=== PATIENT | male | born 1960 | race Caucasian/White ===

== ENCOUNTER 2017-02-20 18:29 | Inpatient (IN) | payer MEDICARE, OTHER ==
[~2017-02-20] VITALS: Ht 177.8 cm; Wt 151.3 kg
[2017-02-20 18:58] LABS: AADO2 Arterial 556.6 mmHg (7.0-24.0); Allen Test ACCEPTAB; Arterial Base Excess 8.6 mmol/L (-3.0-3); Arterial COHb 0.9 % (0.0-3.0); Arterial Fraction of Oxyhgb 96.7 % (93.0-99.0); Arterial HCO3 34.1 mmol/L (22.0-26.0); Arterial MetHb 0.2 % (0.0-1.5); Arterial Total Hemglobin 9.2 g/dl (12.0-18.0); MODE MASK - NRB
[2017-02-20 19:22] LABS: ABNORMAL IP MESSAGE 1; BASOPHILS % 0.4 % (0.0-2.0); EOSINOPHILS # 0.2 10^3/ul (0.0-0.5); EOSINOPHILS % 4.8 % (0.0-7.0); HEMOGLOBIN 7.8 g/dl (14.0-18.0); LYMPHOCYTES # 0.3 10^3/ul (0.8-2.9); LYMPHOCYTES % 7.1 % (15.0-51.0); MEAN CORPUSCULAR HEMOGLOBIN 29.2 pg (29.0-33.0); MEAN CORPUSCULAR VOLUME 97.4 fl (82.0-101.0); MEAN PLATELET VOLUME 10.2 fl (7.4-10.4); MONOCYTE # 0.4 10^3/ul (0.3-0.9); MONOCYTES % 9.2 % (0.0-11.0); NEUTROPHIL # 3.7 10^3/ul (1.6-7.5); NEUTROPHILS % 78.1 % (39.0-77.0); PLATELET COUNT 91 10^3/UL (140-415); POSITIVE DIFF @See below; RED BLOOD COUNT 2.67 10^6/ul (4.70-6.10); RED CELL DISTRIBUTION WIDTH 15.6 % (11.5-14.5); WHITE BLOOD COUNT 4.8 10^3/ul (4.8-10.8)
[2017-02-20 19:37] LABS: ADD UMIC YES; UR ASCORBIC ACID NEGATIVE (NEGATIVE); UR BACTERIA FEW /HPF (NONE SEEN); UR BILIRUBIN (Dip) NEGATIVE (NEGATIVE); UR BLOOD (Dip) 3+ mg/dL (NEGATIVE); UR CLARITY SLIGHTLY CLOUDY (CLEAR); UR COLOR AMBER (YELLOW); UR GLUCOSE (Dip) NEGATIVE (NEGATIVE); UR KETONES (Dip) NEGATIVE (NEGATIVE); UR LEUKOCYTE ESTERASE (Dip) TRACE Leu/ul (NEGATIVE); UR NITRITE (Dip) NEGATIVE (NEGATIVE); UR RBC > 182 /HPF (0-5); UR SPECIFIC GRAVITY (Dip) 1.014 (1.003-1.030); UR TOTAL PROTEIN (Dip) 2+ mg/dl (NEGATIVE); UR UROBILINOGEN (Dip) 1+ mg/dL (NEGATIVE)
[2017-02-20 19:39] LABS: INR 1.61; PROTIME 19.3 Sec (12.2-14.2); PT RATIO 1.5
[2017-02-20 19:40] LABS: PARTIAL THROMBOPLASTIN TIME 41.8 Sec (25.0-35.0)
[2017-02-20 19:46] LABS: ALBUMIN 3.4 g/dl (3.3-4.9); ALBUMIN/GLOBULIN RATIO 0.89; BILIRUBIN,INDIRECT 1.9 mg/dl (0-1.1); BILIRUBIN,TOTAL 1.9 mg/dl (0.2-1.3); CALCIUM 9.1 mg/dl (8.4-10.2); CREATININE 1.49 mg/dl (0.61-1.24); POTASSIUM 4.1 mmol/L (3.5-5.1); TOTAL PROTEIN 7.2 g/dl (6.1-8.1)
--- NOTE | 2017-02-20 19:47 | RADRPT ---
PROCEDURE: XR Chest. CLINICAL INDICATION: Possible sepsis. TECHNIQUE: Single frontal view of the chest COMPARISON: None. FINDINGS: Cardiomegaly with atherosclerotic calcifications in the thoracic aorta. Bilateral patchy air space d isease, greater at lung bases, greatest at the right lung base with a small right pleural effusion. Findings suggest bilateral patchy pneumonias. No evident pneumothorax. The osseous structures and so ft tissues are unremarkable. IMPRESSION: Bilateral patchy pneumonias with small right pleural effusion. RPTAT: UU Physician Dolly Date Time Electronically viewed and signed by Physician Dolly on 02/20/2017 19:47 RS/
[2017-02-20 19:58] LABS: TROPONIN-I 0.039 ng/ml (0.00-0.12)
[2017-02-20] MEDS ORDERED: IPRATROPIUM (NEB) 0.5 MG/2.5 ML AMP NEB STA (20:25)
[2017-02-20] MEDS ORDERED: PIPER-TAZO 3.375 GM IV (PMX) 50 ML IVPB STA (20:25)
[2017-02-20] MEDS ORDERED: VANCOMYCIN 1 GM (PMX) 250 ML IVPB STA (20:25)
[2017-02-20] MEDS ORDERED: ALBUTEROL 0.5% (NEB) 2.5 MG/0.5 ML AMP NEB STA (20:25)
[2017-02-20] MEDS ORDERED: IPRATROPIUM (NEB) 0.5 MG/2.5 ML AMP ONE (20:29)
[2017-02-20] MEDS ORDERED: ALBUTEROL 0.5% (NEB) 2.5 MG/0.5 ML AMP ONE (20:29)
[2017-02-20] MEDS ORDERED: LEVOFLOXACIN 750MG/D5W (PMX) 150 ML IVPB STA (20:43)
[2017-02-20] MEDS ORDERED: HYDROCODONE/APAP (10/325) TAB PO ONE (21:00)
[2017-02-20] MEDS ORDERED: ONDANSETRON 4 MG INJ IV PRN ×2 (21:00→23:30)
[2017-02-20] MEDS ORDERED: ACETAMINOPHEN 325 MG TAB PO PRN ×2 (21:00→23:30)
--- NOTE | 2017-02-20 21:35 | ERD ---
ER Documentation Chief Complaint Chief Complaint shortness of breath- mild distress HPI This is a 56-year-old male presented to the emergency department from [facility] with difficulty in breathing. The patient was recently discharged from [facility] after he been in the emergency department for roughly 1 month and treated for pneumonia. The patient is taking levofloxacin 500 mg once daily to treat the pneumonia. Indicates he has a history of ulcers that have been chronic for several years on his bilateral lower extremities at this time denies any leg pain or swelling. The patient has a history of morbid obesity as well as sleep apnea and complains that he feels his dyspnea has significantly worsened over the past several hours. EMS indicated that the patient was satting at 97% on room air and in route started to have some worsening of his dyspnea. They placed him on low-flow supplemental oxygen as he did have an episode of hypoxia at roughly 90%. The patient denies any fever shaking or chills. He denies a headache. He has no chest pain or pressure that radiates to the neck arm back or jaw he is an insulin-dependent diabetic. ROS All systems reviewed and are negative except as per history of present illness. Allergies Allergies: Coded Allergies: lactulose (Unverified Allergy, Severe, WEAKNESS, PT TURN PALE SOB, ) Penicillins (Unverified Allergy, Mild, RASH/HIVES, ITCHINESS, 02/20/17) PMhx/Soc History of Surgery: Yes (BILAT LEGS,CATARACT, AND TONSILLECTOMY) Anesthesia Reaction: No Hx Neurological Disorder: No Hx Respiratory Disorders: Yes Hx Cardiac Disorders: No Hx Psychiatric Problems: No Hx Miscellaneous Medical Probl: No Hx Alcohol Use: No Hx Tobacco Use: No Smoking Status: Never smoker Physical Exam Vitals Vital Signs Date Time Temp Pulse Resp B/P Pulse Ox O2 Delivery O2 Flow Rate FiO2 02/20/17 20:30 89 22 98 Aerosol 8.0 Aerosol Mask 02/20/17 19:50 100 15.0 02/20/17 19:25 100 15.0 02/20/17 19:05 98 97 100 02/20/17 18:51 Non Rebreather 15 02/20/17 18:51 Non Rebreather 15.0 02/20/17 18:50 100 15.0 02/20/17 18:32 98.4 94 22 162/86 64 Physical Exam Constitutional:Well-developed. Well-nourished. In severe respiratory distress HEENT:Normocephalic. Atraumatic.Pupils were equal round reactive to light. Moist mucous membranes.No tonsillar exudates. Neck: No nuchal rigidity. No lymphadenopathy. No posterior cervical spine tenderness or step-offs. Respiratory: Not using accessory muscles of respiration. Speaking in full complete sentences. Wheezing heard on end auscultation bilaterally. Cardiovascular: Regular rate regular rhythm.No murmurs. No rubs were appreciated.S1, S2 normal. Distal pulses not palpable due to morbid obesity however Doppler pulses heard and present bilaterally. GI: Abdomen was obese so exam is limited due to body habitus. Nontender. Non Distended. No pulsatile abdominal masses or bruits. No rebound. No guarding. Bowel sounds were present and normal. Muscle skeletal: Full range of motion of both the upper extremities bilaterally. Patient has muscular strength 1 out of 5 in the bilateral lower extremities due to lymphedema and chronic ulcers with decreased mobility. Skin: No petechia, no purpura. No lesions on the palms or the soles of the feet. No maculopapular rash. Diffuse erythremia with multiple stage I ulcers on the lateral aspects of the bilateral lower extremities with no subcutaneous emphysema no pain out of proportion to physical exam and no fluctuance or induration. 1+ pitting edema of the bilateral lower extremities NEURO: Patient was alert, awake, orientated x3.No facial droop. Gait not observed as patient is unable to ambulate Result Diagram: 02/20/17184902/20/171849 Results 24 hrs Laboratory Tests Test 02/20/17 18:48 02/20/17 18:50 Blood Gas Specimen Source Blood arterial Arterial Blood Date Drawn 02/20/2017 6:53:54 PM Arterial Blood pH (Temp corrected) 7.428 Arterial Blood pCO2 (Temp correct) 52.8mmhg Arterial Blood pO2 (Temp corrected) 103.6mmHG Arterial Blood HCO3 34.1mmol/L Arterial Blood Base Excess 8.6mmol/L Arterial Blood Oxygen Saturation 97.8mmHG Marco Test ACCEPTAB Arterial Blood Gas Puncture Site Right Radial Arterial Blood Carboxyhemoglobin 0.9% Arterial Blood Methemoglobin 0.2% Blood Gas A-a O2 Differential 556.6mmHg Oxyhemoglobin Percent 96.7% Total Hemoglobin 9.2g/dl Blood Gas Temperature 37.0C Blood Gas Modality MASK - NRB FiO2 100.0% Blood Gas Notified Whom BR Blood Gas Notified Time 02/20/2017 6:58:21 PM White Blood Count 4.810^3/ul Red Blood Count 2.6710^6/ul Hemoglobin 7.8g/dl Hematocrit 26.0% Mean Corpuscular Volume 97.4fl Mean Corpuscular Hemoglobin 29.2pg Mean Corpuscular Hemoglobin Concent 30.0g/dl Red Cell Distribution Width 15.6% Platelet Count 9110^3/UL Mean Platelet Volume 10.2fl Neutrophils % 78.1% Lymphocytes % 7.1% Monocytes % 9.2% Eosinophils % 4.8% Basophils % 0.4% Nucleated Red Blood Cells % 0.0/100WBC Neutrophils # 3.710^3/ul Lymphocytes # 0.310^3/ul Monocytes # 0.410^3/ul Eosinophils # 0.210^3/ul Basophils # 0.010^3/ul Nucleated Red Blood Cells # 0.010^3/ul Prothrombin Time 19.3Sec Prothrombin Time Ratio 1.5 INR International Normalized Ratio 1.61 Activated Partial Thromboplast Time 41.8Sec Urine Color JESSICA Urine Clarity SLIGHTLY CLOUDY Urine pH 5.0 Urine Specific [place] 1.014 Urine Ketones NEGATIVEmg/dL Urine Nitrite NEGATIVEmg/dL Urine Bilirubin NEGATIVEmg/dL Urine Urobilinogen 1+mg/dL Urine Leukocyte Esterase TRACELeu/ul Urine Microscopic RBC > 182/HPF Urine Microscopic WBC 88/HPF Urine Bacteria FEW/HPF Urine Hemoglobin 3+mg/dL Urine Glucose NEGATIVEmg/dL Urine Total Protein 2+mg/dl Sodium Level 141mmol/L Potassium Level 4.1mmol/L Chloride Level 98mmol/L Carbon Dioxide Level 34mmol/L Anion Gap 13 Blood Urea Nitrogen 40mg/dl Creatinine 1.49mg/dl Glucose Level 119mg/dl Lactic Acid Level 1.1mmol/L Calcium Level 9.1mg/dl Total Bilirubin 1.9mg/dl Direct Bilirubin 0.00mg/dl Indirect Bilirubin 1.9mg/dl Aspartate Amino Transf (AST/SGOT) 42IU/L Alanine Aminotransferase (ALT/SGPT) 35IU/L Alkaline Phosphatase 108IU/L Troponin I 0.039ng/ml B-Type Natriuretic Peptide 2960PG/ML Total Protein 7.2g/dl Albumin 3.4g/dl Globulin 3.80g/dl Albumin/Globulin Ratio 0.89 Amylase Level 67U/L Lipase 246U/L Current Medications Medications (Trade) Dose Ordered Sig/Marina Route PRN Reason Start Time Stop Time Status Last Admin Dose Admin Vancomycin HCl 250 ml @ 125 mls/hr ONCE STAT IVPB 02/20/17 20:25 02/20/17 22:24 02/20/17 20:58 Piperacillin Sod/ Tazobactam Sod (Zosyn 3.375gm/ 50 ml (Pmx)) 50 ml @ 100 mls/hr ONCE STAT IVPB 02/20/17 20:25 02/20/17 20:54 UNV Albuterol (Proventil 0.5% (Neb)) 10 mg ONCE STAT NEB 02/20/17 20:25 02/20/17 20:37 DC 02/20/17 20:41 Ipratropium [place] (Atrovent 0.02% (Neb)) 0.5 mg ONCE STAT NEB 02/20/17 20:25 02/20/17 20:37 DC 02/20/17 20:39 Albuterol (Proventil 0.5% (Neb)) 2.5 mg STK-MED ONCE .ROUTE 02/20/17 20:29 02/20/17 20:30 DC Ipratropium [place] (Atrovent 0.02% (Neb)) 0.5 mg STK-MED ONCE .ROUTE 02/20/17 20:29 02/20/17 20:30 DC Ondansetron HCl (Zofran Inj) 4 mg ER BRIDGE PRN IV NAUSEA AND/OR VOMITING 02/20/17 21:00 02/21/17 20:59 Acetaminophen 650 mg 650 mg ER BRIDGE PRN PO MILD PAIN/FEVER 02/20/17 21:00 02/21/17 20:59 Levofloxacin/ Dextrose (Levaquin 750 Mg/ D5W 150 ml (Pmx)) 150 ml @ 100 mls/hr ONCE STAT IVPB 02/20/17 20:43 02/20/17 22:12 Acetaminophen/ Hydrocodone Bitart (Model (10/325)) 1 tab ONCE ONCE PO 02/20/17 21:00 02/20/17 21:01 DC 02/20/17 21:03 Procedures/MDM The patient presented to the emergency department with dyspnea. My differential diagnosis included but was not limited to upper airway obstruction, CHF, pulmonary embolism, cardiac ischemia, pneumonia, pneumothorax, anemia, drug overdose, pulmonary edema, COPD or asthma. Due to the patient's severe respiratory distress and concern for sleep apnea and due to narcosis I placed the patient on the BiPAP and obtained a blood gas that showed mild PCO2 of 52 and a pH of 7.4. The patient had significant improvement on the BiPAP. Chest radiograph ordered reviewed by myself as well as the radiologist did confirm pneumonia. The patient was treated for possible sepsis however his lactic acid was normal at this time and given that the patient has an allergy to penicillin was given levofloxacin and vancomyosin. Please note that a fluid bolus was not given to the patient due to the concern for fluid overload as the patient's BNP was elevated and he could have an underlying congestive heart failure. One view chest radiograph indicated the following: Bilateral patchy pneumonias with small right pleural effusion. 12 Lead EKG tracing ordered and reviewed by myself showed: Normal sinus rhythm of 91 bpm and no arrhythmia. WI interval normal. QRS duration normal. No ST segment elevation No ST segment depression. No changes consistent with acute ischemia. The patient was anemic with a hemoglobin of 7.8. Patient did not have any signs of an active upper or lower gastrointestinal bleed at this time. He was typed and screened however I did not administer a blood transfusion as I did not feel this was required at this time. The patient's hemoglobin will be followed closely upon admission. The patient also had a urinary tract infection. The patient also appeared to have prerenal azotemia and was given a liter bolus of normal saline but again was watched closely to prevent fluid overload The patient will go to the telemetry service in serious condition with an anticipated stay of greater than 2 midnights to the hospitalist Dr. Bermudez. Critical Care: Time: 50 minutes Treatments/Evaluations: Close monitoring and treatment of unstable vital signs, cardiorespiratory, and neurologic status, while maintaining tight balance of fluid, respiratory, and cardiac interventions. Time does not include performing any of the above billable procedures. Departure Diagnosis: Primary Impression: Pneumonia Pneumonia type: due to unspecified organism Laterality: bilateral Lung location: unspecified part of lung Qualified Code: J18.9 - Pneumonia of both lungs due to infectious organism, unspecified part of lung Additional Impressions: UTI (urinary tract infection) Urinary tract infection type: acute cystitis Hematuria presence: with hematuria Qualified Code: N30.01 - Acute cystitis with hematuria Respiratory distress Anemia Anemia type: iron deficiency Iron deficiency anemia type: unspecified iron deficiency Qualified Code: D50.9 - Iron deficiency anemia, unspecified iron deficiency anemia type Condition: Serious ANNE TRAN Feb 20, 2017 21:31
[2017-02-20 21:41] VITALS: TEMP 98.7
[2017-02-20 23:20] VITALS: BP 123/60; RESP 18
[2017-02-20] MEDS ORDERED: SOD CHLORIDE 0.9% 1,000 ML IV SCH (23:30)
[2017-02-20] MEDS ORDERED: LEVOFLOXACIN 500MG/D5W (PMX) 100 ML IVPB SCH (23:30)
[2017-02-20] MEDS ORDERED: morphine 2 MG INJ IV PRN (23:30)
[2017-02-20] MEDS ORDERED: NACL 0.9% 3 ML SYG IV SCH (23:30)
[2017-02-20] MEDS ORDERED: VANCOMYCIN IV PER PHARMACY XX SCH (23:30)
[2017-02-21] VITALS (13 sets, daily range): BP systolic 114–137; BP diastolic 59–94; PULSE 91–100; RESP 17–22; Ht 177.8 cm; Wt 151.3 kg
[2017-02-21] MEDS ORDERED: VANCOMYCIN 1 GM in NS 250 ML IVPB SCH ×2 (00:30→13:00)
[2017-02-21] MEDS: ALBUTEROL/IPRATROPIUM (NEB) 3 ML AMP HHN PRN ×2 (00:38→05:47)
[2017-02-21 02:22] LABS: AADO2 Arterial 422.4 mmHg (7.0-24.0); Allen Test ACCEPTAB; Arterial Base Excess 9.4 mmol/L (-3.0-3); Arterial COHb 0.9 % (0.0-3.0); Arterial Fraction of Oxyhgb 98.4 % (93.0-99.0); Arterial HCO3 35.3 mmol/L (22.0-26.0); Arterial MetHb 0.3 % (0.0-1.5); Arterial Total Hemglobin 8.2 g/dl (12.0-18.0); Blood Gas IEPAP 15/5; MODE MASK - BIPAP
--- NOTE | 2017-02-21 05:38 | HP ---
Date/Time of Note Date/Time of Note DATE: 02/21/17 TIME: 05:27 Assessment/Plan VTE Prophylaxis VTE Prophylaxis Intervention: heparin Lines/Catheters IV Catheter Type (from Nrsg): Peripheral IV Urinary Cath still in place: Yes Reason Cath still needed: terminal illness/intractable pain Assessment/Plan Assessment/Plan 1. Hypoxic and hypercapnic respiratory failure, secondary to bilateral pneumonia and KAYLEE - IV antibiotics. Patient is allergic to penicillin -Follow-up culture results -Positive pressure ventilation as needed -ABG in a.m. -Pulmonary consult 2. KAYLEE, secondary to obesity -Supplemental oxygen -PPV as needed 3. Normocytic anemia, evaluate for GI bleed and iron deficiency -Check iron profile, ferritin and FOBT -Check a.m. lab and transfuse if no change or worsening H&H 4. Morbid obesity with a BMI of 48 -Weight reduction is advised 5. Presumed CKD -Gentle hydration -Urine electrolytes, renal ultrasound and nephrology consult -If this turned out to be KOREY, this could be prerenal from possible GI bleed 6. Elevated BNP -2D echo -Not diuresis for now given elevated creatinine 7. Insulin-dependent diabetes -Check A1c -Insulin HPI/ROS Admit Date/Time Admit Date/Time Feb 20, 2017 at 20:38 Hx of Present Illness This is a 56-year-old morbidly obese male with a BMI of 48, with a history of KAYLEE, insulin-dependent diabetes and a bilateral lower extremity ulcers who was sent from [facility] for shortness of breath and hypoxia. He was recently admitted to [facility] with a diagnosis of pneumonia. When he presented to the ER, he was hypoxic with oxygen saturation of 64%. ABG shows a pH of 7.4, PCO2 53, PO2 104 and a bicarb 34 on 100% FiO2. Chest x-ray showed bilateral patchy pneumonias with small right pleural effusion. Lab shows a BNP of 3000, hemoglobin of 7.8, BUN 40 and a creatinine of almost 1.5 otherwise CBC and CMP are within acceptable range. . PMH/Family/Social Social History Smoking Status: Never smoker Exam/Review of Systems Vital Signs Vitals Vital Signs Date Time Temp Pulse Resp B/P Pulse Ox O2 Delivery O2 Flow Rate FiO2 02/21/17 04:13 99 02/21/17 04:00 97 Non Rebreather 15.0 02/21/17 03:33 98.2 20 136/72 02/21/17 02:49 100 Intake and Output 02/20/17 02/20/17 02/21/17 15:00 23:00 07:00 Intake Total 1000 ml Output Total 1550 ml Balance -550 ml Exam Constitutional: other (Morbidly obese male lying in bed. Currently on BiPAP) Head: normocephalic Respiratory: diminished breath sounds Cardiovascular: other (Tachycardic with regular rhythm) Gastrointestinal: other (Morbidly obese), soft Extremities: normal pulses Labs Result Diagram: 02/20/17184902/20/171849 Medications Medications Current Medications Ondansetron HCl (Zofran Inj) 4 mg Q6H PRN IV NAUSEA AND/OR VOMITING; Start 03/27 at 23:30 Acetaminophen (Tylenol Tab) 650 mg Q6H PRN PO PAIN LEVEL 1-3 OR FEVER; Start 02/20/17 at 23:30 Morphine Sulfate 2 mg 2 mg Q4H PRN IV PAIN LEVEL 7-10; Start 02/20/17 at 23:30 Levofloxacin/ Dextrose 100 ml @ 100 mls/hr Q24H IVPB ; Start 02/21/17 at 22:00 Vancomycin HCl (Vancocin) 250 ml @ 125 mls/hr Q12H IVPB ; Start 02/21/17 at 13 :00 IMANI HALL MD Feb 21, 2017 05:37
[2017-02-21] MEDS ORDERED: GLUCAGON 1 MG INJ IM PRN (06:00)
[2017-02-21] MEDS ORDERED: GLUCOSE GEL 15 GRAM TUBE BUCCAL PRN (06:00)
[2017-02-21] MEDS ORDERED: GLUCOSE GEL 15 GRAM TUBE PO PRN ×2 (06:00)
[2017-02-21] MEDS ORDERED: DEXTROSE 50% 50 ML SYRINGE IV PRN ×2 (06:00)
[2017-02-21 07:03] LABS: ABNORMAL IP MESSAGE 1; BASOPHILS % 0.4 % (0.0-2.0); EOSINOPHILS # 0.2 10^3/ul (0.0-0.5); EOSINOPHILS % 4.7 % (0.0-7.0); HEMATOCRIT 24.9 % (42.0-52.0); HEMOGLOBIN 7.1 g/dl (14.0-18.0); LYMPHOCYTES # 0.5 10^3/ul (0.8-2.9); LYMPHOCYTES % 9.6 % (15.0-51.0); MEAN CORPUSCULAR HEMOGLOBIN 27.8 pg (29.0-33.0); MEAN CORPUSCULAR HGB CONC 28.5 g/dl (32.0-37.0); MEAN CORPUSCULAR VOLUME 97.6 fl (82.0-101.0); MEAN PLATELET VOLUME 10.4 fl (7.4-10.4); MONOCYTE # 0.5 10^3/ul (0.3-0.9); MONOCYTES % 11.1 % (0.0-11.0); NEUTROPHIL # 3.4 10^3/ul (1.6-7.5); NEUTROPHILS % 73.6 % (39.0-77.0); PLATELET COUNT 82 10^3/UL (140-415); POSITIVE DIFF @See below; RED BLOOD COUNT 2.55 10^6/ul (4.70-6.10); RED CELL DISTRIBUTION WIDTH 15.8 % (11.5-14.5); WHITE BLOOD COUNT 4.7 10^3/ul (4.8-10.8)
[2017-02-21 07:22] LABS: IRON 38 ug/dl (35-150)
[2017-02-21 07:25] LABS: ALBUMIN 3.1 g/dl (3.3-4.9); ALBUMIN/GLOBULIN RATIO 0.79; BILIRUBIN,INDIRECT 1.5 mg/dl (0-1.1); BILIRUBIN,TOTAL 1.5 mg/dl (0.2-1.3); CALCIUM 9.1 mg/dl (8.4-10.2); CREATININE 1.43 mg/dl (0.61-1.24); POTASSIUM 4.1 mmol/L (3.5-5.1)
[2017-02-21 07:31] LABS: TOTAL IRON BINDING CAPACITY 356 ug/dl (241-421)
[2017-02-21 07:58] LABS: FERRITIN 86.9 ng/ml (11.1-264.0)
[2017-02-21 08:08] LABS: AADO2 Arterial 510.6 mmHg (7.0-24.0); Allen Test ACCEPTAB; Arterial Base Excess 8.5 mmol/L (-3.0-3); Arterial COHb 0.8 % (0.0-3.0); Arterial Fraction of Oxyhgb 97.8 % (93.0-99.0); Arterial HCO3 34.6 mmol/L (22.0-26.0); Arterial MetHb 0.2 % (0.0-1.5); Arterial Total Hemglobin 8.3 g/dl (12.0-18.0); MODE MASK - NRB
[2017-02-21] MEDS: INSULIN ASPART [NOVOLOG] 3 ML PEN SC SCH ×4 (08:56→21:00)
--- NOTE | 2017-02-21 09:21 | RADRPT ---
PROCEDURE: Retroperitoneal US. CLINICAL INDICATION: Renal insufficiency TECHNIQUE: Multiple sonographic images of the kidneys and retroperitoneum were obtained. The imag es were reviewed on a PACS workstation. COMPARISON: No prior studies are available for comparison. FINDINGS: The kidneys are normal in size, contour, cortical thickness and cortical echogenicity. The right kidney measures 12.3 cm. The left kidney measures 10.6 cm. There is a 1.4 cm simple cyst in the left kidney. There is a possible 6 mm stone in the right kidney. There is no evidence for hydronephrosis. The urinary bladder is decompressed by a Perla catheter. There is a small amount of ascites. RPTAT: AA IMPRESSION: Questionable 6 mm stone in the right kidney. Small simple cyst in the left kidney. No evidence of hydronephrosis. Small amount of ascites. .Atif Montejo MD, Date Time Electronically viewed and signed by .Atif Montejo MD, on 02/21/2017 09:21 .S/
[2017-02-21] MEDS: HYDROCODONE/APAP (5/325) TAB PO PRN ×3 (09:26→19:04)
[2017-02-21 09:38] LABS: POTASSIUM,URINE RANDOM 26.6 mmol/L (25-125)
[2017-02-21] MEDS: VANCOMYCIN 1.25 GM in SOD CHLORIDE 0.9% 250 ML IVPB SCH (13:25)
--- NOTE | 2017-02-21 15:52 | RADRPT ---
Echocardiogram Report Patient Name: ARNOLDO RIVERO Gender: Male Date: 1960 Study Date: 21-Feb-2017 Traffic Investigator: Marii Francisco [facility] Physician: IMANI HALL Quality: Adequate Procedures: Transthoracic echocardiogram with complete 2D, M-Mode, and doppler examination. Indications: Congestive Heart Failure, bnp. 2D/M Mode Doppler Measurement Value Normal Ranges Measurement Value Normal Ranges LVIDd 2D 5.3 3.5 - 5.6 cm DEWEY Vmax 2.0 cm2 LVIDs 2D 3.3 2.1 - 4.1 cm DEWEY VTI 2.0 cm2 LVPWd 2D 1.2 0.6 - 1.1 cm AV Mean Wilber 1.7 m/sec IVSd 2D 1.2 0.6 - 1.1 cm AV Mean PG 12.5 mmHg AoR Diam 2D 3.2 2.0 - 3.7 cm AV Peak Wilber 2.3 m/sec EDV 2D 134.4 cm3 AV Peak PG 21.8 mmHg ESV 2D 36.8 cm3 AV VTI 48.9 cm LA Dimen 2D 4.1 2.3 - 4.0 cm LVOT Mean Wilber 0.9 m/sec LVOT Diam 2.1 cm LVOT Mean PG 3.5 mmHg LVOT Peak Wilber 1.3 m/sec LVOT Peak PG 7.0 mmHg LVOT VTI 27.9 cm TR Peak Wilber 2.9 m/sec TR Peak PG 32.5 mmHg RVSP 48.0 mmHg Findings Left Ventricle: Normal left ventricular systolic function. Normal left ventricular cavity size. Mild concentric left ventricular hypertrophy. Ejection fraction is visually estimated at 55 %. Tissue Doppler/Mitral Doppler indices are consistent with impaired relaxation (Stage I diastolic dysfunction). Right Ventricle: Normal right ventricular size. Normal right ventricular systolic function. Pacemaker right heart. Left Atrium: There is mild enlargement of left atrium. Right Atrium: The right atrium is normal in size. Mitral Valve: Mitral valve leaflets appear mildly thickened. Mild mitral annular calcification. Mild mitral valve regurgitation. Aortic Valve: Aortic valve Max velocity 2.33 m/sec. Max PG 21.80 mmHg. Mean PG 12.50 mmHg. Aortic valve area 2.10 cm2. Aortic sclerosis without stenosis. Trace aortic valve regurgitation. Tricuspid Valve: Normal appearance of the tricuspid valve. Estimated peak PA systolic pressure 48 mmHg. There is mild to moderate tricuspid regurgitation. Pulmonic Valve: Normal pulmonic valve appearance. Pericardium: Normal pericardium with no significant pericardial effusion. Aorta: Normal aortic root. IVC: Dilated IVC without respiratory collapse consistent with elevated right atrial pressure. Conclusions 1.Normal left ventricular systolic function. Normal left ventricular cavity size. Mild concentric left ventricular hypertrophy. Ejection fraction is visually estimated at 55 %. Tissue Doppler/Mitral Doppler indices are consistent with impaired relaxation (Stage I diastolic dysfunction). 2.There is mild enlargement of left atrium. 3.Mitral valve leaflets appear mildly thickened. Mild mitral annular calcification. Mild mitral valve regurgitation. 4.Aortic valve Max velocity 2.33 m/sec. Max PG 21.80 mmHg. Mean PG 12.50 mmHg. Aortic valve area 2.10 cm2. Aortic sclerosis without stenosis. Trace aortic valve regurgitation. 5.Normal appearance of the tricuspid valve. Estimated peak PA systolic pressure 48 mmHg. There is mild to moderate tricuspid regurgitation. 6.Dilated IVC without respiratory collapse consistent with elevated right atrial pressure. Electronically Signed By: Taras Olivarez 21-Feb-2017 15:52:12 -0800 Patient Name: ARNOLDO RIVERO Study Date: 21-Feb-2017 [id number]
--- NOTE | 2017-02-21 19:57 | CONS ---
DATE OF ADMISSION: 02/20/2017 DATE OF CONSULTATION: TYPE OF CONSULTATION: Pulmonary. REASON FOR CONSULTATION: Shortness of breath. Thank you, Dr. Bermudez, for this consultation. HISTORY OF PRESENT ILLNESS: This is a 56-year-old gentleman with obstructive sleep apnea, morbid ob esity, type 2 diabetes, admitted with increasing shortness of breath, orthopnea, PND, found on admis magdalena to have mild hypoxemia requiring supplemental O2, bilateral patchy infiltrates and a small left pleural effusion. In addition, he had low hemoglobin and BNP elevated at 3000. PAST MEDICAL HISTORY: As above. MEDICATIONS: Per chart. ALLERGIES: NONE. SOCIAL HISTORY: He is a nonsmoker. No alcohol. No history of drug use. FAMILY HISTORY: Noncontributory. REVIEW OF SYSTEMS: A 12-point review of systems negative other than that mentioned above. PHYSICAL EXAMINATION: GENERAL: Morbidly obese gentleman with a BMI of 48, awake, alert, oriented, talking in full and com plete sentences. VITAL SIGNS: Currently afebrile. Pulse is 100, blood pressure 114/60, O2 sat 96% on 6 liters. NECK: Supple. No JVD or lymphadenopathy. CARDIAC: S1, S2, no added sounds or murmurs. CHEST: Diminished air entry bilaterally. ABDOMEN: Soft, nontender. No guarding or rebound. EXTREMITIES: No cyanosis, clubbing or edema. NEUROLOGIC: Generalized weakness. LABORATORIES: White count 4.7, hemoglobin 7.1, platelets of 82. BUN 40, creatinine 1.43. Arterial blood gas: PH 7.39, pCO2 of 58, pO2 of 144. showed patchy infiltrates, small left effusion. Renal ultrasound: No hydronephrosis. IMPRESSION AND PLAN: 1. Acute on chronic hypoxemic respiratory failure, likely a combination of healthcare-associated pn eumonia and congestive heart failure. 2. Anemia of unclear etiology, concerning for gastrointestinal bleed. MCV is on the normal side. B12 and folate should be checked. 3. Morbid obesity with underlying obstructive sleep apnea. 4. Diabetes mellitus. The patient will require: 1. Noninvasive positive pressure ventilation. 2. Workup for anemia. 3. Supplemental O2. 4. Bronchodilators. 5. Antibiotics. 6. Outpatient sleep study. 7. Deep venous thrombosis and gastrointestinal prophylaxis. Dictated By: AZRA CASSIDY/AMY Conf#: [id number] [facility]#: [id number] CC: IMANI BERMUDEZ MD;*[facility]*
[2017-02-21] MEDS ORDERED: HYDROCORTISONE 2.5% 20 GM CR TOP ONE (20:00)
[2017-02-21] MEDS ORDERED: LEVOFLOXACIN 500MG/D5W (PMX) 100 ML IVPB SCH (22:00)
[2017-02-21] MEDS ORDERED: CLOTRIMAZOLE 1% 30 GM CR TOP ONE (22:00)
[2017-02-21] MEDS: FLUCONAZOLE 100 MG TAB PO SCH (22:29)
[2017-02-21] MEDS: INSULIN GLARGINE [LANtus] 3 ML PEN SC SCH (22:31)
[2017-02-22] VITALS (10 sets, daily range): BP systolic 23–131; BP diastolic 55–67; PULSE 88–96; RESP 17–19
--- NOTE | 2017-02-22 00:52 | CONS ---
DATE OF ADMISSION: 02/20/2017 DATE OF CONSULTATION: 02/21/2017 REFERRING PHYSICIAN: Dr. Imani Bermudez REASON FOR CONSULTATION: Bilateral lower extremity cellulitis with epidermolysis of the skin. HISTORY OF PRESENT ILLNESS: This is a 56-year-old male in telemetry admitted for hypoxic and hyperc apnic respiratory failure secondary to bilateral pneumonia. The patient with bilateral lower extrem ity cellulitis with diabetic skin ulcer to the left lower leg. The patient is currently on Levaquin and vancomycin. Denies any fever, nausea, vomiting. PAST MEDICAL HISTORY: Diabetes, obesity, sleep apnea. ALLERGIES. LACTULOSE, PENICILLIN. PAST SURGICAL HISTORY: Bilateral lower legs, cataract surgery, tonsillectomy. SOCIAL HISTORY: Denies any tobacco use. PHYSICAL EXAMINATION: VITAL SIGNS: Temperature 98, pulse is 93, respiratory rate 17, blood pressure 125/66, pulse ox is 9 8%. GENERAL: Patient lying supine, morbidly obese, currently on BiPAP. HEENT: Head is normocephalic. Trachea midline. EXTREMITIES: Patient with bilateral lower extremity lymphedema. There is epidermolysis of the skin on the left anterior lower leg. There is eschars with the presence of serous drainage, localized e rythema. The patient with a 2+ popliteal, DP pulses bilaterally. The patient with 2+ pitting edema . SKIN: Has lipodermatosclerosis. The patient with severe mycotic nails. No signs of heel pressure sores. LABORATORY DATA: Blood cultures no growth. Urine cultures no growth. Renal ultrasound: Questiona ble 6 mm stone in the right kidney, small simple cyst of the left kidney. No hydronephrosis. Chest x-ray with bilateral patchy pneumonias with small right pleural effusion. ASSESSMENT: 1. Lymphedema with left lower extremity ulcerations. 2. Cellulitis. 3. Onychomycosis. 4. Hypoxic and hypercapnic respiratory failure because of morbid obesity. PLAN: The patient seen and evaluated, reviewed labs. Obtained cultures from draining sores on the left lower extremity and cover for gram-negative rods. Recommend daily cleansing and chlorhexidine, and apply Silvadene to the wounds, hydrocortisone to the periphery of the wounds in the bilateral l ower extremities and recommended oral and topical antifungal. The patient at high risk for decubitu s. Recommend close monitoring. The patient has a pending 2D echo. Dictated By: ROSE MARY ESTEVEZ DPM RB/NTS Conf#: [id number] [facility]#: [id number] CC: IMANI BERMUDEZ MD;*End*
--- NOTE | 2017-02-22 01:30 | CONS ---
DATE OF ADMISSION: 02/20/2017 DATE OF CONSULTATION: NEPHROLOGY CONSULTATION REASON FOR CONSULTATION: Acute kidney injury. REQUESTING PHYSICIAN: Dr. Bermudez HISTORY OF PRESENT ILLNESS: This is a 56-year-old morbidly obese man with a past medical history of obstructive sleep apnea, history of diabetes, history of cirrhosis per patient, history of lower ex tremity ulcers, who presents to [facility] from a longterm facility due to shortness of breath. The patient was recently admitted to [facility] with diagnosis of pneumo brian. He was subsequently treated and discharged to a longterm facility. The patient now pre sents with hypoxemia, worsening shortness of breath. Upon admission to emergency room, the patient was saturating 64%, he had an ABG which showed a pH of 7.4, pCO2 of 52, pO2 of 104. In the emergenc y room, the patient had a chest x-ray which showed patchy infiltrates consistent with pneumonia, lik ally small pleural effusion. In the emergency room, laboratory data shows a BUN of 50, creatinine 1. 5. He was treated with IV antibiotics in the emergency room, nebulizers and admitted to telemetry for further evaluation. In terms of the patient's renal history, the patient states he has had previous history of CKD, whic h he attributes to underlying cirrhosis. The patient states that his cirrhosis decompensation inclu ding ascites in the past. He denied any hemoptysis, hematemesis, hematochezia. PAST MEDICAL HISTORY: As stated above, history of diabetes, morbid obesity, sleep apnea, lower extr emity wounds, questionable history of cirrhosis. PAST SURGICAL HISTORY: Status post lower extremity surgery, cataracts, tonsillectomy. FAMILY HISTORY: Noncontributory. SOCIAL HISTORY: Does not actively drink, smoke or do drugs. MEDICATIONS: Have been reviewed. ALLERGIES: PLEASE SEE LIST. REVIEW OF SYSTEMS: A 14-point review of systems was conducted. Pertinent positives stated in HPI, otherwise negative. PHYSICAL EXAMINATION: VITAL SIGNS: Blood pressure is 125/66, respiration is 17, pulse 93, temperature 98.0. HEENT: Head is normocephalic. NECK: Supple. HEART: Regular rate. LUNGS: Show diminished breath sounds at the base. ABDOMEN: Soft, nontender to palpation. No rebound or guarding. EXTREMITIES: Negative for clubbing, cyanosis. Positive edema. Positive lower extremity wounds. DERMATOLOGIC: No rashes. MUSCULOSKELETAL: No joint effusions. NEUROLOGIC: No focal deficits. LABORATORY DATA: Shows a white count of 4.7, hemoglobin 7.1, platelet count is 82. Sodium 142, pot assium of 4.1, chloride 100, bicarbonate 36, BUN 20, creatinine 1.43. Total bilirubin 1.5. ASSESSMENT AND PLAN: This is a 56-year-old male who presents with: 1. Nonoliguric acute kidney injury on top of chronic kidney disease with unknown baseline creatinin e. Etiology of acute kidney injury is likely secondary to hemodynamics. Other possibilities includ e an interstitial and/or acute tubular injury. Patient's urinalysis shows pyuria, hematuria and pro teinuria which can be consistent with an interglomerular process. Plan at this point would be to co ntinue treatment plan, supportive care, renally dose all meds, continue antibiotic therapies, treat underlying pneumonia. The patient is currently on IV fluids. Would monitor closely for another 24 hours. The patient's 2D echo showed dilated IVC consistent with increased intervascular volume. Wo uld consider discontinuing IV fluids in the next 24 hours and possibly starting diuretic therapy. 2. Volume overload. The patient has noted lower extremity edema. The underlying etiology may be s econdary to congestive heart failure, questionable cirrhosis. The patient is currently on IV hydrat ion. Would monitor closely. Would consider discontinuing IV fluids in the next 24 hours if there i s no significant change in renal function. 3. Anemia. Monitor hemoglobin and hematocrit levels. 4. Mineral bone disorder. Monitor calcium and phosphorus levels. 5. Respiratory acidosis with appropriate compensation. We will continue to monitor. 6. Hypoxemic respiratory failure secondary to pneumonia and sleep apnea. Continue antibiotic thera py, nebulizers. 7. Obstructive sleep apnea. Continue CPAP. 8. Morbid obesity. Continue dietary modification. 9. Diabetes. Continue Accu-Cheks, insulin sliding scale. 10. Diastolic dysfunction. The patient had a 2D echo which showed ejection fraction 55% with impai red relaxation consistent with diastolic dysfunction. We will continue to monitor. Continue medica l management. Thank you, Dr. Bermudez, for this interesting consult. It will be a pleasure to follow patient with you throughout the hospital course. Dictated By: ADAN CORTÉS/AMY Conf#: [id number] DID#: [id number] CC: IMANI BERMUDEZ MD;*[facility]*
[2017-02-22] MEDS: VANCOMYCIN 1.25 GM in SOD CHLORIDE 0.9% 250 ML IVPB SCH (02:00)
[2017-02-22] MEDS: ACCU-CHEK XX SCH ×2 (02:00)
--- NOTE | 2017-02-22 07:08 | CONS ---
Date/Time of Note Date/Time of Note DATE: 02/22/17 TIME: 07:08 Assessment/Plan Assessment/Plan Chief Complaint/Hosp Course Patient with bilateral lower extremity lymphedema. There is epidermolysis of the skin on the left anterior lower leg. There is eschars with the presence of serous drainage, localized erythema. Has lipodermatosclerosis. Recommend daily cleansing and chlorhexidine, and apply Silvadene to the wounds, hydrocortisone to the periphery of the wounds in the bilateral lower extremities , and recommended oral and topical antifungal. The patient at high risk for decubitus. Recommend continued off-loading and close monitoring. Problems: Consultation Date/Type/Reason Admit Date/Time Feb 20, 2017 at 20:38 Initial Consult Date Type of Consultation: Podiatry: Dr.Belczyk castano Reason for Consultation B/Lymphedema with left lower extremity ulcerations. Exam/Review of Systems Vital Signs Vitals Vital Signs Date Time Temp Pulse Resp B/P Pulse Ox O2 Delivery O2 Flow Rate FiO2 02/22/17 06:29 4.0 02/22/17 04:28 97.9 58 18 23/55 99 02/21/17 20:00 Nasal Cannula 02/21/17 05:58 100 Intake and Output 02/21/17 02/21/17 02/22/17 15:00 23:00 07:00 Intake Total 820 ml Output Total 800 ml Balance 20 ml Exam EXTREMITIES: Patient with bilateral lower extremity lymphedema. There is epidermolysis of the skin on the left anterior lower leg. There is eschars with the presence of serous drainage, localized erythema. Has lipodermatosclerosis. The patient with severe mycotic nails. 2+ Popliteal and DP pulses bilaterally. 2+ pitting edema. No signs of heel pressure sores. Results Result Diagram: 02/21/17 0618 02/21/17 0618 Results 24 hrs Laboratory Tests Test 02/21/17 07:48 02/21/17 11:55 02/21/17 17:22 02/21/17 22:17 Bedside Glucose 119 148 147 154 Medications Medications Current Medications Ondansetron HCl (Zofran Inj) 4 mg Q6H PRN IV NAUSEA AND/OR VOMITING; Start 03/27 at 23:30 Acetaminophen (Tylenol Tab) 650 mg Q6H PRN PO PAIN LEVEL 1-3 OR FEVER; Start 02/20/17 at 23:30 Morphine Sulfate 2 mg 2 mg Q4H PRN IV PAIN LEVEL 7-10; Start 02/20/17 at 23:30 Levofloxacin/ Dextrose (Levaquin 500mg/ D5W 100 ml (Pmx)) 100 ml @ 100 mls/hr Q24H IVPB Last administered on 02/21/17 22:27; Admin Dose 100 MLS/HR; Start 02/21/17 at 22:00 Influenza Virus Vaccine (Fluzone) 0.5 ml ONCE ONCE IM* ; Start 02/22/17 at 09: 00; Stop 02/22/17 at 09:01 Diagnostic Test (Pha) (Accu-Chek) 1 ea 02 XX ; Start 02/22/17 at 02:00 Insulin Glargine (Lantus) 10 unit DAILY@20 SC Last administered on 02/21/17 22:31; Admin Dose 10 UNIT; Start 02/21/17 at 20:00 Diagnostic Test (Pha) (Accu-Chek) 1 ea 02 XX ; Start 02/22/17 at 02:00 Miscellaneous Information 1 ea NOTE XX ; Start 02/21/17 at 06:00 Glucose (Glutose) 15 gm Q15M PRN PO DECREASED GLUCOSE; Start 02/21/17 at 06:00 Glucose (Glutose) 22.5 gm Q15M PRN PO DECREASED GLUCOSE; Start 02/21/17 at 06: 00 Dextrose (D50w Syringe) 25 ml Q15M PRN IV DECREASED GLUCOSE; Start 02/21/17 at 06:00 Dextrose (D50w Syringe) 50 ml Q15M PRN IV DECREASED GLUCOSE; Start 02/21/17 at 06:00 Glucagon (Glucagen) 1 mg Q15M PRN IM DECREASED GLUCOSE; Start 02/21/17 at 06: 00 Glucose (Glutose) 15 gm Q15M PRN BUCCAL DECREASED GLUCOSE; Start 02/21/17 at 06:00 Acetaminophen/ Hydrocodone Bitart 1 tab 1 tab Q4H PRN PO PAIN LEVEL 4-6 Last administered on 02/21/17 19:04; Admin Dose 1 TAB; Start 02/21/17 at 09:30 Vancomycin HCl/ Sodium Chloride (Vancocin/NS) 250 ml @ 83.333 mls/ hr Q12H IVPB Last administered on 02/22/17 02:00; Admin Dose 83.333 MLS/HR; Start at 13:00 Miscellaneous Information (*Rx Drug Level Order Reminder*) VANCO TR LEVEL PRIOR... ONCE ONCE XX ; Start 02/22/17 at 12:00; Stop 02/22/17 at 12:01 Fluconazole (Diflucan) 100 mg DAILY PO Last administered on 02/21/17 22:29; Admin Dose 100 MG; Start 02/21/17 at 21:00 Silver Sulfadiazine (Thermazene 1% 25 Gm) 1 applic DAILY TOP ; Start 02/22/17 at 09:00 SHANIQUA BEDOYA DPM Feb 22, 2017 07:08
[2017-02-22] MEDS: INSULIN ASPART [NOVOLOG] 3 ML PEN SC SCH ×4 (07:55→20:15)
[2017-02-22 08:15] LABS: ABNORMAL IP MESSAGE 1; BASOPHILS % 0.2 % (0.0-2.0); EOSINOPHILS # 0.3 10^3/ul (0.0-0.5); EOSINOPHILS % 6.9 % (0.0-7.0); HEMOGLOBIN 7.5 g/dl (14.0-18.0); LYMPHOCYTES # 0.4 10^3/ul (0.8-2.9); LYMPHOCYTES % 9.7 % (15.0-51.0); MEAN CORPUSCULAR HEMOGLOBIN 28.2 pg (29.0-33.0); MEAN CORPUSCULAR HGB CONC 28.8 g/dl (32.0-37.0); MEAN CORPUSCULAR VOLUME 97.7 fl (82.0-101.0); MEAN PLATELET VOLUME 9.5 fl (7.4-10.4); MONOCYTE # 0.4 10^3/ul (0.3-0.9); NEUTROPHIL # 3.1 10^3/ul (1.6-7.5); PLATELET COUNT 83 10^3/UL (140-415); POSITIVE DIFF @See below; RED BLOOD COUNT 2.66 10^6/ul (4.70-6.10); RED CELL DISTRIBUTION WIDTH 15.8 % (11.5-14.5); WHITE BLOOD COUNT 4.2 10^3/ul (4.8-10.8)
[2017-02-22 08:33] LABS: HDL CHOLESTEROL 18 mg/dl (28-71); MAGNESIUM 1.9 mg/dl (1.7-2.5); PHOSPHORUS 3.9 mg/dl (2.5-4.9); TRIGLYCERIDES 43 mg/dl (0-149)
[2017-02-22 08:37] LABS: ALBUMIN 3.2 g/dl (3.3-4.9); ALBUMIN/GLOBULIN RATIO 0.84; BILIRUBIN,INDIRECT 1.5 mg/dl (0-1.1); BILIRUBIN,TOTAL 1.5 mg/dl (0.2-1.3); CALCIUM 8.9 mg/dl (8.4-10.2); CREATININE 1.38 mg/dl (0.61-1.24); POTASSIUM 4.1 mmol/L (3.5-5.1)
[2017-02-22 08:43] LABS: B-TYPE NATRIURETIC PEPTIDE 2390 PG/ML (0-125)
[2017-02-22] MEDS: CLOTRIMAZOLE 1% 30 GM CR TOP SCH (08:52)
[2017-02-22] MEDS: SILVER SULFADIAZINE 1% 25 GM CR TOP SCH (08:53)
[2017-02-22] MEDS: FLUCONAZOLE 100 MG TAB PO SCH (08:53)
[2017-02-22] MEDS: HYDROCORTISONE 2.5% 20 GM CR TOP SCH (08:53)
[2017-02-22 08:54] LABS: CHOLESTEROL < 50 mg/dl (100-200)
[2017-02-22] MEDS ORDERED: INFLUENZA VIRUS VACCINE 0.5 ML (DISPENSING) IM* ONE (09:00)
--- NOTE | 2017-02-22 09:27 | PN ---
DATE: 02/22/2017 SUBJECTIVE: The patient is stable. No events overnight. No fevers, chills, nausea, vomiting. OBJECTIVE: VITAL SIGNS: Blood pressure is 131/66, temperature 98.2, pulse 96, respirations 17. HEENT: Head is normocephalic. NECK: Supple. HEART: Regular rate. LUNGS: Show diminished breath sounds at base. ABDOMEN: Soft, nontender to palpation. No rebound or guarding. EXTREMITIES: Negative for clubbing, cyanosis. Positive edema. DERMATOLOGIC: No rashes. MUSCULOSKELETAL: No joint effusions. NEUROLOGIC: No change in exam. MEDICATIONS: The patient's medications have been reviewed. LABORATORY DATA: Currently pending. Repeat urinalysis is pending. ASSESSMENT AND PLAN: 1. Nonoliguric acute kidney injury on top of chronic kidney disease with unknown baseline creatinin e. Etiology of acute kidney injury is secondary to hemodynamics. Other possibilities such as inter stitial process and or acute tubular injury or consideration given the patient's initial urinalysis. Possible hepatorenal syndrome is also a consideration as the patient states he has underlying cirr hosis and patient's urinalysis shows a phenol less than 1% consistent with a decreased effective art erial volume state, consistent in cirrhotic patients. Plan at this point is to repeat urinalysis. We will check urine electrolytes. Would otherwise continue current treatment plan, supportive care, renally dose all meds. Will follow up renal panel. 2. Volume overload. Etiology may be multifactorial secondary to possible cirrhosis, congestive hea rt failure, lymphedema. The patient's 2D echo was reviewed. It showed dilated inferior vena cava c onsistent with volume overloaded state. At this point, would recommend to discontinue IV fluids and may consider a course of diuretic therapy if renal function remains stable. 3. Anemia. Monitor hemoglobin and hematocrit levels. 4. Mineral bone disorder. Monitor calcium and phosphorus levels. 5. Respiratory acidosis with appropriate compensation. 6. Acute hypoxemic respiratory failure secondary to pneumonia, sleep apnea. Continue current antib iotic regimen. 7. Obstructive sleep apnea. Continue CPAP. 8. Morbid obesity. Continue dietary modification. 9. Diabetes. Continue Accu-Cheks, insulin sliding scale. 10. Diastolic heart dysfunction. Continue medical management. Dictated By: ADAN CORTÉS/AMY Conf#: [id number] [facility]#: [id number]
--- NOTE | 2017-02-22 10:52 | PN ---
Date/Time of Note Date/Time of Note DATE: 02/22/17 TIME: 10:50 Assessment/Plan VTE Prophylaxis VTE Prophylaxis Intervention: contraindicated Lines/Catheters [facility] Peripheral IV Urinary Cath still in place: Yes Reason Cath still needed: other (indicate) Assessment/Plan Chief Complaint/Hosp Course 1. Acute on chronic respiratory failure. Hypoxic and hypercapnic. Continue inhaled bronchodilators. Continue supplemental oxygen. Continue non-invasive positive pressure ventilation as needed. The patient being followed by pulmonology. 2. Bilateral infiltrates on chest x-ray. Fluid versus pneumonia. Continue empiric antibiotics. Diuresis as per nephrology. 3. Diabetes mellitus. Continue sliding scale insulin along with basal insulin. Hemoglobin A1c within normal limits. Blood sugars well controlled. 4. Acute on chronic kidney disease. The patient being followed by nephrology. Use nephrotoxic drugs with caution. 5. Diastolic heart failure. Continue diuresis as the renal function allows. 6. Pulmonary hypertension. PA systolic pressure 48 mmHg. Continue supplemental oxygen. 7. Liver cirrhosis. Will resume the patient's Rifaximin. 8. Pancytopenia. Most probably secondary to underlying liver cirrhosis. Continue to monitor. 9. Dyslipidemia. Low HDL with unmeasured LDL. 10. Morbid obesity. 11. Bilateral lower extremity lymphedema with chronic bilateral lower extremity ulcerations. The patient being followed by podiatry. Local wound care as per podiatry. 12. MRSA colonization of the nares. Will start the patient on Bactroban. 13. Fluids, electrolytes, and nutrition. Carbohydrate controlled diet. 14. DVT prophylaxis. Contraindicated. 15. Plan. Continue antimicrobials. Diuresis as per nephrology. Physical therapy. Case discussed with Dr. Rice. Problems: Subjective 24 Hr Interval Summary Free Text/Dictation Complains of dyspnea. Exam/Review of Systems Vital Signs Vitals Vital Signs Date Time Temp Pulse Resp B/P Pulse Ox O2 Delivery O2 Flow Rate FiO2 02/22/17 08:07 96 02/22/17 07:24 98.2 17 131/66 97 02/22/17 06:29 4.0 02/21/17 20:00 Nasal Cannula 02/21/17 05:58 100 Intake and Output 02/21/17 02/21/17 02/22/17 15:00 23:00 07:00 Intake Total 820 ml 750 ml Output Total 800 ml 900 ml Balance 20 ml -150 ml Exam General: Morbidly obese 56 year-old male lying in bed in mild respiratory distress. HEENT: Normocephalic, atraumatic. Eyes: Anicteric sclerae, conjunctivae clear. ENT: Nasal septum midline, oral mucosa moist. Neck supple, no JVD noticed. Respiratory: Bilaterally diminished breath sounds. Use of accessory muscles of respiration. Coarse breath sounds. Cardiovascular: S1, S2 heard. Regular rate and rhythm. Abdomen: Nontender and distended. Bowel sounds positive in all 4 quadrants. Genitourinary: Deferred. Extremities: Bilateral lower extremity 2-3+ pitting edema. Neurologic: Cranial nerves II through XII grossly intact. The patient is awake, alert, and oriented. Skin: Chronic ulcers of bilateral lower extremities. Results Result Diagram: 02/22/17 0733 02/22/17 0733 Results 24 hrs Laboratory Tests Test 02/21/17 11:55 02/21/17 17:22 02/21/17 22:17 02/22/17 07:33 Bedside Glucose 148 147 154 White Blood Count 4.2 L Red Blood Count 2.66 L Hemoglobin 7.5 L Hematocrit 26.0 L Mean Corpuscular Volume 97.7 Mean Corpuscular Hemoglobin 28.2 L Mean Corpuscular Hemoglobin Concent 28.8 L Red Cell Distribution Width 15.8 H Platelet Count 83 L Mean Platelet Volume 9.5 Neutrophils % 73.0 Lymphocytes % 9.7 L Monocytes % 10.0 Eosinophils % 6.9 Basophils % 0.2 Nucleated Red Blood Cells % 0.0 Neutrophils # 3.1 Lymphocytes # 0.4 L Monocytes # 0.4 Eosinophils # 0.3 Basophils # 0.0 Nucleated Red Blood Cells # 0.0 Sodium Level 142 Potassium Level 4.1 Chloride Level 99 Carbon Dioxide Level 35 H Anion Gap 12 Blood Urea Nitrogen 36 H Creatinine 1.38 H Glucose Level 107 Hemoglobin A1c 5.6 Calcium Level 8.9 Phosphorus Level 3.9 Magnesium Level 1.9 Total Bilirubin 1.5 H Direct Bilirubin 0.00 Indirect Bilirubin 1.5 H Aspartate Amino Transf (AST/SGOT) 36 Alanine Aminotransferase (ALT/SGPT) 31 Alkaline Phosphatase 95 B-Type Natriuretic Peptide 2390 H Total Protein 7.0 Albumin 3.2 L Globulin 3.80 H Albumin/Globulin Ratio 0.84 Triglycerides Level 43 Cholesterol Level < 50 L LDL Cholesterol, Calculated HDL Cholesterol 18 L Cholesterol/HDL Ratio Thyroid Stimulating Hormone (TSH) 5.810 H Free Thyroxine 1.35 Test 02/22/17 07:59 Bedside Glucose 116 Medications Medications Current Medications Ondansetron HCl (Zofran Inj) 4 mg Q6H PRN IV NAUSEA AND/OR VOMITING; Start 03/27 at 23:30 Acetaminophen (Tylenol Tab) 650 mg Q6H PRN PO PAIN LEVEL 1-3 OR FEVER; Start 02/20/17 at 23:30 Morphine Sulfate 2 mg 2 mg Q4H PRN IV PAIN LEVEL 7-10; Start 02/20/17 at 23:30 Levofloxacin/ Dextrose (Levaquin 500mg/ D5W 100 ml (Pmx)) 100 ml @ 100 mls/hr Q24H IVPB Last administered on 02/21/17 22:27; Admin Dose 100 MLS/HR; Start 02/21/17 at 22:00 Diagnostic Test (Pha) (Accu-Chek) 1 ea 02 XX ; Start 02/22/17 at 02:00 Insulin Glargine (Lantus) 10 unit DAILY@20 SC Last administered on 02/21/17 22:31; Admin Dose 10 UNIT; Start 02/21/17 at 20:00 Diagnostic Test (Pha) (Accu-Chek) 1 ea 02 XX ; Start 02/22/17 at 02:00 Miscellaneous Information 1 ea NOTE XX ; Start 02/21/17 at 06:00 Glucose (Glutose) 15 gm Q15M PRN PO DECREASED GLUCOSE; Start 02/21/17 at 06:00 Glucose (Glutose) 22.5 gm Q15M PRN PO DECREASED GLUCOSE; Start 02/21/17 at 06: 00 Dextrose (D50w Syringe) 25 ml Q15M PRN IV DECREASED GLUCOSE; Start 02/21/17 at 06:00 Dextrose (D50w Syringe) 50 ml Q15M PRN IV DECREASED GLUCOSE; Start 02/21/17 at 06:00 Glucagon (Glucagen) 1 mg Q15M PRN IM DECREASED GLUCOSE; Start 02/21/17 at 06: 00 Glucose (Glutose) 15 gm Q15M PRN BUCCAL DECREASED GLUCOSE; Start 02/21/17 at 06:00 Acetaminophen/ Hydrocodone Bitart 1 tab 1 tab Q4H PRN PO PAIN LEVEL 4-6 Last administered on 02/21/17 19:04; Admin Dose 1 TAB; Start 02/21/17 at 09:30 Vancomycin HCl/ Sodium Chloride (Vancocin/NS) 250 ml @ 83.333 mls/ hr Q12H IVPB Last administered on 02/22/17 02:00; Admin Dose 83.333 MLS/HR; Start at 13:00 Miscellaneous Information (*Rx Drug Level Order Reminder*) VANCO TR LEVEL PRIOR... ONCE ONCE XX ; Start 02/22/17 at 12:00; Stop 02/22/17 at 12:01 Fluconazole (Diflucan) 100 mg DAILY PO Last administered on 02/22/17 08:53; Admin Dose 100 MG; Start 02/21/17 at 21:00 Silver Sulfadiazine (Thermazene 1% 25 Gm) 1 applic DAILY TOP Last administered on 02/22/17 08:53; Admin Dose 1 APPLIC; Start 02/22/17 at 09:00 Hydrocortisone (Hydrocortisone 2.5% Cr) 1 applic DAILY TOP Last administered on 02/22/17 08:53; Admin Dose 1 APPLIC; Start 02/22/17 at 09:00 Clotrimazole (Lotrimin Cr) 1 applic DAILY TOP Last administered on 02/22/17 08:52; Admin Dose 1 APPLIC; Start 02/22/17 at 09:00 IVNO ESPAÑA NP Feb 22, 2017 10:52
--- NOTE | 2017-02-22 10:57 | CONS ---
Date/Time of Note Date/Time of Note DATE: 02/22/17 TIME: 10:55 Assessment/Plan Assessment/Plan Additional Assessment/Plan Assessment and recommendations; 1. Patient admitted with combination of bilateral bronchial pneumonia with CHF with interval improvement. 2. Hypercapnia due to underlying sleep apnea, patient on intermittent BiPAP. 3. Likely underlying obesity/hypoventilation syndrome. 4. Chronic renal insufficiency. 5. Anemia. Continue current treatment. Obtain follow-up chest x-ray in 24 hours. Consultation Date/Type/Reason Admit Date/Time Feb 20, 2017 at 20:38 Initial Consult Date Type of Consultation: Pulmonary 24 HR Interval Summary Free Text/Dictation Patient's condition is stable. Remains awake and alert. According to him shortness of breath is improving. Patient requiring intermittent BiPAP. General exam; middle-aged male, morbidly obese, awake and alert. Currently in no distress. Exam/Review of Systems Vital Signs Vitals Vital Signs Date Time Temp Pulse Resp B/P Pulse Ox O2 Delivery O2 Flow Rate FiO2 02/22/17 08:07 96 02/22/17 07:24 98.2 17 131/66 97 02/22/17 06:29 4.0 02/21/17 20:00 Nasal Cannula 02/21/17 05:58 100 Intake and Output 02/21/17 02/21/17 02/22/17 15:00 23:00 07:00 Intake Total 820 ml 750 ml Output Total 800 ml 900 ml Balance 20 ml -150 ml Exam HEENT exam; supple neck, no JVD. No lymphadenopathy. Midline trachea. No thyromegaly. No neck masses. Chest exam; diminished but clear breath sounds. S1-S2 audible, no murmurs. Regular rhythm. Abdomen exam; soft, protuberant. Nontender. Bowel sounds audible. Extremity exam; no peripheral edema. CORPORATE PILOT exam; no focal motor deficit. Results Result Diagram: 02/22/17 0733 02/22/17 0733 Results 24 hrs Laboratory Tests Test 02/21/17 11:55 02/21/17 17:22 02/21/17 22:17 02/22/17 07:33 Bedside Glucose 148 147 154 White Blood Count 4.2 L Red Blood Count 2.66 L Hemoglobin 7.5 L Hematocrit 26.0 L Mean Corpuscular Volume 97.7 Mean Corpuscular Hemoglobin 28.2 L Mean Corpuscular Hemoglobin Concent 28.8 L Red Cell Distribution Width 15.8 H Platelet Count 83 L Mean Platelet Volume 9.5 Neutrophils % 73.0 Lymphocytes % 9.7 L Monocytes % 10.0 Eosinophils % 6.9 Basophils % 0.2 Nucleated Red Blood Cells % 0.0 Neutrophils # 3.1 Lymphocytes # 0.4 L Monocytes # 0.4 Eosinophils # 0.3 Basophils # 0.0 Nucleated Red Blood Cells # 0.0 Sodium Level 142 Potassium Level 4.1 Chloride Level 99 Carbon Dioxide Level 35 H Anion Gap 12 Blood Urea Nitrogen 36 H Creatinine 1.38 H Glucose Level 107 Hemoglobin A1c 5.6 Calcium Level 8.9 Phosphorus Level 3.9 Magnesium Level 1.9 Total Bilirubin 1.5 H Direct Bilirubin 0.00 Indirect Bilirubin 1.5 H Aspartate Amino Transf (AST/SGOT) 36 Alanine Aminotransferase (ALT/SGPT) 31 Alkaline Phosphatase 95 B-Type Natriuretic Peptide 2390 H Total Protein 7.0 Albumin 3.2 L Globulin 3.80 H Albumin/Globulin Ratio 0.84 Triglycerides Level 43 Cholesterol Level < 50 L LDL Cholesterol, Calculated HDL Cholesterol 18 L Cholesterol/HDL Ratio Thyroid Stimulating Hormone (TSH) 5.810 H Free Thyroxine 1.35 Test 02/22/17 07:59 Bedside Glucose 116 Medications Medications Current Medications Ondansetron HCl (Zofran Inj) 4 mg Q6H PRN IV NAUSEA AND/OR VOMITING; Start 03/27 at 23:30 Acetaminophen (Tylenol Tab) 650 mg Q6H PRN PO PAIN LEVEL 1-3 OR FEVER; Start 02/20/17 at 23:30 Morphine Sulfate (morphine) 2 mg Q4H PRN IV PAIN LEVEL 7-10; Start 02/20/17 at 23:30 Diagnostic Test (Pha) (Accu-Chek) 1 ea 02 XX ; Start 02/22/17 at 02:00 Insulin Glargine (Lantus) 10 unit DAILY@20 SC Last administered on 02/21/17t 22:31; Admin Dose 10 UNIT; Start 02/21/17 at 20:00 Diagnostic Test (Pha) (Accu-Chek) 1 ea 02 XX ; Start 02/22/17 at 02:00 Miscellaneous Information 1 ea NOTE XX ; Start 02/21/17 at 06:00 Glucose (Glutose) 15 gm Q15M PRN PO DECREASED GLUCOSE; Start 02/21/17 at 06:00 Glucose (Glutose) 22.5 gm Q15M PRN PO DECREASED GLUCOSE; Start 02/21/17 at 06: 00 Dextrose (D50w Syringe) 25 ml Q15M PRN IV DECREASED GLUCOSE; Start 02/21/17 at 06:00 Dextrose (D50w Syringe) 50 ml Q15M PRN IV DECREASED GLUCOSE; Start 02/21/17 at 06:00 Glucagon (Glucagen) 1 mg Q15M PRN IM DECREASED GLUCOSE; Start 02/21/17 at 06: 00 Glucose (Glutose) 15 gm Q15M PRN BUCCAL DECREASED GLUCOSE; Start 02/21/17 at 06:00 Acetaminophen/ Hydrocodone Bitart 1 tab 1 tab Q4H PRN PO PAIN LEVEL 4-6 Last administered on 02/21/17 19:04; Admin Dose 1 TAB; Start 02/21/17 at 09:30 Vancomycin HCl/ Sodium Chloride (Vancocin/NS) 250 ml @ 83.333 mls/ hr Q12H IVPB Last administered on 02/22/17 02:00; Admin Dose 83.333 MLS/HR; Start at 13:00 Miscellaneous Information (*Rx Drug Level Order Reminder*) VANCO TR LEVEL PRIOR... ONCE ONCE XX ; Start 02/22/17 at 12:00; Stop 02/22/17 at 12:01 Fluconazole (Diflucan) 100 mg DAILY PO Last administered on 02/22/17 08:53; Admin Dose 100 MG; Start 02/21/17 at 21:00 Silver Sulfadiazine (Thermazene 1% 25 Gm) 1 applic DAILY TOP Last administered on 02/22/17 08:53; Admin Dose 1 APPLIC; Start 02/22/17 at 09:00 Hydrocortisone (Hydrocortisone 2.5% Cr) 1 applic DAILY TOP Last administered on 02/22/17 08:53; Admin Dose 1 APPLIC; Start 02/22/17 at 09:00 Clotrimazole 1 applic 1 applic DAILY TOP Last administered on 02/22/17 08:52 ; Admin Dose 1 APPLIC; Start 02/22/17 at 09:00 Levofloxacin/ Dextrose (Levaquin 500mg/ D5W 100 ml (Pmx)) 100 ml @ 100 mls/hr Q48H IVPB ; Start 02/23/17 at 22:00; Status UNV Mupirocin (Bactroban) 1 applic BID TOP ; Start 02/22/17 at 11:00; Status MITESH VITAL Feb 22, 2017 10:57
[2017-02-22] MEDS: MUPIROCIN 2% 22 GM OINT TOP SCH ×2 (12:54→20:19)
[2017-02-22 15:19] LABS: ADD UMIC YES; UR ASCORBIC ACID NEGATIVE (NEGATIVE); UR BACTERIA FEW /HPF (NONE SEEN); UR BILIRUBIN (Dip) NEGATIVE (NEGATIVE); UR BLOOD (Dip) 3+ mg/dL (NEGATIVE); UR CLARITY SLIGHTLY CLOUDY (CLEAR); UR COLOR YELLOW (YELLOW); UR GLUCOSE (Dip) NEGATIVE (NEGATIVE); UR KETONES (Dip) NEGATIVE (NEGATIVE); UR LEUKOCYTE ESTERASE (Dip) TRACE Leu/ul (NEGATIVE); UR NITRITE (Dip) NEGATIVE (NEGATIVE); UR RBC 58 /HPF (0-5); UR SPECIFIC GRAVITY (Dip) 1.015 (1.003-1.030); UR TOTAL PROTEIN (Dip) NEGATIVE (NEGATIVE); UR UROBILINOGEN (Dip) 1+ mg/dL (NEGATIVE)
--- NOTE | 2017-02-22 17:40 | RADRPT ---
PROCEDURE: US Abdomen (right upper quadrant). CLINICAL INDICATION: Elevated liver function tests. TECHNIQUE: Multiple real-time longitudinal and transverse images of the right upper quadrant of th e abdomen were acquired utilizing a curved array transducer. Images were reviewed on a high-resoluti on PACS workstation. COMPARISON: None FINDINGS: The liver is normal in size and normal in echogenicity. The liver has a nodular surface consistent w ith cirrhosis. There is no focal hepatic lesion. Color Doppler and pulsed Doppler sonography demonstrate normal a ntegrade flow in the portal vein. The gallbladder is not visualized indicating it may be surgically absent. The bile ducts are normal with the common bile duct measuring 4.8 mm in diameter. The pancreas is not visualized due to patient body habitus and overlying bowel gas. There is a small amount of ascites. The right kidney measures 13.7 cm. There is normal echogenicity of the right kidney. There is no perinephric fluid collection. No hydronephrosis, mass, or calculus is seen. IMPRESSION: 1. Nodular liver which may indicate cirrhosis. 2. Gallbladder not visualized indicating it may be surgically absent. Clinical correlation is advis ed. 3. Pancreas not visualized. 4. Small amount of ascites. 5. Otherwise unremarkable study. RPTAT: QQ .Low Altamirano MD, MD Date Time Electronically viewed and signed by .Low Altamirano MD, on 02/22/2017 17:40 .R/
[2017-02-22] MEDS: HYDROCODONE/APAP (5/325) TAB PO PRN (20:14)
[2017-02-22] MEDS: INSULIN GLARGINE [LANtus] 3 ML PEN SC SCH (20:17)
[2017-02-23] VITALS (10 sets, daily range): BP systolic 119–126; BP diastolic 58–78; PULSE 80–83; RESP 18–20
[2017-02-23] MEDS: ACCU-CHEK XX SCH ×2 (02:00)
[2017-02-23] MEDS: VANCOMYCIN 1.75 GM in NS 500 ML IVPB SCH (05:04)
[2017-02-23 07:05] LABS: ABNORMAL IP MESSAGE 1; BASOPHILS % 0.4 % (0.0-2.0); EOSINOPHILS # 0.3 10^3/ul (0.0-0.5); EOSINOPHILS % 5.5 % (0.0-7.0); HEMATOCRIT 25.2 % (42.0-52.0); HEMOGLOBIN 7.5 g/dl (14.0-18.0); LYMPHOCYTES # 0.4 10^3/ul (0.8-2.9); LYMPHOCYTES % 8.7 % (15.0-51.0); MEAN CORPUSCULAR HEMOGLOBIN 29.1 pg (29.0-33.0); MEAN CORPUSCULAR HGB CONC 29.8 g/dl (32.0-37.0); MEAN CORPUSCULAR VOLUME 97.7 fl (82.0-101.0); MEAN PLATELET VOLUME 10.4 fl (7.4-10.4); MONOCYTE # 0.4 10^3/ul (0.3-0.9); MONOCYTES % 9.2 % (0.0-11.0); NEUTROPHIL # 3.5 10^3/ul (1.6-7.5); NEUTROPHILS % 75.8 % (39.0-77.0); PLATELET COUNT 84 10^3/UL (140-415); POSITIVE DIFF @See below; RED BLOOD COUNT 2.58 10^6/ul (4.70-6.10); WHITE BLOOD COUNT 4.6 10^3/ul (4.8-10.8)
[2017-02-23 07:13] LABS: INR 1.53; PROTIME 18.5 Sec (12.2-14.2); PT RATIO 1.4
[2017-02-23 07:14] LABS: PARTIAL THROMBOPLASTIN TIME 41.6 Sec (25.0-35.0)
[2017-02-23 07:18] LABS: CALCIUM 9.3 mg/dl (8.4-10.2); CREATININE 1.33 mg/dl (0.61-1.24); MAGNESIUM 1.9 mg/dl (1.7-2.5); PHOSPHORUS 3.6 mg/dl (2.5-4.9); POTASSIUM 4.3 mmol/L (3.5-5.1)
[2017-02-23] MEDS: INSULIN ASPART [NOVOLOG] 3 ML PEN SC SCH ×4 (07:55→21:00)
[2017-02-23] MEDS: FLUCONAZOLE 100 MG TAB PO SCH (08:23)
[2017-02-23] MEDS: HYDROCORTISONE 2.5% 20 GM CR TOP SCH (08:24)
[2017-02-23] MEDS: SILVER SULFADIAZINE 1% 25 GM CR TOP SCH (08:24)
[2017-02-23] MEDS: MUPIROCIN 2% 22 GM OINT TOP SCH ×2 (08:24→20:05)
[2017-02-23] MEDS: CLOTRIMAZOLE 1% 30 GM CR TOP SCH (08:25)
--- NOTE | 2017-02-23 09:19 | RADRPT ---
PROCEDURE: Chest x-ray CLINICAL INDICATION: Shortness of breath TECHNIQUE: Chest single view COMPARISON: 02/20/2017 FINDINGS: There is stable moderate cardiomegaly. There is ongoing moderate to severe CHF with slight interval increase of bilateral pleural effusions right greater than left. IMPRESSION: 1. Cardiomegaly with ongoing moderate to severe CHF and interval increase of bilateral pleural effu sions right greater than left RPTAT: HH .Demond Clifton MD, Date Time Electronically viewed and signed by .Demond Clifton MD, MD on 02/23/2017 09:18 .W/
--- NOTE | 2017-02-23 10:11 | PN ---
DATE: 02/23/2017 SUBJECTIVE: The patient is stable, no events overnight. OBJECTIVE: VITAL SIGNS: Blood pressure 120/58, temperature 97.8, pulse 81, respirations 18. HEENT: Head is normocephalic. NECK: Supple. HEART: Regular rate. LUNGS: Show diminished breath sounds at the base. ABDOMEN: Soft, nontender to palpation without rebound or guarding. EXTREMITIES: Negative for clubbing, cyanosis. Positive erythema, positive edema. DERMATOLOGIC: No rashes. MUSCULOSKELETAL: No joint effusions. NEUROLOGIC: No change in exam. MEDICATIONS: The patient's medications have been reviewed. LABORATORY DATA: Shows white count 4.6, hemoglobin 7.5, hematocrit 25.2, platelet count is 84. The patient's liver ultrasound shows nodularity consistent with cirrhosis. ASSESSMENT AND PLAN: 1. Nonoliguric acute kidney injury on top of chronic kidney disease with unknown baseline creatinin e. Etiology of acute kidney injury is secondary to hemodynamics. The patient has a FENa of less th an 1% consistent with decreased effective arterial volume state, which can be seen in cirrhosis. Th e patient's urinalysis continues to show underlying pyuria, hematuria, although improving. At this point, would continue current treatment plan, supportive care, renally dose all medications, monitor closely. 2. Volume overload. Etiology is likely secondary to cirrhosis, congestive heart failure. Will sta rt the patient on gentle diuretic therapy of Lasix 20 mg and will monitor renal function and electro lytes closely. 3. Anemia. Monitor hemoglobin and hematocrit levels. 4. Mineral bone disorder. Monitor calcium and phosphorus levels. 5. Respiratory acidosis with appropriate compensation. 6. Acute hypoxemic respiratory failure secondary to pneumonia, sleep apnea. Continue to monitor. 7. Obstructive sleep apnea. Continue CPAP. 8. Morbid obesity. Continue dietary modification. 9. Lower extremity wounds. Continue current wound care. Continue medical management. 10. Diabetes. Continue current insulin regimen. Dictated By: ADAN CORTÉS/AMY Conf#: [id number] DID#: [id number]
[2017-02-23] MEDS: SOD FERRIC GLUC COMPLX 125 MG in SOD CHLORIDE 0.9% 100 ML IVPB SCH (10:29)
[2017-02-23] MEDS: FUROSEMIDE 20 MG INJ IV SCH (10:29)
--- NOTE | 2017-02-23 11:28 | CONS ---
Date/Time of Note Date/Time of Note DATE: 02/23/17 TIME: 11:26 Assessment/Plan Assessment/Plan Additional Assessment/Plan Chest x-ray was reviewed from today which is again showing severe pulmonary edema. Assessment and recommendations; 1. Patient admitted with hypoxemia due to CHF. Chest x-ray findings are showing continued pulmonary edema. Patient however clinically has improved. 2. Mild anemia and thrombocytopenia. 3. Chronic renal insufficiency. 4. Diabetes. 5. Likely underlying sleep apnea with mild hypercapnia on admission with interval improvement as well. Consider increasing Lasix to 40 mg every 12 hours. Consultation Date/Type/Reason Admit Date/Time Feb 20, 2017 at 20:38 Type of Consultation: Pulmonary 24 HR Interval Summary Free Text/Dictation Patient's condition is stable. Denies any significant shortness of breath. Denies any chest pain, wheezing. General exam; elderly male, morbidly obese, awake and alert. Currently in no distress. Exam/Review of Systems Vital Signs Vitals Vital Signs Date Time Temp Pulse Resp B/P Pulse Ox O2 Delivery O2 Flow Rate FiO2 02/23/17 08:10 81 02/23/17 07:54 97.8 18 120/58 95 02/22/17 20:35 6.0 02/22/17 20:00 Nasal Cannula 02/21/17 05:58 100 Intake and Output 02/22/17 02/22/17 02/23/17 15:00 23:00 07:00 Intake Total 1000 ml 120 ml Output Total 650 ml 800 ml Balance 350 ml -680 ml Exam HEENT exam; supple neck, positive JVD. No lymphadenopathy. Midline trachea. No thyromegaly. Patient has a multiple carious teeth. Chest exam; diminished breath sounds throughout. S1-S2 audible, no murmurs. Regular rhythm. Abdomen exam; protuberant. Nontender. Bowel sounds audible. Extremity exam; 2+ pitting edema lower extremities with chronic appearing skin changes in lower extremities. 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 Results Result Diagram: 02/23/17 0627 02/23/17 0627 Results 24 hrs Laboratory Tests Test 02/22/17 12:25 02/22/17 12:47 02/22/17 13:20 02/22/17 17:22 Vancomycin Level Trough 24.8 *H Bedside Glucose 125 133 Urine Color YELLOW Urine Clarity SLIGHTLY CLOUDY A Urine pH 5.0 Urine Specific [place] 1.015 Urine Ketones NEGATIVE Urine Nitrite NEGATIVE Urine Bilirubin NEGATIVE Urine Urobilinogen 1+ H Urine Leukocyte Esterase TRACE A Urine Microscopic RBC 58 H Urine Microscopic WBC 8 H Urine Bacteria FEW A Urine Hemoglobin 3+ H Urine Random Creatinine 99.63 Urine Random Sodium < 13 L Urine Glucose NEGATIVE Urine Total Protein 25.0 H Test 02/22/17 20:15 02/23/17 06:27 02/23/17 08:22 Bedside Glucose 118 103 White Blood Count 4.6 L Red Blood Count 2.58 L Hemoglobin 7.5 L Hematocrit 25.2 L Mean Corpuscular Volume 97.7 Mean Corpuscular Hemoglobin 29.1 Mean Corpuscular Hemoglobin Concent 29.8 L Red Cell Distribution Width 16.0 H Platelet Count 84 L Mean Platelet Volume 10.4 Neutrophils % 75.8 Lymphocytes % 8.7 L Monocytes % 9.2 Eosinophils % 5.5 Basophils % 0.4 Nucleated Red Blood Cells % 0.0 Neutrophils # 3.5 Lymphocytes # 0.4 L Monocytes # 0.4 Eosinophils # 0.3 Basophils # 0.0 Nucleated Red Blood Cells # 0.0 Prothrombin Time 18.5 H Prothrombin Time Ratio 1.4 INR International Normalized Ratio 1.53 Activated Partial Thromboplast Time 41.6 H Sodium Level 140 Potassium Level 4.3 Chloride Level 101 Carbon Dioxide Level 35 H Anion Gap 8 Blood Urea Nitrogen 36 H Creatinine 1.33 H Glucose Level 101 Calcium Level 9.3 Phosphorus Level 3.6 Magnesium Level 1.9 Ammonia 33 H Medications Medications Current Medications Ondansetron HCl (Zofran Inj) 4 mg Q6H PRN IV NAUSEA AND/OR VOMITING; Start 03/27 at 23:30 Acetaminophen (Tylenol Tab) 650 mg Q6H PRN PO PAIN LEVEL 1-3 OR FEVER; Start 02/20/17 at 23:30 Morphine Sulfate (morphine) 2 mg Q4H PRN IV PAIN LEVEL 7-10; Start 02/20/17 at 23:30 Diagnostic Test (Pha) (Accu-Chek) 1 XX ; Start 02/22/17 at 02:00 Insulin Glargine (Lantus) 10 unit DAILY@20 SC Last administered on 02/22/17t 20:17; Admin Dose 10 UNIT; Start 02/21/17 at 20:00 Diagnostic Test (Pha) (Accu-Chek) 1 ea 02 XX ; Start 02/22/17 at 02:00 Miscellaneous Information 1 ea NOTE XX ; Start 02/21/17 at 06:00 Glucose (Glutose) 15 gm Q15M PRN PO DECREASED GLUCOSE; Start 02/21/17 at 06:00 Glucose (Glutose) 22.5 gm Q15M PRN PO DECREASED GLUCOSE; Start 02/21/17 at 06: 00 Dextrose (D50w Syringe) 25 ml Q15M PRN IV DECREASED GLUCOSE; Start 02/21/17 at 06:00 Dextrose (D50w Syringe) 50 ml Q15M PRN IV DECREASED GLUCOSE; Start 02/21/17 at 06:00 Glucagon (Glucagen) 1 mg Q15M PRN IM DECREASED GLUCOSE; Start 02/21/17 at 06: 00 Glucose (Glutose) 15 gm Q15M PRN BUCCAL DECREASED GLUCOSE; Start 02/21/17 at 06:00 Acetaminophen/ Hydrocodone Bitart ([place] (5/325)) 1 tab Q4H PRN PO PAIN LEVEL 4 -6 Last administered on 02/22/17 20:14; Admin Dose 1 TAB; Start 02/21/17 at 09:30 Fluconazole (Diflucan) 100 mg DAILY PO Last administered on 02/23/17 08:23; Admin Dose 100 MG; Start 02/21/17 at 21:00 Silver Sulfadiazine (Thermazene 1% 25 Gm) 1 applic DAILY TOP Last administered on 02/23/17 08:24; Admin Dose 1 APPLIC; Start 02/22/17 at 09:00 Hydrocortisone (Hydrocortisone 2.5% Cr) 1 applic DAILY TOP Last administered on 02/23/17 08:24; Admin Dose 1 APPLIC; Start 02/22/17 at 09:00 Clotrimazole 1 applic 1 applic DAILY TOP Last administered on 02/23/17 08:25 ; Admin Dose 1 APPLIC; Start 02/22/17 at 09:00 Levofloxacin/ Dextrose (Levaquin 500mg/ D5W 100 ml (Pmx)) 100 ml @ 100 mls/hr Q48H IVPB ; Start 02/23/17 at 22:00 Mupirocin 1 applic 1 applic BID TOP Last administered on 02/23/17 08:24; Admin Dose 1 APPLIC; Start 02/22/17 at 12:00 Vancomycin HCl/ Sodium Chloride (Vancocin/NS) 500 ml @ 125 mls/hr Q24H IVPB Last administered on 02/23/17 05:04; Admin Dose 125 MLS/HR; Start 02/23/17 at 05:00 Furosemide 20 mg 20 mg DAILY IV Last administered on 02/23/17 10:29; Admin Dose 20 MG; Start 02/23/17 at 09:30 Ferric Sodium Gluconate Complex/ Sodium Chloride (Ferrlecit/NS) 110 ml @ 110 mls/hr Q24H IVPB Last administered on 02/23/17 10:29; Admin Dose 110 MLS/HR; Start 02/23/17 at 09:30; Stop 02/27/17 at 10:29 MITESH RUSH Feb 23, 2017 11:28
--- NOTE | 2017-02-23 11:57 | PN ---
Date/Time of Note Date/Time of Note DATE: 02/23/17 TIME: 11:55 Assessment/Plan VTE Prophylaxis VTE Prophylaxis Intervention: contraindicated Lines/Catheters IV Catheter Type (from [facility]): [facility] Urinary Cath still in place: Yes Reason Cath still needed: other (indicate) Assessment/Plan Chief Complaint/Hosp Course 1. Acute on chronic respiratory failure. Hypoxic and hypercapnic. Continue inhaled bronchodilators. Continue supplemental oxygen. Continue non-invasive positive pressure ventilation as needed. The patient being followed by pulmonology. 2. Bilateral infiltrates on chest x-ray. Fluid versus pneumonia. Continue empiric antibiotics. Diuresis as per nephrology. 3. Diabetes mellitus. Continue sliding scale insulin along with basal insulin. Hemoglobin A1c within normal limits. Blood sugars well controlled. 4. Acute on chronic kidney disease. The patient being followed by nephrology. Use nephrotoxic drugs with caution. 5. Diastolic heart failure. Continue diuresis as the renal function allows. 6. Pulmonary hypertension. PA systolic pressure 48 mmHg. Continue supplemental oxygen. 7. Liver cirrhosis. Continue Rifaximin. 8. Pancytopenia. Most probably secondary to underlying liver cirrhosis. Continue to monitor. 9. Dyslipidemia. Low HDL with unmeasured LDL. 10. Morbid obesity. 11. Bilateral lower extremity lymphedema with chronic bilateral lower extremity ulcerations. The patient being followed by podiatry. Local wound care as per podiatry. 12. MRSA colonization of the nares. Continue Bactroban. 13. Fluids, electrolytes, and nutrition. Carbohydrate controlled diet. 14. DVT prophylaxis. Contraindicated. 15. Plan. Continue antimicrobials. Diuresis as per nephrology. Physical therapy. Case discussed with Dr. Rice. Problems: Subjective 24 Hr Interval Summary Free Text/Dictation Dyspnea better. Wants to get up and walk. Exam/Review of Systems Vital Signs Vitals Vital Signs Date Time Temp Pulse Resp B/P Pulse Ox O2 Delivery O2 Flow Rate FiO2 02/23/17 11:49 98.3 83 18 121/64 95 02/22/17 20:35 6.0 02/22/17 20:00 Nasal Cannula 02/21/17 05:58 100 Intake and Output 02/22/17 02/22/17 02/23/17 15:00 23:00 07:00 Intake Total 1000 ml 120 ml Output Total 650 ml 800 ml Balance 350 ml -680 ml Exam General: Morbidly obese 56 year-old male lying in bed in mild respiratory distress. HEENT: Normocephalic, atraumatic. Eyes: Anicteric sclerae, conjunctivae clear. ENT: Nasal septum midline, oral mucosa moist. Neck supple, no JVD noticed. Respiratory: Bilaterally diminished breath sounds. Use of accessory muscles of respiration. Coarse breath sounds. Cardiovascular: S1, S2 heard. Regular rate and rhythm. Abdomen: Nontender and distended. Bowel sounds positive in all 4 quadrants. Genitourinary: Deferred. Extremities: Bilateral lower extremity 2-3+ pitting edema. Neurologic: Cranial nerves II through XII grossly intact. The patient is awake, alert, and oriented. Skin: Chronic ulcers of bilateral lower extremities. Results Result Diagram: 02/23/17 0627 02/23/17 0627 Results 24 hrs Laboratory Tests Test 02/22/17 12:25 02/22/17 12:47 02/22/17 13:20 02/22/17 17:22 Vancomycin Level Trough 24.8 *H Bedside Glucose 125 133 Urine Color YELLOW Urine Clarity SLIGHTLY CLOUDY A Urine pH 5.0 Urine Specific [place] 1.015 Urine Ketones NEGATIVE Urine Nitrite NEGATIVE Urine Bilirubin NEGATIVE Urine Urobilinogen 1+ H Urine Leukocyte Esterase TRACE A Urine Microscopic RBC 58 H Urine Microscopic WBC 8 H Urine Bacteria FEW A Urine Hemoglobin 3+ H Urine Random Creatinine 99.63 Urine Random Sodium < 13 L Urine Glucose NEGATIVE Urine Total Protein 25.0 H Test 02/22/17 20:15 02/23/17 06:27 02/23/17 08:22 Bedside Glucose 118 103 White Blood Count 4.6 L Red Blood Count 2.58 L Hemoglobin 7.5 L Hematocrit 25.2 L Mean Corpuscular Volume 97.7 Mean Corpuscular Hemoglobin 29.1 Mean Corpuscular Hemoglobin Concent 29.8 L Red Cell Distribution Width 16.0 H Platelet Count 84 L Mean Platelet Volume 10.4 Neutrophils % 75.8 Lymphocytes % 8.7 L Monocytes % 9.2 Eosinophils % 5.5 Basophils % 0.4 Nucleated Red Blood Cells % 0.0 Neutrophils # 3.5 Lymphocytes # 0.4 L Monocytes # 0.4 Eosinophils # 0.3 Basophils # 0.0 Nucleated Red Blood Cells # 0.0 Prothrombin Time 18.5 H Prothrombin Time Ratio 1.4 INR International Normalized Ratio 1.53 Activated Partial Thromboplast Time 41.6 H Sodium Level 140 Potassium Level 4.3 Chloride Level 101 Carbon Dioxide Level 35 H Anion Gap 8 Blood Urea Nitrogen 36 H Creatinine 1.33 H Glucose Level 101 Calcium Level 9.3 Phosphorus Level 3.6 Magnesium Level 1.9 Ammonia 33 H Medications Medications Current Medications Ondansetron HCl (Zofran Inj) 4 mg Q6H PRN IV NAUSEA AND/OR VOMITING; Start 03/27 at 23:30 Acetaminophen (Tylenol Tab) 650 mg Q6H PRN PO PAIN LEVEL 1-3 OR FEVER; Start 02/20/17 at 23:30 Morphine Sulfate (morphine) 2 mg Q4H PRN IV PAIN LEVEL 7-10; Start 02/20/17 at 23:30 Diagnostic Test (Pha) (Accu-Chek) 1 ea 02 XX ; Start 02/22/17 at 02:00 Insulin Glargine (Lantus) 10 unit DAILY@20 SC Last administered on 02/22/17 20:17; Admin Dose 10 UNIT; Start 02/21/17 at 20:00 Diagnostic Test (Pha) (Accu-Chek) 1 ea 02 XX ; Start 02/22/17 at 02:00 Miscellaneous Information 1 ea NOTE XX ; Start 02/21/17 at 06:00 Glucose (Glutose) 15 gm Q15M PRN PO DECREASED GLUCOSE; Start 02/21/17 at 06:00 Glucose (Glutose) 22.5 gm Q15M PRN PO DECREASED GLUCOSE; Start 02/21/17 at 06: 00 Dextrose (D50w Syringe) 25 ml Q15M PRN IV DECREASED GLUCOSE; Start 02/21/17 at 06:00 Dextrose (D50w Syringe) 50 ml Q15M PRN IV DECREASED GLUCOSE; Start 02/21/17 at 06:00 Glucagon (Glucagen) 1 mg Q15M PRN IM DECREASED GLUCOSE; Start 02/21/17 at 06: 00 Glucose (Glutose) 15 gm Q15M PRN BUCCAL DECREASED GLUCOSE; Start 02/21/17 at 06:00 Acetaminophen/ Hydrocodone Bitart ([place] (5/325)) 1 tab Q4H PRN PO PAIN LEVEL 4 -6 Last administered on 02/22/17 20:14; Admin Dose 1 TAB; Start 02/21/17 at 09:30 Fluconazole (Diflucan) 100 mg DAILY PO Last administered on 02/23/17 08:23; Admin Dose 100 MG; Start 02/21/17 at 21:00 Silver Sulfadiazine (Thermazene 1% 25 Gm) 1 applic DAILY TOP Last administered on 02/23/17 08:24; Admin Dose 1 APPLIC; Start 02/22/17 at 09:00 Hydrocortisone (Hydrocortisone 2.5% Cr) 1 applic DAILY TOP Last administered on 02/23/17 08:24; Admin Dose 1 APPLIC; Start 02/22/17 at 09:00 Clotrimazole 1 applic 1 applic DAILY TOP Last administered on 02/23/17 08:25 ; Admin Dose 1 APPLIC; Start 02/22/17 at 09:00 Levofloxacin/ Dextrose (Levaquin 500mg/ D5W 100 ml (Pmx)) 100 ml @ 100 mls/hr Q48H IVPB ; Start 02/23/17 at 22:00 Mupirocin 1 applic 1 applic BID TOP Last administered on 02/23/17 08:24; Admin Dose 1 APPLIC; Start 02/22/17 at 12:00 Vancomycin HCl/ Sodium Chloride (Vancocin/NS) 500 ml @ 125 mls/hr Q24H IVPB Last administered on 02/23/17 05:04; Admin Dose 125 MLS/HR; Start 02/23/17 at 05:00 Furosemide 20 mg 20 mg DAILY IV Last administered on 02/23/17 10:29; Admin Dose 20 MG; Start 02/23/17 at 09:30 Ferric Sodium Gluconate Complex/ Sodium Chloride (Ferrlecit/NS) 110 ml @ 110 mls/hr Q24H IVPB Last administered on 02/23/17 10:29; Admin Dose 110 MLS/HR; Start 02/23/17 at 09:30; Stop 02/27/17 at 10:29 IVON ESPAÑA NP Feb 23, 2017 11:57
[2017-02-23] MEDS: HYDROCODONE/APAP (5/325) TAB PO PRN ×2 (12:57→20:00)
[2017-02-23 14:02] LABS: MICROALBUMIN 7.3 mg/dL
[2017-02-23] MEDS: LEVOFLOXACIN 500MG/D5W (PMX) 100 ML IVPB SCH (14:21)
[2017-02-23] MEDS: INSULIN GLARGINE [LANtus] 3 ML PEN SC SCH (20:10)
[2017-02-23] MEDS ORDERED: LEVOFLOXACIN 500MG/D5W (PMX) 100 ML IVPB SCH (22:00)
[2017-02-24] MEDS: ACCU-CHEK XX SCH ×2 (01:46)
[2017-02-24 02:43] VITALS: BP 122/64; RESP 20
[2017-02-24 05:34] LABS: ABNORMAL IP MESSAGE 1; BASOPHILS % 0.7 % (0.0-2.0); EOSINOPHILS # 0.3 10^3/ul (0.0-0.5); HEMATOCRIT 25.6 % (42.0-52.0); HEMOGLOBIN 7.6 g/dl (14.0-18.0); LYMPHOCYTES # 0.4 10^3/ul (0.8-2.9); LYMPHOCYTES % 9.6 % (15.0-51.0); MEAN CORPUSCULAR HEMOGLOBIN 29.1 pg (29.0-33.0); MEAN CORPUSCULAR HGB CONC 29.7 g/dl (32.0-37.0); MEAN CORPUSCULAR VOLUME 98.1 fl (82.0-101.0); MEAN PLATELET VOLUME 10.1 fl (7.4-10.4); MONOCYTE # 0.5 10^3/ul (0.3-0.9); NEUTROPHIL # 3.3 10^3/ul (1.6-7.5); NEUTROPHILS % 72.3 % (39.0-77.0); PLATELET COUNT 82 10^3/UL (140-415); POSITIVE DIFF @See below; RED BLOOD COUNT 2.61 10^6/ul (4.70-6.10); RED CELL DISTRIBUTION WIDTH 16.1 % (11.5-14.5); WHITE BLOOD COUNT 4.6 10^3/ul (4.8-10.8)
[2017-02-24] MEDS: VANCOMYCIN 1.75 GM in NS 500 ML IVPB SCH (06:00)
[2017-02-24 06:05] LABS: CALCIUM 9.3 mg/dl (8.4-10.2); CREATININE 1.44 mg/dl (0.61-1.24); PHOSPHORUS 3.8 mg/dl (2.5-4.9); POTASSIUM 4.2 mmol/L (3.5-5.1)
[2017-02-24 07:13] VITALS: BP 121/68; RESP 20
[2017-02-24] MEDS: INSULIN ASPART [NOVOLOG] 3 ML PEN SC SCH ×4 (08:15→21:00)
--- NOTE | 2017-02-24 09:16 | PN ---
DATE: 02/24/2017 SUBJECTIVE: The patient is stable. No events overnight. No fevers, chills, nausea, vomiting. OBJECTIVE: VITAL SIGNS: Blood pressure is 121/68, pulse 88, respirations 20. HEENT: Head is normocephalic. NECK: Supple. HEART: Regular rate. LUNGS: Show diminished breath sounds at the base. ABDOMEN: Soft, nontender to palpation. No rebound or guarding. EXTREMITIES: Negative for clubbing, cyanosis. Positive edema. DERMATOLOGIC: No rashes. MUSCULOSKELETAL: No joint effusions. NEUROLOGIC: No change in exam. MEDICATIONS: The patient's medications have been reviewed. LABORATORY DATA: Shows a white count 4.6, hemoglobin 10.6, platelet count is 82. Sodium 141, potas sium 4.2, bicarbonate 35. BUN 38, creatinine 1.44. ASSESSMENT AND PLAN: 1. Nonoliguric acute kidney injury on top of chronic kidney disease with unknown baseline creatinin e. Etiology is secondary to hemodynamics. The patient's renal function has been fluctuating but ov erall stable. At this point, continue current treatment plan, supportive care, renally dose all med ications. Monitor renal functions closely on diuretic therapy. 2. Volume overload secondary to cirrhosis, congestive heart failure. Continue current diuretic reg imen, will adjust as needed. 3. Anemia. Etiology is a mixed picture with a component of iron deficiency. We will place the pat ient on IV Ferrlecit and monitor hemoglobin and hematocrit levels. 4. Mineral bone disorder, monitor calcium and phosphorus levels. 5. Acute hypoxemic respiratory failure secondary to pneumonia and sleep apnea. Continue medical ma nagement. 6. Obstructive sleep apnea. Continue CPAP. 7. Morbid obesity. Continue dietary modification. 8. Lower extremity wounds. Continue current medical management. Continue wound care. 9. Diabetes. Continue current insulin regimen. Dictated By: ADAN CORTÉS/AMY Conf#: [id number] DID#: [id number]
[2017-02-24] MEDS: FLUCONAZOLE 100 MG TAB PO SCH (09:47)
[2017-02-24] MEDS: HYDROCODONE/APAP (5/325) TAB PO PRN ×2 (09:47→21:13)
[2017-02-24] MEDS: FUROSEMIDE 20 MG INJ IV SCH (09:47)
[2017-02-24] MEDS: CLOTRIMAZOLE 1% 30 GM CR TOP SCH (09:48)
[2017-02-24] MEDS: HYDROCORTISONE 2.5% 20 GM CR TOP SCH (09:48)
[2017-02-24] MEDS: MUPIROCIN 2% 22 GM OINT TOP SCH ×2 (09:48→21:12)
[2017-02-24] MEDS: SILVER SULFADIAZINE 1% 25 GM CR TOP SCH (09:49)
[2017-02-24] MEDS: SOD FERRIC GLUC COMPLX 125 MG in SOD CHLORIDE 0.9% 100 ML IVPB SCH (09:49)
--- NOTE | 2017-02-24 09:59 | PN ---
Date/Time of Note Date/Time of Note DATE: 02/24/17 TIME: 09:55 Assessment/Plan VTE Prophylaxis VTE Prophylaxis Intervention: contraindicated Lines/Catheters IV C[facility]ter Type (from [facility]): Saline Lock Urinary Cath still in place: Yes Reason Cath still needed: other (indicate) Assessment/Plan Chief Complaint/Hosp Course 1. Acute on chronic respiratory failure. Hypoxic and hypercapnic. Continue inhaled bronchodilators. Continue supplemental oxygen. Continue non-invasive positive pressure ventilation as needed. The patient being followed by pulmonology. 2. Bilateral infiltrates on chest x-ray. Fluid versus pneumonia. Continue empiric antibiotics. Diuresis as per nephrology. 3. Diabetes mellitus. Continue sliding scale insulin along with basal insulin. Hemoglobin A1c within normal limits. Blood sugars well controlled. 4. Acute on chronic kidney disease. The patient being followed by nephrology. Use nephrotoxic drugs with caution. 5. Diastolic heart failure. Continue diuresis as the renal function allows. 6. Pulmonary hypertension. PA systolic pressure 48 mmHg. Continue supplemental oxygen. 7. Liver cirrhosis. Continue Rifaximin. 8. Pancytopenia. Most probably secondary to underlying liver cirrhosis. Continue to monitor. 9. Dyslipidemia. Low HDL with unmeasured LDL. 10. Morbid obesity. 11. Bilateral lower extremity lymphedema with chronic bilateral lower extremity ulcerations (infected). The patient being followed by podiatry. Local wound care as per podiatry. 12. MRSA colonization of the nares. Continue Bactroban. 13. Fluids, electrolytes, and nutrition. Carbohydrate controlled diet. 14. DVT prophylaxis. Contraindicated. 15. Plan. Continue antimicrobials. Diuresis as per nephrology. Physical therapy. Will involve ID for antibiotic management. Case discussed with Dr. Rice. Problems: Subjective 24 Hr Interval Summary Free Text/Dictation The patient remains afebrile. Exam/Review of Systems Vital Signs Vitals Vital Signs Date Time Temp Pulse Resp B/P Pulse Ox O2 Delivery O2 Flow Rate FiO2 02/24/17 07:13 97.7 88 20 121/68 92 02/24/17 01:34 4.0 02/23/17 22:57 Nasal Cannula 02/21/17 05:58 100 Intake and Output 02/23/17 02/23/17 02/24/17 15:00 23:00 07:00 Intake Total 910 ml 720 ml 710 ml Output Total 400 ml 100 ml 500 ml Balance 510 ml 620 ml 210 ml Exam General: Morbidly obese 56 year-old male lying in bed in mild respiratory distress. HEENT: Normocephalic, atraumatic. Eyes: Anicteric sclerae, conjunctivae clear. ENT: Nasal septum midline, oral mucosa moist. Neck supple, no JVD noticed. Respiratory: Bilaterally diminished breath sounds. Use of accessory muscles of respiration. Coarse breath sounds. Cardiovascular: S1, S2 heard. Regular rate and rhythm. Abdomen: Nontender and distended. Bowel sounds positive in all 4 quadrants. Genitourinary: Deferred. Extremities: Bilateral lower extremity 2-3+ pitting edema. Neurologic: Cranial nerves II through XII grossly intact. The patient is awake, alert, and oriented. Skin: Chronic ulcers of bilateral lower extremities. Results Result Diagram: 02/24/17 0506 02/24/17 0506 Results 24 hrs Laboratory Tests Test 02/23/17 12:13 02/23/17 18:04 02/23/17 20:03 02/24/17 05:06 Bedside Glucose 116 144 141 White Blood Count 4.6 L Red Blood Count 2.61 L Hemoglobin 7.6 L Hematocrit 25.6 L Mean Corpuscular Volume 98.1 Mean Corpuscular Hemoglobin 29.1 Mean Corpuscular Hemoglobin Concent 29.7 L Red Cell Distribution Width 16.1 H Platelet Count 82 L Mean Platelet Volume 10.1 Neutrophils % 72.3 Lymphocytes % 9.6 L Monocytes % 10.0 Eosinophils % 7.0 Basophils % 0.7 Nucleated Red Blood Cells % 0.0 Neutrophils # 3.3 Lymphocytes # 0.4 L Monocytes # 0.5 Eosinophils # 0.3 Basophils # 0.0 Nucleated Red Blood Cells # 0.0 Sodium Level 141 Potassium Level 4.2 Chloride Level 100 Carbon Dioxide Level 35 H Anion Gap 10 Blood Urea Nitrogen 38 H Creatinine 1.44 H Glucose Level 97 Calcium Level 9.3 Phosphorus Level 3.8 Magnesium Level 2.0 Test 02/24/17 08:07 Bedside Glucose 96 Medications Medications Current Medications Ondansetron HCl (Zofran Inj) 4 mg Q6H PRN IV NAUSEA AND/OR VOMITING; Start 03/27 at 23:30 Acetaminophen (Tylenol Tab) 650 mg Q6H PRN PO PAIN LEVEL 1-3 OR FEVER; Start 02/20/17 at 23:30 Morphine Sulfate (morphine) 2 mg Q4H PRN IV PAIN LEVEL 7-10; Start 02/20/17 at 23:30 Diagnostic Test (Pha) (Accu-Chek) 1 ea 02 XX ; Start 02/22/17 at 02:00 Insulin Glargine (Lantus) 10 unit DAILY@20 SC Last administered on 02/23/17 20:10; Admin Dose 10 UNIT; Start 02/21/17 at 20:00 Diagnostic Test (Pha) (Accu-Chek) 1 ea 02 XX ; Start 02/22/17 at 02:00 Miscellaneous Information 1 ea NOTE XX ; Start 02/21/17 at 06:00 Glucose (Glutose) 15 gm Q15M PRN PO DECREASED GLUCOSE; Start 02/21/17 at 06:00 Glucose (Glutose) 22.5 gm Q15M PRN PO DECREASED GLUCOSE; Start 02/21/17 at 06: 00 Dextrose (D50w Syringe) 25 ml Q15M PRN IV DECREASED GLUCOSE; Start 02/21/17 at 06:00 Dextrose (D50w Syringe) 50 ml Q15M PRN IV DECREASED GLUCOSE; Start 02/21/17 at 06:00 Glucagon (Glucagen) 1 mg Q15M PRN IM DECREASED GLUCOSE; Start 02/21/17 at 06: 00 Glucose (Glutose) 15 gm Q15M PRN BUCCAL DECREASED GLUCOSE; Start 02/21/17 at 06:00 Acetaminophen/ Hydrocodone Bitart ([place] (5/325)) 1 tab Q4H PRN PO PAIN LEVEL 4 -6 Last administered on 02/24/17 09:47; Admin Dose 1 TAB; Start 02/21/17 at 09:30 Fluconazole (Diflucan) 100 mg DAILY PO Last administered on 02/24/17 09:47; Admin Dose 100 MG; Start 02/21/17 at 21:00 Silver Sulfadiazine (Thermazene 1% 25 Gm) 1 applic DAILY TOP Last administered on 02/24/17 09:49; Admin Dose 1 APPLIC; Start 02/22/17 at 09:00 Hydrocortisone (Hydrocortisone 2.5% Cr) 1 applic DAILY TOP Last administered on 02/24/17 09:48; Admin Dose 1 APPLIC; Start 02/22/17 at 09:00 Clotrimazole (Lotrimin Cr) 1 applic DAILY TOP Last administered on 02/24/17 09:48; Admin Dose 1 APPLIC; Start 02/22/17 at 09:00 Mupirocin 1 applic 1 applic BID TOP Last administered on 02/24/17 09:48; Admin Dose 1 APPLIC; Start 02/22/17 at 12:00 Vancomycin HCl/ Sodium Chloride (Vancocin/NS) 500 ml @ 125 mls/hr Q24H IVPB Last administered on 02/24/17 06:00; Admin Dose 125 MLS/HR; Start 02/23/17 at 05:00 Furosemide 20 mg 20 mg DAILY IV Last administered on 02/24/17 09:47; Admin Dose 20 MG; Start 02/23/17 at 09:30 Ferric Sodium Gluconate Complex 125 mg/Sodium Chloride 110 ml @ 110 mls/hr Q24H IVPB Last administered on 02/24/17 09:49; Admin Dose 110 MLS/HR; Start 02/23/17 at 09:30; Stop 02/27/17 at 10:29 Levofloxacin/ Dextrose (Levaquin 500mg/ D5W 100 ml (Pmx)) 100 ml @ 100 mls/hr Q24H IVPB Last administered on 02/23/17 14:21; Admin Dose 100 MLS/HR; Start 02/23/17 at 14:00 IVON ESPAÑA NP Feb 24, 2017 09:59
--- NOTE | 2017-02-24 11:48 | CONS ---
DATE OF ADMISSION: 02/20/2017 DATE OF CONSULTATION: 02/24/2017 TYPE OF CONSULTATION: Infectious Disease. REASON FOR CONSULTATION: Antibiotic management. HISTORY OF PRESENT ILLNESS: Kartik Mortensen is a 56-year-old male who was admitted on 02/20/2017 with respiratory failure, bilateral pneumonia and is being seen for antibiotic management. His past pro blems include: 1. Morbid obesity with BMI of 48. 2. Insulin-dependent diabetes mellitus. 3. Bilateral lower extremity ulcers. 4. Obstructive sleep apnea. The patient was sent from [facility] for shortness of breath and hypoxemia. He was recently admitted at [facility] with a diagnosis of pneumonia. In the emergency room, he was hypoxic with an oxygen saturation of 64%. FIO2 is 100%, pO2 of 104. Chest x-ray showed bilateral patchy pneumonia with small right pleural effusions. Lab shows a BNP o f 3000. On admission, his white count was 4.8, hemoglobin and hematocrit 7.8 and 26, platelet coun t 91,000. The patient is significantly anemic. BUN and creatinine 40/1.49, indicative of some sujata l insufficiency and possibly dehydration. Random glucose of 119. MICROBIOLOGY: Left leg wound showed coagulase negative staph, blood cultures and urine cultures hav e been negative. White count today is 4.6. Urine is slightly cloudy with trace leukocyte esterase. On admission, he had also trace leukocyte esterase with 88 WBCs per high powered field and greater than 182 RBCs. Urine culture, however, was negative. A chest x-ray on admission showed bilateral patchy pneumonia with small right pleural effusions. Re nal ultrasound, question of possible 6 mm stone in the right kidney, small simple cyst in the left k idney noted, hydronephrosis, small amount of ascites. Liver ultrasound showed nodular liver which m ay indicate cirrhosis, gallbladder not visualized, pancreas not visualized, small amount of ascites, otherwise unremarkable study. Chest x-ray showed cardiomegaly with ongoing moderate to severe congestive heart failure. Interval increase of bilateral pleural effusions, right greater than left. The patient was seen by numerous physicians including , pulmonary and Dr. Quiroga. The patient has nonoliguric acute kidney injury on top of chronic renal disease. He has obstructive sleep apnea and is on CPAP. PAST MEDICAL HISTORY: Operations as outlined. FAMILY HISTORY: Noncontributory. SOCIAL HISTORY: He never smoked. He does not drink or abuse drugs. ALLERGIES: NONE TO PENICILLIN, SULFA OR FOODS. MEDICATIONS: Per chart. REVIEW OF SYSTEMS: As per HPI. PHYSICAL EXAMINATION: GENERAL: The patient is a morbidly obese male who is lying in bed in no acute distress. He is on b ronchodilators and positive pressure ventilation. SKIN: Without generalized rash. HEENT: Within normal limits. NECK: Supple. LYMPH NODES: None palpable. CHEST: Decreased breath sounds at the bases with coarse breath sounds. HEART: Without murmur or gallop. ABDOMEN: Soft, nontender, without organosplenomegaly or masses. EXTREMITIES: Without cyanosis, clubbing, or edema. RECTAL AND GENITAL: Exam is deferred. NEUROLOGIC: No focal neurological abnormalities. IMPRESSION AND PLAN: The patient currently comes in with numerous problems including methicillin-re sistant Staphylococcus aureus colonization of the nares, for which he is on Bactroban, has bilatera l infiltrates which now appear to be more consistent with congestive heart failure. He also has cir rhosis of liver. He is on Rifaximin. He had a urinary tract infection. We are going to continue h im on vancomycin and Levaquin. He is also on fluconazole. I will dictate my findings to the hospit alist. Dictated By: MARCK LONDONO MD, JD/AMY Conf#: [id number] DID#: [id number] CC: IMANI HALL MD;*EndCC*
[2017-02-24 12:51] VITALS: BP 118/59; RESP 20
[2017-02-24] MEDS: LEVOFLOXACIN 500MG/D5W (PMX) 100 ML IVPB SCH (13:57)
[2017-02-24 19:29] VITALS: BP 115/57; RESP 22
[2017-02-24] MEDS: POLYETHYLENE GLYCOL 17 GM PACKET PO SCH (21:12)
[2017-02-24] MEDS: INSULIN GLARGINE [LANtus] 3 ML PEN SC SCH (21:27)
[2017-02-24] MEDS: ALBUTEROL/IPRATROPIUM (NEB) 3 ML AMP HHN PRN (21:34)
[2017-02-25] MEDS: ALBUTEROL/IPRATROPIUM (NEB) 3 ML AMP HHN SCH ×6 (00:38→20:48)
[2017-02-25 01:21] LABS: HEMATOCRIT 25.7 % (42.0-52.0); HEMOGLOBIN 7.6 g/dl (14.0-18.0)
[2017-02-25] MEDS: ACCU-CHEK XX SCH ×2 (01:27→01:28)
[2017-02-25 02:21] VITALS: BP 122/60; RESP 20
[2017-02-25] MEDS: HYDROCODONE/APAP (5/325) TAB PO PRN ×2 (02:37→16:52)
[2017-02-25] MEDS: VANCOMYCIN 1.75 GM in NS 500 ML IVPB SCH (04:58)
[2017-02-25 06:11] LABS: ABNORMAL IP MESSAGE 1; BASOPHILS % 0.5 % (0.0-2.0); EOSINOPHILS # 0.2 10^3/ul (0.0-0.5); EOSINOPHILS % 5.3 % (0.0-7.0); HEMATOCRIT 25.7 % (42.0-52.0); HEMOGLOBIN 7.5 g/dl (14.0-18.0); LYMPHOCYTES # 0.5 10^3/ul (0.8-2.9); LYMPHOCYTES % 11.1 % (15.0-51.0); MEAN CORPUSCULAR HEMOGLOBIN 28.6 pg (29.0-33.0); MEAN CORPUSCULAR HGB CONC 29.2 g/dl (32.0-37.0); MEAN CORPUSCULAR VOLUME 98.1 fl (82.0-101.0); MEAN PLATELET VOLUME 9.7 fl (7.4-10.4); MONOCYTE # 0.4 10^3/ul (0.3-0.9); MONOCYTES % 9.7 % (0.0-11.0); NEUTROPHIL # 3.2 10^3/ul (1.6-7.5); NEUTROPHILS % 72.9 % (39.0-77.0); PLATELET COUNT 84 10^3/UL (140-415); POSITIVE DIFF @See below; RED BLOOD COUNT 2.62 10^6/ul (4.70-6.10); RED CELL DISTRIBUTION WIDTH 16.1 % (11.5-14.5); WHITE BLOOD COUNT 4.3 10^3/ul (4.8-10.8)
[2017-02-25 06:43] LABS: ALBUMIN 3.1 g/dl (3.3-4.9); ALBUMIN/GLOBULIN RATIO 0.88; BILIRUBIN,INDIRECT 1.2 mg/dl (0-1.1); BILIRUBIN,TOTAL 1.2 mg/dl (0.2-1.3); CREATININE 1.45 mg/dl (0.61-1.24); POTASSIUM 3.8 mmol/L (3.5-5.1); TOTAL PROTEIN 6.6 g/dl (6.1-8.1)
[2017-02-25 07:11] LABS: MAGNESIUM 1.9 mg/dl (1.7-2.5)
[2017-02-25 07:53] VITALS: BP 110/57; RESP 22
[2017-02-25] MEDS: INSULIN ASPART [NOVOLOG] 3 ML PEN SC SCH ×4 (08:11→20:52)
--- NOTE | 2017-02-25 09:46 | PN ---
DATE: 02/25/2017 SUBJECTIVE: The patient is stable. No events overnight. No fevers, chills, nausea, vomiting, no s hortness of breath. OBJECTIVE: VITAL SIGNS: Blood pressure 110/57, respirations 22, pulse 84, temperature 98.6. HEENT: Head is normocephalic. NECK: Supple. HEART: Regular rate. LUNGS: Show diminished breath sounds at the base. ABDOMEN: Soft, nontender to palpation, no rebound or guarding. EXTREMITIES: Negative for clubbing, cyanosis. Positive edema. DERMATOLOGIC: No rashes. MUSCULOSKELETAL: No joint effusions. NEUROLOGIC: No change in exam. MEDICATIONS: The patient's medications have been reviewed. LABORATORY DATA: Shows sodium 140, potassium , chloride 99, BUN 35, creatinine 1.45. White co unt 4.3, hemoglobin 7.5, hematocrit 25.7, platelet count 84. ASSESSMENT AND PLAN: 1. Nonoliguric acute kidney injury on top of chronic kidney disease with unknown baseline creatinin e. Etiology is secondary to hemodynamics. Renal function is stable. At this point, [facility], supportive care, renally dose all meds, monitor closely on diuretic therapy. 2. Acute congestive heart failure exacerbation, volume overload. The patient's chest x-ray shows w orsening pulmonary congestion. At this point, will escalate diuretic therapy. We will continue Las ix. We will increase Lasix to 40 mg IV b.i.d. Monitor intake and outputs closely. We will conside r giving a course of metolazone if diuresis not appropriately adequate. 3. Anemia with a component of iron deficiency. Continue IV Ferrlecit. 4. Mineral bone disorder. Monitor calcium and phosphorus levels. 5. Acute hypoxic respiratory failure secondary to pneumonia, sleep apnea. Continue current medical management. 6. Obstructive sleep apnea. Continue CPAP. 7. Morbid obesity. Continue dietary modification. 8. Lower extremity wounds. Continue local wound care. 9. Diabetes. Continue current insulin regimen. Dictated By: ADAN CORTÉS/AMY Conf#: [id number] DID#: [id number] CC: IMANI HALL MD;*EndCC*
[2017-02-25] MEDS: FLUCONAZOLE 100 MG TAB PO SCH (10:23)
[2017-02-25] MEDS: FUROSEMIDE 20 MG INJ IV SCH ×2 (10:24→20:54)
[2017-02-25] MEDS: HYDROCORTISONE 2.5% 20 GM CR TOP SCH (10:24)
[2017-02-25] MEDS: MUPIROCIN 2% 22 GM OINT TOP SCH ×2 (10:24→20:57)
[2017-02-25] MEDS: CLOTRIMAZOLE 1% 30 GM CR TOP SCH (10:25)
[2017-02-25] MEDS: SILVER SULFADIAZINE 1% 25 GM CR TOP SCH (10:25)
[2017-02-25] MEDS: SOD FERRIC GLUC COMPLX 125 MG in SOD CHLORIDE 0.9% 100 ML IVPB SCH (10:44)
[2017-02-25] MEDS: LEVOFLOXACIN 500 MG TAB PO SCH ×2 (11:00→14:05)
[2017-02-25 13:48] VITALS: BP 108/53; RESP 22
--- NOTE | 2017-02-25 14:24 | PN ---
DATE: 02/25/2017 SUBJECTIVE: No events overnight. The patient is awake, looks comfortable, no fevers. LABORATORIES: WBC 4.3, no shift, no bands. BUN 35, creatinine 1.45. MICROBIOLOGY: Blood culture and urine culture negative. Nares swab came back positive for MRSA. DIAGNOSTICS: Chest x-ray on admission revealed moderate to severe with bilateral pleural effusions, right greater than left. Ultrasound of the liver showed cirrhosis, a small amount of ascites. ALLERGIES: PENICILLIN. ANTIMICROBIALS: The patient is on: 1. Levofloxacin 2. Vancomycin. PHYSICAL EXAMINATION: GENERAL: This is a morbidly obese, well-developed, middle-aged white man who is awake, in no distre ss. HEENT: Head atraumatic, normocephalic. Sclerae anicteric. Buccal mucosa dry. NECK: Supple. CHEST: Rise symmetrical. Breath sounds diminished to bases. HEART: S1, S2. ABDOMEN: Soft. Bowel tones present. EXTREMITIES: Bilateral lower extremities erythema and chronic wounds. Right upper extremity also e rythematous. The patient of note is scratching it with his nails. ASSESSMENT: 1. Bilateral lower extremities, acute on chronic cellulitis with chronic wounds. 2. Right upper extremity cellulitis. 3. Pancytopenia likely secondary to liver cirrhosis. 4. Morbid obesity. 5. Acute possibly on chronic kidney disease. 6. Congestive heart failure exacerbation with pulmonary edema. 7. Diabetes. PLAN: The patient remains stable. Continue present care, antibiotics. Add Bactroban to nares. Fo megw recommendations of consultants. Dictated By: LARS GARCIA [employer] SUPERVISOR for MARCK COLEY/AMY Conf#: [id number] DID#: [id number]
[2017-02-25] MEDS ORDERED: FUROSEMIDE 40 MG INJ IV ONE (14:30)
[2017-02-25] MEDS ORDERED: CHLOROTHIAZIDE 500 MG INJ IV ONE (14:30)
--- NOTE | 2017-02-25 14:46 | PN ---
Date/Time of Note Date/Time of Note DATE: 02/25/17 TIME: 14:41 Assessment/Plan VTE Prophylaxis VTE Prophylaxis Intervention: heparin Lines/Catheters [facility] Saline Lock Urinary Cath still in place: Yes Reason Cath still needed: urinary retention Assessment/Plan Chief Complaint/Hosp Course 56 yo male with acute decompensated CHF, cirrhosis, panctyopenia, cellutiis Acute decompensated CHF: - Increase diuresis, very overloaded, will give a dose of thiazide now Pneumonia: - Levaquin Diabetes mellitus. Continue sliding scale insulin along with basal insulin. Hemoglobin A1c within normal limits. Blood sugars well controlled. 4. Acute on chronic kidney disease. The patient being followed by nephrology. Use nephrotoxic drugs with caution. 5. Diastolic heart failure. Continue diuresis as the renal function allows. 6. Pulmonary hypertension. PA systolic pressure 48 mmHg. Continue supplemental oxygen. 7. Liver cirrhosis. Continue Rifaximin. 8. Pancytopenia. Most probably secondary to underlying liver cirrhosis. Continue to monitor. 9. Dyslipidemia. Low HDL with unmeasured LDL. 10. Morbid obesity. 11. Bilateral lower extremity lymphedema with chronic bilateral lower extremity ulcerations (infected). The patient being followed by podiatry. Local wound care as per podiatry. 12. MRSA colonization of the nares. Continue Bactroban. 13. Fluids, electrolytes, and nutrition. Carbohydrate controlled diet. 14. DVT prophylaxis. Contraindicated. 15. Plan. Continue antimicrobials. Diuresis as per nephrology. Physical therapy. Will involve ID for antibiotic management. Problems: Subjective 24 Hr Interval Summary Free Text/Dictation Still very overloaded, hypoxic Diuretics incerased to 40 BID, received 40 IV this AM with minimal UOP to this Exam/Review of Systems Vital Signs Vitals Vital Signs Date Time Temp Pulse Resp B/P Pulse Ox O2 Delivery O2 Flow Rate FiO2 02/25/17 13:48 98.3 90 22 108/53 93 02/25/17 12:10 Nasal Cannula 4.0 Intake and Output 02/24/17 02/24/17 02/25/17 15:00 23:00 07:00 Intake Total 710 ml 800 ml 300 ml Output Total 550 ml 600 ml Balance 710 ml 250 ml -300 ml Exam Somewhat somnulent but asrouable conversant Hypoxic +++ JVD Lungs w mild wheeze, cracklse Obese belly Edema and venous stasis dermatitis to legs b/l Results Result Diagram: 02/25/17 0545 02/25/17 0545 Results 24 hrs Laboratory Tests Test 02/24/17 17:46 02/24/17 21:10 02/25/17 00:37 02/25/17 05:45 Bedside Glucose 128 135 Hemoglobin 7.6 L 7.5 L Hematocrit 25.7 L 25.7 L White Blood Count 4.3 L Red Blood Count 2.62 L Mean Corpuscular Volume 98.1 Mean Corpuscular Hemoglobin 28.6 L Mean Corpuscular Hemoglobin Concent 29.2 L Red Cell Distribution Width 16.1 H Platelet Count 84 L Mean Platelet Volume 9.7 Neutrophils % 72.9 Lymphocytes % 11.1 L Monocytes % 9.7 Eosinophils % 5.3 Basophils % 0.5 Nucleated Red Blood Cells % 0.0 Neutrophils # 3.2 Lymphocytes # 0.5 L Monocytes # 0.4 Eosinophils # 0.2 Basophils # 0.0 Nucleated Red Blood Cells # 0.0 Sodium Level 140 Potassium Level 3.8 Chloride Level 99 Carbon Dioxide Level 33 H Anion Gap 12 Blood Urea Nitrogen 35 H Creatinine 1.45 H Glucose Level 105 Calcium Level 9.0 Phosphorus Level 4.0 Magnesium Level 1.9 Total Bilirubin 1.2 Direct Bilirubin 0.00 Indirect Bilirubin 1.2 H Aspartate Amino Transf (AST/SGOT) 31 Alanine Aminotransferase (ALT/SGPT) 29 Alkaline Phosphatase 88 Total Protein 6.6 Albumin 3.1 L Globulin 3.50 H Albumin/Globulin Ratio 0.88 Test 02/25/17 08:03 02/25/17 12:05 Bedside Glucose 100 176 Medications Medications Current Medications Ondansetron HCl (Zofran Inj) 4 mg Q6H PRN IV NAUSEA AND/OR VOMITING; Start 03/27 at 23:30 Acetaminophen (Tylenol Tab) 650 mg Q6H PRN PO PAIN LEVEL 1-3 OR FEVER; Start 02/20/17 at 23:30 Morphine Sulfate (morphine) 2 mg Q4H PRN IV PAIN LEVEL 7-10; Start 02/20/17 at 23:30 Insulin Glargine (Lantus) 10 unit DAILY@20 SC Last administered on 02/24/17t 21:27; Admin Dose 10 UNIT; Start 02/21/17 at 20:00 Diagnostic Test (Pha) (Accu-Chek) 1 ea 02 XX ; Start 02/22/17 at 02:00 Miscellaneous Information 1 ea NOTE XX ; Start 02/21/17 at 06:00 Glucose (Glutose) 15 gm Q15M PRN PO DECREASED GLUCOSE; Start 02/21/17 at 06:00 Glucose (Glutose) 22.5 gm Q15M PRN PO DECREASED GLUCOSE; Start 02/21/17 at 06: 00 Dextrose (D50w Syringe) 25 ml Q15M PRN IV DECREASED GLUCOSE; Start 02/21/17 at 06:00 Dextrose (D50w Syringe) 50 ml Q15M PRN IV DECREASED GLUCOSE; Start 02/21/17 at 06:00 Glucagon (Glucagen) 1 mg Q15M PRN IM DECREASED GLUCOSE; Start 02/21/17 at 06: 00 Glucose (Glutose) 15 gm Q15M PRN BUCCAL DECREASED GLUCOSE; Start 02/21/17 at 06:00 Acetaminophen/ Hydrocodone Bitart ([place] (5/325)) 1 tab Q4H PRN PO PAIN LEVEL 4 -6 Last administered on 02/25/17 02:37; Admin Dose 1 TAB; Start 02/21/17 at 09:30 Fluconazole (Diflucan) 100 mg DAILY PO Last administered on 02/25/17 10:23; Admin Dose 100 MG; Start 02/21/17 at 21:00 Silver Sulfadiazine (Thermazene 1% 25 Gm) 1 applic DAILY TOP Last administered on 02/25/17 10:25; Admin Dose 1 APPLIC; Start 02/22/17 at 09:00 Hydrocortisone (Hydrocortisone 2.5% Cr) 1 applic DAILY TOP Last administered on 02/25/17 10:24; Admin Dose 1 APPLIC; Start 02/22/17 at 09:00 Clotrimazole (Lotrimin Cr) 1 applic DAILY TOP Last administered on 02/25/17 10:25; Admin Dose 1 APPLIC; Start 02/22/17 at 09:00 Mupirocin 1 applic 1 applic BID TOP Last administered on 02/25/17 10:24; Admin Dose 1 APPLIC; Start 02/22/17 at 12:00 Ferric Sodium Gluconate Complex/ Sodium Chloride (Ferrlecit/NS) 110 ml @ 110 mls/hr Q24H IVPB Last administered on 02/25/17 10:44; Admin Dose 110 MLS/HR; Start 02/23/17 at 09:30; Stop 02/27/17 at 10:29 Polyethylene Glycol (Miralax) 17 gm DAILY PO Last administered on 02/24/17 21 :12; Admin Dose 17 GM; Start 02/24/17 at 21:00 Furosemide (Lasix) 40 mg BID IV Last administered on 02/25/17 10:24; Admin Dose 40 MG; Start 02/25/17 at 09:00 Levofloxacin 500 mg 500 mg DAILY@06 PO Last administered on 02/25/17 14:05; Admin Dose 500 MG; Start 02/25/17 at 11:00 Chlorothiazide/ Sodium Chloride (Diuril/NS) 50 ml @ 100 mls/hr ONCE IVPB ; Start 02/25/17 at 15:30; Stop 02/25/17 at 20:00 ERIK RODRIGUEZ MD Feb 25, 2017 14:46
[2017-02-25] MEDS ORDERED: CHLOROTHIAZIDE 500 MG in SOD CHLORIDE 0.9% 50 ML IVPB SCH (15:30)
--- NOTE | 2017-02-25 15:56 | CONS ---
Date/Time of Note Date/Time of Note DATE: 02/25/17 TIME: 15:55 Consult Date/Type/Reason Admit Date/Time Feb 20, 2017 at 20:38 Initial Consult Date Type of Consultation: Pulmonary Subjective Patient remains stable. No new events. Objective Vital Signs Date Time Temp Pulse Resp B/P Pulse Ox O2 Delivery O2 Flow Rate FiO2 02/25/17 13:48 98.3 90 22 108/53 93 02/25/17 12:10 Nasal Cannula 4.0 Intake and Output 02/24/17 02/24/17 02/25/17 14:59 22:59 06:59 Intake Total 610 ml 900 ml 300 ml Output Total 550 ml 600 ml Balance 610 ml 350 ml -300 ml Exam GENERAL: Chronically ill-appearing gentleman comfortable at rest no acute distress VITAL SIGNS: per chart NECK: Supple. No JVD or lymphadenopathy. CARDIAC EXAM: S1, S2. No added sounds or murmurs. CHEST: Diminished air entry both bases. ABDOMEN: Soft, nontender. No guarding or rebound. EXTREMITIES: No cyanosis, clubbing or edema. NEUROLOGIC: Generalized weakness. No focal deficits. Results/Medications Result Diagram: 02/25/17 0545 02/25/17 0545 Results 24 hrs Laboratory Tests Test 02/24/17 17:46 02/24/17 21:10 02/25/17 00:37 02/25/17 05:45 Bedside Glucose 128 135 Hemoglobin 7.6 L 7.5 L Hematocrit 25.7 L 25.7 L White Blood Count 4.3 L Red Blood Count 2.62 L Mean Corpuscular Volume 98.1 Mean Corpuscular Hemoglobin 28.6 L Mean Corpuscular Hemoglobin Concent 29.2 L Red Cell Distribution Width 16.1 H Platelet Count 84 L Mean Platelet Volume 9.7 Neutrophils % 72.9 Lymphocytes % 11.1 L Monocytes % 9.7 Eosinophils % 5.3 Basophils % 0.5 Nucleated Red Blood Cells % 0.0 Neutrophils # 3.2 Lymphocytes # 0.5 L Monocytes # 0.4 Eosinophils # 0.2 Basophils # 0.0 Nucleated Red Blood Cells # 0.0 Sodium Level 140 Potassium Level 3.8 Chloride Level 99 Carbon Dioxide Level 33 H Anion Gap 12 Blood Urea Nitrogen 35 H Creatinine 1.45 H Glucose Level 105 Calcium Level 9.0 Phosphorus Level 4.0 Magnesium Level 1.9 Total Bilirubin 1.2 Direct Bilirubin 0.00 Indirect Bilirubin 1.2 H Aspartate Amino Transf (AST/SGOT) 31 Alanine Aminotransferase (ALT/SGPT) 29 Alkaline Phosphatase 88 Total Protein 6.6 Albumin 3.1 L Globulin 3.50 H Albumin/Globulin Ratio 0.88 Test 02/25/17 08:03 02/25/17 12:05 Bedside Glucose 100 176 Medications Current Medications Ondansetron HCl (Zofran Inj) 4 mg Q6H PRN IV NAUSEA AND/OR VOMITING; Start 03/27 at 23:30 Acetaminophen (Tylenol Tab) 650 mg Q6H PRN PO PAIN LEVEL 1-3 OR FEVER; Start 02/20/17 at 23:30 Morphine Sulfate (morphine) 2 mg Q4H PRN IV PAIN LEVEL 7-10; Start 02/20/17 at 23:30 Insulin Glargine (Lantus) 10 unit DAILY@20 SC Last administered on 02/24/17 21:27; Admin Dose 10 UNIT; Start 02/21/17 at 20:00 Diagnostic Test (Pha) (Accu-Chek) 1 ea 02 XX ; Start 02/22/17 at 02:00 Miscellaneous Information 1 ea NOTE XX ; Start 02/21/17 at 06:00 Glucose (Glutose) 15 gm Q15M PRN PO DECREASED GLUCOSE; Start 02/21/17 at 06:00 Glucose (Glutose) 22.5 gm Q15M PRN PO DECREASED GLUCOSE; Start 02/21/17 at 06: 00 Dextrose (D50w Syringe) 25 ml Q15M PRN IV DECREASED GLUCOSE; Start 02/21/17 at 06:00 Dextrose (D50w Syringe) 50 ml Q15M PRN IV DECREASED GLUCOSE; Start 02/21/17 at 06:00 Glucagon (Glucagen) 1 mg Q15M PRN IM DECREASED GLUCOSE; Start 02/21/17 at 06: 00 Glucose (Glutose) 15 gm Q15M PRN BUCCAL DECREASED GLUCOSE; Start 02/21/17 at 06:00 Acetaminophen/ Hydrocodone Bitart ([place] (5/325)) 1 tab Q4H PRN PO PAIN LEVEL 4 -6 Last administered on 02/25/17 02:37; Admin Dose 1 TAB; Start 02/21/17 at 09:30 Fluconazole (Diflucan) 100 mg DAILY PO Last administered on 02/25/17 10:23; Admin Dose 100 MG; Start 02/21/17 at 21:00 Silver Sulfadiazine (Thermazene 1% 25 Gm) 1 applic DAILY TOP Last administered on 02/25/17 10:25; Admin Dose 1 APPLIC; Start 02/22/17 at 09:00 Hydrocortisone (Hydrocortisone 2.5% Cr) 1 applic DAILY TOP Last administered on 02/25/17 10:24; Admin Dose 1 APPLIC; Start 02/22/17 at 09:00 Clotrimazole (Lotrimin Cr) 1 applic DAILY TOP Last administered on 02/25/17 10:25; Admin Dose 1 APPLIC; Start 02/22/17 at 09:00 Mupirocin 1 applic 1 applic BID TOP Last administered on 02/25/17 10:24; Admin Dose 1 APPLIC; Start 02/22/17 at 12:00 Ferric Sodium Gluconate Complex/ Sodium Chloride (Ferrlecit/NS) 110 ml @ 110 mls/hr Q24H IVPB Last administered on 02/25/17 10:44; Admin Dose 110 MLS/HR; Start 02/23/17 at 09:30; Stop 02/27/17 at 10:29 Polyethylene Glycol (Miralax) 17 gm DAILY PO Last administered on 02/24/17 21 :12; Admin Dose 17 GM; Start 02/24/17 at 21:00 Furosemide (Lasix) 40 mg BID IV Last administered on 02/25/17 10:24; Admin Dose 40 MG; Start 02/25/17 at 09:00 Levofloxacin 500 mg 500 mg DAILY@06 PO Last administered on 02/25/17 14:05; Admin Dose 500 MG; Start 02/25/17 at 11:00 Chlorothiazide/ Sodium Chloride (Diuril/NS) 50 ml @ 100 mls/hr ONCE IVPB ; Start 02/25/17 at 15:30; Stop 02/25/17 at 20:00 Assessment/Plan Chief Complaint/Hosp Course Assessment, plan 1. Patient admitted with hypoxemia due to CHF. Chest x-ray findings are showing continued pulmonary edema. Patient however clinically has improved. 2. Mild anemia and thrombocytopenia. 3. Chronic renal insufficiency. 4. Diabetes. 5. Likely underlying sleep apnea with mild hypercapnia on admission with interval improvement as well. Problems: AZRA CASTILLO MD, [facility] Feb 25, 2017 15:56
[2017-02-25] MEDS ORDERED: METOLAZONE 5 MG TAB PO ONE (16:30)
[2017-02-25 20:41] VITALS: BP 111/51; RESP 22
[2017-02-25] MEDS ORDERED: MUPIROCIN 2% 22 GM OINT TOP SCH (21:00)
[2017-02-25] MEDS: INSULIN GLARGINE [LANtus] 3 ML PEN SC SCH (21:06)
[2017-02-26] MEDS: ALBUTEROL/IPRATROPIUM (NEB) 3 ML AMP HHN SCH ×6 (01:39→20:06)
[2017-02-26] MEDS: ACCU-CHEK XX SCH (02:00)
[2017-02-26 02:49] VITALS: BP 121/58; RESP 20
[2017-02-26] MEDS: LEVOFLOXACIN 500 MG TAB PO SCH (06:10)
[2017-02-26 07:40] VITALS: BP 113/55; RESP 20
[2017-02-26] MEDS: INSULIN ASPART [NOVOLOG] 3 ML PEN SC SCH ×4 (08:10→20:31)
[2017-02-26] MEDS: POLYETHYLENE GLYCOL 17 GM PACKET PO SCH (08:46)
[2017-02-26] MEDS: FLUCONAZOLE 100 MG TAB PO SCH (08:46)
[2017-02-26] MEDS: FUROSEMIDE 20 MG INJ IV SCH ×2 (08:47→20:35)
[2017-02-26] MEDS: MUPIROCIN 2% 22 GM OINT TOP SCH ×2 (08:47→20:49)
[2017-02-26] MEDS: HYDROCORTISONE 2.5% 20 GM CR TOP SCH (08:47)
[2017-02-26] MEDS: CLOTRIMAZOLE 1% 30 GM CR TOP SCH (08:48)
[2017-02-26] MEDS: SILVER SULFADIAZINE 1% 25 GM CR TOP SCH (08:49)
--- NOTE | 2017-02-26 09:19 | PN ---
Date/Time of Note Date/Time of Note DATE: 02/26/17 TIME: 09:18 Assessment/Plan VTE Prophylaxis VTE Prophylaxis Intervention: other Lines/Catheters [facility]from [facility] Saline Lock Urinary Cath still in place: Yes Reason Cath still needed: urinary retention Assessment/Plan Chief Complaint/Hosp Course renal follow up SUBJECTIVE: The patient is stable. No events overnight. No fevers, chills, nausea, vomiting, no shortness of breath. d/w Dr Quiroga stable renal function OBJECTIVE: HEENT: Head is normocephalic. NECK: Supple. HEART: Regular rate. LUNGS: Show diminished breath sounds at the base. ABDOMEN: Soft, nontender to palpation, no rebound or guarding. EXTREMITIES: Negative for clubbing, cyanosis. Positive edema. DERMATOLOGIC: No rashes. MUSCULOSKELETAL: No joint effusions. NEUROLOGIC: No change in exam. MEDICATIONS: The patient's medications have been reviewed. ASSESSMENT AND PLAN: 1. Nonoliguric acute kidney injury on top of chronic kidney disease with unknown baseline creatinine. Etiology is secondary to hemodynamics. Renal function is stable. At this point, continue current treatment plan, supportive care, renally dose all meds, monitor closely on diuretic therapy. 2. Acute congestive heart failure exacerbation, volume overload. responded well to diuresis. Monitor intake and outputs closely. 3. Anemia with a component of iron deficiency. Continue IV Ferrlecit. 4. Mineral bone disorder. Monitor calcium and phosphorus levels. 5. Acute hypoxic respiratory failure secondary to pneumonia, sleep apnea. Continue current medical management. 6. Obstructive sleep apnea. Continue CPAP. 7. Morbid obesity. Continue dietary modification. 8. Lower extremity wounds. Continue local wound care. 9. Diabetes. Continue current insulin regimen. Problems: Exam/Review of Systems Vital Signs Vitals Vital Signs Date Time Temp Pulse Resp B/P Pulse Ox O2 Delivery O2 Flow Rate FiO2 02/26/17 08:07 4.0 02/26/17 08:07 Nasal Cannula 02/26/17 07:40 98.5 87 20 113/55 95 Intake and Output 02/25/17 02/25/17 02/26/17 14:59 22:59 06:59 Intake Total 610 ml 1400 ml 240 ml Output Total 700 ml 1300 ml Balance 610 ml 700 ml -1060 ml Results Result Diagram: 02/25/17 0545 02/25/17 0545 Results 24 hrs Laboratory Tests Test 02/25/17 12:05 02/25/17 16:30 02/25/17 16:55 02/25/17 20:50 Bedside Glucose 176 137 131 Stool Occult Blood NEGATIVE Test 02/26/17 08:07 Bedside Glucose 107 Medications Medications Current Medications Ondansetron HCl (Zofran Inj) 4 mg Q6H PRN IV NAUSEA AND/OR VOMITING; Start 03/27 at 23:30 Acetaminophen (Tylenol Tab) 650 mg Q6H PRN PO PAIN LEVEL 1-3 OR FEVER; Start 02/20/17 at 23:30 Morphine Sulfate (morphine) 2 mg Q4H PRN IV PAIN LEVEL 7-10; Start 02/20/17 at 23:30 Insulin Glargine (Lantus) 10 unit DAILY@20 SC Last administered on 02/25/17 21:06; Admin Dose 10 UNIT; Start 02/21/17 at 20:00 Diagnostic Test (Pha) (Accu-Chek) 1 ea 02 XX ; Start 02/22/17 at 02:00 Miscellaneous Information 1 ea NOTE XX ; Start 02/21/17 at 06:00 Glucose (Glutose) 15 gm Q15M PRN PO DECREASED GLUCOSE; Start 02/21/17 at 06:00 Glucose (Glutose) 22.5 gm Q15M PRN PO DECREASED GLUCOSE; Start 02/21/17 at 06: 00 Dextrose (D50w Syringe) 25 ml Q15M PRN IV DECREASED GLUCOSE; Start 02/21/17 at 06:00 Dextrose (D50w Syringe) 50 ml Q15M PRN IV DECREASED GLUCOSE; Start 02/21/17 at 06:00 Glucagon (Glucagen) 1 mg Q15M PRN IM DECREASED GLUCOSE; Start 02/21/17 at 06: 00 Glucose (Glutose) 15 gm Q15M PRN BUCCAL DECREASED GLUCOSE; Start 02/21/17 at 06:00 Acetaminophen/ Hydrocodone Bitart ([place] (5/325)) 1 tab Q4H PRN PO PAIN LEVEL 4 -6 Last administered on 02/25/17 16:52; Admin Dose 1 TAB; Start 02/21/17 at 09:30 Fluconazole (Diflucan) 100 mg DAILY PO Last administered on 02/26/17 08:46; Admin Dose 100 MG; Start 02/21/17 at 21:00 Silver Sulfadiazine (Thermazene 1% 25 Gm) 1 applic DAILY TOP Last administered on 02/26/17 08:49; Admin Dose 1 APPLIC; Start 02/22/17 at 09:00 Hydrocortisone (Hydrocortisone 2.5% Cr) 1 applic DAILY TOP Last administered on 02/26/17 08:47; Admin Dose 1 APPLIC; Start 02/22/17 at 09:00 Clotrimazole (Lotrimin Cr) 1 applic DAILY TOP Last administered on 02/26/17 08:48; Admin Dose 1 APPLIC; Start 02/22/17 at 09:00 Mupirocin 1 applic 1 applic BID TOP Last administered on 02/26/17 08:47; Admin Dose 1 APPLIC; Start 02/22/17 at 12:00 Ferric Sodium Gluconate Complex/ Sodium Chloride (Ferrlecit/NS) 110 ml @ 110 mls/hr Q24H IVPB Last administered on 02/25/17 10:44; Admin Dose 110 MLS/HR; Start 02/23/17 at 09:30; Stop 02/27/17 at 10:29 Polyethylene Glycol (Miralax) 17 gm DAILY PO Last administered on 02/26/17 08 :46; Admin Dose 17 GM; Start 02/24/17 at 21:00 Furosemide (Lasix) 40 mg BID IV Last administered on 02/26/17 08:47; Admin Dose 40 MG; Start 02/25/17 at 09:00 Levofloxacin (Levaquin) 500 mg DAILY@06 PO Last administered on 02/26/17 06: 10; Admin Dose 500 MG; Start 02/25/17 at 11:00 LARRY CHANEL DO Feb 26, 2017 09:19
[2017-02-26] MEDS: SOD FERRIC GLUC COMPLX 125 MG in SOD CHLORIDE 0.9% 100 ML IVPB SCH (10:02)
--- NOTE | 2017-02-26 10:14 | CONS ---
Date/Time of Note Date/Time of Note DATE: 02/26/17 TIME: 10:12 Assessment/Plan Assessment/Plan Additional Assessment/Plan Assessment and recommendations; 1. Patient admitted with CHF exacerbation with interval improvement. 2. Underlying morbid obesity, likely underlying sleep apnea as well. 3. Mild hypercapnia, patient appears clinically stable though. 4. Mild anemia and thrombocytopenia. 5. Mild chronic renal insufficiency. 6. History of diabetes. Continue current treatment. Obtain follow-up chest x-ray. Consultation Date/Type/Reason Admit Date/Time Feb 20, 2017 at 20:38 Type of Consultation: Pulmonary 24 HR Interval Summary Free Text/Dictation Patient's condition is stable. Remains awake and alert. Has remained hemodynamically stable. General exam; middle-aged male, morbidly obese, currently in no distress. Exam/Review of Systems Vital Signs Vitals Vital Signs Date Time Temp Pulse Resp B/P Pulse Ox O2 Delivery O2 Flow Rate FiO2 02/26/17 09:00 Nasal Cannula 4.0 02/26/17 07:40 98.5 87 20 113/55 95 Intake and Output 02/25/17 02/25/17 02/26/17 14:59 22:59 06:59 Intake Total 610 ml 1400 ml 240 ml Output Total 700 ml 1300 ml Balance 610 ml 700 ml -1060 ml Exam HEENT exam; supple neck, JVD difficult to see because of short neck. No neck masses. No thyromegaly. Has fair dentition. Chest exam; diminished breath sounds bilaterally. S1-S2 audible, no murmurs. Regular rhythm. Abdomen exam; protuberant. Nontender. Bowel sounds audible. Extremity exam; trace edema. UI DESIGNER exam; no focal deficit. Results Result Diagram: 02/25/17 0545 02/25/17 0545 Results 24 hrs Laboratory Tests Test 02/25/17 12:05 02/25/17 16:30 02/25/17 16:55 02/25/17 20:50 Bedside Glucose 176 137 131 Stool Occult Blood NEGATIVE Test 02/26/17 08:07 Bedside Glucose 107 Medications Medications Current Medications Ondansetron HCl (Zofran Inj) 4 mg Q6H PRN IV NAUSEA AND/OR VOMITING; Start 03/27 at 23:30 Acetaminophen (Tylenol Tab) 650 mg Q6H PRN PO PAIN LEVEL 1-3 OR FEVER; Start 02/20/17 at 23:30 Morphine Sulfate (morphine) 2 mg Q4H PRN IV PAIN LEVEL 7-10; Start 02/20/17 at 23:30 Insulin Glargine (Lantus) 10 unit DAILY@20 SC Last administered on 02/25/17 21:06; Admin Dose 10 UNIT; Start 02/21/17 at 20:00 Diagnostic Test (Pha) (Accu-Chek) 1 ea 02 XX ; Start 02/22/17 at 02:00 Miscellaneous Information 1 ea NOTE XX ; Start 02/21/17 at 06:00 Glucose (Glutose) 15 gm Q15M PRN PO DECREASED GLUCOSE; Start 02/21/17 at 06:00 Glucose (Glutose) 22.5 gm Q15M PRN PO DECREASED GLUCOSE; Start 02/21/17 at 06: 00 Dextrose (D50w Syringe) 25 ml Q15M PRN IV DECREASED GLUCOSE; Start 02/21/17 at 06:00 Dextrose (D50w Syringe) 50 ml Q15M PRN IV DECREASED GLUCOSE; Start 02/21/17 at 06:00 Glucagon (Glucagen) 1 mg Q15M PRN IM DECREASED GLUCOSE; Start 02/21/17 at 06: 00 Glucose (Glutose) 15 gm Q15M PRN BUCCAL DECREASED GLUCOSE; Start 02/21/17 at 06:00 Acetaminophen/ Hydrocodone Bitart ([place] (5/325)) 1 tab Q4H PRN PO PAIN LEVEL 4 -6 Last administered on 02/25/17 16:52; Admin Dose 1 TAB; Start 02/21/17 at 09:30 Fluconazole (Diflucan) 100 mg DAILY PO Last administered on 02/26/17 08:46; Admin Dose 100 MG; Start 02/21/17 at 21:00 Silver Sulfadiazine (Thermazene 1% 25 Gm) 1 applic DAILY TOP Last administered on 02/26/17 08:49; Admin Dose 1 APPLIC; Start 02/22/17 at 09:00 Hydrocortisone (Hydrocortisone 2.5% Cr) 1 applic DAILY TOP Last administered on 02/26/17 08:47; Admin Dose 1 APPLIC; Start 02/22/17 at 09:00 Clotrimazole (Lotrimin Cr) 1 applic DAILY TOP Last administered on 02/26/17 08:48; Admin Dose 1 APPLIC; Start 02/22/17 at 09:00 Mupirocin 1 applic 1 applic BID TOP Last administered on 02/26/17 08:47; Admin Dose 1 APPLIC; Start 02/22/17 at 12:00 Ferric Sodium Gluconate Complex/ Sodium Chloride (Ferrlecit/NS) 110 ml @ 110 mls/hr Q24H IVPB Last administered on 02/26/17 10:02; Admin Dose 110 MLS/HR; Start 02/23/17 at 09:30; Stop 02/27/17 at 10:29 Polyethylene Glycol (Miralax) 17 gm DAILY PO Last administered on 02/26/17 08 :46; Admin Dose 17 GM; Start 02/24/17 at 21:00 Furosemide (Lasix) 40 mg BID IV Last administered on 02/26/17 08:47; Admin Dose 40 MG; Start 02/25/17 at 09:00 Levofloxacin (Levaquin) 500 mg DAILY@06 PO Last administered on 02/26/17 06: 10; Admin Dose 500 MG; Start 02/25/17 at 11:00 MITESH RUSH Feb 26, 2017 10:14
[2017-02-26] MEDS: HYDROCODONE/APAP (5/325) TAB PO PRN (14:17)
--- NOTE | 2017-02-26 14:17 | PN ---
Date/Time of Note Date/Time of Note DATE: 02/26/17 TIME: 14:15 Assessment/Plan VTE Prophylaxis VTE Prophylaxis Intervention: contraindicated Lines/Catheters [facility]from [facility] Saline Lock Urinary Cath still in place: Yes Reason Cath still needed: other (indicate) Assessment/Plan Chief Complaint/Hosp Course 1. Acute on chronic respiratory failure. Hypoxic and hypercapnic. Continue inhaled bronchodilators. Continue supplemental oxygen. Continue non-invasive positive pressure ventilation as needed. The patient being followed by pulmonology. 2. Bilateral infiltrates on chest x-ray. Fluid versus pneumonia. Continue empiric antibiotics. Diuresis as per nephrology. 3. Diabetes mellitus. Continue sliding scale insulin along with basal insulin. Hemoglobin A1c within normal limits. Blood sugars well controlled. 4. Acute on chronic kidney disease. The patient being followed by nephrology. Use nephrotoxic drugs with caution. 5. Diastolic heart failure. Continue diuresis as the renal function allows. 6. Pulmonary hypertension. PA systolic pressure 48 mmHg. Continue supplemental oxygen. 7. Liver cirrhosis. Continue Rifaximin. 8. Pancytopenia. Most probably secondary to underlying liver cirrhosis. Continue to monitor. 9. Dyslipidemia. Low HDL with unmeasured LDL. 10. Morbid obesity. 11. Bilateral lower extremity lymphedema with chronic bilateral lower extremity ulcerations (infected). The patient being followed by podiatry. Local wound care as per podiatry. 12. MRSA colonization of the nares. Continue Bactroban. 13. Fluids, electrolytes, and nutrition. Carbohydrate controlled diet. 14. DVT prophylaxis. Contraindicated. 15. Plan. Continue antimicrobials as per ID. Diuresis as per nephrology. Physical therapy. Await clearance from consultants before discharge to a SNF. Case discussed with Dr. Ramírez. Problems: Subjective 24 Hr Interval Summary Free Text/Dictation Dyspnea improved. Exam/Review of Systems Vital Signs Vitals Vital Signs Date Time Temp Pulse Resp B/P Pulse Ox O2 Delivery O2 Flow Rate FiO2 02/26/17 13:46 92 4.0 02/26/17 13:46 86 20 Nasal Cannula 02/26/17 07:40 98.5 113/55 Intake and Output 02/25/17 02/25/17 02/26/17 15:00 23:00 07:00 Intake Total 610 ml 1400 ml 240 ml Output Total 700 ml 1300 ml Balance 610 ml 700 ml -1060 ml Exam General: Morbidly obese 56 year-old male lying in bed in mild respiratory distress. HEENT: Normocephalic, atraumatic. Eyes: Anicteric sclerae, conjunctivae clear. ENT: Nasal septum midline, oral mucosa moist. Neck: Obese. Respiratory: Bilaterally diminished breath sounds. Use of accessory muscles of respiration. Coarse breath sounds. Cardiovascular: S1, S2 heard. Regular rate and rhythm. Abdomen: Nontender and distended. Bowel sounds positive in all 4 quadrants. Genitourinary: Deferred. Extremities: Bilateral lower extremity 2-3+ pitting edema. Neurologic: Cranial nerves II through XII grossly intact. The patient is awake, alert, and oriented. Skin: Chronic ulcers of bilateral lower extremities. Results Result Diagram: 02/25/17 0545 02/25/17 0545 Results 24 hrs Laboratory Tests Test 02/25/17 16:30 02/25/17 16:55 02/25/17 20:50 02/26/17 08:07 Stool Occult Blood NEGATIVE Bedside Glucose 137 131 107 Test 02/26/17 12:07 Bedside Glucose 130 Medications Medications Current Medications Ondansetron HCl (Zofran Inj) 4 mg Q6H PRN IV NAUSEA AND/OR VOMITING; Start 03/27 at 23:30 Acetaminophen (Tylenol Tab) 650 mg Q6H PRN PO PAIN LEVEL 1-3 OR FEVER; Start 02/20/17 at 23:30 Morphine Sulfate (morphine) 2 mg Q4H PRN IV PAIN LEVEL 7-10; Start 02/20/17 at 23:30 Insulin Glargine (Lantus) 10 unit DAILY@20 SC Last administered on 02/25/17t 21:06; Admin Dose 10 UNIT; Start 02/21/17 at 20:00 Diagnostic Test (Pha) (Accu-Chek) 1 ea 02 XX ; Start 02/22/17 at 02:00 Miscellaneous Information 1 ea NOTE XX ; Start 02/21/17 at 06:00 Glucose (Glutose) 15 gm Q15M PRN PO DECREASED GLUCOSE; Start 02/21/17 at 06:00 Glucose (Glutose) 22.5 gm Q15M PRN PO DECREASED GLUCOSE; Start 02/21/17 at 06: 00 Dextrose (D50w Syringe) 25 ml Q15M PRN IV DECREASED GLUCOSE; Start 02/21/17 at 06:00 Dextrose (D50w Syringe) 50 ml Q15M PRN IV DECREASED GLUCOSE; Start 02/21/17 at 06:00 Glucagon (Glucagen) 1 mg Q15M PRN IM DECREASED GLUCOSE; Start 02/21/17 at 06: 00 Glucose (Glutose) 15 gm Q15M PRN BUCCAL DECREASED GLUCOSE; Start 02/21/17 at 06:00 Acetaminophen/ Hydrocodone Bitart ([place] (5/325)) 1 tab Q4H PRN PO PAIN LEVEL 4 -6 Last administered on 02/25/17 16:52; Admin Dose 1 TAB; Start 02/21/17 at 09:30 Fluconazole (Diflucan) 100 mg DAILY PO Last administered on 02/26/17 08:46; Admin Dose 100 MG; Start 02/21/17 at 21:00 Silver Sulfadiazine (Thermazene 1% 25 Gm) 1 applic DAILY TOP Last administered on 02/26/17 08:49; Admin Dose 1 APPLIC; Start 02/22/17 at 09:00 Hydrocortisone (Hydrocortisone 2.5% Cr) 1 applic DAILY TOP Last administered on 02/26/17 08:47; Admin Dose 1 APPLIC; Start 02/22/17 at 09:00 Clotrimazole (Lotrimin Cr) 1 applic DAILY TOP Last administered on 02/26/17 08:48; Admin Dose 1 APPLIC; Start 02/22/17 at 09:00 Mupirocin 1 applic 1 applic BID TOP Last administered on 02/26/17 08:47; Admin Dose 1 APPLIC; Start 02/22/17 at 12:00 Ferric Sodium Gluconate Complex/ Sodium Chloride (Ferrlecit/NS) 110 ml @ 110 mls/hr Q24H IVPB Last administered on 02/26/17 10:02; Admin Dose 110 MLS/HR; Start 02/23/17 at 09:30; Stop 02/27/17 at 10:29 Polyethylene Glycol (Miralax) 17 gm DAILY PO Last administered on 02/26/17 08 :46; Admin Dose 17 GM; Start 02/24/17 at 21:00 Furosemide (Lasix) 40 mg BID IV Last administered on 02/26/17 08:47; Admin Dose 40 MG; Start 02/25/17 at 09:00 Levofloxacin (Levaquin) 500 mg DAILY@06 PO Last administered on 02/26/17t 06: 10; Admin Dose 500 MG; Start 02/25/17 at 11:00 IVON ESPAÑA NP Feb 26, 2017 14:17
[2017-02-26 14:26] VITALS: BP 106/52; RESP 18
--- NOTE | 2017-02-26 15:13 | CONS ---
Date/Time of Note Date/Time of Note DATE: 02/26/17 TIME: 15:12 Assessment/Plan Assessment/Plan Chief Complaint/Hosp Course ID PROGRESS NOTE CURRENT ABX: DAY # =>Vanco IV + Levaquin 24H INTERVAL SUMMARY * Resting comfortably , afebrile, VSS, NAD, no new c/o, no new issues * CHART REVIEWED: See vitals, labs as per below. * MICROBIOLOGY: Blood culture and urine culture negative. Nares swab came back positive for MRSA. * Wound Cx WOUND CULTURE Final Organism 1 COAGULASE NEGATIVE STAPH QUANTITY SCANT GROWTH * DIAGNOSTICS: Chest x-ray on admission revealed moderate to severe with bilateral pleural effusions, right greater than left. Ultrasound of the liver showed cirrhosis, a small amount of ascites. PHYSICAL EXAMINATION: GENERAL: VSS, afebrile, NAD HEENT: Unremarkable NECK: Supple, trach midline CHEST: Equal chest rise bilaterally, without dyspnea on observation HEART: RRR ABDOMEN: Soft, NT, ND EXT: Warm, Bilateral lower extremities erythema and chronic wounds. Right upper extremity also erythematous. SKIN: No rash, no diaphoresis ID ASSESSMENT: 56 yo obese M admit [facility]: 1. Bilateral lower extremities, acute on chronic cellulitis with chronic wounds. 2. Right upper extremity cellulitis. WOUND CULTURE Final Organism 1 COAGULASE NEGATIVE STAPH QUANTITY SCANT GROWTH 3. Pancytopenia likely secondary to liver cirrhosis. 4. Morbid obesity. 5. Acute possibly on chronic kidney disease. 6. Congestive heart failure exacerbation with pulmonary edema. 7. Diabetes. (+)MRSA-> Bactroban onboard ABX ALLERGIES: None to ABX INVASIVES: PIV CURRENT ABX: =>Vanco IV + Levaquin ID RECOMMENDATIONS/PLAN: 1. Continue current ABX over the weekend 2. ID team consultants will continue to follow . Problems: Consultation Date/Type/Reason Admit Date/Time Feb 20, 2017 at 20:38 Initial Consult Date Exam/Review of Systems Vital Signs Vitals Vital Signs Date Time Temp Pulse Resp B/P Pulse Ox O2 Delivery O2 Flow Rate FiO2 02/26/17 14:26 98.6 86 18 106/52 94 02/26/17 13:46 4.0 02/26/17 13:46 Nasal Cannula Intake and Output 02/25/17 02/25/17 02/26/17 15:00 23:00 07:00 Intake Total 610 ml 1400 ml 240 ml Output Total 700 ml 1300 ml Balance 610 ml 700 ml -1060 ml Results Result Diagram: 02/25/17 0545 02/25/17 0545 Results 24 hrs Laboratory Tests Test 02/25/17 16:30 02/25/17 16:55 02/25/17 20:50 02/26/17 08:07 Stool Occult Blood NEGATIVE Bedside Glucose 137 131 107 Test 02/26/17 12:07 Bedside Glucose 130 Medications Medications Current Medications Ondansetron HCl (Zofran Inj) 4 mg Q6H PRN IV NAUSEA AND/OR VOMITING; Start 03/27 at 23:30 Acetaminophen (Tylenol Tab) 650 mg Q6H PRN PO PAIN LEVEL 1-3 OR FEVER; Start 02/20/17 at 23:30 Morphine Sulfate (morphine) 2 mg Q4H PRN IV PAIN LEVEL 7-10; Start 02/20/17 at 23:30 Insulin Glargine (Lantus) 10 unit DAILY@20 SC Last administered on 02/25/17 21:06; Admin Dose 10 UNIT; Start 02/21/17 at 20:00 Diagnostic Test (Pha) (Accu-Chek) 1 ea 02 XX ; Start 02/22/17 at 02:00 Miscellaneous Information 1 ea NOTE XX ; Start 02/21/17 at 06:00 Glucose (Glutose) 15 gm Q15M PRN PO DECREASED GLUCOSE; Start 02/21/17 at 06:00 Glucose (Glutose) 22.5 gm Q15M PRN PO DECREASED GLUCOSE; Start 02/21/17 at 06: 00 Dextrose (D50w Syringe) 25 ml Q15M PRN IV DECREASED GLUCOSE; Start 02/21/17 at 06:00 Dextrose (D50w Syringe) 50 ml Q15M PRN IV DECREASED GLUCOSE; Start 02/21/17 at 06:00 Glucagon (Glucagen) 1 mg Q15M PRN IM DECREASED GLUCOSE; Start 02/21/17 at 06: 00 Glucose (Glutose) 15 gm Q15M PRN BUCCAL DECREASED GLUCOSE; Start 02/21/17 at 06:00 Acetaminophen/ Hydrocodone Bitart ([place] (5/325)) 1 tab Q4H PRN PO PAIN LEVEL 4 -6 Last administered on 02/26/17 14:17; Admin Dose 1 TAB; Start 02/21/17 at 09:30 Fluconazole (Diflucan) 100 mg DAILY PO Last administered on 02/26/17 08:46; Admin Dose 100 MG; Start 02/21/17 at 21:00 Silver Sulfadiazine (Thermazene 1% 25 Gm) 1 applic DAILY TOP Last administered on 02/26/17 08:49; Admin Dose 1 APPLIC; Start 02/22/17 at 09:00 Hydrocortisone (Hydrocortisone 2.5% Cr) 1 applic DAILY TOP Last administered on 02/26/17 08:47; Admin Dose 1 APPLIC; Start 02/22/17 at 09:00 Clotrimazole (Lotrimin Cr) 1 applic DAILY TOP Last administered on 02/26/17 08:48; Admin Dose 1 APPLIC; Start 02/22/17 at 09:00 Mupirocin 1 applic 1 applic BID TOP Last administered on 02/26/17 08:47; Admin Dose 1 APPLIC; Start 02/22/17 at 12:00 Ferric Sodium Gluconate Complex/ Sodium Chloride (Ferrlecit/NS) 110 ml @ 110 mls/hr Q24H IVPB Last administered on 02/26/17 10:02; Admin Dose 110 MLS/HR; Start 02/23/17 at 09:30; Stop 02/27/17 at 10:29 Polyethylene Glycol (Miralax) 17 gm DAILY PO Last administered on 02/26/17 08 :46; Admin Dose 17 GM; Start 02/24/17 at 21:00 Furosemide (Lasix) 40 mg BID IV Last administered on 02/26/17 08:47; Admin Dose 40 MG; Start 02/25/17 at 09:00 Levofloxacin (Levaquin) 500 mg DAILY@06 PO Last administered on 02/26/17 06: 10; Admin Dose 500 MG; Start 02/25/17 at 11:00 ROSA MARIA ALMARAZ NP Feb 26, 2017 15:13
[2017-02-26 20:00] VITALS: BP 115/56; RESP 20
[2017-02-26] MEDS: INSULIN GLARGINE [LANtus] 3 ML PEN SC SCH (20:46)
[2017-02-27] MEDS: ACCU-CHEK XX SCH (00:08)
[2017-02-27] MEDS: ALBUTEROL/IPRATROPIUM (NEB) 3 ML AMP HHN SCH ×6 (00:41→19:56)
[2017-02-27 02:42] VITALS: BP 106/56; RESP 20
[2017-02-27] MEDS: LEVOFLOXACIN 500 MG TAB PO SCH (05:28)
[2017-02-27 06:14] LABS: ABNORMAL IP MESSAGE 1; BASOPHILS % 0.2 % (0.0-2.0); EOSINOPHILS # 0.2 10^3/ul (0.0-0.5); EOSINOPHILS % 4.5 % (0.0-7.0); HEMATOCRIT 24.8 % (42.0-52.0); HEMOGLOBIN 7.5 g/dl (14.0-18.0); LYMPHOCYTES # 0.4 10^3/ul (0.8-2.9); LYMPHOCYTES % 8.8 % (15.0-51.0); MEAN CORPUSCULAR HEMOGLOBIN 29.3 pg (29.0-33.0); MEAN CORPUSCULAR HGB CONC 30.2 g/dl (32.0-37.0); MEAN CORPUSCULAR VOLUME 96.9 fl (82.0-101.0); MONOCYTE # 0.4 10^3/ul (0.3-0.9); MONOCYTES % 8.4 % (0.0-11.0); NEUTROPHIL # 3.3 10^3/ul (1.6-7.5); NEUTROPHILS % 77.9 % (39.0-77.0); PLATELET COUNT 77 10^3/UL (140-415); POSITIVE DIFF @See below; RED BLOOD COUNT 2.56 10^6/ul (4.70-6.10); RED CELL DISTRIBUTION WIDTH 16.9 % (11.5-14.5); WHITE BLOOD COUNT 4.2 10^3/ul (4.8-10.8)
[2017-02-27 06:32] LABS: MAGNESIUM 1.7 mg/dl (1.7-2.5); PHOSPHORUS 4.4 mg/dl (2.5-4.9)
[2017-02-27 06:34] LABS: CALCIUM 9.3 mg/dl (8.4-10.2); CREATININE 1.63 mg/dl (0.61-1.24); POTASSIUM 3.6 mmol/L (3.5-5.1)
[2017-02-27] MEDS: INSULIN ASPART [NOVOLOG] 3 ML PEN SC SCH ×4 (08:15→21:00)
[2017-02-27 08:17] VITALS: BP 110/56; RESP 23
--- NOTE | 2017-02-27 08:41 | RADRPT ---
PROCEDURE: XR Chest. CLINICAL INDICATION: Shortness of breath TECHNIQUE: Single portable view of the chest was obtained COMPARISON: DR CAPPS 02/23/2017 FINDINGS: The trachea is midline. The cardiac silhouette and pulmonary vascularity are prominent. There are di ffuse bilateral infiltrates. Right-sided consolidation and right-sided pleural effusion is noted. IMPRESSION: 1. Cardiomegaly and pulmonary vascular congestion with diffuse bilateral infiltrates and right-sided consolidation with right-sided pleural effusion. THERE IS WORSENING RIGHT-SIDED EFFUSION AND CONSOL IDATION SINCE PRIOR EXAM. Cannot exclude pneumonia in the appropriate level setting. RPTAT: EE Physician Daniel Date Time Electronically viewed and signed by Physician Daniel on 02/27/2017 08:41 JL/
[2017-02-27] MEDS: FLUCONAZOLE 100 MG TAB PO SCH (08:51)
[2017-02-27] MEDS: FUROSEMIDE 20 MG INJ IV SCH ×2 (08:55→21:04)
[2017-02-27] MEDS: POLYETHYLENE GLYCOL 17 GM PACKET PO SCH (08:55)
[2017-02-27] MEDS: MUPIROCIN 2% 22 GM OINT TOP SCH ×2 (08:59→21:06)
--- NOTE | 2017-02-27 09:00 | PN ---
Date/Time of Note Date/Time of Note DATE: 02/27/17 TIME: 08:59 Assessment/Plan VTE Prophylaxis VTE Prophylaxis Intervention: other Lines/Catheters IV [facility] Urinary Cath still in place: Yes Reason Cath still needed: urinary retention Assessment/Plan Chief Complaint/Hosp Course renal follow up SUBJECTIVE: The patient is stable. No events overnight. No fevers, chills, nausea, vomiting, no shortness of breath. d/w Dr Quiroga stable renal function OBJECTIVE: HEENT: Head is normocephalic. NECK: Supple. HEART: Regular rate. LUNGS: Show diminished breath sounds at the base. ABDOMEN: Soft, nontender to palpation, no rebound or guarding. EXTREMITIES: Negative for clubbing, cyanosis. Positive edema. DERMATOLOGIC: No rashes. MUSCULOSKELETAL: No joint effusions. NEUROLOGIC: No change in exam. MEDICATIONS: The patient's medications have been reviewed. ASSESSMENT AND PLAN: 1. Nonoliguric acute kidney injury on top of chronic kidney disease with unknown baseline creatinine. Etiology is secondary to hemodynamics. Renal function is stable. At this point, continue current treatment plan, supportive care, renally dose all meds, monitor closely on diuretic therapy. 2. Acute congestive heart failure exacerbation, volume overload. responded well to diuresis. Monitor intake and outputs closely. 3. Anemia with a component of iron deficiency. Continue IV Ferrlecit. will give epogen in am in hgb still low 4. Mineral bone disorder. Monitor calcium and phosphorus levels. 5. Acute hypoxic respiratory failure secondary to pneumonia, sleep apnea. Continue current medical management. 6. Obstructive sleep apnea. Continue CPAP. 7. Morbid obesity. Continue dietary modification. 8. Lower extremity wounds. Continue local wound care. 9. Diabetes. Continue current insulin regimen. Problems: Exam/Review of Systems Vital Signs Vitals Vital Signs Date Time Temp Pulse Resp B/P Pulse Ox O2 Delivery O2 Flow Rate FiO2 02/27/17 08:17 97.2 85 23 110/56 95 02/27/17 04:01 Nasal Cannula 4.0 Intake and Output 02/26/17 02/26/17 02/27/17 15:00 23:00 07:00 Intake Total 110 ml 1040 ml 840 ml Output Total 1100 ml 1400 ml Balance 110 ml -60 ml -560 ml Results Result Diagram: 02/27/17 0500 02/27/17 0500 Results 24 hrs Laboratory Tests Test 02/26/17 12:07 02/26/17 17:23 02/26/17 20:30 02/27/17 05:00 Bedside Glucose 130 124 138 White Blood Count 4.2 L Red Blood Count 2.56 L Hemoglobin 7.5 L Hematocrit 24.8 L Mean Corpuscular Volume 96.9 Mean Corpuscular Hemoglobin 29.3 Mean Corpuscular Hemoglobin Concent 30.2 L Red Cell Distribution Width 16.9 H Platelet Count 77 L Mean Platelet Volume 10.0 Neutrophils % 77.9 H Lymphocytes % 8.8 L Monocytes % 8.4 Eosinophils % 4.5 Basophils % 0.2 Nucleated Red Blood Cells % 0.0 Neutrophils # 3.3 Lymphocytes # 0.4 L Monocytes # 0.4 Eosinophils # 0.2 Basophils # 0.0 Nucleated Red Blood Cells # 0.0 Sodium Level 140 Potassium Level 3.6 Chloride Level 98 Carbon Dioxide Level 36 H Anion Gap 10 Blood Urea Nitrogen 38 H Creatinine 1.63 H Glucose Level 126 Calcium Level 9.3 Phosphorus Level 4.4 Magnesium Level 1.7 Test 02/27/17 08:08 Bedside Glucose 125 Medications Medications Current Medications Ondansetron HCl (Zofran Inj) 4 mg Q6H PRN IV NAUSEA AND/OR VOMITING; Start 03/27 at 23:30 Acetaminophen (Tylenol Tab) 650 mg Q6H PRN PO PAIN LEVEL 1-3 OR FEVER; Start 02/20/17 at 23:30 Morphine Sulfate (morphine) 2 mg Q4H PRN IV PAIN LEVEL 7-10; Start 02/20/17 at 23:30 Insulin Glargine (Lantus) 10 unit DAILY@20 SC Last administered on 02/26/17t 20:46; Admin Dose 10 UNIT; Start 02/21/17 at 20:00 Diagnostic Test (Pha) (Accu-Chek) 1 ea 02 XX ; Start 02/22/17 at 02:00 Miscellaneous Information 1 ea NOTE XX ; Start 02/21/17 at 06:00 Glucose (Glutose) 15 gm Q15M PRN PO DECREASED GLUCOSE; Start 02/21/17 at 06:00 Glucose (Glutose) 22.5 gm Q15M PRN PO DECREASED GLUCOSE; Start 02/21/17 at 06: 00 Dextrose (D50w Syringe) 25 ml Q15M PRN IV DECREASED GLUCOSE; Start 02/21/17 at 06:00 Dextrose (D50w Syringe) 50 ml Q15M PRN IV DECREASED GLUCOSE; Start 02/21/17 at 06:00 Glucagon (Glucagen) 1 mg Q15M PRN IM DECREASED GLUCOSE; Start 02/21/17 at 06: 00 Glucose (Glutose) 15 gm Q15M PRN BUCCAL DECREASED GLUCOSE; Start 02/21/17 at 06:00 Acetaminophen/ Hydrocodone Bitart ([place] (5/325)) 1 tab Q4H PRN PO PAIN LEVEL 4 -6 Last administered on 02/26/17 14:17; Admin Dose 1 TAB; Start 02/21/17 at 09:30 Fluconazole (Diflucan) 100 mg DAILY PO Last administered on 02/26/17 08:46; Admin Dose 100 MG; Start 02/21/17 at 21:00 Silver Sulfadiazine (Thermazene 1% 25 Gm) 1 applic DAILY TOP Last administered on 02/26/17 08:49; Admin Dose 1 APPLIC; Start 02/22/17 at 09:00 Hydrocortisone (Hydrocortisone 2.5% Cr) 1 applic DAILY TOP Last administered on 02/26/17 08:47; Admin Dose 1 APPLIC; Start 02/22/17 at 09:00 Clotrimazole (Lotrimin Cr) 1 applic DAILY TOP Last administered on 02/26/17 08:48; Admin Dose 1 APPLIC; Start 02/22/17 at 09:00 Mupirocin 1 applic 1 applic BID TOP Last administered on 02/26/17 20:49; Admin Dose 1 APPLIC; Start 02/22/17 at 12:00 Ferric Sodium Gluconate Complex/ Sodium Chloride (Ferrlecit/NS) 110 ml @ 110 mls/hr Q24H IVPB Last administered on 02/26/17 10:02; Admin Dose 110 MLS/HR; Start 02/23/17 at 09:30; Stop 02/27/17 at 10:29 Polyethylene Glycol (Miralax) 17 gm DAILY PO Last administered on 02/26/17 08 :46; Admin Dose 17 GM; Start 02/24/17 at 21:00 Furosemide (Lasix) 40 mg BID IV Last administered on 02/26/17 20:35; Admin Dose 40 MG; Start 02/25/17 at 09:00 Levofloxacin (Levaquin) 500 mg DAILY@06 PO Last administered on 02/27/17t 05: 28; Admin Dose 500 MG; Start 02/25/17 at 11:00 LARRY CHANEL DO Feb 27, 2017 09:00
[2017-02-27] MEDS: HYDROCORTISONE 2.5% 20 GM CR TOP SCH (09:01)
[2017-02-27] MEDS: CLOTRIMAZOLE 1% 30 GM CR TOP SCH (09:03)
[2017-02-27] MEDS: SILVER SULFADIAZINE 1% 25 GM CR TOP SCH (09:04)
[2017-02-27] MEDS: SOD FERRIC GLUC COMPLX 125 MG in SOD CHLORIDE 0.9% 100 ML IVPB SCH (09:39)
--- NOTE | 2017-02-27 10:22 | CONS ---
Date/Time of Note Date/Time of Note DATE: 02/27/17 TIME: : Assessment/Plan Assessment/Plan Additional Assessment/Plan Chest x-ray was reviewed from today which is showing significant infiltrative changes in the right lower lobe. Mild pulmonary vascular congestion also is present. Assessment and recommendations; 1. Patient admitted with what appears to be pneumonia involving the right lung. 2. Chronic renal insufficiency. 3. Anemia and thrombocytopenia. 4. Morbid obesity with likely underlying sleep apnea. 5. Echocardiogram not indicative of underlying cardiomyopathy. Continue current supportive care. Add Azactam 1 g IV every 12 hours. Continue oral Levaquin. Obtain follow-up chest x-ray in 48-72 hours. Consultation Date/Type/Reason Admit Date/Time Feb 20, 2017 at 20:38 Type of Consultation: Pulmonary 24 HR Interval Summary Free Text/Dictation Patient's condition is stable. Still requiring supplemental oxygen for O2 saturation maintenance. Patient does complain of dyspnea on minimal exertion. But denies any chest pain, wheezing. General exam; middle-aged male, morbidly obese, awake and alert. Currently in no distress. Exam/Review of Systems Vital Signs Vitals Vital Signs Date Time Temp Pulse Resp B/P Pulse Ox O2 Delivery O2 Flow Rate FiO2 02/27/17 09:45 88 22 92 Nasal Cannula 4.0 02/27/17 08:17 97.2 110/56 Intake and Output 02/26/17 02/26/17 02/27/17 15:00 23:00 07:00 Intake Total 110 ml 1040 ml 840 ml Output Total 1100 ml 1400 ml Balance 110 ml -60 ml -560 ml Exam HEENT exam; supple neck, JVD difficult to see because of short neck. No neck masses. No thyromegaly. Patient has fair dentition. Pupils are small bilaterally. Neck Chest exam; diminished breath sounds bilaterally. S1-S2 audible, no murmurs. Regular rhythm. Abdomen exam; soft, benign, no organomegaly. Nontender. Bowel sounds audible. Extremity exam; chronic appearing lower extremity skin changes with 1+ edema. [employer] exam; no focal deficit. Results Result Diagram: 02/27/17 0500 02/27/17 0500 Results 24 hrs Laboratory Tests Test 02/26/17 12:07 02/26/17 17:23 02/26/17 20:30 02/27/17 05:00 Bedside Glucose 130 124 138 White Blood Count 4.2 L Red Blood Count 2.56 L Hemoglobin 7.5 L Hematocrit 24.8 L Mean Corpuscular Volume 96.9 Mean Corpuscular Hemoglobin 29.3 Mean Corpuscular Hemoglobin Concent 30.2 L Red Cell Distribution Width 16.9 H Platelet Count 77 L Mean Platelet Volume 10.0 Neutrophils % 77.9 H Lymphocytes % 8.8 L Monocytes % 8.4 Eosinophils % 4.5 Basophils % 0.2 Nucleated Red Blood Cells % 0.0 Neutrophils # 3.3 Lymphocytes # 0.4 L Monocytes # 0.4 Eosinophils # 0.2 Basophils # 0.0 Nucleated Red Blood Cells # 0.0 Sodium Level 140 Potassium Level 3.6 Chloride Level 98 Carbon Dioxide Level 36 H Anion Gap 10 Blood Urea Nitrogen 38 H Creatinine 1.63 H Glucose Level 126 Calcium Level 9.3 Phosphorus Level 4.4 Magnesium Level 1.7 Test 02/27/17 08:08 Bedside Glucose 125 Medications Medications Current Medications Ondansetron HCl (Zofran Inj) 4 mg Q6H PRN IV NAUSEA AND/OR VOMITING; Start 03/27 at 23:30 Acetaminophen (Tylenol Tab) 650 mg Q6H PRN PO PAIN LEVEL 1-3 OR FEVER; Start 02/20/17 at 23:30 Morphine Sulfate (morphine) 2 mg Q4H PRN IV PAIN LEVEL 7-10; Start 02/20/17 at 23:30 Insulin Glargine (Lantus) 10 unit DAILY@20 SC Last administered on 02/26/17t 20:46; Admin Dose 10 UNIT; Start 02/21/17 at 20:00 Diagnostic Test (Pha) (Accu-Chek) 1 ea 02 XX ; Start 02/22/17 at 02:00 Miscellaneous Information 1 ea NOTE XX ; Start 02/21/17 at 06:00 Glucose (Glutose) 15 gm Q15M PRN PO DECREASED GLUCOSE; Start 02/21/17 at 06:00 Glucose (Glutose) 22.5 gm Q15M PRN PO DECREASED GLUCOSE; Start 02/21/17 at 06: 00 Dextrose (D50w Syringe) 25 ml Q15M PRN IV DECREASED GLUCOSE; Start 02/21/17 at 06:00 Dextrose (D50w Syringe) 50 ml Q15M PRN IV DECREASED GLUCOSE; Start 02/21/17 at 06:00 Glucagon (Glucagen) 1 mg Q15M PRN IM DECREASED GLUCOSE; Start 02/21/17 at 06: 00 Glucose (Glutose) 15 gm Q15M PRN BUCCAL DECREASED GLUCOSE; Start 02/21/17 at 06:00 Acetaminophen/ Hydrocodone Bitart ([place] (5/325)) 1 tab Q4H PRN PO PAIN LEVEL 4 -6 Last administered on 02/26/17 14:17; Admin Dose 1 TAB; Start 02/21/17 at 09:30 Fluconazole (Diflucan) 100 mg DAILY PO Last administered on 02/27/17 08:51; Admin Dose 100 MG; Start 02/21/17 at 21:00 Silver Sulfadiazine (Thermazene 1% 25 Gm) 1 applic DAILY TOP Last administered on 02/27/17 09:04; Admin Dose 1 APPLIC; Start 02/22/17 at 09:00 Hydrocortisone (Hydrocortisone 2.5% Cr) 1 applic DAILY TOP Last administered on 02/27/17 09:01; Admin Dose 1 APPLIC; Start 02/22/17 at 09:00 Clotrimazole (Lotrimin Cr) 1 applic DAILY TOP Last administered on 02/27/17 09:03; Admin Dose 1 APPLIC; Start 02/22/17 at 09:00 Mupirocin 1 applic 1 applic BID TOP Last administered on 02/27/17 08:59; Admin Dose 1 APPLIC; Start 02/22/17 at 12:00 Ferric Sodium Gluconate Complex/ Sodium Chloride (Ferrlecit/NS) 110 ml @ 110 mls/hr Q24H IVPB Last administered on 02/27/17 09:39; Admin Dose 110 MLS/HR; Start 02/23/17 at 09:30; Stop 02/27/17 at 10:29 Polyethylene Glycol (Miralax) 17 gm DAILY PO Last administered on 02/27/17 08 :55; Admin Dose 17 GM; Start 02/24/17 at 21:00 Furosemide (Lasix) 40 mg BID IV Last administered on 02/27/17 08:55; Admin Dose 40 MG; Start 02/25/17 at 09:00 Levofloxacin (Levaquin) 500 mg DAILY@06 PO Last administered on 02/27/17 05: 28; Admin Dose 500 MG; Start 02/25/17 at 11:00 QARNI,MITESH Feb 27, 2017 10:22
--- NOTE | 2017-02-27 10:57 | CONS ---
DATE OF ADMISSION: 02/20/2017 DATE OF CONSULTATION: 02/27/2017 SUBJECTIVE FINDINGS: The patient is being followed for bilateral lower extremity cellulitis, lymphe sully with ulcerations. The patient is currently being followed for anemia and congestive heart fail ure with exacerbation. The patient is currently on inhaled bronchodilators. OBJECTIVE FINDINGS: VITAL SIGNS: Temperature 97.2, pulse 85, respiratory rate 23, blood pressure 110/56, pulse oximetry is 95%. GENERAL: The patient is lying supine, morbidly obese, currently on bronchodilators. HEENT: Normocephalic. EXTREMITIES: The patient has bilateral lower extremity lymphedema, with improved skin appearance si mne admission. There is continued epidermal lysis with multiple eschars. No active drainage. Ther e is 2+ pitting edema. Chronic lipodermatic sclerotic changes, chronic mycotic nails. Wound cultur es: Coagulase negative staph. LABORATORIES: WBC 4.2, hemoglobin 7.5, hematocrit 24.8, platelets 77. ASSESSMENT: 1. Lymphedema with bilateral lower extremity ulcerations: Improved. 2. Cellulitis: Improved. 2. Onychomycosis. 3. Acute respiratory failure. 4. Morbid obesity. 5. Cirrhosis. PLAN: Patient seen and evaluated and in improved condition. Continue current therapy using Silvade ne. No plans for debridement. Monitor for any acute decubitus changes. The patient is at elevated risk due to being bed bound. Dictated By: ROSE MARY ESTEVEZ DPM RB/AMY Conf#: [id number] DID#: [id number] CC: IMANI HALL MD;*End*
[2017-02-27] MEDS: HYDROCODONE/APAP (5/325) TAB PO PRN ×2 (11:34→16:43)
[2017-02-27] MEDS: AZTREONAM 1 GM/NS (PMX) 50 ML IVPB SCH ×2 (12:18→21:04)
--- NOTE | 2017-02-27 12:59 | PN ---
Date/Time of Note Date/Time of Note DATE: 02/27/17 TIME: 12:57 Assessment/Plan VTE Prophylaxis VTE Prophylaxis Intervention: contraindicated Lines/Catheters [facility] Urinary Cath still in place: Yes Reason Cath still needed: other (indicate) Assessment/Plan Chief Complaint/Hosp Course 1. Acute on chronic respiratory failure. Hypoxic and hypercapnic. Continue inhaled bronchodilators. Continue supplemental oxygen. Continue non-invasive positive pressure ventilation as needed. The patient being followed by pulmonology. 2. Bilateral infiltrates on chest x-ray. Fluid versus pneumonia. Continue empiric antibiotics. Diuresis as per nephrology. 3. Diabetes mellitus. Continue sliding scale insulin along with basal insulin. Hemoglobin A1c within normal limits. Blood sugars well controlled. 4. Acute on chronic kidney disease. The patient being followed by nephrology. Use nephrotoxic drugs with caution. 5. Diastolic heart failure. Continue diuresis as the renal function allows. 6. Pulmonary hypertension. PA systolic pressure 48 mmHg. Continue supplemental oxygen. 7. Liver cirrhosis. Continue Rifaximin. 8. Pancytopenia. Most probably secondary to underlying liver cirrhosis. Continue to monitor. 9. Dyslipidemia. Low HDL with unmeasured LDL. 10. Morbid obesity. 11. Bilateral lower extremity lymphedema with chronic bilateral lower extremity ulcerations (infected). The patient being followed by podiatry. Local wound care as per podiatry. 12. MRSA colonization of the nares. Continue Bactroban. 13. Fluids, electrolytes, and nutrition. Carbohydrate controlled diet. 14. DVT prophylaxis. Contraindicated. 15. Plan. Continue antimicrobials as per ID. Diuresis as per nephrology. Continue physical therapy. Case discussed with Dr. Ramírez. Problems: Subjective 24 Hr Interval Summary Free Text/Dictation The patient verbalized more dyspnea today. Exam/Review of Systems Vital Signs Vitals Vital Signs Date Time Temp Pulse Resp B/P Pulse Ox O2 Delivery O2 Flow Rate FiO2 02/27/17 09:45 88 22 92 Nasal Cannula 4.0 02/27/17 08:17 97.2 110/56 Intake and Output 02/26/17 02/26/17 02/27/17 15:00 23:00 07:00 Intake Total 110 ml 1040 ml 840 ml Output Total 1100 ml 1400 ml Balance 110 ml -60 ml -560 ml Exam General: Morbidly obese 56 year-old male lying in bed in mild respiratory distress. HEENT: Normocephalic, atraumatic. Eyes: Anicteric sclerae, conjunctivae clear. ENT: Nasal septum midline, oral mucosa moist. Neck: Obese. Respiratory: Bilaterally diminished breath sounds. Use of accessory muscles of respiration. Coarse breath sounds. Cardiovascular: S1, S2 heard. Regular rate and rhythm. Abdomen: Nontender and distended. Bowel sounds positive in all 4 quadrants. Genitourinary: Deferred. Extremities: Bilateral lower extremity 2-3+ pitting edema. Neurologic: Cranial nerves II through XII grossly intact. The patient is awake, alert, and oriented. Skin: Chronic ulcers of bilateral lower extremities. Results Result Diagram: 02/27/17 0500 02/27/17 0500 Results 24 hrs Laboratory Tests Test 02/26/17 17:23 02/26/17 20:30 02/27/17 05:00 02/27/17 08:08 Bedside Glucose 124 138 125 White Blood Count 4.2 L Red Blood Count 2.56 L Hemoglobin 7.5 L Hematocrit 24.8 L Mean Corpuscular Volume 96.9 Mean Corpuscular Hemoglobin 29.3 Mean Corpuscular Hemoglobin Concent 30.2 L Red Cell Distribution Width 16.9 H Platelet Count 77 L Mean Platelet Volume 10.0 Neutrophils % 77.9 H Lymphocytes % 8.8 L Monocytes % 8.4 Eosinophils % 4.5 Basophils % 0.2 Nucleated Red Blood Cells % 0.0 Neutrophils # 3.3 Lymphocytes # 0.4 L Monocytes # 0.4 Eosinophils # 0.2 Basophils # 0.0 Nucleated Red Blood Cells # 0.0 Sodium Level 140 Potassium Level 3.6 Chloride Level 98 Carbon Dioxide Level 36 H Anion Gap 10 Blood Urea Nitrogen 38 H Creatinine 1.63 H Glucose Level 126 Calcium Level 9.3 Phosphorus Level 4.4 Magnesium Level 1.7 Test 02/27/17 12:10 Bedside Glucose 162 Medications Medications Current Medications Ondansetron HCl (Zofran Inj) 4 mg Q6H PRN IV NAUSEA AND/OR VOMITING; Start 03/27 at 23:30 Acetaminophen (Tylenol Tab) 650 mg Q6H PRN PO PAIN LEVEL 1-3 OR FEVER; Start 02/20/17 at 23:30 Morphine Sulfate (morphine) 2 mg Q4H PRN IV PAIN LEVEL 7-10; Start 02/20/17 at 23:30 Insulin Glargine (Lantus) 10 unit DAILY@20 SC Last administered on 02/26/17 20:46; Admin Dose 10 UNIT; Start 02/21/17 at 20:00 Diagnostic Test (Pha) (Accu-Chek) 1 ea 02 XX ; Start 02/22/17 at 02:00 Miscellaneous Information 1 ea NOTE XX ; Start 02/21/17 at 06:00 Glucose (Glutose) 15 gm Q15M PRN PO DECREASED GLUCOSE; Start 02/21/17 at 06:00 Glucose (Glutose) 22.5 gm Q15M PRN PO DECREASED GLUCOSE; Start 02/21/17 at 06: 00 Dextrose (D50w Syringe) 25 ml Q15M PRN IV DECREASED GLUCOSE; Start 02/21/17 at 06:00 Dextrose (D50w Syringe) 50 ml Q15M PRN IV DECREASED GLUCOSE; Start 02/21/17 at 06:00 Glucagon (Glucagen) 1 mg Q15M PRN IM DECREASED GLUCOSE; Start 02/21/17 at 06: 00 Glucose (Glutose) 15 gm Q15M PRN BUCCAL DECREASED GLUCOSE; Start 02/21/17 at 06:00 Acetaminophen/ Hydrocodone Bitart ([place] (5/325)) 1 tab Q4H PRN PO PAIN LEVEL 4 -6 Last administered on 02/27/17 11:34; Admin Dose 1 TAB; Start 02/21/17 at 09:30 Fluconazole (Diflucan) 100 mg DAILY PO Last administered on 02/27/17 08:51; Admin Dose 100 MG; Start 02/21/17 at 21:00 Silver Sulfadiazine (Thermazene 1% 25 Gm) 1 applic DAILY TOP Last administered on 02/27/17 09:04; Admin Dose 1 APPLIC; Start 02/22/17 at 09:00 Hydrocortisone (Hydrocortisone 2.5% Cr) 1 applic DAILY TOP Last administered on 02/27/17 09:01; Admin Dose 1 APPLIC; Start 02/22/17 at 09:00 Clotrimazole (Lotrimin Cr) 1 applic DAILY TOP Last administered on 02/27/17 09:03; Admin Dose 1 APPLIC; Start 02/22/17 at 09:00 Mupirocin (Bactroban) 1 applic BID TOP Last administered on 02/27/17 08:59; Admin Dose 1 APPLIC; Start 02/22/17 at 12:00 Polyethylene Glycol (Miralax) 17 gm DAILY PO Last administered on 02/27/17 08 :55; Admin Dose 17 GM; Start 02/24/17 at 21:00 Furosemide (Lasix) 40 mg BID IV Last administered on 02/27/17 08:55; Admin Dose 40 MG; Start 02/25/17 at 09:00 Levofloxacin 500 mg 500 mg DAILY@06 PO Last administered on 02/27/17 05:28; Admin Dose 500 MG; Start 02/25/17 at 11:00 Aztreonam (Azactam 1gm/NS (Pmx)) 50 ml @ 100 mls/hr Q12 IVPB Last administered on 02/27/17 12:18; Admin Dose 100 MLS/HR; Start 02/27/17 at 10: 30 IVON ESPAÑA NP Feb 27, 2017 12:59
[2017-02-27 14:18] VITALS: BP 116/59; PULSE 90; RESP 20
--- NOTE | 2017-02-27 17:51 | CONS ---
Date/Time of Note Date/Time of Note DATE: 02/27/17 TIME: 17:44 Assessment/Plan Assessment/Plan Chief Complaint/Hosp Course Assessment/Plan Chief Complaint/Hosp Course ID PROGRESS NOTE CURRENT ABX: DAY # =>Vanco IV + Levaquin 24H INTERVAL SUMMARY * Resting comfortably. Afebrile. No Acute distress. * MICROBIOLOGY: Blood culture and urine culture negative. Nares swab came back positive for MRSA. * Wound Cx WOUND CULTURE Final Organism 1 COAGULASE NEGATIVE STAPH QUANTITY SCANT GROWTH * DIAGNOSTICS: Chest x-ray on admission revealed moderate to severe with bilateral pleural effusions, right greater than left. Ultrasound of the liver showed cirrhosis, a small amount of ascites. PHYSICAL EXAMINATION: GENERAL: VSS, afebrile, NAD HEENT: Unremarkable NECK: Supple, trach midline CHEST: Equal chest rise bilaterally, without dyspnea on observation HEART: RRR ABDOMEN: Soft, NT, ND EXT: Warm, Bilateral lower extremities erythema and chronic wounds. Right upper extremity also erythematous. Bilateral Lower Extremities +2 Edema noted. SKIN: No rash, no diaphoresis ID ASSESSMENT: 56 yo obese M admit [facility]: 1. Bilateral lower extremities, acute on chronic cellulitis with chronic wounds. 2. Right upper extremity cellulitis. WOUND CULTURE Final Organism 1 COAGULASE NEGATIVE STAPH QUANTITY SCANT GROWTH 3. Pancytopenia likely secondary to liver cirrhosis. 4. Morbid obesity. 5. Acute possibly on chronic kidney disease. 6. Congestive heart failure exacerbation with pulmonary edema. 7. Diabetes. 8. Bilateral Lower Extremities Edema. (+)MRSA-> Bactroban onboard ABX ALLERGIES: None to ABX INVASIVES: PIV CURRENT ABX: =>Vanco IV + Levaquin ID RECOMMENDATIONS/PLAN: 1. Continue current Antibiotics. GI prophylaxis. DVT prophylaxis. Monitor Labs. 2. ID team consultants will continue to follow. Problems: Consultation Date/Type/Reason Admit Date/Time Feb 20, 2017 at 20:38 Initial Consult Date Type of Consultation: id Exam/Review of Systems Vital Signs Vitals Vital Signs Date Time Temp Pulse Resp B/P Pulse Ox O2 Delivery O2 Flow Rate FiO2 02/27/17 14:18 98.0 90 20 116/59 94 Nasal Cannula 4.0 Intake and Output 02/26/17 02/26/17 02/27/17 15:00 23:00 07:00 Intake Total 110 ml 1040 ml 840 ml Output Total 1100 ml 1400 ml Balance 110 ml -60 ml -560 ml Results Result Diagram: 02/27/17 0500 02/27/17 0500 Results 24 hrs Laboratory Tests Test 02/26/17 20:30 02/27/17 05:00 02/27/17 08:08 02/27/17 12:10 Bedside Glucose 138 125 162 White Blood Count 4.2 L Red Blood Count 2.56 L Hemoglobin 7.5 L Hematocrit 24.8 L Mean Corpuscular Volume 96.9 Mean Corpuscular Hemoglobin 29.3 Mean Corpuscular Hemoglobin Concent 30.2 L Red Cell Distribution Width 16.9 H Platelet Count 77 L Mean Platelet Volume 10.0 Neutrophils % 77.9 H Lymphocytes % 8.8 L Monocytes % 8.4 Eosinophils % 4.5 Basophils % 0.2 Nucleated Red Blood Cells % 0.0 Neutrophils # 3.3 Lymphocytes # 0.4 L Monocytes # 0.4 Eosinophils # 0.2 Basophils # 0.0 Nucleated Red Blood Cells # 0.0 Sodium Level 140 Potassium Level 3.6 Chloride Level 98 Carbon Dioxide Level 36 H Anion Gap 10 Blood Urea Nitrogen 38 H Creatinine 1.63 H Glucose Level 126 Calcium Level 9.3 Phosphorus Level 4.4 Magnesium Level 1.7 Test 02/27/17 17:17 Bedside Glucose 119 Medications Medications Current Medications Ondansetron HCl (Zofran Inj) 4 mg Q6H PRN IV NAUSEA AND/OR VOMITING; Start 03/27 at 23:30 Acetaminophen (Tylenol Tab) 650 mg Q6H PRN PO PAIN LEVEL 1-3 OR FEVER; Start 02/20/17 at 23:30 Morphine Sulfate (morphine) 2 mg Q4H PRN IV PAIN LEVEL 7-10; Start 02/20/17 at 23:30 Insulin Glargine (Lantus) 10 unit DAILY@20 SC Last administered on 02/26/17t 20:46; Admin Dose 10 UNIT; Start 02/21/17 at 20:00 Diagnostic Test (Pha) (Accu-Chek) 1 ea 02 XX ; Start 02/22/17 at 02:00 Miscellaneous Information 1 ea NOTE XX ; Start 02/21/17 at 06:00 Glucose (Glutose) 15 gm Q15M PRN PO DECREASED GLUCOSE; Start 02/21/17 at 06:00 Glucose (Glutose) 22.5 gm Q15M PRN PO DECREASED GLUCOSE; Start 02/21/17 at 06: 00 Dextrose (D50w Syringe) 25 ml Q15M PRN IV DECREASED GLUCOSE; Start 02/21/17 at 06:00 Dextrose (D50w Syringe) 50 ml Q15M PRN IV DECREASED GLUCOSE; Start 02/21/17 at 06:00 Glucagon (Glucagen) 1 mg Q15M PRN IM DECREASED GLUCOSE; Start 02/21/17 at 06: 00 Glucose (Glutose) 15 gm Q15M PRN BUCCAL DECREASED GLUCOSE; Start 02/21/17 at 06:00 Acetaminophen/ Hydrocodone Bitart ([place] (5/325)) 1 tab Q4H PRN PO PAIN LEVEL 4 -6 Last administered on 02/27/17 16:43; Admin Dose 1 TAB; Start 02/21/17 at 09:30 Fluconazole (Diflucan) 100 mg DAILY PO Last administered on 02/27/17 08:51; Admin Dose 100 MG; Start 02/21/17 at 21:00 Silver Sulfadiazine (Thermazene 1% 25 Gm) 1 applic DAILY TOP Last administered on 02/27/17 09:04; Admin Dose 1 APPLIC; Start 02/22/17 at 09:00 Hydrocortisone (Hydrocortisone 2.5% Cr) 1 applic DAILY TOP Last administered on 02/27/17 09:01; Admin Dose 1 APPLIC; Start 02/22/17 at 09:00 Clotrimazole (Lotrimin Cr) 1 applic DAILY TOP Last administered on 02/27/17 09:03; Admin Dose 1 APPLIC; Start 02/22/17 at 09:00 Mupirocin (Bactroban) 1 applic BID TOP Last administered on 02/27/17 08:59; Admin Dose 1 APPLIC; Start 02/22/17 at 12:00 Polyethylene Glycol (Miralax) 17 gm DAILY PO Last administered on 02/27/17 08 :55; Admin Dose 17 GM; Start 02/24/17 at 21:00 Furosemide (Lasix) 40 mg BID IV Last administered on 02/27/17 08:55; Admin Dose 40 MG; Start 02/25/17 at 09:00 Levofloxacin 500 mg 500 mg DAILY@06 PO Last administered on 02/27/17 05:28; Admin Dose 500 MG; Start 02/25/17 at 11:00 Aztreonam (Azactam 1gm/NS (Pmx)) 50 ml @ 100 mls/hr Q12 IVPB Last administered on 02/27/17t 12:18; Admin Dose 100 MLS/HR; Start 02/27/17 at 10: 30 ROSE MARY TURPIN NP Feb 27, 2017 17:51
[2017-02-27 20:38] VITALS: BP 107/55; RESP 20
[2017-02-27] MEDS: INSULIN GLARGINE [LANtus] 3 ML PEN SC SCH (21:19)
[2017-02-28] MEDS: ALBUTEROL/IPRATROPIUM (NEB) 3 ML AMP HHN SCH ×6 (00:49→20:47)
[2017-02-28 01:49] VITALS: BP 117/62; RESP 20
[2017-02-28] MEDS: ACCU-CHEK XX SCH (02:00)
[2017-02-28] MEDS: LEVOFLOXACIN 500 MG TAB PO SCH (06:12)
[2017-02-28] MEDS: HYDROCODONE/APAP (5/325) TAB PO PRN ×3 (06:13→18:56)
[2017-02-28 06:16] LABS: ABNORMAL IP MESSAGE 1; BASOPHILS % 0.3 % (0.0-2.0); EOSINOPHILS # 0.2 10^3/ul (0.0-0.5); EOSINOPHILS % 5.9 % (0.0-7.0); HEMATOCRIT 25.1 % (42.0-52.0); HEMOGLOBIN 7.6 g/dl (14.0-18.0); LYMPHOCYTES # 0.4 10^3/ul (0.8-2.9); MEAN CORPUSCULAR HEMOGLOBIN 29.3 pg (29.0-33.0); MEAN CORPUSCULAR HGB CONC 30.3 g/dl (32.0-37.0); MEAN CORPUSCULAR VOLUME 96.9 fl (82.0-101.0); MEAN PLATELET VOLUME 9.7 fl (7.4-10.4); MONOCYTE # 0.4 10^3/ul (0.3-0.9); MONOCYTES % 9.2 % (0.0-11.0); NEUTROPHIL # 2.9 10^3/ul (1.6-7.5); NEUTROPHILS % 74.3 % (39.0-77.0); PLATELET COUNT 71 10^3/UL (140-415); POSITIVE DIFF @See below; RED BLOOD COUNT 2.59 10^6/ul (4.70-6.10); RED CELL DISTRIBUTION WIDTH 17.5 % (11.5-14.5); WHITE BLOOD COUNT 3.9 10^3/ul (4.8-10.8)
[2017-02-28 07:05] LABS: CALCIUM 9.3 mg/dl (8.4-10.2); CREATININE 1.68 mg/dl (0.61-1.24); POTASSIUM 3.6 mmol/L (3.5-5.1)
[2017-02-28 07:06] LABS: MAGNESIUM 1.6 mg/dl (1.7-2.5); PHOSPHORUS 4.2 mg/dl (2.5-4.9)
[2017-02-28 07:51] VITALS: BP 97/54; RESP 20
[2017-02-28] MEDS: INSULIN ASPART [NOVOLOG] 3 ML PEN SC SCH ×4 (08:15→20:56)
[2017-02-28] MEDS: FLUCONAZOLE 100 MG TAB PO SCH (08:50)
[2017-02-28] MEDS: POLYETHYLENE GLYCOL 17 GM PACKET PO SCH (08:50)
[2017-02-28] MEDS: CLOTRIMAZOLE 1% 30 GM CR TOP SCH (08:51)
[2017-02-28] MEDS: SILVER SULFADIAZINE 1% 25 GM CR TOP SCH (08:51)
[2017-02-28] MEDS: MUPIROCIN 2% 22 GM OINT TOP SCH ×3 (08:51→20:44)
[2017-02-28] MEDS: HYDROCORTISONE 2.5% 20 GM CR TOP SCH (08:51)
[2017-02-28] MEDS: FUROSEMIDE 20 MG INJ IV SCH ×2 (09:04→20:43)
[2017-02-28] MEDS: AZTREONAM 1 GM/NS (PMX) 50 ML IVPB SCH ×2 (09:18→20:37)
[2017-02-28] MEDS ORDERED: MAGNESIUM SULFATE 2 GM/50 ML 50 ML IVPB ONE (10:00)
[2017-02-28] MEDS ORDERED: EPOETIN ALFA (NESRD) 3,000 UNITS/ML VIAL SC SCH (10:00)
[2017-02-28] MEDS ORDERED: METOLAZONE 2.5 MG TAB PO SCH (10:00)
--- NOTE | 2017-02-28 10:04 | PN ---
DATE: 02/28/2017 SUBJECTIVE: The patient is stable. No events overnight. OBJECTIVE: VITAL SIGNS: Blood pressure is 96/54, respirations 20, pulse 97, temperature 98.6. INTAKE AND OUTPUT: The patient had 690 in, 1500 out. HEENT: Head is normocephalic. NECK: Supple. HEART: Regular rate. LUNGS: Show diminished breath sounds at the base. ABDOMEN: Soft, nontender to palpation. No rebound or guarding. EXTREMITIES: Negative for clubbing, cyanosis. Positive edema. DERMATOLOGIC: No rashes. MUSCULOSKELETAL: No joint effusions. NEUROLOGIC: No change in exam. MEDICATIONS: The patient's medications have been reviewed. LABORATORY DATA: Shows a white count of 3.9, hemoglobin 10.6, platelet count is 71. Sodium 140, po tassium 3.6, BUN 38, creatinine 1.68, magnesium 1.6. ASSESSMENT AND PLAN: 1. Nonoliguric acute kidney injury on top of chronic kidney disease with unknown baseline creatinin e. Etiology is secondary to hemodynamics. Renal function has been overall stable. Continue curren t treatment plan, supportive care, renally dose all medicines. 2. Acute congestive heart failure exacerbation. The patient remains volume overloaded. Continue c urrent diuretic regimen. Continue Lasix. We will give intermittent metolazone as needed. 3. Anemia. The patient is status post IV Ferrlecit. We will give Epogen. 4. Mineral bone disorder. Monitor calcium and phosphorus levels. 5. Acute hypoxic respiratory failure secondary to pneumonia, sleep apnea, congestive heart failure. Continue current medical management. Continue IV antibiotics. 6. Obstructive sleep apnea. Continue CPAP. 7. Morbid obesity. Continue dietary modification. 8. Lower extremity wounds. Continue local wound care. 9. Diabetes. Continue current insulin regimen. 10. Hypomagnesemia. Replete with magnesium sulfate. Dictated By: ADAN SWEENEY DO NR/NTS Conf#: [id number] DID#: [id number] CC: IMANI HALL MD;*EndCC*
--- NOTE | 2017-02-28 12:27 | CONS ---
Date/Time of Note Date/Time of Note DATE: 02/28/17 TIME: 12:26 Consult Date/Type/Reason Admit Date/Time Feb 20, 2017 at 20:38 Type of Consultation: Pulmonary Subjective Still with shortness of breath and generalized discomfort. Objective Vital Signs Date Time Temp Pulse Resp B/P Pulse Ox O2 Delivery O2 Flow Rate FiO2 02/28/17 09:29 90 20 97 Nasal Cannula 4.0 02/28/17 07:51 98.6 97/54 Intake and Output 02/27/17 02/27/17 02/28/17 15:00 23:00 07:00 Intake Total 160 ml 530 ml Output Total 1500 ml Balance 160 ml -970 ml Exam GENERAL: Morbidly obese gentleman on nasal cannula O2 VITAL SIGNS: per chart NECK: Supple. No JVD or lymphadenopathy. CARDIAC EXAM: S1, S2. No added sounds or murmurs. CHEST: Diminished air entry both lung bases ABDOMEN: Soft, nontender. No guarding or rebound. Obese EXTREMITIES: No cyanosis, clubbing or edema. NEUROLOGIC: Generalized weakness. Results/Medications Result Diagram: 02/28/17 0547 02/28/17 0547 Results 24 hrs Laboratory Tests Test 02/27/17 17:17 02/27/17 21:11 02/28/17 05:47 02/28/17 08:07 Bedside Glucose 119 138 115 White Blood Count 3.9 L Red Blood Count 2.59 L Hemoglobin 7.6 L Hematocrit 25.1 L Mean Corpuscular Volume 96.9 Mean Corpuscular Hemoglobin 29.3 Mean Corpuscular Hemoglobin Concent 30.3 L Red Cell Distribution Width 17.5 H Platelet Count 71 L Mean Platelet Volume 9.7 Neutrophils % 74.3 Lymphocytes % 10.0 L Monocytes % 9.2 Eosinophils % 5.9 Basophils % 0.3 Nucleated Red Blood Cells % 0.0 Neutrophils # 2.9 Lymphocytes # 0.4 L Monocytes # 0.4 Eosinophils # 0.2 Basophils # 0.0 Nucleated Red Blood Cells # 0.0 Sodium Level 140 Potassium Level 3.6 Chloride Level 96 L Carbon Dioxide Level 37 H Anion Gap 11 Blood Urea Nitrogen 38 H Creatinine 1.68 H Glucose Level 109 Calcium Level 9.3 Phosphorus Level 4.2 Magnesium Level 1.6 L Test 02/28/17 12:16 Bedside Glucose 135 Medications Current Medications Ondansetron HCl (Zofran Inj) 4 mg Q6H PRN IV NAUSEA AND/OR VOMITING; Start 03/27 at 23:30 Acetaminophen (Tylenol Tab) 650 mg Q6H PRN PO PAIN LEVEL 1-3 OR FEVER; Start 02/20/17 at 23:30 Morphine Sulfate (morphine) 2 mg Q4H PRN IV PAIN LEVEL 7-10; Start 02/20/17 at 23:30 Insulin Glargine (Lantus) 10 unit DAILY@20 SC Last administered on 02/27/17 21:19; Admin Dose 10 UNIT; Start 02/21/17 at 20:00 Diagnostic Test (Pha) (Accu-Chek) 1 ea 02 XX ; Start 02/22/17 at 02:00 Miscellaneous Information 1 ea NOTE XX ; Start 02/21/17 at 06:00 Glucose (Glutose) 15 gm Q15M PRN PO DECREASED GLUCOSE; Start 02/21/17 at 06:00 Glucose (Glutose) 22.5 gm Q15M PRN PO DECREASED GLUCOSE; Start 02/21/17 at 06: 00 Dextrose (D50w Syringe) 25 ml Q15M PRN IV DECREASED GLUCOSE; Start 02/21/17 at 06:00 Dextrose (D50w Syringe) 50 ml Q15M PRN IV DECREASED GLUCOSE; Start 02/21/17 at 06:00 Glucagon (Glucagen) 1 mg Q15M PRN IM DECREASED GLUCOSE; Start 02/21/17 at 06: 00 Glucose (Glutose) 15 gm Q15M PRN BUCCAL DECREASED GLUCOSE; Start 02/21/17 at 06:00 Acetaminophen/ Hydrocodone Bitart ([place] (5/325)) 1 tab Q4H PRN PO PAIN LEVEL 4 -6 Last administered on 02/28/17 06:13; Admin Dose 1 TAB; Start 02/21/17 at 09:30 Fluconazole (Diflucan) 100 mg DAILY PO Last administered on 02/28/17 08:50; Admin Dose 100 MG; Start 02/21/17 at 21:00 Silver Sulfadiazine (Thermazene 1% 25 Gm) 1 applic DAILY TOP Last administered on 02/28/17 08:51; Admin Dose 1 APPLIC; Start 02/22/17 at 09:00 Hydrocortisone (Hydrocortisone 2.5% Cr) 1 applic DAILY TOP Last administered on 02/28/17 08:51; Admin Dose 1 APPLIC; Start 02/22/17 at 09:00 Clotrimazole (Lotrimin Cr) 1 applic DAILY TOP Last administered on 02/28/17 08:51; Admin Dose 1 APPLIC; Start 02/22/17 at 09:00 Mupirocin (Bactroban) 1 applic BID TOP Last administered on 02/28/17 08:51; Admin Dose 1 APPLIC; Start 02/22/17 at 12:00 Polyethylene Glycol (Miralax) 17 gm DAILY PO Last administered on 02/28/17 08 :50; Admin Dose 17 GM; Start 02/24/17 at 21:00 Furosemide (Lasix) 40 mg BID IV Last administered on 02/28/17 09:04; Admin Dose 40 MG; Start 02/25/17 at 09:00 Levofloxacin 500 mg 500 mg DAILY@06 PO Last administered on 02/28/17 06:12; Admin Dose 500 MG; Start 02/25/17 at 11:00 Aztreonam (Azactam 1gm/NS (Pmx)) 50 ml @ 100 mls/hr Q12 IVPB Last administered on 02/28/17 09:18; Admin Dose 100 MLS/HR; Start 02/27/17 at 10: 30 Epoetin [place] (Epogen ([place])) 6,000 units ONCE SC Last administered on 10:36; Admin Dose 6,000 UNITS; Start 02/28/17 at 10:00; Stop 02/28/17 at 23:00 Metolazone (Zaroxolyn) 2.5 mg ONCE PO Last administered on 02/28/17 10:37; Admin Dose 2.5 MG; Start 02/28/17 at 10:00; Stop 02/28/17 at 23:00 Assessment/Plan Chief Complaint/Hosp Course Assessment, plan 1. Pleural effusion and pneumonia worsening right lung. CT chest ordered may require thoracentesis and/or chest tube. 2. Mild anemia and thrombocytopenia. 3. Chronic renal insufficiency. 4. Diabetes. 5. Likely underlying sleep apnea with mild hypercapnia on admission with interval improvement as well. Problems: AZRA CASTILLO MD, [facility] Feb 28, 2017 12:27
--- NOTE | 2017-02-28 13:37 | RADRPT ---
PROCEDURE: CT Chest without contrast. CLINICAL INDICATION: Shortness of breath. History of pleural effusion and pneumonia. TECHNIQUE: Helical axial sections were obtained through the chest without intravenous contrast enh ancement. Coronal and sagittal reformatted images were obtained from the axial source images. Total exam DLP is 637.11 mGy-cm. CTDIvol is 16.70 mGy. One or more of the following dose reduction genevieve hniques were used: Automated exposure control, adjustment of the mA and/or kV according to patient s ize, use of iterative reconstruction technique. DICOM images are available. COMPARISON: Chest x-ray dated 02/27/2017. FINDINGS: There is a large right pleural effusion and associated atelectasis throughout most of the right lung with some sparing of the right upper lobe. There is a small left pleural effusion and mild left bas ilar atelectasis. The lungs are otherwise clear with no other airspace or interstitial disease There is no pulmonary nodule or mass lesion. There is no mediastinal or hilar lymphadenopathy or mass. There is no axillary, supraclavicular, or internal mammary lymphadenopathy. The thoracic aorta is not dilated. There is calcification in the aorta consistent with atheroscleros is. The heart is mildly enlarged. There is coronary artery calcification. There is no pericardial effusion. Images through the upper abdomen demonstrate normal visualized portions of the liver, spleen, and ad renals. There is moderate ascites. There is diffuse subcutaneous adipose tissue edema consistent with anasarca. There is fusion of prachi ral mid thoracic vertebrae, likely congenital. The osseous structures are otherwise unremarkable wit h no fracture or lytic lesion. IMPRESSION: 1. Large right pleural effusion and atelectasis throughout most of the right lung. 2. Small left pleural effusion and mild left basilar atelectasis. 3. Atherosclerosis. 4. Mild cardiomegaly and coronary artery calcification. 5. Moderate ascites. 6. Anasarca. 7. Fusion of several mid thoracic vertebrae, likely congenital. 8. Otherwise unremarkable study. RPTAT: QQ .Low Altamirano MD, MD Date Time Electronically viewed and signed by .Low Altamirano MD, MD on 02/28/2017 13:37 .R/
[2017-02-28 13:41] VITALS: BP 115/60; RESP 20
--- NOTE | 2017-02-28 15:36 | PN ---
Date/Time of Note Date/Time of Note DATE: 02/28/17 TIME: 15:30 Assessment/Plan VTE Prophylaxis VTE Prophylaxis Intervention: contraindicated Lines/Catheters IV [facility] Type [facility]from [facility] Saline Lock Urinary Cath still in place: Yes Assessment/Plan Chief Complaint/Hosp Course Assessment and plan 1. Acute on chronic respiratory failure. Patient noted with hypoxia and hypercapnia. Continue bronchodilators. Continue on supplemental oxygen. CPAP as needed as well. Adjunct Instructor Chemistry following. Noted with worse x-ray at this time. We will follow-up with environmental engineering intern recs 2. Bilateral infiltrates on chest x-ray. Suspect possible pneumonia. Continue with antibiotics. Diuresis per photo mask inspector. 3. Diabetes mellitus. Continue with insulin regimen. 4. Acute on chronic kidney disease. Coat Operator following. Medications to be renally dosed. 5. Diastolic heart failure. Continue diuresis as tolerated. 6. Pulmonary hypertension. Provide with O2. Titrate down as tolerated. 7. Liver cirrhosis. Continue on rifaximin 8. Pancytopenia. Likely secondary to #7. Monitor H&H. 9. Dyslipidemia. Noted with low HDL and measured LDL. 10. Morbid obesity. Weight reduction is advised. 11. Bilateral lower extremity lymphedema with chronic bilateral lower extremity ulcerations. Follow-up with podiatry recommendations. Continue wound care. 12. MRSA in the nares. Continue on Bactroban. Disposition plan: Noted with worse x-ray of the chest. Follow-up with environmental engineering intern recommendations. Will see for Quick transfer. Discussed plan of care with Dr. Chauhan Problems: Subjective 24 Hr Interval Summary Free Text/Dictation Working with physical therapy during visit. Noted to be with some wheezing Exam/Review of Systems Vital Signs Vitals Vital Signs Date Time Temp Pulse Resp B/P Pulse Ox O2 Delivery O2 Flow Rate FiO2 02/28/17 14:08 92 21 97 Nasal Cannula 4.0 02/28/17 13:41 97.3 115/60 Intake and Output 02/27/17 02/27/17 02/28/17 15:00 23:00 07:00 Intake Total 160 ml 530 ml Output Total 1500 ml Balance 160 ml -970 ml Exam Constitutional: alert, obese Psych: nl mood/affect Head: normocephalic Respiratory: other (Wheezing noted and congested bilaterally with some diminished lung sounds at bases) Cardiovascular: other (Regular rate) Musculoskeletal: swelling (ble), No nl gait and stance Extremities: other (Chronic ulcerations bilateral lower extremities) Neurological: nl mental status, nl speech Results Result Diagram: 02/28/17 0547 02/28/17 0547 Results 24 hrs Laboratory Tests Test 02/27/17 17:17 02/27/17 21:11 02/28/17 05:47 02/28/17 08:07 Bedside Glucose 119 138 115 White Blood Count 3.9 L Red Blood Count 2.59 L Hemoglobin 7.6 L Hematocrit 25.1 L Mean Corpuscular Volume 96.9 Mean Corpuscular Hemoglobin 29.3 Mean Corpuscular Hemoglobin Concent 30.3 L Red Cell Distribution Width 17.5 H Platelet Count 71 L Mean Platelet Volume 9.7 Neutrophils % 74.3 Lymphocytes % 10.0 L Monocytes % 9.2 Eosinophils % 5.9 Basophils % 0.3 Nucleated Red Blood Cells % 0.0 Neutrophils # 2.9 Lymphocytes # 0.4 L Monocytes # 0.4 Eosinophils # 0.2 Basophils # 0.0 Nucleated Red Blood Cells # 0.0 Sodium Level 140 Potassium Level 3.6 Chloride Level 96 L Carbon Dioxide Level 37 H Anion Gap 11 Blood Urea Nitrogen 38 H Creatinine 1.68 H Glucose Level 109 Calcium Level 9.3 Phosphorus Level 4.2 Magnesium Level 1.6 L Test 02/28/17 12:16 Bedside Glucose 135 Medications Medications Current Medications Ondansetron HCl (Zofran Inj) 4 mg Q6H PRN IV NAUSEA AND/OR VOMITING; Start 03/27 at 23:30 Acetaminophen (Tylenol Tab) 650 mg Q6H PRN PO PAIN LEVEL 1-3 OR FEVER; Start 02/20/17 at 23:30 Morphine Sulfate (morphine) 2 mg Q4H PRN IV PAIN LEVEL 7-10; Start 02/20/17 at 23:30 Insulin Glargine (Lantus) 10 unit DAILY@20 SC Last administered on 02/27/17t 21:19; Admin Dose 10 UNIT; Start 02/21/17 at 20:00 Diagnostic Test (Pha) (Accu-Chek) 1 ea 02 XX ; Start 02/22/17 at 02:00 Miscellaneous Information 1 ea NOTE XX ; Start 02/21/17 at 06:00 Glucose (Glutose) 15 gm Q15M PRN PO DECREASED GLUCOSE; Start 02/21/17 at 06:00 Glucose (Glutose) 22.5 gm Q15M PRN PO DECREASED GLUCOSE; Start 02/21/17 at 06: 00 Dextrose (D50w Syringe) 25 ml Q15M PRN IV DECREASED GLUCOSE; Start 02/21/17 at 06:00 Dextrose (D50w Syringe) 50 ml Q15M PRN IV DECREASED GLUCOSE; Start 02/21/17 at 06:00 Glucagon (Glucagen) 1 mg Q15M PRN IM DECREASED GLUCOSE; Start 02/21/17 at 06: 00 Glucose (Glutose) 15 gm Q15M PRN BUCCAL DECREASED GLUCOSE; Start 02/21/17 at 06:00 Acetaminophen/ Hydrocodone Bitart ([place] (5/325)) 1 tab Q4H PRN PO PAIN LEVEL 4 -6 Last administered on 02/28/17 13:51; Admin Dose 1 TAB; Start 02/21/17 at 09:30 Silver Sulfadiazine (Thermazene 1% 25 Gm) 1 applic DAILY TOP Last administered on 02/28/17 08:51; Admin Dose 1 APPLIC; Start 02/22/17 at 09:00 Hydrocortisone (Hydrocortisone 2.5% Cr) 1 applic DAILY TOP Last administered on 02/28/17 08:51; Admin Dose 1 APPLIC; Start 02/22/17 at 09:00 Clotrimazole (Lotrimin Cr) 1 applic DAILY TOP Last administered on 02/28/17 08:51; Admin Dose 1 APPLIC; Start 02/22/17 at 09:00 Mupirocin (Bactroban) 1 applic BID TOP Last administered on 02/28/17 08:51; Admin Dose 1 APPLIC; Start 02/22/17 at 12:00 Polyethylene Glycol (Miralax) 17 gm DAILY PO Last administered on 02/28/17 08 :50; Admin Dose 17 GM; Start 02/24/17 at 21:00 Furosemide (Lasix) 40 mg BID IV Last administered on 02/28/17 09:04; Admin Dose 40 MG; Start 02/25/17 at 09:00 Levofloxacin 500 mg 500 mg DAILY@06 PO Last administered on 02/28/17 06:12; Admin Dose 500 MG; Start 02/25/17 at 11:00 Aztreonam (Azactam 1gm/NS (Pmx)) 50 ml @ 100 mls/hr Q12 IVPB Last administered on 02/28/17 09:18; Admin Dose 100 MLS/HR; Start 02/27/17 at 10: 30 Epoetin [place] (Epogen ([place])) 6,000 units ONCE SC Last administered on 10:36; Admin Dose 6,000 UNITS; Start 02/28/17 at 10:00; Stop 02/28/17 at 23:00 Metolazone (Zaroxolyn) 2.5 mg ONCE PO Last administered on 02/28/17 10:37; Admin Dose 2.5 MG; Start 02/28/17 at 10:00; Stop 02/28/17 at 23:00 Mupirocin (Bactroban) 1 applic BID TOP ; Start 02/28/17 at 21:00 SELINA PATIÑO Feb 28, 2017 15:36
--- NOTE | 2017-02-28 15:41 | PN ---
DATE: 02/28/2017 SUBJECTIVE: No acute changes. Patient is alert, looks comfortable. Denies pain, no fevers. ANTIMICROBIALS: 1. Aztreonam. 2. Levaquin. 3. Fluconazole. MICROBIOLOGY: Lower extremity wound culture grew coagulase-negative staph species. PHYSICAL EXAMINATION: GENERAL: This is a morbidly obese, well-developed, middle-aged man who is in no distress. HEENT: Head atraumatic, normocephalic. Sclerae anicteric. Buccal mucosa dry. NECK: Supple. CHEST: Rise symmetrical. Breath sounds diminished to bases. HEART: S1, S2. ABDOMEN: Soft, bowel tones present. EXTREMITIES: Bilateral lower extremity edema and chronic wounds that look better. ASSESSMENT: 1. Bilateral lower extremities, acute on chronic cellulitis. 2. Shortness of breath secondary to right pleural effusion and pneumonia, status post chest CT. 3. Diabetes. 4. Obesity. 5. Methicillin-resistant Staphylococcus aureus nares colonization. PLAN: The patient remains stable. We will continue him on current antibiotics, continue Bactroban to nares, local wound care, follow podiatry recommendations. May need thoracentesis. Dictated By: LARS GARCIA CANCER RESEARCHER for MARCK COLEY/AMY Conf#: [id number] DID#: [id number]
[2017-02-28] MEDS ORDERED: GABA600T PO (17:59)
[2017-02-28] MEDS: GABAPENTIN 300 MG CAP PO SCH (18:48)
[2017-02-28 20:16] VITALS: BP 107/53; RESP 20
[2017-02-28] MEDS: INSULIN GLARGINE [LANtus] 3 ML PEN SC SCH (20:55)
[2017-03-01] MEDS: ALBUTEROL/IPRATROPIUM (NEB) 3 ML AMP HHN SCH ×6 (01:36→20:30)
[2017-03-01 01:57] VITALS: BP 112/56; RESP 20
[2017-03-01] MEDS: ACCU-CHEK XX SCH (02:00)
[2017-03-01] MEDS ORDERED: CYAN1TAB PO (05:31)
[2017-03-01] MEDS: LEVOFLOXACIN 500 MG TAB PO SCH (05:54)
[2017-03-01 06:27] LABS: ABNORMAL IP MESSAGE 1; BASOPHILS % 0.8 % (0.0-2.0); EOSINOPHILS # 0.3 10^3/ul (0.0-0.5); EOSINOPHILS % 8.1 % (0.0-7.0); HEMOGLOBIN 7.5 g/dl (14.0-18.0); LYMPHOCYTES # 0.4 10^3/ul (0.8-2.9); MEAN CORPUSCULAR HEMOGLOBIN 29.3 pg (29.0-33.0); MEAN CORPUSCULAR VOLUME 97.7 fl (82.0-101.0); MEAN PLATELET VOLUME 10.1 fl (7.4-10.4); MONOCYTE # 0.4 10^3/ul (0.3-0.9); MONOCYTES % 10.8 % (0.0-11.0); NEUTROPHIL # 2.6 10^3/ul (1.6-7.5); PLATELET COUNT 71 10^3/UL (140-415); POSITIVE DIFF @See below; RED BLOOD COUNT 2.56 10^6/ul (4.70-6.10); RED CELL DISTRIBUTION WIDTH 17.8 % (11.5-14.5); WHITE BLOOD COUNT 3.7 10^3/ul (4.8-10.8)
[2017-03-01 07:15] LABS: CALCIUM 8.9 mg/dl (8.4-10.2); CREATININE 1.6 mg/dl (0.61-1.24); MAGNESIUM 1.7 mg/dl (1.7-2.5); PHOSPHORUS 4.2 mg/dl (2.5-4.9); POTASSIUM 3.4 mmol/L (3.5-5.1)
[2017-03-01 07:19] LABS: INR 1.42; PROTIME 17.4 Sec (12.2-14.2); PT RATIO 1.4
[2017-03-01 07:20] LABS: PARTIAL THROMBOPLASTIN TIME 45.6 Sec (25.0-35.0)
--- NOTE | 2017-03-01 07:20 | CONS ---
Date/Time of Note Date/Time of Note DATE: 03/01/17 TIME: 07:16 Assessment/Plan Assessment/Plan Chief Complaint/Hosp Course Patient with bilateral lower extremity lymphedema. There is epidermolysis of the skin of the b/l lower legs with multiple eschar. There is eschars with the presence of serous drainage, localized erythema. Has lipodermatosclerosis. Recommend daily cleansing and chlorhexidine, and apply Silvadene to the wounds, hydrocortisone to the periphery of the wounds in the bilateral lower extremities , and recommended oral and topical antifungal. The patient at high risk for decubitus. Recommend continued off-loading and close monitoring. Problems: Consultation Date/Type/Reason Admit Date/Time Feb 20, 2017 at 20:38 Type of Consultation: Podiatry: Coverage Dr. Meyer Reason for Consultation 1. Lymphedema with bilateral lower extremity ulcerations. 2. Cellulitis: Improved. Exam/Review of Systems Vital Signs Vitals Vital Signs Date Time Temp Pulse Resp B/P Pulse Ox O2 Delivery O2 Flow Rate FiO2 03/01/17 06:02 80 20 96 Nasal Cannula 4.0 03/01/17 01:57 97.5 112/56 Intake and Output 02/28/17 02/28/17 03/01/17 15:00 23:00 07:00 Intake Total 100 ml 1190 ml Output Total 2000 ml Balance 100 ml -810 ml Exam EXTREMITIES: The patient has bilateral lower extremity lymphedema, with improved skin appearance since admission. There is continued epidermal lysis with multiple eschars. No active drainage. There is 2+ pitting edema. Chronic lipodermatic sclerotic changes. Results Result Diagram: 03/01/17 0548 02/28/17 0547 Results 24 hrs Laboratory Tests Test 02/28/17 08:07 02/28/17 12:16 02/28/17 17:45 02/28/17 20:45 Bedside Glucose 115 135 131 144 Test 03/01/17 05:48 White Blood Count 3.7 L Red Blood Count 2.56 L Hemoglobin 7.5 L Hematocrit 25.0 L Mean Corpuscular Volume 97.7 Mean Corpuscular Hemoglobin 29.3 Mean Corpuscular Hemoglobin Concent 30.0 L Red Cell Distribution Width 17.8 H Platelet Count 75 L Mean Platelet Volume 10.1 Neutrophils % 69.0 Lymphocytes % 11.0 L Monocytes % 10.8 Eosinophils % 8.1 H Basophils % 0.8 Nucleated Red Blood Cells % 0.0 Neutrophils # 2.6 Lymphocytes # 0.4 L Monocytes # 0.4 Eosinophils # 0.3 Basophils # 0.0 Nucleated Red Blood Cells # 0.0 Prothrombin Time Pending Prothrombin Time Ratio Pending INR International Normalized Ratio Pending Activated Partial Thromboplast Time Pending Thrombin Time Pending Medications Medications Current Medications Ondansetron HCl (Zofran Inj) 4 mg Q6H PRN IV NAUSEA AND/OR VOMITING; Start 03/27 at 23:30 Acetaminophen (Tylenol Tab) 650 mg Q6H PRN PO PAIN LEVEL 1-3 OR FEVER; Start 02/20/17 at 23:30 Morphine Sulfate (morphine) 2 mg Q4H PRN IV PAIN LEVEL 7-10; Start 02/20/17 at 23:30 Insulin Glargine (Lantus) 10 unit DAILY@20 SC Last administered on 02/28/17 20:55; Admin Dose 10 UNIT; Start 02/21/17 at 20:00 Diagnostic Test (Pha) (Accu-Chek) 1 ea 02 XX ; Start 02/22/17 at 02:00 Miscellaneous Information 1 ea NOTE XX ; Start 02/21/17 at 06:00 Glucose (Glutose) 15 gm Q15M PRN PO DECREASED GLUCOSE; Start 02/21/17 at 06:00 Glucose (Glutose) 22.5 gm Q15M PRN PO DECREASED GLUCOSE; Start 02/21/17 at 06: 00 Dextrose (D50w Syringe) 25 ml Q15M PRN IV DECREASED GLUCOSE; Start 02/21/17 at 06:00 Dextrose (D50w Syringe) 50 ml Q15M PRN IV DECREASED GLUCOSE; Start 02/21/17 at 06:00 Glucagon (Glucagen) 1 mg Q15M PRN IM DECREASED GLUCOSE; Start 02/21/17 at 06: 00 Glucose (Glutose) 15 gm Q15M PRN BUCCAL DECREASED GLUCOSE; Start 02/21/17 at 06:00 Acetaminophen/ Hydrocodone Bitart ([place] (5/325)) 1 tab Q4H PRN PO PAIN LEVEL 4 -6 Last administered on 02/28/17 18:56; Admin Dose 1 TAB; Start 02/21/17 at 09:30 Silver Sulfadiazine (Thermazene 1% 25 Gm) 1 applic DAILY TOP Last administered on 02/28/17 08:51; Admin Dose 1 APPLIC; Start 02/22/17 at 09:00 Hydrocortisone (Hydrocortisone 2.5% Cr) 1 applic DAILY TOP Last administered on 02/28/17 08:51; Admin Dose 1 APPLIC; Start 02/22/17 at 09:00 Clotrimazole (Lotrimin Cr) 1 applic DAILY TOP Last administered on 02/28/17 08:51; Admin Dose 1 APPLIC; Start 02/22/17 at 09:00 Mupirocin (Bactroban) 1 applic BID TOP Last administered on 02/28/17 20:44; Admin Dose 1 APPLIC; Start 02/22/17 at 12:00 Polyethylene Glycol (Miralax) 17 gm DAILY PO Last administered on 02/28/17 08 :50; Admin Dose 17 GM; Start 02/24/17 at 21:00 Furosemide (Lasix) 40 mg BID IV Last administered on 02/28/17 20:43; Admin Dose 40 MG; Start 02/25/17 at 09:00 Levofloxacin 500 mg 500 mg DAILY@06 PO Last administered on 03/01/17 05:54; Admin Dose 500 MG; Start 02/25/17 at 11:00 Aztreonam (Azactam 1gm/NS (Pmx)) 50 ml @ 100 mls/hr Q12 IVPB Last administered on 02/28/17 20:37; Admin Dose 100 MLS/HR; Start 02/27/17 at 10: 30 Mupirocin (Bactroban) 1 applic BID TOP ; Start 02/28/17 at 21:00 Gabapentin (Neurontin) 300 mg BID PO Last administered on 02/28/17 18:48; Admin Dose 300 MG; Start 02/28/17 at 18:00 Multivitamins Therapeutic (Theragran) 1 tab DAILY PO ; Start 03/01/17 at 09:00 SHANIQUA BDEOYA DPM Mar 01, 2017 07:20
[2017-03-01 07:52] VITALS: BP 123/64; RESP 17
[2017-03-01] MEDS: INSULIN ASPART [NOVOLOG] 3 ML PEN SC SCH ×4 (08:15→21:00)
[2017-03-01 08:26] LABS: THROMBIN TIME 18.2 SEC (13.8-19.1)
[2017-03-01] MEDS ORDERED: POTASSIUM CHLORIDE (SR) 20 MEQ TAB PO STA (08:35)
[2017-03-01] MEDS ORDERED: ACETAZOLAMIDE 500 MG INJ IV ONE (09:00)
[2017-03-01] MEDS: MUPIROCIN 2% 22 GM OINT TOP SCH ×4 (09:00→21:02)
[2017-03-01] MEDS: HYDROCORTISONE 2.5% 20 GM CR TOP SCH (09:17)
[2017-03-01] MEDS: CLOTRIMAZOLE 1% 30 GM CR TOP SCH (09:18)
[2017-03-01] MEDS: SILVER SULFADIAZINE 1% 25 GM CR TOP SCH ×2 (09:18→21:01)
[2017-03-01] MEDS: GABAPENTIN 300 MG CAP PO SCH ×2 (09:19→21:01)
[2017-03-01] MEDS: POLYETHYLENE GLYCOL 17 GM PACKET PO SCH (09:19)
[2017-03-01] MEDS: FUROSEMIDE 20 MG INJ IV SCH ×2 (09:19→21:01)
[2017-03-01] MEDS: MULTIVITAMINS THERAPEUTIC TAB PO SCH (09:19)
--- NOTE | 2017-03-01 09:32 | PN ---
DATE: 03/01/2017 SUBJECTIVE: The patient is stable, no acute events overnight. The patient states he feels his dewayne thing has improved. OBJECTIVE: VITAL SIGNS: Blood pressure is 123/64, respirations 17, pulse 88, temperature 97.9. HEENT: Head is normocephalic. NECK: Supple. HEART: Regular rate. LUNGS: Show diminished breath sounds at the base. ABDOMEN: Soft, nontender to palpation. No rebound or guarding. EXTREMITIES: Negative for clubbing, cyanosis. Positive edema. DERMATOLOGIC: No rashes. MUSCULOSKELETAL: No joint effusions. NEUROLOGIC: No change in exam. MEDICATIONS: The patient's medications have been reviewed. LABORATORY DATA: Shows sodium 137, potassium 3.4, chloride 93, bicarb 38, BUN 39, creatinine 1.60. White count is 3.7, hemoglobin 7.5, hematocrit 25.0, platelet count is 75. ASSESSMENT AND PLAN: 1. Nonoliguric acute kidney injury on top of chronic kidney disease with unknown baseline creatinin e. Etiology secondary to hemodynamics. Renal function has been fluctuating, but overall stable. A t this point, continue treatment plan, supportive care, renally dose all meds, monitor renal functio n closely on diuretic therapy. 2. Acute congestive heart failure exacerbation. The patient remains volume overloaded. Continue I V Lasix. We will add Diamox to help augment diuresis and monitor closely. 3. Metabolic alkalosis. Etiology is likely from diuretic therapy. We will give 1 course of Diamox . 4. Anemia. Monitor hemoglobin and hematocrit levels. The patient is status Epogen. 5. Mineral bone disorder. Monitor calcium and phosphorus levels. 6. Hypokalemia, replete with potassium chloride. 7. Acute respiratory failure secondary to congestive heart failure and pneumonia. Continue current medical management. 8. Obstructive sleep apnea. Continue CPAP. 9. Morbid obesity. Continue dietary modification. 10. Lower extremity wounds. Continue wound care. 11. Diabetes. Continue current insulin regimen. 12. Hypomagnesemia. Continue to monitor and replete. Acute congestive heart failure exacerbation. Patient remains volume overloaded. Continue IV Lasix. Will add Diamox to help augment diuresis and monitor closely. Dictated By: ADAN CORTÉS/NTS Conf#: [id number] DID#: [id number] CC: IMANI HALL MD;*End*
--- NOTE | 2017-03-01 09:49 | RADRPT ---
PROCEDURE: XR portable chest CLINICAL INDICATION: Pneumonia. Congestive heart failure. TECHNIQUE: Portable semi upright chest radiograph COMPARISON: Portable chest radiograph 02/27/2017 FINDINGS: Slight improved aeration in the right lung and decrease in size of the right pleural effusion. No other significant interval changes seen. IMPRESSION: 1. Slight improved aeration in the right lung and decrease in size of the right pleural effusion RPTAT: TT Bryce Khalil Physician Date Time Electronically viewed and signed by Bryce Khalil Physician on 03/01/2017 09:49 JS/
[2017-03-01] MEDS: AZTREONAM 1 GM/NS (PMX) 50 ML IVPB SCH ×2 (09:55→21:01)
--- NOTE | 2017-03-01 11:33 | CONS ---
Date/Time of Note Date/Time of Note DATE: 03/01/17 TIME: 11:31 Assessment/Plan Assessment/Plan Additional Assessment/Plan Chest x-ray was reviewed from today which is showing improvement in aeration of right lung with persistent moderate right pleural effusion. Right lower lobe infiltrative changes are present as well. Assessment and recommendations; 1. Patient admitted with right lower lobe pneumonia with what appears to be a right parapneumonic effusion. 2. Chronic renal insufficiency. 3. Likely underlying sleep apnea. 4. Morbid obesity. 5. Anemia and thrombocytopenia. Continue current supportive care. Order ultrasound-guided right thoracentesis. Consultation Date/Type/Reason Admit Date/Time Feb 20, 2017 at 20:38 Type of Consultation: Pulmonary 24 HR Interval Summary Free Text/Dictation Patient's condition is stable. Still complains of dyspnea on minimal exertion. General exam; middle-aged male, morbidly obese, currently in no distress. Awake and alert. Exam/Review of Systems Vital Signs Vitals Vital Signs Date Time Temp Pulse Resp B/P Pulse Ox O2 Delivery O2 Flow Rate FiO2 03/01/17 09:14 88 20 96 Nasal Cannula 4.0 03/01/17 07:52 97.9 123/64 Intake and Output 02/28/17 02/28/17 03/01/17 14:59 22:59 06:59 Intake Total 100 ml 1190 ml Output Total 2000 ml Balance 100 ml -810 ml Exam HEENT exam; supple neck, no JVD. No lymphadenopathy. Midline trachea. No thyromegaly. Pharynx is clear. Patient has a multiple carious teeth. Chest exam; diminished breath sounds bilaterally. S1-S2 audible, no murmurs. Regular rhythm. Abdomen exam; soft, grossly protuberant. Nontender. Bowel sounds audible. Organomegaly difficult to feel. Extremity exam : 1+ edema in lower extremities with chronic skin changes in lower extremities. 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 Results Result Diagram: 03/01/17 0548 03/01/1748 Results 24 hrs Laboratory Tests Test 02/28/17 12:16 02/28/17 17:45 02/28/17 20:45 03/01/17 05:48 Bedside Glucose 135 131 144 White Blood Count 3.7 L Red Blood Count 2.56 L Hemoglobin 7.5 L Hematocrit 25.0 L Mean Corpuscular Volume 97.7 Mean Corpuscular Hemoglobin 29.3 Mean Corpuscular Hemoglobin Concent 30.0 L Red Cell Distribution Width 17.8 H Platelet Count 75 L Mean Platelet Volume 10.1 Neutrophils % 69.0 Lymphocytes % 11.0 L Monocytes % 10.8 Eosinophils % 8.1 H Basophils % 0.8 Nucleated Red Blood Cells % 0.0 Neutrophils # 2.6 Lymphocytes # 0.4 L Monocytes # 0.4 Eosinophils # 0.3 Basophils # 0.0 Nucleated Red Blood Cells # 0.0 Prothrombin Time 17.4 H Prothrombin Time Ratio 1.4 INR International Normalized Ratio 1.42 Activated Partial Thromboplast Time 45.6 H Thrombin Time 18.2 Sodium Level 137 Potassium Level 3.4 L Chloride Level 93 L Carbon Dioxide Level 38 H Anion Gap 9 Blood Urea Nitrogen 39 H Creatinine 1.60 H Glucose Level 113 Calcium Level 8.9 Phosphorus Level 4.2 Magnesium Level 1.7 Test 03/01/17 07:58 Bedside Glucose 123 Medications Medications Current Medications Ondansetron HCl (Zofran Inj) 4 mg Q6H PRN IV NAUSEA AND/OR VOMITING; Start 03/27 at 23:30 Acetaminophen (Tylenol Tab) 650 mg Q6H PRN PO PAIN LEVEL 1-3 OR FEVER; Start 02/20/17 at 23:30 Morphine Sulfate (morphine) 2 mg Q4H PRN IV PAIN LEVEL 7-10; Start 02/20/17 at 23:30 Insulin Glargine (Lantus) 10 unit DAILY@20 SC Last administered on 02/28/17t 20:55; Admin Dose 10 UNIT; Start 02/21/17 at 20:00 Diagnostic Test (Pha) (Accu-Chek) 1 ea 02 XX ; Start 02/22/17 at 02:00 Miscellaneous Information 1 ea NOTE XX ; Start 02/21/17 at 06:00 Glucose (Glutose) 15 gm Q15M PRN PO DECREASED GLUCOSE; Start 02/21/17 at 06:00 Glucose (Glutose) 22.5 gm Q15M PRN PO DECREASED GLUCOSE; Start 02/21/17 at 06: 00 Dextrose (D50w Syringe) 25 ml Q15M PRN IV DECREASED GLUCOSE; Start 02/21/17 at 06:00 Dextrose (D50w Syringe) 50 ml Q15M PRN IV DECREASED GLUCOSE; Start 02/21/17 at 06:00 Glucagon (Glucagen) 1 mg Q15M PRN IM DECREASED GLUCOSE; Start 02/21/17 at 06: 00 Glucose (Glutose) 15 gm Q15M PRN BUCCAL DECREASED GLUCOSE; Start 02/21/17 at 06:00 Acetaminophen/ Hydrocodone Bitart ([place] (5/325)) 1 tab Q4H PRN PO PAIN LEVEL 4 -6 Last administered on 02/28/17 18:56; Admin Dose 1 TAB; Start 02/21/17 at 09:30 Silver Sulfadiazine (Thermazene 1% 25 Gm) 1 applic DAILY TOP Last administered on 03/01/17 09:18; Admin Dose 1 APPLIC; Start 02/22/17 at 09:00 Hydrocortisone (Hydrocortisone 2.5% Cr) 1 applic DAILY TOP Last administered on 03/01/17 09:17; Admin Dose 1 APPLIC; Start 02/22/17 at 09:00 Clotrimazole (Lotrimin Cr) 1 applic DAILY TOP Last administered on 03/01/17 09:18; Admin Dose 1 APPLIC; Start 02/22/17 at 09:00 Mupirocin (Bactroban) 1 applic BID TOP Last administered on 03/01/17 09:17; Admin Dose 1 APPLIC; Start 02/22/17 at 12:00 Polyethylene Glycol (Miralax) 17 gm DAILY PO Last administered on 03/01/17 09 :19; Admin Dose 17 GM; Start 02/24/17 at 21:00 Furosemide (Lasix) 40 mg BID IV Last administered on 03/01/17 09:19; Admin Dose 40 MG; Start 02/25/17 at 09:00 Levofloxacin 500 mg 500 mg DAILY@06 PO Last administered on 03/01/17 05:54; Admin Dose 500 MG; Start 02/25/17 at 11:00 Aztreonam (Azactam 1gm/NS (Pmx)) 50 ml @ 100 mls/hr Q12 IVPB Last administered on 03/01/17 09:55; Admin Dose 100 MLS/HR; Start 02/27/17 at 10: 30 Mupirocin (Bactroban) 1 applic BID TOP ; Start 02/28/17 at 21:00 Gabapentin (Neurontin) 300 mg BID PO Last administered on 03/01/17 09:19; Admin Dose 300 MG; Start 02/28/17 at 18:00 Multivitamins Therapeutic (Theragran) 1 tab DAILY PO Last administered on 03/01 09:19; Admin Dose 1 TAB; Start 03/01/17 at 09:00 MITESH RUSH Mar 01, 2017 11:33
[2017-03-01] MEDS: HYDROCODONE/APAP (5/325) TAB PO PRN (12:30)
--- NOTE | 2017-03-01 13:33 | CONS ---
Date/Time of Note Date/Time of Note DATE: 03/01/17 TIME: 13:31 Assessment/Plan Assessment/Plan Chief Complaint/Hosp Course SUBJECTIVE: No acute changes. Patient is alert, looks comfortable. Denies pain, no fevers. ANTIMICROBIALS: 1. Aztreonam. 2. Levaquin. MICROBIOLOGY: Lower extremity wound culture grew coagulase-negative staph species. PHYSICAL EXAMINATION: GENERAL: This is a morbidly obese, well-developed, middle-aged man who is in no distress. HEENT: Head atraumatic, normocephalic. Sclerae anicteric. Buccal mucosa dry. NECK: Supple. CHEST: Rise symmetrical. Breath sounds diminished to bases. HEART: S1, S2. ABDOMEN: Soft, bowel tones present. EXTREMITIES: Bilateral lower extremity edema and chronic wounds that look better. ASSESSMENT: 1. Bilateral lower extremities, acute on chronic cellulitis. 2. Shortness of breath secondary to PNA with right parapneumonic pleural effusion 3. Diabetes. 4. Obesity. 5. Methicillin-resistant Staphylococcus aureus nares colonization. PLAN: The patient remains stable, continue antibiotics, continue Bactroban to nares, local wound care per podiatry recommendations. Pending thoracentesis. DW staff Problems: Consultation Date/Type/Reason Admit Date/Time Feb 20, 2017 at 20:38 Initial Consult Date Type of Consultation: id Exam/Review of Systems Vital Signs Vitals Vital Signs Date Time Temp Pulse Resp B/P Pulse Ox O2 Delivery O2 Flow Rate FiO2 03/01/17 09:14 88 20 96 Nasal Cannula 4.0 03/01/17 07:52 97.9 123/64 Intake and Output 02/28/17 02/28/17 03/01/17 14:59 22:59 06:59 Intake Total 100 ml 1190 ml Output Total 2000 ml Balance 100 ml -810 ml Results Result Diagram: 03/01/17 0548 03/01/17 0548 Results 24 hrs Laboratory Tests Test 02/28/17 17:45 02/28/17 20:45 03/01/17 05:48 03/01/17 07:58 Bedside Glucose 131 144 123 White Blood Count 3.7 L Red Blood Count 2.56 L Hemoglobin 7.5 L Hematocrit 25.0 L Mean Corpuscular Volume 97.7 Mean Corpuscular Hemoglobin 29.3 Mean Corpuscular Hemoglobin Concent 30.0 L Red Cell Distribution Width 17.8 H Platelet Count 75 L Mean Platelet Volume 10.1 Neutrophils % 69.0 Lymphocytes % 11.0 L Monocytes % 10.8 Eosinophils % 8.1 H Basophils % 0.8 Nucleated Red Blood Cells % 0.0 Neutrophils # 2.6 Lymphocytes # 0.4 L Monocytes # 0.4 Eosinophils # 0.3 Basophils # 0.0 Nucleated Red Blood Cells # 0.0 Prothrombin Time 17.4 H Prothrombin Time Ratio 1.4 INR International Normalized Ratio 1.42 Activated Partial Thromboplast Time 45.6 H Thrombin Time 18.2 Sodium Level 137 Potassium Level 3.4 L Chloride Level 93 L Carbon Dioxide Level 38 H Anion Gap 9 Blood Urea Nitrogen 39 H Creatinine 1.60 H Glucose Level 113 Calcium Level 8.9 Phosphorus Level 4.2 Magnesium Level 1.7 Test 03/01/17 11:58 Bedside Glucose 122 Medications Medications Current Medications Ondansetron HCl (Zofran Inj) 4 mg Q6H PRN IV NAUSEA AND/OR VOMITING; Start 03/27 at 23:30 Acetaminophen (Tylenol Tab) 650 mg Q6H PRN PO PAIN LEVEL 1-3 OR FEVER; Start 02/20/17 at 23:30 Morphine Sulfate (morphine) 2 mg Q4H PRN IV PAIN LEVEL 7-10; Start 02/20/17 at 23:30 Insulin Glargine (Lantus) 10 unit DAILY@20 SC Last administered on 02/28/17t 20:55; Admin Dose 10 UNIT; Start 02/21/17 at 20:00 Diagnostic Test (Pha) (Accu-Chek) 1 ea 02 XX ; Start 02/22/17 at 02:00 Miscellaneous Information 1 ea NOTE XX ; Start 02/21/17 at 06:00 Glucose (Glutose) 15 gm Q15M PRN PO DECREASED GLUCOSE; Start 02/21/17 at 06:00 Glucose (Glutose) 22.5 gm Q15M PRN PO DECREASED GLUCOSE; Start 02/21/17 at 06: 00 Dextrose (D50w Syringe) 25 ml Q15M PRN IV DECREASED GLUCOSE; Start 02/21/17 at 06:00 Dextrose (D50w Syringe) 50 ml Q15M PRN IV DECREASED GLUCOSE; Start 02/21/17 at 06:00 Glucagon (Glucagen) 1 mg Q15M PRN IM DECREASED GLUCOSE; Start 02/21/17 at 06: 00 Glucose (Glutose) 15 gm Q15M PRN BUCCAL DECREASED GLUCOSE; Start 02/21/17 at 06:00 Acetaminophen/ Hydrocodone Bitart ([place] (5/325)) 1 tab Q4H PRN PO PAIN LEVEL 4 -6 Last administered on 03/01/17 12:30; Admin Dose 1 TAB; Start 02/21/17 at 09:30 Silver Sulfadiazine (Thermazene 1% 25 Gm) 1 applic DAILY TOP Last administered on 03/01/17 09:18; Admin Dose 1 APPLIC; Start 02/22/17 at 09:00 Hydrocortisone (Hydrocortisone 2.5% Cr) 1 applic DAILY TOP Last administered on 03/01/17 09:17; Admin Dose 1 APPLIC; Start 02/22/17 at 09:00 Clotrimazole (Lotrimin Cr) 1 applic DAILY TOP Last administered on 03/01/17 09:18; Admin Dose 1 APPLIC; Start 02/22/17 at 09:00 Mupirocin (Bactroban) 1 applic BID TOP Last administered on 03/01/17 09:17; Admin Dose 1 APPLIC; Start 02/22/17 at 12:00 Polyethylene Glycol (Miralax) 17 gm DAILY PO Last administered on 03/01/17 09 :19; Admin Dose 17 GM; Start 02/24/17 at 21:00 Furosemide (Lasix) 40 mg BID IV Last administered on 03/01/17 09:19; Admin Dose 40 MG; Start 02/25/17 at 09:00 Levofloxacin 500 mg 500 mg DAILY@06 PO Last administered on 03/01/17 05:54; Admin Dose 500 MG; Start 02/25/17 at 11:00 Aztreonam (Azactam 1gm/NS (Pmx)) 50 ml @ 100 mls/hr Q12 IVPB Last administered on 03/01/17 09:55; Admin Dose 100 MLS/HR; Start 02/27/17 at 10: 30 Mupirocin (Bactroban) 1 applic BID TOP ; Start 02/28/17 at 21:00 Gabapentin (Neurontin) 300 mg BID PO Last administered on 03/01/17 09:19; Admin Dose 300 MG; Start 02/28/17 at 18:00 Multivitamins Therapeutic (Theragran) 1 tab DAILY PO Last administered on 03/01t 09:19; Admin Dose 1 TAB; Start 03/01/17 at 09:00 LARS GARCIA NP Mar 01, 2017 13:33
--- NOTE | 2017-03-01 13:52 | PN ---
Date/Time of Note Date/Time of Note DATE: 03/01/17 TIME: 13:49 Assessment/Plan VTE Prophylaxis VTE Prophylaxis Intervention: SCD's Lines/Catheters IV [facility]from [facility] Urinary Cath still in place: Yes Assessment/Plan Chief Complaint/Hosp Course Assessment and plan 1. Acute on chronic respiratory failure. Patient noted with hypoxia and hypercapnia. Continue bronchodilators. Continue on supplemental oxygen. CPAP as needed as well. Regrinder Operator following. with right sided pleural effusion. office support clerk following. Plan for thoracentesis 2. Bilateral infiltrates on chest x-ray. Suspect possible pneumonia. Continue with antibiotics. Diuresis per laborer sawmill. 3. Diabetes mellitus. Continue with insulin regimen. 4. Acute on chronic kidney disease. Manager following. Medications to be renally dosed. 5. Diastolic heart failure. Continue diuresis as tolerated. 6. Pulmonary hypertension. Provide with O2. Titrate down as tolerated. 7. Liver cirrhosis. Continue on rifaximin 8. Pancytopenia. Likely secondary to #7. Monitor H&H. 9. Dyslipidemia. Noted with low HDL and measured LDL. 10. Morbid obesity. Weight reduction is advised. 11. Bilateral lower extremity lymphedema with chronic bilateral lower extremity ulcerations. Follow-up with podiatry recommendations. Continue wound care. 12. MRSA in the nares. Continue on Bactroban. Disposition plan: plan for thoracentesis. will follow up Discussed plan of care with Dr. Chauhan Problems: Subjective 24 Hr Interval Summary Free Text/Dictation with some reported shortness of breath Exam/Review of Systems Vital Signs Vitals Vital Signs Date Time Temp Pulse Resp B/P Pulse Ox O2 Delivery O2 Flow Rate FiO2 03/01/17 13:42 82 20 96 Nasal Cannula 4.0 03/01/17 07:52 97.9 123/64 Intake and Output 02/28/17 02/28/17 03/01/17 15:00 23:00 07:00 Intake Total 100 ml 1190 ml Output Total 2000 ml Balance 100 ml -810 ml Exam Constitutional: alert, obese Psych: nl mood/affect Head: normocephalic Respiratory: other (Wheezing noted and congested bilaterally with some diminished lung sounds at bases) Cardiovascular: other (Regular rate) Musculoskeletal: swelling (ble), No nl gait and stance Extremities: other (Chronic ulcerations bilateral lower extremities) Neurological: nl mental status, nl speech Results Result Diagram: 03/01/17 0548 03/01/17 0548 Results 24 hrs Laboratory Tests Test 02/28/17 17:45 02/28/17 20:45 03/01/17 05:48 03/01/17 07:58 Bedside Glucose 131 144 123 White Blood Count 3.7 L Red Blood Count 2.56 L Hemoglobin 7.5 L Hematocrit 25.0 L Mean Corpuscular Volume 97.7 Mean Corpuscular Hemoglobin 29.3 Mean Corpuscular Hemoglobin Concent 30.0 L Red Cell Distribution Width 17.8 H Platelet Count 75 L Mean Platelet Volume 10.1 Neutrophils % 69.0 Lymphocytes % 11.0 L Monocytes % 10.8 Eosinophils % 8.1 H Basophils % 0.8 Nucleated Red Blood Cells % 0.0 Neutrophils # 2.6 Lymphocytes # 0.4 L Monocytes # 0.4 Eosinophils # 0.3 Basophils # 0.0 Nucleated Red Blood Cells # 0.0 Prothrombin Time 17.4 H Prothrombin Time Ratio 1.4 INR International Normalized Ratio 1.42 Activated Partial Thromboplast Time 45.6 H Thrombin Time 18.2 Sodium Level 137 Potassium Level 3.4 L Chloride Level 93 L Carbon Dioxide Level 38 H Anion Gap 9 Blood Urea Nitrogen 39 H Creatinine 1.60 H Glucose Level 113 Calcium Level 8.9 Phosphorus Level 4.2 Magnesium Level 1.7 Test 03/01/17 11:58 Bedside Glucose 122 Medications Medications Current Medications Ondansetron HCl (Zofran Inj) 4 mg Q6H PRN IV NAUSEA AND/OR VOMITING; Start 03/27 at 23:30 Acetaminophen (Tylenol Tab) 650 mg Q6H PRN PO PAIN LEVEL 1-3 OR FEVER; Start 02/20/17 at 23:30 Morphine Sulfate (morphine) 2 mg Q4H PRN IV PAIN LEVEL 7-10; Start 02/20/17 at 23:30 Insulin Glargine (Lantus) 10 unit DAILY@20 SC Last administered on 02/28/17t 20:55; Admin Dose 10 UNIT; Start 02/21/17 at 20:00 Diagnostic Test (Pha) (Accu-Chek) 1 ea 02 XX ; Start 02/22/17 at 02:00 Miscellaneous Information 1 ea NOTE XX ; Start 02/21/17 at 06:00 Glucose (Glutose) 15 gm Q15M PRN PO DECREASED GLUCOSE; Start 02/21/17 at 06:00 Glucose (Glutose) 22.5 gm Q15M PRN PO DECREASED GLUCOSE; Start 02/21/17 at 06: 00 Dextrose (D50w Syringe) 25 ml Q15M PRN IV DECREASED GLUCOSE; Start 02/21/17 at 06:00 Dextrose (D50w Syringe) 50 ml Q15M PRN IV DECREASED GLUCOSE; Start 02/21/17 at 06:00 Glucagon (Glucagen) 1 mg Q15M PRN IM DECREASED GLUCOSE; Start 02/21/17 at 06: 00 Glucose (Glutose) 15 gm Q15M PRN BUCCAL DECREASED GLUCOSE; Start 02/21/17 at 06:00 Acetaminophen/ Hydrocodone Bitart ([place] (5/325)) 1 tab Q4H PRN PO PAIN LEVEL 4 -6 Last administered on 03/01/17 12:30; Admin Dose 1 TAB; Start 02/21/17 at 09:30 Silver Sulfadiazine (Thermazene 1% 25 Gm) 1 applic DAILY TOP Last administered on 03/01/17 09:18; Admin Dose 1 APPLIC; Start 02/22/17 at 09:00 Hydrocortisone (Hydrocortisone 2.5% Cr) 1 applic DAILY TOP Last administered on 03/01/17 09:17; Admin Dose 1 APPLIC; Start 02/22/17 at 09:00 Clotrimazole (Lotrimin Cr) 1 applic DAILY TOP Last administered on 03/01/17 09:18; Admin Dose 1 APPLIC; Start 02/22/17 at 09:00 Mupirocin (Bactroban) 1 applic BID TOP Last administered on 03/01/17 09:17; Admin Dose 1 APPLIC; Start 02/22/17 at 12:00 Polyethylene Glycol (Miralax) 17 gm DAILY PO Last administered on 03/01/17 09 :19; Admin Dose 17 GM; Start 02/24/17 at 21:00 Furosemide (Lasix) 40 mg BID IV Last administered on 03/01/17 09:19; Admin Dose 40 MG; Start 02/25/17 at 09:00 Levofloxacin 500 mg 500 mg DAILY@06 PO Last administered on 03/01/17 05:54; Admin Dose 500 MG; Start 02/25/17 at 11:00 Aztreonam (Azactam 1gm/NS (Pmx)) 50 ml @ 100 mls/hr Q12 IVPB Last administered on 03/01/17 09:55; Admin Dose 100 MLS/HR; Start 02/27/17 at 10: 30 Mupirocin (Bactroban) 1 applic BID TOP ; Start 02/28/17 at 21:00 Gabapentin (Neurontin) 300 mg BID PO Last administered on 03/01/17 09:19; Admin Dose 300 MG; Start 02/28/17 at 18:00 Multivitamins Therapeutic (Theragran) 1 tab DAILY PO Last administered on 03/01 09:19; Admin Dose 1 TAB; Start 03/01/17 at 09:00 Silver Sulfadiazine (Thermazene 1% 400 Gm) 1 applic BID TOP ; Start 03/01/17 at 21:00; Status UNV SELINA PATIÑO Mar 01, 2017 13:52
[2017-03-01 14:14] VITALS: BP 112/56; RESP 20
[2017-03-01] MEDS ORDERED: SILVER SULFADIAZINE 1% 400 GM CR TOP SCH (14:30)
[2017-03-01] MEDS ORDERED: LIDOCAINE 1% (MPF) 5 ML VIAL ONE (16:29)
--- NOTE | 2017-03-01 16:31 | RADRPT ---
PROCEDURE: XR Chest. CLINICAL INDICATION: POST THORA TECHNIQUE: AP view of the chest were obtained. COMPARISON: Earlier the same day FINDINGS: There is cardiomegaly. There is calcified atherosclerosis of the aortic arch. There is pulmonary vas cular congestion. There is no left-sided focal airspace disease or pleural effusion. There is no pne umothorax on either side. There is a small residual pleural effusion on the right. There is opacity at the right lung base. IMPRESSION: No evidence of right-sided pneumothorax status post thoracentesis. Cardiomegaly and pulmonary vascular congestion. Calcified atherosclerosis of the aortic arch. Small residual right-sided pleural effusion with right basilar opacity. RPTAT: QQ .Va Hood MD, MD Date Time Electronically viewed and signed by .Va Hood MD, on 03/01/2017 16:31 .G/
[2017-03-01 20:50] VITALS: BP 108/56; RESP 19
[2017-03-01] MEDS: INSULIN GLARGINE [LANtus] 3 ML PEN SC SCH (21:18)
[2017-03-02] MEDS: ALBUTEROL/IPRATROPIUM (NEB) 3 ML AMP HHN SCH ×6 (00:50→20:04)
[2017-03-02] MEDS: ACCU-CHEK XX SCH (01:54)
[2017-03-02] MEDS: HYDROCODONE/APAP (5/325) TAB PO PRN ×3 (02:54→18:03)
[2017-03-02 02:58] VITALS: BP 98/53; RESP 18
[2017-03-02] MEDS: LEVOFLOXACIN 500 MG TAB PO SCH (05:33)
[2017-03-02 06:16] LABS: ABNORMAL IP MESSAGE 1; BASOPHILS % 0.3 % (0.0-2.0); EOSINOPHILS # 0.3 10^3/ul (0.0-0.5); EOSINOPHILS % 7.5 % (0.0-7.0); HEMATOCRIT 24.3 % (42.0-52.0); HEMOGLOBIN 7.4 g/dl (14.0-18.0); LYMPHOCYTES # 0.3 10^3/ul (0.8-2.9); LYMPHOCYTES % 9.5 % (15.0-51.0); MEAN CORPUSCULAR HGB CONC 30.5 g/dl (32.0-37.0); MEAN CORPUSCULAR VOLUME 98.4 fl (82.0-101.0); MEAN PLATELET VOLUME 10.1 fl (7.4-10.4); MONOCYTE # 0.4 10^3/ul (0.3-0.9); MONOCYTES % 12.1 % (0.0-11.0); NEUTROPHIL # 2.5 10^3/ul (1.6-7.5); NEUTROPHILS % 70.3 % (39.0-77.0); PLATELET COUNT 58 10^3/UL (140-415); POSITIVE DIFF @See below; RED BLOOD COUNT 2.47 10^6/ul (4.70-6.10); RED CELL DISTRIBUTION WIDTH 18.2 % (11.5-14.5); WHITE BLOOD COUNT 3.5 10^3/ul (4.8-10.8)
[2017-03-02 06:47] LABS: CALCIUM 8.7 mg/dl (8.4-10.2); CREATININE 1.94 mg/dl (0.61-1.24); MAGNESIUM 1.7 mg/dl (1.7-2.5); PHOSPHORUS 4.1 mg/dl (2.5-4.9); POTASSIUM 3.4 mmol/L (3.5-5.1)
[2017-03-02 07:48] VITALS: BP 95/54; RESP 18
[2017-03-02] MEDS: INSULIN ASPART [NOVOLOG] 3 ML PEN SC SCH ×4 (08:07→20:26)
[2017-03-02] MEDS ORDERED: POTASSIUM CHLORIDE (SR) 20 MEQ TAB PO STA (08:28)
[2017-03-02] MEDS: POLYETHYLENE GLYCOL 17 GM PACKET PO SCH (08:56)
[2017-03-02] MEDS: AZTREONAM 1 GM/NS (PMX) 50 ML IVPB SCH ×2 (08:57→20:21)
[2017-03-02] MEDS: MULTIVITAMINS THERAPEUTIC TAB PO SCH (08:58)
[2017-03-02] MEDS: GABAPENTIN 300 MG CAP PO SCH ×2 (08:58→20:23)
[2017-03-02] MEDS: FOLIC ACID 0.4 MG TAB PO SCH (08:58)
[2017-03-02] MEDS: FUROSEMIDE 20 MG INJ IV SCH ×2 (09:00→18:04)
[2017-03-02] MEDS: MUPIROCIN 2% 22 GM OINT TOP SCH ×4 (09:00→20:38)
[2017-03-02] MEDS: HYDROCORTISONE 2.5% 20 GM CR TOP SCH (09:00)
[2017-03-02] MEDS: SILVER SULFADIAZINE 1% 25 GM CR TOP SCH ×2 (09:02→20:24)
[2017-03-02] MEDS: CLOTRIMAZOLE 1% 30 GM CR TOP SCH (09:05)
--- NOTE | 2017-03-02 09:29 | PN ---
DATE: 03/02/2017 SUBJECTIVE: The patient is stable. No events overnight. No fevers, chills, nausea, vomiting. OBJECTIVE: VITAL SIGNS: Blood pressure is 95/54, temperature 98.4, pulse 81, respirations 18. INTAKE AND OUTPUT: The patient had 2 liters in with 6 liters out. HEENT: Head is normocephalic. NECK: Supple. HEART: Regular rate. LUNGS: Show diminished breath sounds at the base. ABDOMEN: Soft, nontender to palpation. No rebound or guarding. EXTREMITIES: Negative for clubbing, cyanosis. Positive edema. DERMATOLOGIC: No rashes. MUSCULOSKELETAL: No joint effusions. NEUROLOGIC: No change in exam. MEDICATIONS: The patient's medications have been reviewed. LABORATORY DATA: Shows sodium 138, potassium 3.4, chloride 93, BUN 37, creatinine 1.94. White coun t 3.5, hemoglobin 7.4, hematocrit 24.3, platelet count is 58. ASSESSMENT AND PLAN: 1. Nonoliguric acute kidney injury on top of chronic kidney disease with unknown baseline creatinin e. Etiology secondary to hemodynamics. Renal function has declined in the last 48 hours. This is likely due to aggressive diuretic therapy. Plan is to deescalate Lasix to 20 mg b.i.d. to enable fl uid to mobilize. We will otherwise continue supportive care, renally dose medications, avoid nephro toxins. 2. Acute congestive heart failure exacerbation. The patient remains volume overloaded. We will de escalate diuretic therapy in order to enable fluid to mobilize. Continue to monitor. 3. Metabolic alkalosis. The patient is status post Diamox. Continue to monitor. 4. Anemia. Monitor hemoglobin and hematocrit levels. We will give Epogen as needed. 5. Mineral bone disorder. Monitor calcium and phosphorus levels. 6. Hypokalemia, resolved. 7. Acute respiratory failure secondary to congestive heart failure, pneumonia. Continue current me dical management. 8. Obstructive sleep apnea. Continue CPAP. 9. Morbid obesity. Continue dietary modification. 10. Cirrhosis. The patient is decompensated. Continue medical management. Continue diuretic ther apy. 11. Lower extremity wounds. Continue wound care. 12. Diabetes. Continue current insulin regimen. 13. Hypermagnesemia. Continue to monitor and replete. Dictated By: ADAN CORTÉS/AMY Conf#: [id number] [facility]#: [id number] CC: IMANI HALL MD;*[facility]*
[2017-03-02] MEDS ORDERED: EPOETIN 10000 UNITS/1 ML INJ (ESRD) SC ONE (10:00)
--- NOTE | 2017-03-02 10:23 | CONS ---
Date/Time of Note Date/Time of Note DATE: 03/02/17 TIME: 10:18 Consult Date/Type/Reason Admit Date/Time Feb 20, 2017 at 20:38 Type of Consultation: Pulmonary Subjective Patient underwent thoracentesis of right lung 750 cc removed fluid sent for analysis. Objective Vital Signs Date Time Temp Pulse Resp B/P Pulse Ox O2 Delivery O2 Flow Rate FiO2 03/02/17 09:03 4.0 03/02/17 09:03 81 20 97 Nasal Cannula 03/02/17 07:48 98.4 95/54 Intake and Output 03/01/17 03/01/17 03/02/17 15:00 23:00 07:00 Intake Total 1140 ml 1190 ml 530 ml Output Total 1600 ml 3025 ml 1400 ml Balance -460 ml -1835 ml -870 ml Exam GENERAL: Morbidly obese gentleman Comfortable on nasal cannula O2 VITAL SIGNS: per chart NECK: Supple. No JVD or lymphadenopathy. CARDIAC EXAM: S1, S2. No added sounds or murmurs. CHEST: Diminished air entry bilaterally with rales right base. ABDOMEN: Soft, nontender. No guarding or rebound. EXTREMITIES: No cyanosis, clubbing or edema. NEUROLOGIC: Generalized weakness. No focal deficits. Results/Medications Result Diagram: 03/02/17 0545 03/02/17 0545 Results 24 hrs Laboratory Tests Test 03/01/17 11:58 03/01/17 16:00 03/01/17 17:08 03/01/17 21:04 Bedside Glucose 122 142 146 Body Fluid Total Protein < 2.0 Test 03/02/17 05:45 03/02/17 08:05 White Blood Count 3.5 L Red Blood Count 2.47 L Hemoglobin 7.4 L Hematocrit 24.3 L Mean Corpuscular Volume 98.4 Mean Corpuscular Hemoglobin 30.0 Mean Corpuscular Hemoglobin Concent 30.5 L Red Cell Distribution Width 18.2 H Platelet Count 58 L Mean Platelet Volume 10.1 Neutrophils % 70.3 Lymphocytes % 9.5 L Monocytes % 12.1 H Eosinophils % 7.5 H Basophils % 0.3 Nucleated Red Blood Cells % 0.0 Neutrophils # 2.5 Lymphocytes # 0.3 L Monocytes # 0.4 Eosinophils # 0.3 Basophils # 0.0 Nucleated Red Blood Cells # 0.0 Sodium Level 138 Potassium Level 3.4 L Chloride Level 93 L Carbon Dioxide Level 38 H Anion Gap 10 Blood Urea Nitrogen 37 H Creatinine 1.94 H Glucose Level 109 Calcium Level 8.7 Phosphorus Level 4.1 Magnesium Level 1.7 Bedside Glucose 112 Medications Current Medications Ondansetron HCl (Zofran Inj) 4 mg Q6H PRN IV NAUSEA AND/OR VOMITING; Start 03/27 at 23:30 Acetaminophen (Tylenol Tab) 650 mg Q6H PRN PO PAIN LEVEL 1-3 OR FEVER; Start 02/20/17 at 23:30 Morphine Sulfate (morphine) 2 mg Q4H PRN IV PAIN LEVEL 7-10; Start 02/20/17 at 23:30 Insulin Glargine (Lantus) 10 unit DAILY@20 SC Last administered on 03/01/17 21:18; Admin Dose 10 UNIT; Start 02/21/17 at 20:00 Diagnostic Test (Pha) (Accu-Chek) 1 ea 02 XX ; Start 02/22/17 at 02:00 Miscellaneous Information 1 ea NOTE XX ; Start 02/21/17 at 06:00 Glucose (Glutose) 15 gm Q15M PRN PO DECREASED GLUCOSE; Start 02/21/17 at 06:00 Glucose (Glutose) 22.5 gm Q15M PRN PO DECREASED GLUCOSE; Start 02/21/17 at 06: 00 Dextrose (D50w Syringe) 25 ml Q15M PRN IV DECREASED GLUCOSE; Start 02/21/17 at 06:00 Dextrose (D50w Syringe) 50 ml Q15M PRN IV DECREASED GLUCOSE; Start 02/21/17 at 06:00 Glucagon (Glucagen) 1 mg Q15M PRN IM DECREASED GLUCOSE; Start 02/21/17 at 06: 00 Glucose (Glutose) 15 gm Q15M PRN BUCCAL DECREASED GLUCOSE; Start 02/21/17 at 06:00 Acetaminophen/ Hydrocodone Bitart ([place] (5/325)) 1 tab Q4H PRN PO PAIN LEVEL 4 -6 Last administered on 03/02/17 08:58; Admin Dose 1 TAB; Start 02/21/17 at 09:30 Hydrocortisone (Hydrocortisone 2.5% Cr) 1 applic DAILY TOP Last administered on 03/01/17 09:17; Admin Dose 1 APPLIC; Start 02/22/17 at 09:00 Clotrimazole (Lotrimin Cr) 1 applic DAILY TOP Last administered on 03/02/17 09:05; Admin Dose 1 APPLIC; Start 02/22/17 at 09:00 Mupirocin (Bactroban) 1 applic BID TOP Last administered on 03/02/17 09:03; Admin Dose 1 APPLIC; Start 02/22/17 at 12:00 Polyethylene Glycol (Miralax) 17 gm DAILY PO Last administered on 03/02/17 08 :56; Admin Dose 17 GM; Start 02/24/17 at 21:00 Levofloxacin 500 mg 500 mg DAILY@06 PO Last administered on 03/02/17 05:33; Admin Dose 500 MG; Start 02/25/17 at 11:00 Aztreonam (Azactam 1gm/NS (Pmx)) 50 ml @ 100 mls/hr Q12 IVPB Last administered on 03/02/17 08:57; Admin Dose 100 MLS/HR; Start 02/27/17 at 10: 30 Mupirocin (Bactroban) 1 applic BID TOP ; Start 02/28/17 at 21:00 Gabapentin (Neurontin) 300 mg BID PO Last administered on 03/02/17 08:58; Admin Dose 300 MG; Start 02/28/17 at 18:00 Multivitamins Therapeutic (Theragran) 1 tab DAILY PO Last administered on 03/02 08:58; Admin Dose 1 TAB; Start 03/01/17 at 09:00 Silver Sulfadiazine (Thermazene 1% 25 Gm) 1 applic BID TOP Last administered on 03/02/17 09:02; Admin Dose 1 APPLIC; Start 03/01/17 at 21:00 Folic Acid (Folic Acid) 0.4 mg DAILY PO Last administered on 03/02/17 08:58; Admin Dose 0.4 MG; Start 03/02/17 at 09:00 Furosemide (Lasix) 20 mg BID@06,18 IV ; Start 03/02/17 at 09:00 Assessment/Plan Chief Complaint/Hosp Course Assessment, plan 1. Pleural effusion and pneumonia worsening right lung. Status post thoracentesis. Initial pleural fluid studies suggest transudative effusion. 2. Mild anemia and thrombocytopenia. 3. Chronic renal insufficiency. 4. Diabetes. 5. probable underlying sleep apnea. Outpatient sleep study. transfer to snf ? Problems: AZRA CASTILLO MD, [facility] Mar 02, 2017 10:23
--- NOTE | 2017-03-02 14:05 | CONS ---
Date/Time of Note Date/Time of Note DATE: 03/02/17 TIME: 14:03 Assessment/Plan Assessment/Plan Chief Complaint/Hosp Course SUBJECTIVE: No acute changes. Sleeping, looks comfortable, no fevers. ANTIMICROBIALS: 1. Aztreonam. 2. Levaquin. MICROBIOLOGY: Lower extremity wound culture grew coagulase-negative staph species. PHYSICAL EXAMINATION: GENERAL: This is a morbidly obese, well-developed, middle-aged man who is in no distress. HEENT: Head atraumatic, normocephalic. Sclerae anicteric. Buccal mucosa dry. NECK: Supple. CHEST: Rise symmetrical. Breath sounds diminished to bases. HEART: S1, S2. ABDOMEN: Soft, bowel tones present. EXTREMITIES: Bilateral lower extremity edema and chronic wounds that look better. ASSESSMENT: 1. Bilateral lower extremities, acute on chronic cellulitis. 2. Shortness of breath secondary to PNA with right transudative pleural effusion, status post thoracentesis 3. Diabetes. 4. Obesity. 5. Methicillin-resistant Staphylococcus aureus nares colonization. PLAN: The patient remains stable, continue antibiotics, continue Bactroban to nares, local wound care per podiatry recommendations. Follow pulmonary recommendations and fluid cultures DW staff Problems: Consultation Date/Type/Reason Admit Date/Time Feb 20, 2017 at 20:38 Type of Consultation: ID Exam/Review of Systems Vital Signs Vitals Vital Signs Date Time Temp Pulse Resp B/P Pulse Ox O2 Delivery O2 Flow Rate FiO2 03/02/17 12:55 80 18 97 Nasal Cannula 4.0 03/02/17 07:48 98.4 95/54 Intake and Output 03/01/17 03/01/17 03/02/17 15:00 23:00 07:00 Intake Total 1140 ml 1190 ml 530 ml Output Total 1600 ml 3025 ml 1400 ml Balance -460 ml -1835 ml -870 ml Results Result Diagram: 03/02/17 0545 03/02/17 0545 Results 24 hrs Laboratory Tests Test 03/01/17 16:00 03/01/17 17:08 03/01/17 21:04 03/02/17 05:45 Body Fluid Total Protein < 2.0 Bedside Glucose 142 146 White Blood Count 3.5 L Red Blood Count 2.47 L Hemoglobin 7.4 L Hematocrit 24.3 L Mean Corpuscular Volume 98.4 Mean Corpuscular Hemoglobin 30.0 Mean Corpuscular Hemoglobin Concent 30.5 L Red Cell Distribution Width 18.2 H Platelet Count 58 L Mean Platelet Volume 10.1 Neutrophils % 70.3 Lymphocytes % 9.5 L Monocytes % 12.1 H Eosinophils % 7.5 H Basophils % 0.3 Nucleated Red Blood Cells % 0.0 Neutrophils # 2.5 Lymphocytes # 0.3 L Monocytes # 0.4 Eosinophils # 0.3 Basophils # 0.0 Nucleated Red Blood Cells # 0.0 Sodium Level 138 Potassium Level 3.4 L Chloride Level 93 L Carbon Dioxide Level 38 H Anion Gap 10 Blood Urea Nitrogen 37 H Creatinine 1.94 H Glucose Level 109 Calcium Level 8.7 Phosphorus Level 4.1 Magnesium Level 1.7 Test 03/02/17 08:05 03/02/17 11:58 Bedside Glucose 112 132 Medications Medications Current Medications Ondansetron HCl (Zofran Inj) 4 mg Q6H PRN IV NAUSEA AND/OR VOMITING; Start 03/27 at 23:30 Acetaminophen (Tylenol Tab) 650 mg Q6H PRN PO PAIN LEVEL 1-3 OR FEVER; Start 02/20/17 at 23:30 Morphine Sulfate (morphine) 2 mg Q4H PRN IV PAIN LEVEL 7-10; Start 02/20/17 at 23:30 Insulin Glargine (Lantus) 10 unit DAILY@20 SC Last administered on 03/01/17t 21:18; Admin Dose 10 UNIT; Start 02/21/17 at 20:00 Diagnostic Test (Pha) (Accu-Chek) 1 ea 02 XX ; Start 02/22/17 at 02:00 Miscellaneous Information 1 ea NOTE XX ; Start 02/21/17 at 06:00 Glucose (Glutose) 15 gm Q15M PRN PO DECREASED GLUCOSE; Start 02/21/17 at 06:00 Glucose (Glutose) 22.5 gm Q15M PRN PO DECREASED GLUCOSE; Start 02/21/17 at 06: 00 Dextrose (D50w Syringe) 25 ml Q15M PRN IV DECREASED GLUCOSE; Start 02/21/17 at 06:00 Dextrose (D50w Syringe) 50 ml Q15M PRN IV DECREASED GLUCOSE; Start 02/21/17 at 06:00 Glucagon (Glucagen) 1 mg Q15M PRN IM DECREASED GLUCOSE; Start 02/21/17 at 06: 00 Glucose (Glutose) 15 gm Q15M PRN BUCCAL DECREASED GLUCOSE; Start 02/21/17 at 06:00 Acetaminophen/ Hydrocodone Bitart ([place] (5/325)) 1 tab Q4H PRN PO PAIN LEVEL 4 -6 Last administered on 03/02/17 08:58; Admin Dose 1 TAB; Start 02/21/17 at 09:30 Hydrocortisone (Hydrocortisone 2.5% Cr) 1 applic DAILY TOP Last administered on 03/01/17 09:17; Admin Dose 1 APPLIC; Start 02/22/17 at 09:00 Clotrimazole (Lotrimin Cr) 1 applic DAILY TOP Last administered on 03/02/17 09:05; Admin Dose 1 APPLIC; Start 02/22/17 at 09:00 Mupirocin (Bactroban) 1 applic BID TOP Last administered on 03/02/17 09:03; Admin Dose 1 APPLIC; Start 02/22/17 at 12:00 Polyethylene Glycol (Miralax) 17 gm DAILY PO Last administered on 03/02/17 08 :56; Admin Dose 17 GM; Start 02/24/17 at 21:00 Levofloxacin 500 mg 500 mg DAILY@06 PO Last administered on 03/02/17 05:33; Admin Dose 500 MG; Start 02/25/17 at 11:00 Aztreonam (Azactam 1gm/NS (Pmx)) 50 ml @ 100 mls/hr Q12 IVPB Last administered on 03/02/17 08:57; Admin Dose 100 MLS/HR; Start 02/27/17 at 10: 30 Mupirocin (Bactroban) 1 applic BID TOP ; Start 02/28/17 at 21:00 Gabapentin (Neurontin) 300 mg BID PO Last administered on 03/02/17 08:58; Admin Dose 300 MG; Start 02/28/17 at 18:00 Multivitamins Therapeutic (Theragran) 1 tab DAILY PO Last administered on 03/02 08:58; Admin Dose 1 TAB; Start 03/01/17 at 09:00 Silver Sulfadiazine (Thermazene 1% 25 Gm) 1 applic BID TOP Last administered on 03/02/17 09:02; Admin Dose 1 APPLIC; Start 03/01/17 at 21:00 Folic Acid (Folic Acid) 0.4 mg DAILY PO Last administered on 03/02/17t 08:58; Admin Dose 0.4 MG; Start 03/02/17 at 09:00 Furosemide (Lasix) 20 mg BID@,18 IV ; Start 03/02/17 at 09:00 LARS GARCIA NP Mar 02, 2017 14:05
[2017-03-02 14:16] VITALS: BP 98/53; RESP 16
[2017-03-02] MEDS ORDERED: LANT3I SC (16:07)
[2017-03-02] MEDS ORDERED: Furosemide IV (16:07)
[2017-03-02] MEDS ORDERED: POLY17PO6 PO (16:07)
[2017-03-02] MEDS ORDERED: ACET325T40 PO (16:07)
[2017-03-02] MEDS ORDERED: CLO15CR1 TOP (16:07)
[2017-03-02] MEDS ORDERED: NOVO3I SC (16:07)
[2017-03-02] MEDS ORDERED: SILV25CR7 TOP (16:07)
[2017-03-02] MEDS ORDERED: ONDA4VIA2 IV (16:07)
[2017-03-02] MEDS ORDERED: FOLI0.4T2 PO (16:07)
[2017-03-02] MEDS ORDERED: MULTI PO (16:07)
[2017-03-02] MEDS ORDERED: GABA300C16 PO (16:07)
[2017-03-02] MEDS ORDERED: HYDR-3498 PO (16:07)
[2017-03-02] MEDS ORDERED: HC30CR25 TOP (16:07)
[2017-03-02] MEDS ORDERED: LEVO500T72 PO (16:07)
[2017-03-02] MEDS ORDERED: MUPI22OI2 TOP (16:07)
--- NOTE | 2017-03-02 16:20 | PDOCDIS ---
Discharge Instructions DIAGNOSIS Discharge Diagnosis 1. Acute on chronic respiratory failure. 2. Bilateral infiltrates on chest x-ray. 3. Diabetes mellitus. 4. Acute on chronic kidney disease. 5. Diastolic heart failure. 6. Pulmonary hypertension. 7. Liver cirrhosis. 8. Pancytopenia. 9. Dyslipidemia. 10. Morbid obesity. 11. Bilateral lower extremity lymphedema with chronic bilateral lower extremity ulcerations. 12. MRSA in the nares. CONDITION Patient Condition: Stable HOME CARE INSTRUCTIONS: Special Diet: Carb cont OTHER ORDERS: Other Orders: Further care and management per snf facility SELINA PATIÑO Mar 02, 2017 16:20
--- NOTE | 2017-03-02 16:25 | PN ---
Date/Time of Note Date/Time of Note DATE: 03/02/17 TIME: 16:23 Assessment/Plan VTE Prophylaxis VTE Prophylaxis Intervention: contraindicated Lines/Catheters IV C[facility] Type [facility]from [facility] Urinary Cath still in place: Yes Assessment/Plan Chief Complaint/Hosp Course Assessment and plan 1. Acute on chronic respiratory failure. Patient noted with hypoxia and hypercapnia. Continue bronchodilators. Continue on supplemental oxygen. CPAP as needed as well. Roller Operator following. s/p thoracentesis. f/u cxr 2. Bilateral infiltrates on chest x-ray. Suspect possible pneumonia. Continue with antibiotics. Diuresis per country manager. 3. Diabetes mellitus. Continue with insulin regimen. 4. Acute on chronic kidney disease. Window Shade Estimator following. Medications to be renally dosed. function worse today. f/u country manager 5. Diastolic heart failure. Continue diuresis as tolerated. 6. Pulmonary hypertension. Provide with O2. Titrate down as tolerated. 7. Liver cirrhosis. Continue on rifaximin 8. Pancytopenia. Likely secondary to #7. Monitor H&H. 9. Dyslipidemia. Noted with low HDL and measured LDL. 10. Morbid obesity. Weight reduction is advised. 11. Bilateral lower extremity lymphedema with chronic bilateral lower extremity ulcerations. Follow-up with podiatry recommendations. Continue wound care. 12. MRSA in the nares. Continue on Bactroban. Disposition plan: d/p thoracentesis. f/u cxr. renal function worse today. f/u country manager. monitor for improvement. d/c when cleared by consultants Discussed plan of care with Dr. Chauhan Problems: Subjective 24 Hr Interval Summary Free Text/Dictation no s/s of distress Exam/Review of Systems Vital Signs Vitals Vital Signs Date Time Temp Pulse Resp B/P Pulse Ox O2 Delivery O2 Flow Rate FiO2 03/02/17 14:16 98.3 78 16 98/53 97 03/02/17 12:55 Nasal Cannula 4.0 Intake and Output 03/01/17 03/01/17 03/02/17 15:00 23:00 07:00 Intake Total 1140 ml 1190 ml 530 ml Output Total 1600 ml 3025 ml 1400 ml Balance -460 ml -1835 ml -870 ml Exam Constitutional: alert, obese Psych: nl mood/affect Head: normocephalic Respiratory: other (Wheezing noted and congested bilaterally with some diminished lung sounds at bases) Cardiovascular: other (Regular rate) Musculoskeletal: swelling (ble), No nl gait and stance Extremities: other (Chronic ulcerations bilateral lower extremities) Neurological: nl mental status, nl speech Results Result Diagram: 03/02/17 0545 03/02/17 0545 Results 24 hrs Laboratory Tests Test 03/01/17 17:08 03/01/17 21:04 03/02/17 05:45 03/02/17 08:05 Bedside Glucose 142 146 112 White Blood Count 3.5 L Red Blood Count 2.47 L Hemoglobin 7.4 L Hematocrit 24.3 L Mean Corpuscular Volume 98.4 Mean Corpuscular Hemoglobin 30.0 Mean Corpuscular Hemoglobin Concent 30.5 L Red Cell Distribution Width 18.2 H Platelet Count 58 L Mean Platelet Volume 10.1 Neutrophils % 70.3 Lymphocytes % 9.5 L Monocytes % 12.1 H Eosinophils % 7.5 H Basophils % 0.3 Nucleated Red Blood Cells % 0.0 Neutrophils # 2.5 Lymphocytes # 0.3 L Monocytes # 0.4 Eosinophils # 0.3 Basophils # 0.0 Nucleated Red Blood Cells # 0.0 Sodium Level 138 Potassium Level 3.4 L Chloride Level 93 L Carbon Dioxide Level 38 H Anion Gap 10 Blood Urea Nitrogen 37 H Creatinine 1.94 H Glucose Level 109 Calcium Level 8.7 Phosphorus Level 4.1 Magnesium Level 1.7 Test 03/02/17 11:58 Bedside Glucose 132 Medications Medications Current Medications Ondansetron HCl (Zofran Inj) 4 mg Q6H PRN IV NAUSEA AND/OR VOMITING; Start 03/27 at 23:30 Acetaminophen (Tylenol Tab) 650 mg Q6H PRN PO PAIN LEVEL 1-3 OR FEVER; Start 02/20/17 at 23:30 Morphine Sulfate (morphine) 2 mg Q4H PRN IV PAIN LEVEL 7-10; Start 02/20/17 at 23:30 Insulin Glargine (Lantus) 10 unit DAILY@20 SC Last administered on 03/01/17t 21:18; Admin Dose 10 UNIT; Start 02/21/17 at 20:00 Diagnostic Test (Pha) (Accu-Chek) 1 ea 02 XX ; Start 02/22/17 at 02:00 Miscellaneous Information 1 ea NOTE XX ; Start 02/21/17 at 06:00 Glucose (Glutose) 15 gm Q15M PRN PO DECREASED GLUCOSE; Start 02/21/17 at 06:00 Glucose (Glutose) 22.5 gm Q15M PRN PO DECREASED GLUCOSE; Start 02/21/17 at 06: 00 Dextrose (D50w Syringe) 25 ml Q15M PRN IV DECREASED GLUCOSE; Start 02/21/17 at 06:00 Dextrose (D50w Syringe) 50 ml Q15M PRN IV DECREASED GLUCOSE; Start 02/21/17 at 06:00 Glucagon (Glucagen) 1 mg Q15M PRN IM DECREASED GLUCOSE; Start 02/21/17 at 06: 00 Glucose (Glutose) 15 gm Q15M PRN BUCCAL DECREASED GLUCOSE; Start 02/21/17 at 06:00 Acetaminophen/ Hydrocodone Bitart ([place] (5/325)) 1 tab Q4H PRN PO PAIN LEVEL 4 -6 Last administered on 03/02/17 08:58; Admin Dose 1 TAB; Start 02/21/17 at 09:30 Hydrocortisone (Hydrocortisone 2.5% Cr) 1 applic DAILY TOP Last administered on 03/01/17 09:17; Admin Dose 1 APPLIC; Start 02/22/17 at 09:00 Clotrimazole (Lotrimin Cr) 1 applic DAILY TOP Last administered on 03/02/17 09:05; Admin Dose 1 APPLIC; Start 02/22/17 at 09:00 Mupirocin (Bactroban) 1 applic BID TOP Last administered on 03/02/17 09:03; Admin Dose 1 APPLIC; Start 02/22/17 at 12:00 Polyethylene Glycol (Miralax) 17 gm DAILY PO Last administered on 03/02/17 08 :56; Admin Dose 17 GM; Start 02/24/17 at 21:00 Levofloxacin 500 mg 500 mg DAILY@06 PO Last administered on 03/02/17 05:33; Admin Dose 500 MG; Start 02/25/17 at 11:00 Aztreonam (Azactam 1gm/NS (Pmx)) 50 ml @ 100 mls/hr Q12 IVPB Last administered on 03/02/17 08:57; Admin Dose 100 MLS/HR; Start 02/27/17 at 10: 30 Mupirocin (Bactroban) 1 applic BID TOP ; Start 02/28/17 at 21:00 Gabapentin (Neurontin) 300 mg BID PO Last administered on 03/02/17 08:58; Admin Dose 300 MG; Start 02/28/17 at 18:00 Multivitamins Therapeutic (Theragran) 1 tab DAILY PO Last administered on 03/02 08:58; Admin Dose 1 TAB; Start 03/01/17 at 09:00 Silver Sulfadiazine (Thermazene 1% 25 Gm) 1 applic BID TOP Last administered on 03/02/17 09:02; Admin Dose 1 APPLIC; Start 03/01/17 at 21:00 Folic Acid (Folic Acid) 0.4 mg DAILY PO Last administered on 03/02/17 08:58; Admin Dose 0.4 MG; Start 03/02/17 at 09:00 Furosemide (Lasix) 20 mg BID@06,18 IV ; Start 03/02/17 at 09:00 SELINA PATIÑO Mar 02, 2017 16:25
--- NOTE | 2017-03-02 17:16 | RADRPT ---
PROCEDURE: US guided right thoracentesis. CLINICAL INDICATION: Shortness of breath. Right pleural effusion. TECHNIQUE: Prior to the procedure, informed consent was obtained. The risks, benefits, and alternatives were e xplained to the patient or the patient's family, including but not limited to bleeding, infection, p ain, visceral or vascular damage, shock, pneumothorax, chest tube placement, air embolism, and . The patient or the patient's family understood the risks and the alternatives and wished to proce ed with the study. Informed written consent was obtained. A procedural pause was performed. The patient's name, date of , and procedure to be performed were verified. Ultrasound of the right hemithorax was performed in the axial and sagittal planes. A right pleural e ffusion is noted. Utilizing ultrasound guidance, optimal location for entry to the pleural cavity wa s ascertained. The overlying skin was prepped and draped in the usual sterile fashion. Approximate ly 10 ml of 1% Xylocaine was injected locally for pain control. Using ultrasound guidance, a 5-Fren Yueh catheter was introduced into the right pleural space without difficulty. Fluid was aspirated . COMPARISON: Chest x-ray done earlier the same day. FINDINGS: Initial ultrasound demonstrates fluid in the right pleural space. Approximately 0.750 liters of ser ous fluid was aspirated and sent to the laboratory. IMPRESSION: 1. Satisfactory ultrasound-guided right thoracentesis. RPTAT: QQ .Low Altamirano MD, Date Time Electronically viewed and signed by .Low Altamirano MD, on 03/02/2017 17:15 .R/
[2017-03-02 20:31] VITALS: BP 98/55; RESP 20
[2017-03-02] MEDS: INSULIN GLARGINE [LANtus] 3 ML PEN SC SCH (20:37)
[2017-03-02] MEDS ORDERED: MAGNESIUM HYDROXIDE 30ML CUP PO ONE (21:30)
[2017-03-03] MEDS: ACCU-CHEK XX SCH ×2 (00:52→21:55)
[2017-03-03] MEDS: ALBUTEROL/IPRATROPIUM (NEB) 3 ML AMP HHN SCH ×6 (01:07→20:04)
[2017-03-03 02:17] VITALS: BP 104/52; RESP 20
[2017-03-03] MEDS: LEVOFLOXACIN 500 MG TAB PO SCH (05:53)
[2017-03-03] MEDS: FUROSEMIDE 20 MG INJ IV SCH (05:53)
[2017-03-03 06:16] LABS: ABNORMAL IP MESSAGE 1; BASOPHILS % 0.7 % (0.0-2.0); EOSINOPHILS # 0.2 10^3/ul (0.0-0.5); EOSINOPHILS % 6.9 % (0.0-7.0); HEMATOCRIT 24.1 % (42.0-52.0); HEMOGLOBIN 7.3 g/dl (14.0-18.0); LYMPHOCYTES # 0.4 10^3/ul (0.8-2.9); LYMPHOCYTES % 12.5 % (15.0-51.0); MEAN CORPUSCULAR HEMOGLOBIN 29.2 pg (29.0-33.0); MEAN CORPUSCULAR HGB CONC 30.3 g/dl (32.0-37.0); MEAN CORPUSCULAR VOLUME 96.4 fl (82.0-101.0); MEAN PLATELET VOLUME 10.7 fl (7.4-10.4); MONOCYTE # 0.4 10^3/ul (0.3-0.9); MONOCYTES % 12.8 % (0.0-11.0); NEUTROPHILS % 66.8 % (39.0-77.0); PLATELET COUNT 55 10^3/UL (140-415); POSITIVE DIFF @See below; RED CELL DISTRIBUTION WIDTH 18.4 % (11.5-14.5); WHITE BLOOD COUNT 3.1 10^3/ul (4.8-10.8)
[2017-03-03 06:31] LABS: CREATININE 1.96 mg/dl (0.61-1.24); PHOSPHORUS 4.1 mg/dl (2.5-4.9); POTASSIUM 3.8 mmol/L (3.5-5.1)
[2017-03-03 07:29] VITALS: BP 85/47; RESP 18
[2017-03-03] MEDS: INSULIN ASPART [NOVOLOG] 3 ML PEN SC SCH ×4 (07:53→20:39)
[2017-03-03] MEDS: AZTREONAM 1 GM/NS (PMX) 50 ML IVPB SCH ×2 (09:07→20:36)
[2017-03-03] MEDS: GABAPENTIN 300 MG CAP PO SCH ×2 (09:08→20:37)
[2017-03-03] MEDS: MULTIVITAMINS THERAPEUTIC TAB PO SCH (09:08)
[2017-03-03] MEDS: POLYETHYLENE GLYCOL 17 GM PACKET PO SCH (09:08)
[2017-03-03] MEDS: FOLIC ACID 0.4 MG TAB PO SCH (09:08)
[2017-03-03] MEDS: MUPIROCIN 2% 22 GM OINT TOP SCH ×4 (09:09→20:37)
[2017-03-03] MEDS: HYDROCORTISONE 2.5% 20 GM CR TOP SCH (09:09)
[2017-03-03] MEDS: CLOTRIMAZOLE 1% 30 GM CR TOP SCH (09:10)
[2017-03-03] MEDS: SILVER SULFADIAZINE 1% 25 GM CR TOP SCH ×2 (09:10→20:37)
--- NOTE | 2017-03-03 10:06 | RADRPT ---
PROCEDURE: XR Chest. CLINICAL INDICATION: Shortness of breath. TECHNIQUE: Single frontal view. COMPARISON: 03/01/2017. FINDINGS: There is bilateral interstitial pulmonary disease consistent with pulmonary edema, slightly worse th an seen previously. The heart is enlarged. There is a moderate right pleural effusion, smaller than seen previously. Right basilar atelectasis is improved. There is no left pleural effusion. There is no pneumothorax. IMPRESSION: 1. Improved right basilar atelectasis. 2. Slightly worse pulmonary edema. 3. No other change from the 03/01/2017 chest radiograph. RPTAT: QQ .Low Altamirano MD, MD Date Time Electronically viewed and signed by .Low Altamirano MD, MD on 03/03/2017 10:06 .R/
--- NOTE | 2017-03-03 11:03 | CONS ---
Date/Time of Note Date/Time of Note DATE: 03/03/17 TIME: 11:03 Consult Date/Type/Reason Admit Date/Time Feb 20, 2017 at 20:38 Type of Consultation: Pulmonary Subjective Patient comfortable this morning. No significant changes. Objective Vital Signs Date Time Temp Pulse Resp B/P Pulse Ox O2 Delivery O2 Flow Rate FiO2 03/03/17 08:12 83 18 92 Nasal Cannula 4.0 03/03/17 07:29 98.5 85/47 Intake and Output 03/02/17 03/02/17 03/03/17 15:00 23:00 07:00 Intake Total 50 ml 1000 ml 900 ml Output Total 500 ml 650 ml Balance 50 ml 500 ml 250 ml Exam GENERAL: Morbidly obese gentleman Comfortable on nasal cannula O2 VITAL SIGNS: per chart NECK: Supple. No JVD or lymphadenopathy. CARDIAC EXAM: S1, S2. No added sounds or murmurs. CHEST: Diminished air entry bilaterally with rales right base. ABDOMEN: Soft, nontender. No guarding or rebound. EXTREMITIES: No cyanosis, clubbing or edema. NEUROLOGIC: Generalized weakness. No focal deficits. Results/Medications Result Diagram: 03/03/17 0548 03/03/17 0548 Results 24 hrs Laboratory Tests Test 03/02/17 11:58 03/02/17 17:35 03/02/17 20:26 03/03/17 05:48 Bedside Glucose 132 123 146 White Blood Count 3.1 L Red Blood Count 2.50 L Hemoglobin 7.3 L Hematocrit 24.1 L Mean Corpuscular Volume 96.4 Mean Corpuscular Hemoglobin 29.2 Mean Corpuscular Hemoglobin Concent 30.3 L Red Cell Distribution Width 18.4 H Platelet Count 55 L Mean Platelet Volume 10.7 H Neutrophils % 66.8 Lymphocytes % 12.5 L Monocytes % 12.8 H Eosinophils % 6.9 Basophils % 0.7 Nucleated Red Blood Cells % 0.0 Neutrophils # 2.0 Lymphocytes # 0.4 L Monocytes # 0.4 Eosinophils # 0.2 Basophils # 0.0 Nucleated Red Blood Cells # 0.0 Sodium Level 138 Potassium Level 3.8 Chloride Level 91 L Carbon Dioxide Level 40 H Anion Gap 11 Blood Urea Nitrogen 41 H Creatinine 1.96 H Glucose Level 115 Calcium Level 9.0 Phosphorus Level 4.1 Magnesium Level 2.0 Test 03/03/17 07:50 Bedside Glucose 130 Medications Current Medications Ondansetron HCl (Zofran Inj) 4 mg Q6H PRN IV NAUSEA AND/OR VOMITING; Start 03/27 at 23:30 Acetaminophen (Tylenol Tab) 650 mg Q6H PRN PO PAIN LEVEL 1-3 OR FEVER; Start 02/20/17 at 23:30 Morphine Sulfate (morphine) 2 mg Q4H PRN IV PAIN LEVEL 7-10; Start 02/20/17 at 23:30 Insulin Glargine (Lantus) 10 unit DAILY@20 SC Last administered on 03/02/17 20:37; Admin Dose 10 UNIT; Start 02/21/17 at 20:00 Diagnostic Test (Pha) (Accu-Chek) 1 ea 02 XX ; Start 02/22/17 at 02:00 Miscellaneous Information 1 ea NOTE XX ; Start 02/21/17 at 06:00 Glucose (Glutose) 15 gm Q15M PRN PO DECREASED GLUCOSE; Start 02/21/17 at 06:00 Glucose (Glutose) 22.5 gm Q15M PRN PO DECREASED GLUCOSE; Start 02/21/17 at 06: 00 Dextrose (D50w Syringe) 25 ml Q15M PRN IV DECREASED GLUCOSE; Start 02/21/17 at 06:00 Dextrose (D50w Syringe) 50 ml Q15M PRN IV DECREASED GLUCOSE; Start 02/21/17 at 06:00 Glucagon (Glucagen) 1 mg Q15M PRN IM DECREASED GLUCOSE; Start 02/21/17 at 06: 00 Glucose (Glutose) 15 gm Q15M PRN BUCCAL DECREASED GLUCOSE; Start 02/21/17 at 06:00 Acetaminophen/ Hydrocodone Bitart ([place] (5/325)) 1 tab Q4H PRN PO PAIN LEVEL 4 -6 Last administered on 03/02/17 18:03; Admin Dose 1 TAB; Start 02/21/17 at 09:30 Hydrocortisone (Hydrocortisone 2.5% Cr) 1 applic DAILY TOP Last administered on 03/03/17 09:09; Admin Dose 1 APPLIC; Start 02/22/17 at 09:00 Clotrimazole (Lotrimin Cr) 1 applic DAILY TOP Last administered on 03/03/17 09:10; Admin Dose 1 APPLIC; Start 02/22/17 at 09:00 Mupirocin (Bactroban) 1 applic BID TOP Last administered on 03/03/17 09:09; Admin Dose 1 APPLIC; Start 02/22/17 at 12:00 Polyethylene Glycol (Miralax) 17 gm DAILY PO Last administered on 03/03/17 09 :08; Admin Dose 17 GM; Start 02/24/17 at 21:00 Levofloxacin 500 mg 500 mg DAILY@06 PO Last administered on 03/03/17 05:53; Admin Dose 500 MG; Start 02/25/17 at 11:00 Aztreonam (Azactam 1gm/NS (Pmx)) 50 ml @ 100 mls/hr Q12 IVPB Last administered on 03/03/17 09:07; Admin Dose 100 MLS/HR; Start 02/27/17 at 10: 30 Mupirocin (Bactroban) 1 applic BID TOP Last administered on 03/03/17 09:09; Admin Dose 1 APPLIC; Start 02/28/17 at 21:00 Gabapentin (Neurontin) 300 mg BID PO Last administered on 03/03/17 09:08; Admin Dose 300 MG; Start 02/28/17 at 18:00 Multivitamins Therapeutic (Theragran) 1 tab DAILY PO Last administered on 03/03 09:08; Admin Dose 1 TAB; Start 03/01/17 at 09:00 Silver Sulfadiazine (Thermazene 1% 25 Gm) 1 applic BID TOP Last administered on 03/03/17 09:10; Admin Dose 1 APPLIC; Start 03/01/17 at 21:00 Folic Acid (Folic Acid) 0.4 mg DAILY PO Last administered on 03/03/17 09:08; Admin Dose 0.4 MG; Start 03/02/17 at 09:00 Furosemide (Lasix) 20 mg BID@06,18 IV Last administered on 03/02/17 18:04; Admin Dose 20 MG; Start 03/02/17 at 09:00; Status Future Hold Magnesium Hydroxide 30 ml 30 ml DAILY PRN PO CONSTIPATION; Start 03/03/17 at 09:00 Albumin Human 250 ml @ 250 mls/hr Q1H IV ; Start 03/03/17 at 10:30; Stop at 12:29 Assessment/Plan Chief Complaint/Hosp Course Assessment, plan 1. Pleural effusion and pneumonia worsening right lung. Status post thoracentesis. Initial pleural fluid studies suggest transudative effusion. 2. Mild anemia and thrombocytopenia. 3. Chronic renal insufficiency. 4. Diabetes. 5. probable underlying sleep apnea. Outpatient sleep study. transfer to snf [place] from primary standpoint. Problems: AZRA CASTILLO MD, [facility] Mar 03, 2017 11:03
[2017-03-03] MEDS: ALBUMIN HUMAN 5% 250 ML IV SCH ×2 (11:13→12:47)
--- NOTE | 2017-03-03 12:00 | CONS ---
Date/Time of Note Date/Time of Note DATE: 03/03/17 TIME: 11:59 Assessment/Plan Assessment/Plan Chief Complaint/Hosp Course SUBJECTIVE: No acute changes. Sleeping, looks comfortable, no fevers. ANTIMICROBIALS: 1. Aztreonam. 2. Levaquin. MICROBIOLOGY: Lower extremity wound culture grew coagulase-negative staph species. PHYSICAL EXAMINATION: GENERAL: This is a morbidly obese, well-developed, middle-aged man who is in no distress. HEENT: Head atraumatic, normocephalic. Sclerae anicteric. Buccal mucosa dry. NECK: Supple. CHEST: Rise symmetrical. Breath sounds diminished to bases. HEART: S1, S2. ABDOMEN: Soft, bowel tones present. EXTREMITIES: Bilateral lower extremity edema and chronic wounds that look better. ASSESSMENT: 1. Bilateral lower extremities, acute on chronic cellulitis. 2. Shortness of breath secondary to PNA with right transudative pleural effusion, status post thoracentesis 3. Diabetes. 4. Obesity. 5. Methicillin-resistant Staphylococcus aureus nares colonization. PLAN: The patient remains stable, continue antibiotics, Bactroban to nares and topical [place] to BLE, local wound care per podiatry recommendations. DW staff Problems: Consultation Date/Type/Reason Admit Date/Time Feb 20, 2017 at 20:38 Type of Consultation: ID Exam/Review of Systems Vital Signs Vitals Vital Signs Date Time Temp Pulse Resp B/P Pulse Ox O2 Delivery O2 Flow Rate FiO2 03/03/17 08:12 83 18 92 Nasal Cannula 4.0 03/03/17 07:29 98.5 85/47 Intake and Output 03/02/17 03/02/17 03/03/17 15:00 23:00 07:00 Intake Total 50 ml 1000 ml 900 ml Output Total 500 ml 650 ml Balance 50 ml 500 ml 250 ml Results Result Diagram: 03/03/17 0548 03/03/17 0548 Results 24 hrs Laboratory Tests Test 03/02/17 17:35 03/02/17 20:26 03/03/17 05:48 03/03/17 07:50 Bedside Glucose 123 146 130 White Blood Count 3.1 L Red Blood Count 2.50 L Hemoglobin 7.3 L Hematocrit 24.1 L Mean Corpuscular Volume 96.4 Mean Corpuscular Hemoglobin 29.2 Mean Corpuscular Hemoglobin Concent 30.3 L Red Cell Distribution Width 18.4 H Platelet Count 55 L Mean Platelet Volume 10.7 H Neutrophils % 66.8 Lymphocytes % 12.5 L Monocytes % 12.8 H Eosinophils % 6.9 Basophils % 0.7 Nucleated Red Blood Cells % 0.0 Neutrophils # 2.0 Lymphocytes # 0.4 L Monocytes # 0.4 Eosinophils # 0.2 Basophils # 0.0 Nucleated Red Blood Cells # 0.0 Sodium Level 138 Potassium Level 3.8 Chloride Level 91 L Carbon Dioxide Level 40 H Anion Gap 11 Blood Urea Nitrogen 41 H Creatinine 1.96 H Glucose Level 115 Calcium Level 9.0 Phosphorus Level 4.1 Magnesium Level 2.0 Medications Medications Current Medications Ondansetron HCl (Zofran Inj) 4 mg Q6H PRN IV NAUSEA AND/OR VOMITING; Start 03/27 at 23:30 Acetaminophen (Tylenol Tab) 650 mg Q6H PRN PO PAIN LEVEL 1-3 OR FEVER; Start 02/20/17 at 23:30 Morphine Sulfate (morphine) 2 mg Q4H PRN IV PAIN LEVEL 7-10; Start 02/20/17 at 23:30 Insulin Glargine (Lantus) 10 unit DAILY@20 SC Last administered on 03/02/17t 20:37; Admin Dose 10 UNIT; Start 02/21/17 at 20:00 Diagnostic Test (Pha) (Accu-Chek) 1 ea 02 XX ; Start 02/22/17 at 02:00 Miscellaneous Information 1 ea NOTE XX ; Start 02/21/17 at 06:00 Glucose (Glutose) 15 gm Q15M PRN PO DECREASED GLUCOSE; Start 02/21/17 at 06:00 Glucose (Glutose) 22.5 gm Q15M PRN PO DECREASED GLUCOSE; Start 02/21/17 at 06: 00 Dextrose (D50w Syringe) 25 ml Q15M PRN IV DECREASED GLUCOSE; Start 02/21/17 at 06:00 Dextrose (D50w Syringe) 50 ml Q15M PRN IV DECREASED GLUCOSE; Start 02/21/17 at 06:00 Glucagon (Glucagen) 1 mg Q15M PRN IM DECREASED GLUCOSE; Start 02/21/17 at 06: 00 Glucose (Glutose) 15 gm Q15M PRN BUCCAL DECREASED GLUCOSE; Start 02/21/17 at 06:00 Acetaminophen/ Hydrocodone Bitart ([place] (5/325)) 1 tab Q4H PRN PO PAIN LEVEL 4 -6 Last administered on 03/02/17 18:03; Admin Dose 1 TAB; Start 02/21/17 at 09:30 Hydrocortisone (Hydrocortisone 2.5% Cr) 1 applic DAILY TOP Last administered on 03/03/17 09:09; Admin Dose 1 APPLIC; Start 02/22/17 at 09:00 Clotrimazole (Lotrimin Cr) 1 applic DAILY TOP Last administered on 03/03/17 09:10; Admin Dose 1 APPLIC; Start 02/22/17 at 09:00 Mupirocin (Bactroban) 1 applic BID TOP Last administered on 03/03/17 09:09; Admin Dose 1 APPLIC; Start 02/22/17 at 12:00 Polyethylene Glycol (Miralax) 17 gm DAILY PO Last administered on 03/03/17 09 :08; Admin Dose 17 GM; Start 02/24/17 at 21:00 Levofloxacin 500 mg 500 mg DAILY@06 PO Last administered on 03/03/17 05:53; Admin Dose 500 MG; Start 02/25/17 at 11:00 Aztreonam (Azactam 1gm/NS (Pmx)) 50 ml @ 100 mls/hr Q12 IVPB Last administered on 03/03/17 09:07; Admin Dose 100 MLS/HR; Start 02/27/17 at 10: 30 Mupirocin (Bactroban) 1 applic BID TOP Last administered on 03/03/17 09:09; Admin Dose 1 APPLIC; Start 02/28/17 at 21:00 Gabapentin (Neurontin) 300 mg BID PO Last administered on 03/03/17 09:08; Admin Dose 300 MG; Start 02/28/17 at 18:00 Multivitamins Therapeutic (Theragran) 1 tab DAILY PO Last administered on 03/03 09:08; Admin Dose 1 TAB; Start 03/01/17 at 09:00 Silver Sulfadiazine (Thermazene 1% 25 Gm) 1 applic BID TOP Last administered on 03/03/17 09:10; Admin Dose 1 APPLIC; Start 03/01/17 at 21:00 Folic Acid (Folic Acid) 0.4 mg DAILY PO Last administered on 03/03/17 09:08; Admin Dose 0.4 MG; Start 03/02/17 at 09:00 Furosemide (Lasix) 20 mg BID@06,18 IV Last administered on 03/02/17 18:04; Admin Dose 20 MG; Start 03/02/17 at 09:00; Status Future Hold Magnesium Hydroxide 30 ml 30 ml DAILY PRN PO CONSTIPATION; Start 03/03/17 at 09:00 Albumin Human 250 ml @ 250 mls/hr Q1H IV Last administered on 03/03/17 11:13 ; Admin Dose 250 MLS/HR; Start 03/03/17 at 10:30; Stop 03/03/17 at 12:29 LARS GARCIA NP Mar 03, 2017 12:00
--- NOTE | 2017-03-03 12:01 | PN ---
DATE: 03/03/2017 SUBJECTIVE: The patient noted to be hypertensive but clinically stable, no chest pain, no shortness of breath. OBJECTIVE: VITAL SIGNS: Blood pressure is 85/47, temperature 98.5, saturation %. INTAKE AND OUTPUT: The patient had 1900 in with 1100 out. HEENT: Head is normocephalic. NECK: Supple. HEART: Is regular rate. LUNGS: Show diminished breath sounds at the base. ABDOMEN: Soft, nontender to palpation, no rebound, guarding. EXTREMITIES: Negative for clubbing, cyanosis. Positive edema, improving. DERMATOLOGIC: No rashes. MUSCULOSKELETAL: No joint effusions. NEUROLOGIC: No change in exam. MEDICATIONS: The patient's medications have been reviewed. LABORATORY DATA: Shows white count 3.1, hemoglobin 7.3, platelet count 55. Sodium 138, potassium 3 .8, chloride 91, bicarbonate 40, BUN 21, creatinine 1.96. ASSESSMENT AND PLAN: 1. Nonoliguric acute kidney injury on top of chronic kidney disease with unknown baseline creatinin e. Etiology secondary to hemodynamics. The patient's renal function has been fluctuating; however, has been stable in the last 24 hours. At this point, will hold diuretic therapy given the patient' s hypotensive state and continue to monitor renal function closely. 2. Acute congestive heart failure exacerbation. The patient remains volume overloaded, slowly impr oving. Continue to monitor. Continue intermittent diuretic therapy. 3. Metabolic alkalosis. Etiology may be compensatory. 4. Alkalosis. Etiology may be compensatory versus metabolic. Will check an ABG. 5. Anemia. Monitor hemoglobin and hematocrit levels. 6. Cirrhosis. The patient is currently decompensated. At this point, continue to monitor, holding diuretic therapy due to hypertension. 7. Acute respiratory failure secondary to congestive heart failure, pneumonia. Will continue medic al management. 8. Obstructive sleep apnea. Continue CPAP. 9. Morbid obesity. Continue dietary modification. 10. Hypotension. Etiology may be multifactorial secondary to cirrhosis in conjunction with recent diuretic therapy. We will hold blood pressure medications, diuretics as stated above and monitor cl osely. 11. Lower extremity wounds. Continue wound care. 12. Diabetes. Continue current insulin regimen. 13. Hypomagnesemia. Continue to monitor and replete as needed. Dictated By: ADAN CORTÉS/AMY Conf#: [id number] DID#: [id number] CC: ADAN SWEENEY DO; IMANI HALL MD;*[facility]*
--- NOTE | 2017-03-03 14:02 | PN ---
Date/Time of Note Date/Time of Note DATE: 03/03/17 TIME: 13:57 Assessment/Plan VTE Prophylaxis VTE Prophylaxis Intervention: contraindicated Lines/Catheters IV [facility]from [facility] Urinary Cath still in place: Yes Assessment/Plan Chief Complaint/Hosp Course Assessment and plan 1. Acute on chronic respiratory failure. Patient noted with hypoxia and hypercapnia. Continue bronchodilators. Continue on supplemental oxygen. CPAP as needed as well. Deodorizer Operator following. s/p thoracentesis 2. Bilateral infiltrates on chest x-ray. Suspect possible pneumonia. Continue with antibiotics. Diuresis per community living coach. 3. Diabetes mellitus. Continue with insulin regimen. 4. Acute on chronic kidney disease. Ramp Agent following. Medications to be renally dosed. function worse today. f/u community living coach 5. Diastolic heart failure. Continue diuresis as tolerated. 6. Pulmonary hypertension. Provide with O2. Titrate down as tolerated. 7. Liver cirrhosis. Continue on rifaximin 8. Pancytopenia. Likely secondary to #7. Monitor H&H. 9. Dyslipidemia. Noted with low HDL and measured LDL. 10. Morbid obesity. Weight reduction is advised. 11. Bilateral lower extremity lymphedema with chronic bilateral lower extremity ulcerations. Follow-up with podiatry recommendations. Continue wound care. 12. MRSA in the nares. Continue on Bactroban. Disposition plan: monitor for improvement of renal panel. d/c planning to snf once medically stable and cleared by consultants Discussed plan of care with Dr. Chauhan Problems: Subjective 24 Hr Interval Summary Free Text/Dictation comfortable at present. no s/s o distress Exam/Review of Systems Vital Signs Vitals Vital Signs Date Time Temp Pulse Resp B/P Pulse Ox O2 Delivery O2 Flow Rate FiO2 03/03/17 13:44 83 18 100 Nasal Cannula 4.0 03/03/17 07:29 98.5 85/47 Intake and Output 03/02/17 03/02/17 03/03/17 15:00 23:00 07:00 Intake Total 50 ml 1000 ml 900 ml Output Total 500 ml 650 ml Balance 50 ml 500 ml 250 ml Exam Constitutional: alert, obese Psych: nl mood/affect Head: normocephalic Respiratory: other (minimally dim at bases Cardiovascular: other (Regular rate) Musculoskeletal: swelling (ble), No nl gait and stance Extremities: other (Chronic ulcerations bilateral lower extremities) Neurological: nl mental status, nl speech Results Result Diagram: 03/03/17 0548 03/03/17 0548 Results 24 hrs Laboratory Tests Test 03/02/17 17:35 03/02/17 20:26 03/03/17 05:48 03/03/17 07:50 Bedside Glucose 123 146 130 White Blood Count 3.1 L Red Blood Count 2.50 L Hemoglobin 7.3 L Hematocrit 24.1 L Mean Corpuscular Volume 96.4 Mean Corpuscular Hemoglobin 29.2 Mean Corpuscular Hemoglobin Concent 30.3 L Red Cell Distribution Width 18.4 H Platelet Count 55 L Mean Platelet Volume 10.7 H Neutrophils % 66.8 Lymphocytes % 12.5 L Monocytes % 12.8 H Eosinophils % 6.9 Basophils % 0.7 Nucleated Red Blood Cells % 0.0 Neutrophils # 2.0 Lymphocytes # 0.4 L Monocytes # 0.4 Eosinophils # 0.2 Basophils # 0.0 Nucleated Red Blood Cells # 0.0 Sodium Level 138 Potassium Level 3.8 Chloride Level 91 L Carbon Dioxide Level 40 H Anion Gap 11 Blood Urea Nitrogen 41 H Creatinine 1.96 H Glucose Level 115 Calcium Level 9.0 Phosphorus Level 4.1 Magnesium Level 2.0 Test 03/03/17 12:04 Bedside Glucose 133 Medications Medications Current Medications Ondansetron HCl (Zofran Inj) 4 mg Q6H PRN IV NAUSEA AND/OR VOMITING; Start 03/27 at 23:30 Acetaminophen (Tylenol Tab) 650 mg Q6H PRN PO PAIN LEVEL 1-3 OR FEVER; Start 02/20/17 at 23:30 Morphine Sulfate (morphine) 2 mg Q4H PRN IV PAIN LEVEL 7-10; Start 02/20/17 at 23:30 Insulin Glargine (Lantus) 10 unit DAILY@20 SC Last administered on 03/02/17t 20:37; Admin Dose 10 UNIT; Start 02/21/17 at 20:00 Diagnostic Test (Pha) (Accu-Chek) 1 ea 02 XX ; Start 02/22/17 at 02:00 Miscellaneous Information 1 ea NOTE XX ; Start 02/21/17 at 06:00 Glucose (Glutose) 15 gm Q15M PRN PO DECREASED GLUCOSE; Start 02/21/17 at 06:00 Glucose (Glutose) 22.5 gm Q15M PRN PO DECREASED GLUCOSE; Start 02/21/17 at 06: 00 Dextrose (D50w Syringe) 25 ml Q15M PRN IV DECREASED GLUCOSE; Start 02/21/17 at 06:00 Dextrose (D50w Syringe) 50 ml Q15M PRN IV DECREASED GLUCOSE; Start 02/21/17 at 06:00 Glucagon (Glucagen) 1 mg Q15M PRN IM DECREASED GLUCOSE; Start 02/21/17 at 06: 00 Glucose (Glutose) 15 gm Q15M PRN BUCCAL DECREASED GLUCOSE; Start 02/21/17 at 06:00 Acetaminophen/ Hydrocodone Bitart ([place] (5/325)) 1 tab Q4H PRN PO PAIN LEVEL 4 -6 Last administered on 03/02/17 18:03; Admin Dose 1 TAB; Start 02/21/17 at 09:30 Hydrocortisone (Hydrocortisone 2.5% Cr) 1 applic DAILY TOP Last administered on 03/03/17 09:09; Admin Dose 1 APPLIC; Start 02/22/17 at 09:00 Clotrimazole (Lotrimin Cr) 1 applic DAILY TOP Last administered on 03/03/17 09:10; Admin Dose 1 APPLIC; Start 02/22/17 at 09:00 Mupirocin (Bactroban) 1 applic BID TOP Last administered on 03/03/17 09:09; Admin Dose 1 APPLIC; Start 02/22/17 at 12:00 Polyethylene Glycol (Miralax) 17 gm DAILY PO Last administered on 03/03/17 09 :08; Admin Dose 17 GM; Start 02/24/17 at 21:00 Levofloxacin 500 mg 500 mg DAILY@06 PO Last administered on 03/03/17 05:53; Admin Dose 500 MG; Start 02/25/17 at 11:00 Aztreonam (Azactam 1gm/NS (Pmx)) 50 ml @ 100 mls/hr Q12 IVPB Last administered on 03/03/17 09:07; Admin Dose 100 MLS/HR; Start 02/27/17 at 10: 30 Mupirocin (Bactroban) 1 applic BID TOP Last administered on 03/03/17 09:09; Admin Dose 1 APPLIC; Start 02/28/17 at 21:00 Gabapentin (Neurontin) 300 mg BID PO Last administered on 03/03/17 09:08; Admin Dose 300 MG; Start 02/28/17 at 18:00 Multivitamins Therapeutic (Theragran) 1 tab DAILY PO Last administered on 03/03 09:08; Admin Dose 1 TAB; Start 03/01/17 at 09:00 Silver Sulfadiazine (Thermazene 1% 25 Gm) 1 applic BID TOP Last administered on 03/03/17 09:10; Admin Dose 1 APPLIC; Start 03/01/17 at 21:00 Folic Acid (Folic Acid) 0.4 mg DAILY PO Last administered on 03/03/17 09:08; Admin Dose 0.4 MG; Start 03/02/17 at 09:00 Furosemide (Lasix) 20 mg BID@06,18 IV Last administered on 03/02/17 18:04; Admin Dose 20 MG; Start 03/02/17 at 09:00; Status Future Hold Magnesium Hydroxide (Milk Of Mag) 30 ml DAILY PRN PO CONSTIPATION; Start 03/03 at 09:00 SELINA PATIÑO Mar 03, 2017 14:02
[2017-03-03 15:14] VITALS: BP 100/57; RESP 18
[2017-03-03] MEDS: HYDROCODONE/APAP (5/325) TAB PO PRN (18:19)
[2017-03-03 20:00] VITALS: BP 99/54; RESP 20
[2017-03-03] MEDS: INSULIN GLARGINE [LANtus] 3 ML PEN SC SCH (21:04)
[2017-03-04] MEDS: ALBUTEROL/IPRATROPIUM (NEB) 3 ML AMP HHN SCH ×6 (00:22→20:22)
[2017-03-04 02:00] VITALS: BP 105/51; RESP 20
[2017-03-04] MEDS: MAGNESIUM HYDROXIDE 30ML CUP PO PRN (06:00)
[2017-03-04] MEDS: LEVOFLOXACIN 500 MG TAB PO SCH (06:00)
[2017-03-04] MEDS: HYDROCODONE/APAP (5/325) TAB PO PRN (06:04)
[2017-03-04 06:29] LABS: ABNORMAL IP MESSAGE 1; BASOPHILS % 0.6 % (0.0-2.0); EOSINOPHILS # 0.3 10^3/ul (0.0-0.5); EOSINOPHILS % 8.2 % (0.0-7.0); HEMATOCRIT 25.3 % (42.0-52.0); HEMOGLOBIN 7.7 g/dl (14.0-18.0); LYMPHOCYTES # 0.4 10^3/ul (0.8-2.9); MEAN CORPUSCULAR HEMOGLOBIN 29.5 pg (29.0-33.0); MEAN CORPUSCULAR HGB CONC 30.4 g/dl (32.0-37.0); MEAN CORPUSCULAR VOLUME 96.9 fl (82.0-101.0); MEAN PLATELET VOLUME 10.5 fl (7.4-10.4); MONOCYTE # 0.4 10^3/ul (0.3-0.9); MONOCYTES % 12.6 % (0.0-11.0); NEUTROPHIL # 2.1 10^3/ul (1.6-7.5); NEUTROPHILS % 67.3 % (39.0-77.0); PLATELET COUNT 57 10^3/UL (140-415); POSITIVE DIFF @See below; RED BLOOD COUNT 2.61 10^6/ul (4.70-6.10); RED CELL DISTRIBUTION WIDTH 18.4 % (11.5-14.5); WHITE BLOOD COUNT 3.2 10^3/ul (4.8-10.8)
[2017-03-04 06:59] LABS: CALCIUM 9.1 mg/dl (8.4-10.2); CREATININE 2.14 mg/dl (0.61-1.24); MAGNESIUM 2.2 mg/dl (1.7-2.5); PHOSPHORUS 4.1 mg/dl (2.5-4.9); POTASSIUM 4.1 mmol/L (3.5-5.1)
[2017-03-04 08:10] VITALS: BP 106/54; RESP 18
[2017-03-04] MEDS: INSULIN ASPART [NOVOLOG] 3 ML PEN SC SCH ×4 (08:15→21:00)
[2017-03-04] MEDS: FOLIC ACID 0.4 MG TAB PO SCH (08:29)
[2017-03-04] MEDS: GABAPENTIN 300 MG CAP PO SCH ×2 (08:29→21:33)
[2017-03-04] MEDS: POLYETHYLENE GLYCOL 17 GM PACKET PO SCH (08:29)
[2017-03-04] MEDS: MULTIVITAMINS THERAPEUTIC TAB PO SCH (08:29)
[2017-03-04] MEDS: SILVER SULFADIAZINE 1% 25 GM CR TOP SCH ×2 (08:30→21:33)
[2017-03-04] MEDS: MUPIROCIN 2% 22 GM OINT TOP SCH ×4 (08:30→21:33)
[2017-03-04] MEDS: CLOTRIMAZOLE 1% 30 GM CR TOP SCH (08:31)
[2017-03-04] MEDS: HYDROCORTISONE 2.5% 20 GM CR TOP SCH (08:32)
--- NOTE | 2017-03-04 09:43 | CONS ---
Date/Time of Note Date/Time of Note DATE: 03/04/17 TIME: 09:42 Consult Date/Type/Reason Admit Date/Time Feb 20, 2017 at 20:38 Type of Consultation: Pulmonary Subjective No significant changes. Remains stable. Objective Vital Signs Date Time Temp Pulse Resp B/P Pulse Ox O2 Delivery O2 Flow Rate FiO2 03/04/17 09:21 81 18 93 Nasal Cannula 4.0 03/04/17 08:10 98.2 106/54 Intake and Output 03/03/17 03/03/17 03/04/17 15:00 23:00 07:00 Intake Total 550 ml 1430 ml Output Total 450 ml Balance 550 ml 980 ml Exam GENERAL: Morbidly obese gentleman Comfortable on nasal cannula O2 VITAL SIGNS: per chart NECK: Supple. No JVD or lymphadenopathy. CARDIAC EXAM: S1, S2. No added sounds or murmurs. CHEST: Diminished air entry bilaterally with rales right base. ABDOMEN: Soft, nontender. No guarding or rebound. EXTREMITIES: No cyanosis, clubbing or edema. NEUROLOGIC: Generalized weakness. No focal deficits. Results/Medications Result Diagram: 03/04/17 0612 03/04/17 0612 Results 24 hrs Laboratory Tests Test 03/03/17 12:04 03/03/17 17:18 03/03/17 20:34 03/04/17 06:12 Bedside Glucose 133 204 139 White Blood Count 3.2 L Red Blood Count 2.61 L Hemoglobin 7.7 L Hematocrit 25.3 L Mean Corpuscular Volume 96.9 Mean Corpuscular Hemoglobin 29.5 Mean Corpuscular Hemoglobin Concent 30.4 L Red Cell Distribution Width 18.4 H Platelet Count 57 L Mean Platelet Volume 10.5 H Neutrophils % 67.3 Lymphocytes % 11.0 L Monocytes % 12.6 H Eosinophils % 8.2 H Basophils % 0.6 Nucleated Red Blood Cells % 0.0 Neutrophils # 2.1 Lymphocytes # 0.4 L Monocytes # 0.4 Eosinophils # 0.3 Basophils # 0.0 Nucleated Red Blood Cells # 0.0 Sodium Level 136 Potassium Level 4.1 Chloride Level 91 L Carbon Dioxide Level 37 H Anion Gap 12 Blood Urea Nitrogen 47 H Creatinine 2.14 H Glucose Level 122 Calcium Level 9.1 Phosphorus Level 4.1 Magnesium Level 2.2 Test 03/04/17 08:25 Bedside Glucose 131 Medications Current Medications Ondansetron HCl (Zofran Inj) 4 mg Q6H PRN IV NAUSEA AND/OR VOMITING; Start 03/27 at 23:30 Acetaminophen (Tylenol Tab) 650 mg Q6H PRN PO PAIN LEVEL 1-3 OR FEVER; Start 02/20/17 at 23:30 Morphine Sulfate (morphine) 2 mg Q4H PRN IV PAIN LEVEL 7-10; Start 02/20/17 at 23:30 Insulin Glargine (Lantus) 10 unit DAILY@20 SC Last administered on 03/03/17 21:04; Admin Dose 10 UNIT; Start 02/21/17 at 20:00 Diagnostic Test (Pha) (Accu-Chek) 1 ea 02 XX ; Start 02/22/17 at 02:00 Miscellaneous Information 1 ea NOTE XX ; Start 02/21/17 at 06:00 Glucose (Glutose) 15 gm Q15M PRN PO DECREASED GLUCOSE; Start 02/21/17 at 06:00 Glucose (Glutose) 22.5 gm Q15M PRN PO DECREASED GLUCOSE; Start 02/21/17 at 06: 00 Dextrose (D50w Syringe) 25 ml Q15M PRN IV DECREASED GLUCOSE; Start 02/21/17 at 06:00 Dextrose (D50w Syringe) 50 ml Q15M PRN IV DECREASED GLUCOSE; Start 02/21/17 at 06:00 Glucagon (Glucagen) 1 mg Q15M PRN IM DECREASED GLUCOSE; Start 02/21/17 at 06: 00 Glucose (Glutose) 15 gm Q15M PRN BUCCAL DECREASED GLUCOSE; Start 02/21/17 at 06:00 Acetaminophen/ Hydrocodone Bitart ([place] (5/325)) 1 tab Q4H PRN PO PAIN LEVEL 4 -6 Last administered on 03/04/17 06:04; Admin Dose 1 TAB; Start 02/21/17 at 09:30 Hydrocortisone (Hydrocortisone 2.5% Cr) 1 applic DAILY TOP Last administered on 03/04/17 08:32; Admin Dose 1 APPLIC; Start 02/22/17 at 09:00 Clotrimazole (Lotrimin Cr) 1 applic DAILY TOP Last administered on 03/04/17 08:31; Admin Dose 1 APPLIC; Start 02/22/17 at 09:00 Mupirocin (Bactroban) 1 applic BID TOP Last administered on 03/04/17 08:30; Admin Dose 1 APPLIC; Start 02/22/17 at 12:00 Polyethylene Glycol (Miralax) 17 gm DAILY PO Last administered on 03/04/17 08 :29; Admin Dose 17 GM; Start 02/24/17 at 21:00 Levofloxacin 500 mg 500 mg DAILY@06 PO Last administered on 03/04/17 06:00; Admin Dose 500 MG; Start 02/25/17 at 11:00 Aztreonam (Azactam 1gm/NS (Pmx)) 50 ml @ 100 mls/hr Q12 IVPB Last administered on 03/03/17 20:36; Admin Dose 100 MLS/HR; Start 02/27/17 at 10: 30 Mupirocin (Bactroban) 1 applic BID TOP Last administered on 03/03/17 20:37; Admin Dose 1 APPLIC; Start 02/28/17 at 21:00 Multivitamins Therapeutic (Theragran) 1 tab DAILY PO Last administered on 03/04 08:29; Admin Dose 1 TAB; Start 03/01/17 at 09:00 Silver Sulfadiazine (Thermazene 1% 25 Gm) 1 applic BID TOP Last administered on 03/04/17 08:30; Admin Dose 1 APPLIC; Start 03/01/17 at 21:00 Folic Acid (Folic Acid) 0.4 mg DAILY PO Last administered on 03/04/17 08:29; Admin Dose 0.4 MG; Start 03/02/17 at 09:00 Furosemide (Lasix) 20 mg BID@06,18 IV Last administered on 03/02/17 18:04; Admin Dose 20 MG; Start 03/02/17 at 09:00; Status Future Hold Magnesium Hydroxide (Milk Of Mag) 30 ml DAILY PRN PO CONSTIPATION Last administered on 03/04/17 06:00; Admin Dose 30 ML; Start 03/03/17 at 09:00 Gabapentin (Neurontin) 600 mg BID PO Last administered on 03/04/17 08:29; Admin Dose 600 MG; Start 03/03/17 at 21:00 Assessment/Plan Chief Complaint/Hosp Course Assessment, plan 1. Pleural effusion and pneumonia worsening right lung. Status post thoracentesis. Initial pleural fluid studies suggest transudative effusion. 2. Mild anemia and thrombocytopenia. 3. Chronic renal insufficiency. 4. Diabetes. 5. probable underlying sleep apnea. Outpatient sleep study. transfer to snf okay from primary standpoint. Problems: AZRA CASTILLO MD, [facility] Mar 04, 2017 09:43
[2017-03-04] MEDS: AZTREONAM 1 GM/NS (PMX) 50 ML IVPB SCH ×2 (10:00→21:32)
--- NOTE | 2017-03-04 10:03 | PN ---
Date/Time of Note Date/Time of Note DATE: 03/04/17 TIME: 10:01 Assessment/Plan VTE Prophylaxis VTE Prophylaxis Intervention: SCD's Lines/Catheters IV [facility]ter [facility]from [facility] Saline Lock Urinary Cath still in place: Yes Assessment/Plan Chief Complaint/Hosp Course Assessment and plan 1. Acute on chronic respiratory failure. Patient noted with hypoxia and hypercapnia. Continue bronchodilators. Continue on supplemental oxygen. CPAP as needed as well. Gas Line Installer Supervisor following. s/p thoracentesis 2. Bilateral infiltrates on chest x-ray. Suspect possible pneumonia. Continue with antibiotics. Diuresis per cath lab technologist. 3. Diabetes mellitus. Continue with insulin regimen. 4. Acute on chronic kidney disease. Drill Presser following. Medications to be renally dosed. monitor renal panel 5. Diastolic heart failure. Continue diuresis as tolerated. 6. Pulmonary hypertension. Provide with O2. Titrate down as tolerated. 7. Liver cirrhosis. Continue on rifaximin 8. Pancytopenia. Likely secondary to #7. Monitor H&H. 9. Dyslipidemia. Noted with low HDL and measured LDL. 10. Morbid obesity. Weight reduction was advised. 11. Bilateral lower extremity lymphedema with chronic bilateral lower extremity ulcerations. Follow-up with podiatry recommendations. Continue wound care. 12. MRSA in the nares. Continue on Bactroban. Disposition plan: monitor for improvement of renal panel. f/u cath lab technologist recs. d/c to snf when cleared by consultants Discussed plan of care with Dr. Chauhan Problems: Subjective 24 Hr Interval Summary Free Text/Dictation no s/s of resp distress. comfortable at present Exam/Review of Systems Vital Signs Vitals Vital Signs Date Time Temp Pulse Resp B/P Pulse Ox O2 Delivery O2 Flow Rate FiO2 03/04/17 09:21 81 18 93 Nasal Cannula 4.0 03/04/17 08:10 98.2 106/54 Intake and Output 03/03/17 03/03/17 03/04/17 15:00 23:00 07:00 Intake Total 550 ml 1430 ml Output Total 450 ml Balance 550 ml 980 ml Exam Constitutional: alert, obese Psych: nl mood/affect Head: normocephalic Respiratory: other (minimally dim at bases Cardiovascular: other (Regular rate) Musculoskeletal: swelling (ble), No nl gait and stance Extremities: other (Chronic ulcerations bilateral lower extremities) Neurological: nl mental status, nl speech Results Result Diagram: 03/04/17 0612 03/04/17 0612 Results 24 hrs Laboratory Tests Test 03/03/17 12:04 03/03/17 17:18 03/03/17 20:34 03/04/17 06:12 Bedside Glucose 133 204 139 White Blood Count 3.2 L Red Blood Count 2.61 L Hemoglobin 7.7 L Hematocrit 25.3 L Mean Corpuscular Volume 96.9 Mean Corpuscular Hemoglobin 29.5 Mean Corpuscular Hemoglobin Concent 30.4 L Red Cell Distribution Width 18.4 H Platelet Count 57 L Mean Platelet Volume 10.5 H Neutrophils % 67.3 Lymphocytes % 11.0 L Monocytes % 12.6 H Eosinophils % 8.2 H Basophils % 0.6 Nucleated Red Blood Cells % 0.0 Neutrophils # 2.1 Lymphocytes # 0.4 L Monocytes # 0.4 Eosinophils # 0.3 Basophils # 0.0 Nucleated Red Blood Cells # 0.0 Sodium Level 136 Potassium Level 4.1 Chloride Level 91 L Carbon Dioxide Level 37 H Anion Gap 12 Blood Urea Nitrogen 47 H Creatinine 2.14 H Glucose Level 122 Calcium Level 9.1 Phosphorus Level 4.1 Magnesium Level 2.2 Test 03/04/17 08:25 Bedside Glucose 131 Medications Medications Current Medications Ondansetron HCl (Zofran Inj) 4 mg Q6H PRN IV NAUSEA AND/OR VOMITING; Start 03/27 at 23:30 Acetaminophen (Tylenol Tab) 650 mg Q6H PRN PO PAIN LEVEL 1-3 OR FEVER; Start 02/20/17 at 23:30 Morphine Sulfate (morphine) 2 mg Q4H PRN IV PAIN LEVEL 7-10; Start 02/20/17 at 23:30 Insulin Glargine (Lantus) 10 unit DAILY@20 SC Last administered on 03/03/17t 21:04; Admin Dose 10 UNIT; Start 02/21/17 at 20:00 Diagnostic Test (Pha) (Accu-Chek) 1 ea 02 XX ; Start 02/22/17 at 02:00 Miscellaneous Information 1 ea NOTE XX ; Start 02/21/17 at 06:00 Glucose (Glutose) 15 gm Q15M PRN PO DECREASED GLUCOSE; Start 02/21/17 at 06:00 Glucose (Glutose) 22.5 gm Q15M PRN PO DECREASED GLUCOSE; Start 02/21/17 at 06: 00 Dextrose (D50w Syringe) 25 ml Q15M PRN IV DECREASED GLUCOSE; Start 02/21/17 at 06:00 Dextrose (D50w Syringe) 50 ml Q15M PRN IV DECREASED GLUCOSE; Start 02/21/17 at 06:00 Glucagon (Glucagen) 1 mg Q15M PRN IM DECREASED GLUCOSE; Start 02/21/17 at 06: 00 Glucose (Glutose) 15 gm Q15M PRN BUCCAL DECREASED GLUCOSE; Start 02/21/17 at 06:00 Acetaminophen/ Hydrocodone Bitart ([place] (5/325)) 1 tab Q4H PRN PO PAIN LEVEL 4 -6 Last administered on 03/04/17 06:04; Admin Dose 1 TAB; Start 02/21/17 at 09:30 Hydrocortisone (Hydrocortisone 2.5% Cr) 1 applic DAILY TOP Last administered on 03/04/17 08:32; Admin Dose 1 APPLIC; Start 02/22/17 at 09:00 Clotrimazole (Lotrimin Cr) 1 applic DAILY TOP Last administered on 03/04/17 08:31; Admin Dose 1 APPLIC; Start 02/22/17 at 09:00 Mupirocin (Bactroban) 1 applic BID TOP Last administered on 03/04/17 08:30; Admin Dose 1 APPLIC; Start 02/22/17 at 12:00 Polyethylene Glycol (Miralax) 17 gm DAILY PO Last administered on 03/04/17 08 :29; Admin Dose 17 GM; Start 02/24/17 at 21:00 Levofloxacin 500 mg 500 mg DAILY@06 PO Last administered on 03/04/17 06:00; Admin Dose 500 MG; Start 02/25/17 at 11:00 Aztreonam (Azactam 1gm/NS (Pmx)) 50 ml @ 100 mls/hr Q12 IVPB Last administered on 03/03/17 20:36; Admin Dose 100 MLS/HR; Start 02/27/17 at 10: 30 Mupirocin (Bactroban) 1 applic BID TOP Last administered on 03/03/17 20:37; Admin Dose 1 APPLIC; Start 02/28/17 at 21:00 Multivitamins Therapeutic (Theragran) 1 tab DAILY PO Last administered on 03/04 08:29; Admin Dose 1 TAB; Start 03/01/17 at 09:00 Silver Sulfadiazine (Thermazene 1% 25 Gm) 1 applic BID TOP Last administered on 03/04/17 08:30; Admin Dose 1 APPLIC; Start 03/01/17 at 21:00 Folic Acid (Folic Acid) 0.4 mg DAILY PO Last administered on 03/04/17 08:29; Admin Dose 0.4 MG; Start 03/02/17 at 09:00 Furosemide (Lasix) 20 mg BID@06,18 IV Last administered on 03/02/17 18:04; Admin Dose 20 MG; Start 03/02/17 at 09:00; Status Future Hold Magnesium Hydroxide (Milk Of Mag) 30 ml DAILY PRN PO CONSTIPATION Last administered on 03/04/17 06:00; Admin Dose 30 ML; Start 03/03/17 at 09:00 Gabapentin (Neurontin) 600 mg BID PO Last administered on 03/04/17 08:29; Admin Dose 600 MG; Start 03/03/17 at 21:00 SELINA PATIÑO Mar 04, 2017 10:03
--- NOTE | 2017-03-04 12:41 | PN ---
DATE: 03/04/2017 SUBJECTIVE: The patient is stable. OBJECTIVE: VITAL SIGNS: Blood pressure is 106/54, pulse 88, respiration is 18, temperature is 98.2. HEENT: Head is normocephalic. NECK: Supple. HEART: Regular rate. LUNGS: Show diminished breath sounds at the base. ABDOMEN: Soft, nontender to palpation. No rebound or guarding. EXTREMITIES: Negative for clubbing, cyanosis. Positive edema. DERMATOLOGIC: No rashes. MUSCULOSKELETAL: No joint effusions. NEUROLOGIC: No change in exam. MEDICATIONS: Reviewed. LABORATORY DATA: Shows sodium 136, potassium 4.1, chloride 91, bicarbonate 37, BUN 27, creatinine 2 .21. White count 3.2, hemoglobin 7.7, hematocrit 25.3, platelet count is 57. ASSESSMENT AND PLAN: 1. Nonoliguric acute kidney injury on top of chronic kidney disease with unknown baseline creatinin e. Etiology secondary to diuretic therapy and hemodynamics. The patient's renal function has decli osei in the last 48 hours, likely due to aggressive diuresis. Currently, diuretics on hold. We'll r epeat urinalysis with urine electrolytes. Continue to monitor closely. If renal function does not improve, will consider a fluid challenge. 2. Volume overload. Etiology secondary to cirrhosis, congestive heart failure exacerbation. The p atient currently has acute kidney injury. We will hold diuretic therapy and monitor closely. 3. Metabolic alkalosis. Etiology may be compensatory. We will check an ABG. 4. Anemia. Monitor hemoglobin and hematocrit levels. 5. Cirrhosis, currently decompensated. Continue current medical management. 6. Acute respiratory failure secondary to pneumonia. Continue current treatment plan. 7. History of obstructive sleep apnea. Continue CPAP. 8. Morbid obesity. Continue dietary modification. 9. Hypotension, possibly due to hemodynamics, cirrhosis. Continue to monitor. Hold blood pressure medications. 10. Lower extremity wounds. Continue wound care. 11. Diabetes. Continue current insulin regimen. 12. Hypomagnesemia. Continue to monitor and replete. Dictated By: ADAN CORTÉS/NTS Conf#: [id number] DID#: [id number] CC: IMANI HALL MD;*EndCC*
[2017-03-04 14:26] VITALS: BP 100/53; RESP 18
--- NOTE | 2017-03-04 15:22 | CONS ---
Date/Time of Note Date/Time of Note DATE: 03/04/17 TIME: 15:19 Assessment/Plan Assessment/Plan Chief Complaint/Hosp Course ID PROGRESS NOTE CURRENT ABX: DAY # =>Azactam + Levaquin s/p Vanco IV 24H INTERVAL SUMMARY * Resting comfortably , afebrile, VSS, NAD * s/p THORA 03/01/17 -> Micro (-) * 03/03/17 CXR: IMPRESSION: 1. Improved right basilar atelectasis. 2. Slightly worse pulmonary edema. 3. No other change from the 03/01/2017 chest radiograph. PHYSICAL EXAMINATION: GENERAL: VSS, afebrile, NAD HEENT: Unremarkable NECK: Supple, trach midline CHEST: Equal chest rise bilaterally, without dyspnea on observation HEART: RRR ABDOMEN: Soft, NT, ND EXT: Warm, Bilateral lower extremities erythema and chronic wounds. Right upper extremity also erythematous. SKIN: No rash, no diaphoresis ID ASSESSMENT: 56 yo obese M admit VPH: 1. Bilateral lower extremities, acute on chronic cellulitis with chronic wounds. 2. Right upper extremity cellulitis. WOUND CULTURE Final Organism 1 COAGULASE NEGATIVE STAPH QUANTITY SCANT GROWTH 3. Shortness of breath secondary to PNA with right transudative pleural effusion, status post thoracentesis 4. Congestive heart failure exacerbation with pulmonary edema. 5. Acute possibly on chronic kidney disease. 6. Pancytopenia likely secondary to liver cirrhosis. 7. Diabetes. (+)MRSA-> Bactroban onboard ABX ALLERGIES: PCN INVASIVES: PIV CURRENT ABX: =>Azactam IV + Levaquin s/p Vanco IV ID RECOMMENDATIONS/PLAN: 1. Continue current ABX over the weekend 2. ID team consultants will continue to follow . Problems: Consultation Date/Type/Reason Admit Date/Time Feb 20, 2017 at 20:38 Type of Consultation: ID Exam/Review of Systems Vital Signs Vitals Vital Signs Date Time Temp Pulse Resp B/P Pulse Ox O2 Delivery O2 Flow Rate FiO2 03/04/17 14:26 98.5 83 18 100/53 97 03/04/17 12:08 Nasal Cannula 4.0 Intake and Output 03/03/17 03/03/17 03/04/17 14:59 22:59 06:59 Intake Total 550 ml 1430 ml Output Total 450 ml Balance 550 ml 980 ml Results Result Diagram: 03/04/17 0612 03/04/17 0612 Results 24 hrs Laboratory Tests Test 03/03/17 17:18 03/03/17 20:34 03/04/17 06:12 03/04/17 08:25 Bedside Glucose 204 139 131 White Blood Count 3.2 L Red Blood Count 2.61 L Hemoglobin 7.7 L Hematocrit 25.3 L Mean Corpuscular Volume 96.9 Mean Corpuscular Hemoglobin 29.5 Mean Corpuscular Hemoglobin Concent 30.4 L Red Cell Distribution Width 18.4 H Platelet Count 57 L Mean Platelet Volume 10.5 H Neutrophils % 67.3 Lymphocytes % 11.0 L Monocytes % 12.6 H Eosinophils % 8.2 H Basophils % 0.6 Nucleated Red Blood Cells % 0.0 Neutrophils # 2.1 Lymphocytes # 0.4 L Monocytes # 0.4 Eosinophils # 0.3 Basophils # 0.0 Nucleated Red Blood Cells # 0.0 Sodium Level 136 Potassium Level 4.1 Chloride Level 91 L Carbon Dioxide Level 37 H Anion Gap 12 Blood Urea Nitrogen 47 H Creatinine 2.14 H Glucose Level 122 Calcium Level 9.1 Phosphorus Level 4.1 Magnesium Level 2.2 Test 03/04/17 12:29 Bedside Glucose 163 Medications Medications Current Medications Ondansetron HCl (Zofran Inj) 4 mg Q6H PRN IV NAUSEA AND/OR VOMITING; Start 03/27 at 23:30 Acetaminophen (Tylenol Tab) 650 mg Q6H PRN PO PAIN LEVEL 1-3 OR FEVER; Start 02/20/17 at 23:30 Morphine Sulfate (morphine) 2 mg Q4H PRN IV PAIN LEVEL 7-10; Start 02/20/17 at 23:30 Insulin Glargine (Lantus) 10 unit DAILY@20 SC Last administered on 03/03/17t 21:04; Admin Dose 10 UNIT; Start 02/21/17 at 20:00 Diagnostic Test (Pha) (Accu-Chek) 1 ea 02 XX ; Start 02/22/17 at 02:00 Miscellaneous Information 1 ea NOTE XX ; Start 02/21/17 at 06:00 Glucose (Glutose) 15 gm Q15M PRN PO DECREASED GLUCOSE; Start 02/21/17 at 06:00 Glucose (Glutose) 22.5 gm Q15M PRN PO DECREASED GLUCOSE; Start 02/21/17 at 06: 00 Dextrose (D50w Syringe) 25 ml Q15M PRN IV DECREASED GLUCOSE; Start 02/21/17 at 06:00 Dextrose (D50w Syringe) 50 ml Q15M PRN IV DECREASED GLUCOSE; Start 02/21/17 at 06:00 Glucagon (Glucagen) 1 mg Q15M PRN IM DECREASED GLUCOSE; Start 02/21/17 at 06: 00 Glucose (Glutose) 15 gm Q15M PRN BUCCAL DECREASED GLUCOSE; Start 02/21/17 at 06:00 Acetaminophen/ Hydrocodone Bitart ([place] (5/325)) 1 tab Q4H PRN PO PAIN LEVEL 4 -6 Last administered on 03/04/17 06:04; Admin Dose 1 TAB; Start 02/21/17 at 09:30 Hydrocortisone (Hydrocortisone 2.5% Cr) 1 applic DAILY TOP Last administered on 03/04/17 08:32; Admin Dose 1 APPLIC; Start 02/22/17 at 09:00 Clotrimazole (Lotrimin Cr) 1 applic DAILY TOP Last administered on 03/04/17 08:31; Admin Dose 1 APPLIC; Start 02/22/17 at 09:00 Mupirocin (Bactroban) 1 applic BID TOP Last administered on 03/04/17 08:30; Admin Dose 1 APPLIC; Start 02/22/17 at 12:00 Polyethylene Glycol (Miralax) 17 gm DAILY PO Last administered on 03/04/17 08 :29; Admin Dose 17 GM; Start 02/24/17 at 21:00 Levofloxacin 500 mg 500 mg DAILY@06 PO Last administered on 03/04/17 06:00; Admin Dose 500 MG; Start 02/25/17 at 11:00 Aztreonam (Azactam 1gm/NS (Pmx)) 50 ml @ 100 mls/hr Q12 IVPB Last administered on 03/04/17 10:00; Admin Dose 100 MLS/HR; Start 02/27/17 at 10: 30 Mupirocin (Bactroban) 1 applic BID TOP Last administered on 03/04/17 09:00; Admin Dose 1 APPLIC; Start 02/28/17 at 21:00 Multivitamins Therapeutic (Theragran) 1 tab DAILY PO Last administered on 11/24 /17at 08:29; Admin Dose 1 TAB; Start 03/01/17 at 09:00 Silver Sulfadiazine (Thermazene 1% 25 Gm) 1 applic BID TOP Last administered on 03/04/17 08:30; Admin Dose 1 APPLIC; Start 03/01/17 at 21:00 Folic Acid (Folic Acid) 0.4 mg DAILY PO Last administered on 03/04/17 08:29; Admin Dose 0.4 MG; Start 03/02/17 at 09:00 Furosemide (Lasix) 20 mg BID@06,18 IV Last administered on 03/02/17 18:04; Admin Dose 20 MG; Start 03/02/17 at 09:00; Status Future Hold Magnesium Hydroxide (Milk Of Mag) 30 ml DAILY PRN PO CONSTIPATION Last administered on 03/04/17 06:00; Admin Dose 30 ML; Start 03/03/17 at 09:00 Gabapentin (Neurontin) 600 mg BID PO Last administered on 03/04/17 08:29; Admin Dose 600 MG; Start 03/03/17 at 21:00 ROSA MARIA ALMARAZ NP Mar 04, 2017 15:22
[2017-03-04 17:22] LABS: ADD UMIC YES; UR ASCORBIC ACID NEGATIVE (NEGATIVE); UR BILIRUBIN (Dip) NEGATIVE (NEGATIVE); UR BLOOD (Dip) 2+ mg/dL (NEGATIVE); UR CLARITY CLEAR (CLEAR); UR COLOR YELLOW (YELLOW); UR GLUCOSE (Dip) NEGATIVE (NEGATIVE); UR KETONES (Dip) NEGATIVE (NEGATIVE); UR LEUKOCYTE ESTERASE (Dip) TRACE Leu/ul (NEGATIVE); UR MUCUS FEW /HPF (NONE SEEN); UR NITRITE (Dip) NEGATIVE (NEGATIVE); UR RBC 27 /HPF (0-5); UR SPECIFIC GRAVITY (Dip) 1.014 (1.003-1.030); UR TOTAL PROTEIN (Dip) NEGATIVE (NEGATIVE); UR UROBILINOGEN (Dip) 1+ mg/dL (NEGATIVE)
[2017-03-04 20:31] VITALS: BP 105/56; RESP 18
[2017-03-04] MEDS: INSULIN GLARGINE [LANtus] 3 ML PEN SC SCH (21:52)
[2017-03-05] MEDS: ALBUTEROL/IPRATROPIUM (NEB) 3 ML AMP HHN SCH ×6 (01:25→20:03)
[2017-03-05] MEDS: ACCU-CHEK XX SCH (02:00)
[2017-03-05 02:30] VITALS: BP 108/59; RESP 16
[2017-03-05] MEDS: LEVOFLOXACIN 500 MG TAB PO SCH (06:12)
[2017-03-05] MEDS: HYDROCODONE/APAP (5/325) TAB PO PRN ×2 (06:12→17:29)
[2017-03-05] MEDS: MAGNESIUM HYDROXIDE 30ML CUP PO PRN (06:12)
[2017-03-05 06:54] LABS: CALCIUM 8.9 mg/dl (8.4-10.2); CREATININE 2.13 mg/dl (0.61-1.24); MAGNESIUM 2.4 mg/dl (1.7-2.5); PHOSPHORUS 4.2 mg/dl (2.5-4.9); POTASSIUM 4.4 mmol/L (3.5-5.1)
[2017-03-05 07:22] VITALS: BP 109/59; RESP 16
[2017-03-05] MEDS: INSULIN ASPART [NOVOLOG] 3 ML PEN SC SCH ×4 (08:15→20:23)
[2017-03-05] MEDS: MULTIVITAMINS THERAPEUTIC TAB PO SCH (08:21)
[2017-03-05] MEDS: GABAPENTIN 300 MG CAP PO SCH ×2 (08:21→20:23)
[2017-03-05] MEDS: FOLIC ACID 0.4 MG TAB PO SCH (08:21)
[2017-03-05] MEDS: POLYETHYLENE GLYCOL 17 GM PACKET PO SCH (08:21)
[2017-03-05] MEDS: CLOTRIMAZOLE 1% 30 GM CR TOP SCH (08:24)
[2017-03-05] MEDS: HYDROCORTISONE 2.5% 20 GM CR TOP SCH (08:25)
[2017-03-05] MEDS: SILVER SULFADIAZINE 1% 25 GM CR TOP SCH ×2 (08:25→20:27)
[2017-03-05] MEDS: MUPIROCIN 2% 22 GM OINT TOP SCH ×4 (08:25→20:26)
--- NOTE | 2017-03-05 08:26 | PN ---
DATE: 03/05/2017 SUBJECTIVE: The patient is stable. No events overnight. OBJECTIVE: VITAL SIGNS: Blood pressure is 109/59, pulse 85, respirations 16, temperature 98.3. INTAKES AND OUTPUTS: The patient had 2.3 liters in, 700 out. HEENT: Head is normocephalic. NECK: Supple. HEART: Regular rate. LUNGS: Show diminished breath sounds at the base. ABDOMEN: Soft, nontender to palpation. No rebound or guarding. EXTREMITIES: Negative for clubbing, cyanosis. Positive edema. DERMATOLOGIC: No rashes. MUSCULOSKELETAL: No joint effusions. NEUROLOGIC: No change in exam. MEDICATIONS: The patient's medications have been reviewed. LABORATORY DATA: Showed sodium 135, potassium 4.4, BUN 52, creatinine 2.13. ASSESSMENT AND PLAN: 1. Nonoliguric acute kidney injury on top of chronic kidney disease with unknown baseline creatinin e. Etiology secondary to diuretics and hemodynamics. The patient's renal function appears to have stabilized in the last 24 hours. At this point, continue to hold diuretic therapy. Continue suppor tive care, renally dose all meds, avoid nephrotoxins. 2. Volume overload secondary to cirrhosis, congestive heart failure. The patient's diuretic therap y currently on hold due to acute kidney injury. We will continue to hold. Once renal function stab ilizes, we will reintroduce low dose diuretic therapy. 3. Metabolic alkalosis. Etiology is likely compensatory. We will continue to monitor. 4. Anemia. Monitor hemoglobin and hematocrit levels. 5. Cirrhosis, decompensated. Continue medical management. 6. Acute respiratory failure secondary to pneumonia. Continue current treatment plan. 7. History of sleep apnea. Continue CPAP. 8. Morbid obesity. Continue dietary modification. 9. Hypertension. Etiology is multifactorial secondary to diuretics and hemodynamics, cirrhosis. B lood pressures are slowly improving. Continue to monitor. 10. Lower extremity wounds. Continue wound care. 11. Diabetes. Continue current insulin regimen. Dictated By: ADAN CORTÉS/AMY Conf#: [id number] DID#: [id number] CC: IMANI HALL MD;*End*
[2017-03-05] MEDS: AZTREONAM 1 GM/NS (PMX) 50 ML IVPB SCH (08:28)
--- NOTE | 2017-03-05 09:44 | CONS ---
Date/Time of Note Date/Time of Note DATE: 03/05/17 TIME: 09:42 Consult Date/Type/Reason Admit Date/Time Feb 20, 2017 at 20:38 Type of Consultation: Pulmonary Subjective Patient remained stable. No new events. Objective Vital Signs Date Time Temp Pulse Resp B/P Pulse Ox O2 Delivery O2 Flow Rate FiO2 03/05/17 08:31 86 18 94 Nasal Cannula 4.0 03/05/17 07:22 98.3 109/59 Intake and Output 03/04/17 03/04/17 03/05/17 15:00 23:00 07:00 Intake Total 50 ml 1350 ml 920 ml Output Total 250 ml 450 ml Balance 50 ml 1100 ml 470 ml Exam GENERAL: Morbidly obese gentleman comfortable at rest. VITAL SIGNS: per chart NECK: Supple. No JVD or lymphadenopathy. CARDIAC EXAM: S1, S2. No added sounds or murmurs. CHEST: Diminished air entry bilaterally with rales right base. ABDOMEN: Soft, nontender. No guarding or rebound. EXTREMITIES: No cyanosis, clubbing or edema. NEUROLOGIC: Generalized weakness. No focal deficits. Results/Medications Result Diagram: 03/04/17 0612 03/05/17 0552 Results 24 hrs Laboratory Tests Test 03/04/17 12:29 03/04/17 16:45 03/04/17 17:30 03/04/17 21:31 Bedside Glucose 163 144 157 Urine Color YELLOW Urine Clarity CLEAR Urine pH 5.0 Urine Specific [place] 1.014 Urine Ketones NEGATIVE Urine Nitrite NEGATIVE Urine Bilirubin NEGATIVE Urine Urobilinogen 1+ H Urine Leukocyte Esterase TRACE A Urine Microscopic RBC 27 H Urine Microscopic WBC 14 H Urine Mucus FEW A Urine Hemoglobin 2+ H Urine Random Creatinine 149.77 Urine Random Sodium < 5 L Urine Glucose NEGATIVE Urine Total Protein 21.0 H Test 03/05/17 05:52 03/05/17 08:23 Sodium Level 135 Potassium Level 4.4 Chloride Level 91 L Carbon Dioxide Level 36 H Anion Gap 12 Blood Urea Nitrogen 52 H Creatinine 2.13 H Glucose Level 130 Calcium Level 8.9 Phosphorus Level 4.2 Magnesium Level 2.4 Bedside Glucose 138 Medications Current Medications Ondansetron HCl (Zofran Inj) 4 mg Q6H PRN IV NAUSEA AND/OR VOMITING; Start 03/27 at 23:30 Acetaminophen (Tylenol Tab) 650 mg Q6H PRN PO PAIN LEVEL 1-3 OR FEVER; Start 02/20/17 at 23:30 Morphine Sulfate (morphine) 2 mg Q4H PRN IV PAIN LEVEL 7-10; Start 02/20/17 at 23:30 Insulin Glargine (Lantus) 10 unit DAILY@20 SC Last administered on 03/04/17 21:52; Admin Dose 10 UNIT; Start 02/21/17 at 20:00 Diagnostic Test (Pha) (Accu-Chek) 1 ea 02 XX ; Start 02/22/17 at 02:00 Miscellaneous Information 1 ea NOTE XX ; Start 02/21/17 at 06:00 Glucose (Glutose) 15 gm Q15M PRN PO DECREASED GLUCOSE; Start 02/21/17 at 06:00 Glucose (Glutose) 22.5 gm Q15M PRN PO DECREASED GLUCOSE; Start 02/21/17 at 06: 00 Dextrose (D50w Syringe) 25 ml Q15M PRN IV DECREASED GLUCOSE; Start 02/21/17 at 06:00 Dextrose (D50w Syringe) 50 ml Q15M PRN IV DECREASED GLUCOSE; Start 02/21/17 at 06:00 Glucagon (Glucagen) 1 mg Q15M PRN IM DECREASED GLUCOSE; Start 02/21/17 at 06: 00 Glucose (Glutose) 15 gm Q15M PRN BUCCAL DECREASED GLUCOSE; Start 02/21/17 at 06:00 Acetaminophen/ Hydrocodone Bitart ([place] (5/325)) 1 tab Q4H PRN PO PAIN LEVEL 4 -6 Last administered on 03/05/17 06:12; Admin Dose 1 TAB; Start 02/21/17 at 09:30 Hydrocortisone (Hydrocortisone 2.5% Cr) 1 applic DAILY TOP Last administered on 03/05/17 08:25; Admin Dose 1 APPLIC; Start 02/22/17 at 09:00 Clotrimazole (Lotrimin Cr) 1 applic DAILY TOP Last administered on 03/05/17 08:24; Admin Dose 1 APPLIC; Start 02/22/17 at 09:00 Mupirocin (Bactroban) 1 applic BID TOP Last administered on 03/05/17 08:25; Admin Dose 1 APPLIC; Start 02/22/17 at 12:00 Polyethylene Glycol (Miralax) 17 gm DAILY PO Last administered on 03/05/17 08 :21; Admin Dose 17 GM; Start 02/24/17 at 21:00 Levofloxacin 500 mg 500 mg DAILY@06 PO Last administered on 03/05/17 06:12; Admin Dose 500 MG; Start 02/25/17 at 11:00 Aztreonam (Azactam 1gm/NS (Pmx)) 50 ml @ 100 mls/hr Q12 IVPB Last administered on 03/05/17 08:28; Admin Dose 100 MLS/HR; Start 02/27/17 at 10: 30 Mupirocin (Bactroban) 1 applic BID TOP Last administered on 03/05/17 08:28; Admin Dose 1 APPLIC; Start 02/28/17 at 21:00 Multivitamins Therapeutic (Theragran) 1 tab DAILY PO Last administered on 03/05 08:21; Admin Dose 1 TAB; Start 03/01/17 at 09:00 Silver Sulfadiazine (Thermazene 1% 25 Gm) 1 applic BID TOP Last administered on 03/05/17 08:25; Admin Dose 1 APPLIC; Start 03/01/17 at 21:00 Folic Acid (Folic Acid) 0.4 mg DAILY PO Last administered on 03/05/17 08:21; Admin Dose 0.4 MG; Start 03/02/17 at 09:00 Furosemide (Lasix) 20 mg BID@06,18 IV Last administered on 03/02/17 18:04; Admin Dose 20 MG; Start 03/02/17 at 09:00; Status Future Hold Magnesium Hydroxide (Milk Of Mag) 30 ml DAILY PRN PO CONSTIPATION Last administered on 03/05/17 06:12; Admin Dose 30 ML; Start 03/03/17 at 09:00 Gabapentin (Neurontin) 600 mg BID PO Last administered on 03/05/17 08:21; Admin Dose 600 MG; Start 03/03/17 at 21:00 Assessment/Plan Chief Complaint/Hosp Course Assessment, plan 1. Pleural effusion and pneumonia worsening right lung. Status post thoracentesis. Initial pleural fluid studies suggest transudative effusion. 2. Mild anemia and thrombocytopenia. 3. Chronic renal insufficiency. 4. Diabetes. 5. probable underlying sleep apnea. Outpatient sleep study. 6. Renal insufficiency. Creatinine noted to be rising. Consider transfusion 1 unit packed red blood cells gentle hydration. De- escalate antibiotics Problems: AZRA CASTILLO MD, [facility] Mar 05, 2017 09:44
--- NOTE | 2017-03-05 11:57 | CONS ---
Date/Time of Note Date/Time of Note DATE: 03/05/17 TIME: 11:50 Assessment/Plan Assessment/Plan Chief Complaint/Hosp Course ID PROGRESS NOTE CURRENT ABX: DAY # 13=>Azactam + Levaquin s/p Vanco IV 24H INTERVAL SUMMARY * Resting comfortably , afebrile, VSS, NAD, still feels SOB on supplemental O2 without dyspnea, no wheeze * s/p THORA 03/01/17 -> Micro (-) * 03/03/17 CXR: IMPRESSION: 1. Improved right basilar atelectasis. 2. Slightly worse pulmonary edema. 3. No other change from the 03/01/2017 chest radiograph. * 05/04/16 0612 03/05/17 0552 PHYSICAL EXAMINATION: GENERAL: VSS, afebrile, NAD HEENT: Unremarkable NECK: Supple, trach midline CHEST: Equal chest rise bilaterally, without dyspnea on observation HEART: RRR ABDOMEN: Soft, NT, ND EXT: Warm, Bilateral lower extremities erythema and chronic wounds. Right upper extremity also erythematous. SKIN: No rash, no diaphoresis ID ASSESSMENT: 56 yo obese M admit VPH: 1. Bilateral lower extremities, acute on chronic cellulitis with chronic wounds /BLEXT venous stasis dermatitis => improved, still w/erythema/warm/edema * WOUND CULTURE Final Organism 1 COAGULASE NEGATIVE STAPH QUANTITY SCANT GROWTH COAG NEG M.I.C. RX --------- --- CEFAZOLIN R CIPROFLOXACIN <=0.5 S CLINDAMYCIN >=8 R DOXYCYCLINE S ERYTHROMYCIN >=8 R LEVOFLOXACIN <=0.12 S OXACILLIN >=4 R PENICILLIN-G >=0.5 R RIFAMPIN >=32 R VANCOMYCIN 1 S TRIMETHOPRIM/SULFAMETHOXAZOLE <=10 S 2. Right upper extremity cellulitis. WOUND CULTURE Final 3. Shortness of breath secondary to PNA with right transudative pleural effusion, status post thoracentesis 4. Congestive heart failure exacerbation with pulmonary edema. 5. Acute possibly on chronic kidney disease. 6. Pancytopenia likely secondary to liver cirrhosis. 7. Diabetes. (+)MRSA-> Bactroban onboard ABX ALLERGIES: PCN INVASIVES: PIV CURRENT ABX: => Levaquin + start Doxycycline for MRSA coverage s/p Vanco IV, Azactam IV ID RECOMMENDATIONS/PLAN: 1. When cleared for DC to SNF - may DC on the following ABX * Levaquin 500mg po x 14 days * Doxycycline 100mg po Q12H x 14 days * Topical Silvadene to wounds Q12H * Bactroban to bilateral nares Q12H x 14 days 2. May DC OFF isolation . Problems: Consultation Date/Type/Reason Admit Date/Time Feb 20, 2017 at 20:38 Type of Consultation: ID Exam/Review of Systems Vital Signs Vitals Vital Signs Date Time Temp Pulse Resp B/P Pulse Ox O2 Delivery O2 Flow Rate FiO2 03/05/17 08:31 86 18 94 Nasal Cannula 4.0 03/05/17 07:22 98.3 109/59 Intake and Output 03/04/17 03/04/17 03/05/17 14:59 22:59 06:59 Intake Total 50 ml 1350 ml 920 ml Output Total 250 ml 450 ml Balance 50 ml 1100 ml 470 ml Results Result Diagram: 03/04/17 0612 03/05/17 0552 Results 24 hrs Laboratory Tests Test 03/04/17 12:29 03/04/17 16:45 03/04/17 17:30 03/04/17 21:31 Bedside Glucose 163 144 157 Urine Color YELLOW Urine Clarity CLEAR Urine pH 5.0 Urine Specific [place] 1.014 Urine Ketones NEGATIVE Urine Nitrite NEGATIVE Urine Bilirubin NEGATIVE Urine Urobilinogen 1+ H Urine Leukocyte Esterase TRACE A Urine Microscopic RBC 27 H Urine Microscopic WBC 14 H Urine Mucus FEW A Urine Hemoglobin 2+ H Urine Random Creatinine 149.77 Urine Random Sodium < 5 L Urine Glucose NEGATIVE Urine Total Protein 21.0 H Test 03/05/17 05:52 03/05/17 08:23 Sodium Level 135 Potassium Level 4.4 Chloride Level 91 L Carbon Dioxide Level 36 H Anion Gap 12 Blood Urea Nitrogen 52 H Creatinine 2.13 H Glucose Level 130 Calcium Level 8.9 Phosphorus Level 4.2 Magnesium Level 2.4 Bedside Glucose 138 Medications Medications Current Medications Ondansetron HCl (Zofran Inj) 4 mg Q6H PRN IV NAUSEA AND/OR VOMITING; Start 03/27 at 23:30 Acetaminophen (Tylenol Tab) 650 mg Q6H PRN PO PAIN LEVEL 1-3 OR FEVER; Start 02/20/17 at 23:30 Morphine Sulfate (morphine) 2 mg Q4H PRN IV PAIN LEVEL 7-10; Start 02/20/17 at 23:30 Insulin Glargine (Lantus) 10 unit DAILY@20 SC Last administered on 03/04/17 21:52; Admin Dose 10 UNIT; Start 02/21/17 at 20:00 Diagnostic Test (Pha) (Accu-Chek) 1 ea 02 XX ; Start 02/22/17 at 02:00 Miscellaneous Information 1 ea NOTE XX ; Start 02/21/17 at 06:00 Glucose (Glutose) 15 gm Q15M PRN PO DECREASED GLUCOSE; Start 02/21/17 at 06:00 Glucose (Glutose) 22.5 gm Q15M PRN PO DECREASED GLUCOSE; Start 02/21/17 at 06: 00 Dextrose (D50w Syringe) 25 ml Q15M PRN IV DECREASED GLUCOSE; Start 02/21/17 at 06:00 Dextrose (D50w Syringe) 50 ml Q15M PRN IV DECREASED GLUCOSE; Start 02/21/17 at 06:00 Glucagon (Glucagen) 1 mg Q15M PRN IM DECREASED GLUCOSE; Start 02/21/17 at 06: 00 Glucose (Glutose) 15 gm Q15M PRN BUCCAL DECREASED GLUCOSE; Start 02/21/17 at 06:00 Acetaminophen/ Hydrocodone Bitart ([place] (5/325)) 1 tab Q4H PRN PO PAIN LEVEL 4 -6 Last administered on 03/05/17 06:12; Admin Dose 1 TAB; Start 02/21/17 at 09:30 Hydrocortisone (Hydrocortisone 2.5% Cr) 1 applic DAILY TOP Last administered on 03/05/17 08:25; Admin Dose 1 APPLIC; Start 02/22/17 at 09:00 Clotrimazole (Lotrimin Cr) 1 applic DAILY TOP Last administered on 03/05/17 08:24; Admin Dose 1 APPLIC; Start 02/22/17 at 09:00 Mupirocin (Bactroban) 1 applic BID TOP Last administered on 03/05/17 08:25; Admin Dose 1 APPLIC; Start 02/22/17 at 12:00 Polyethylene Glycol (Miralax) 17 gm DAILY PO Last administered on 03/05/17 08 :21; Admin Dose 17 GM; Start 02/24/17 at 21:00 Levofloxacin 500 mg 500 mg DAILY@06 PO Last administered on 03/05/17 06:12; Admin Dose 500 MG; Start 02/25/17 at 11:00 Aztreonam (Azactam 1gm/NS (Pmx)) 50 ml @ 100 mls/hr Q12 IVPB Last administered on 03/05/17 08:28; Admin Dose 100 MLS/HR; Start 02/27/17 at 10: 30 Mupirocin (Bactroban) 1 applic BID TOP Last administered on 03/05/17 08:28; Admin Dose 1 APPLIC; Start 02/28/17 at 21:00 Multivitamins Therapeutic (Theragran) 1 tab DAILY PO Last administered on 03/05 08:21; Admin Dose 1 TAB; Start 03/01/17 at 09:00 Silver Sulfadiazine (Thermazene 1% 25 Gm) 1 applic BID TOP Last administered on 03/05/17 08:25; Admin Dose 1 APPLIC; Start 03/01/17 at 21:00 Folic Acid (Folic Acid) 0.4 mg DAILY PO Last administered on 03/05/17 08:21; Admin Dose 0.4 MG; Start 03/02/17 at 09:00 Furosemide (Lasix) 20 mg BID@06,18 IV Last administered on 03/02/17 18:04; Admin Dose 20 MG; Start 03/02/17 at 09:00; Status Future Hold Magnesium Hydroxide (Milk Of Mag) 30 ml DAILY PRN PO CONSTIPATION Last administered on 03/05/17 06:12; Admin Dose 30 ML; Start 03/03/17 at 09:00 Gabapentin (Neurontin) 600 mg BID PO Last administered on 03/05/17 08:21; Admin Dose 600 MG; Start 03/03/17 at 21:00 ROSA MARIA ALMARAZ NP Mar 05, 2017 11:57
[2017-03-05] MEDS ORDERED: DOXYCYCLINE 100 MG TAB PO ONE (12:12)
[2017-03-05] MEDS: DOXYCYCLINE 100 MG TAB PO SCH (12:30)
[2017-03-05 13:54] VITALS: BP 99/53; RESP 18
[2017-03-05 20:00] VITALS: BP 120/59; RESP 18
[2017-03-05] MEDS: ARTIFICIAL TEARS 15 ML OPH BOTH EYES SCH (20:23)
[2017-03-05] MEDS: INSULIN GLARGINE [LANtus] 3 ML PEN SC SCH (20:26)
[2017-03-06] MEDS: ALBUTEROL/IPRATROPIUM (NEB) 3 ML AMP HHN SCH ×6 (00:11→20:14)
[2017-03-06] MEDS: ACCU-CHEK XX SCH (01:12)
[2017-03-06 02:10] VITALS: BP 110/53; RESP 18
[2017-03-06] MEDS: LEVOFLOXACIN 500 MG TAB PO SCH (05:31)
[2017-03-06 07:25] LABS: CREATININE 2.13 mg/dl (0.61-1.24); MAGNESIUM 2.5 mg/dl (1.7-2.5); PHOSPHORUS 4.2 mg/dl (2.5-4.9); POTASSIUM 4.1 mmol/L (3.5-5.1)
[2017-03-06 07:59] VITALS: BP 108/58; RESP 20
[2017-03-06] MEDS: INSULIN ASPART [NOVOLOG] 3 ML PEN SC SCH ×4 (08:15→21:00)
[2017-03-06] MEDS: MUPIROCIN 2% 22 GM OINT TOP SCH ×4 (08:39→21:28)
[2017-03-06] MEDS: ARTIFICIAL TEARS 15 ML OPH BOTH EYES SCH ×2 (08:39→21:26)
[2017-03-06] MEDS: MULTIVITAMINS THERAPEUTIC TAB PO SCH (08:39)
[2017-03-06] MEDS: FOLIC ACID 0.4 MG TAB PO SCH (08:39)
[2017-03-06] MEDS: DOXYCYCLINE 100 MG TAB PO SCH (08:39)
[2017-03-06] MEDS: GABAPENTIN 300 MG CAP PO SCH ×2 (08:39→21:26)
[2017-03-06] MEDS: SILVER SULFADIAZINE 1% 25 GM CR TOP SCH ×2 (08:39→21:28)
[2017-03-06] MEDS: CLOTRIMAZOLE 1% 30 GM CR TOP SCH (08:40)
[2017-03-06] MEDS: HYDROCORTISONE 2.5% 20 GM CR TOP SCH (08:40)
[2017-03-06] MEDS: POLYETHYLENE GLYCOL 17 GM PACKET PO SCH (08:42)
--- NOTE | 2017-03-06 09:53 | PN ---
DATE: 03/06/2017 SUBJECTIVE: The patient is stable. No events overnight. No fevers, chills, nausea, vomiting. PHYSICAL EXAMINATION: OBJECTIVE: VITAL SIGNS: Blood pressure is 100/58, temperature 98.9, pulse 92, respirations 20. HEENT: Head is normocephalic. NECK: Supple. HEART: Regular rate. LUNGS: Show diminished breath sounds at the base. ABDOMEN: Soft, nontender to palpation. No rebound or guarding. EXTREMITIES: Negative for clubbing, cyanosis. Positive edema. DERMATOLOGIC: No rashes. MUSCULOSKELETAL: No joint effusions. NEUROLOGIC: No change in exam. MEDICATIONS: The patient's medications have been reviewed. LABORATORY DATA: Shows sodium 134, potassium 4.1, BUN 55, creatinine 2.13. ASSESSMENT AND PLAN: 1. Nonoliguric acute kidney injury on top of chronic kidney disease with unknown baseline creatinin e. Etiology of acute kidney injury is multifactorial secondary to diuretics hemodynamics. The umu ent's renal function appears to have stabilized with creatinine of 2 to 2.2 mg/dL. At this point, w ill continue current treatment plan, supportive care, renally dose all meds. Will continue to hold d iuretic therapy. 2. Volume overload secondary to cirrhosis and congestive heart failure. The patient's diuretic the rapy is currently on hold due to acute kidney injury. Continue to hold will resume diuretic therapy once renal function begins to return to previous baseline. 5. Metabolic alkalosis likely due to recent diuretic therapy, continue to monitor. 6. Anemia. Monitor hemoglobin and hematocrit levels., cyanosis, currently decompensated. Continue medical management. 7. Acute respiratory failure secondary to pneumonia. Continue current treatment plan. 8. History of sleep apnea. Continue CPAP. 9. Morbid obesity. Continue dietary modification. 10. Hypertension, hypotension. Blood pressures are improving. Continue to monitor. 11. Lower extremity wounds. Continue wound care. 13. Diabetes. Continue Accu-Cheks, insulin sliding scale. Dictated By: ADAN CORTÉS/AMY Conf#: [id number] DID#: [id number]
--- NOTE | 2017-03-06 11:41 | CONS ---
Date/Time of Note Date/Time of Note DATE: 03/06/17 TIME: 11:40 Consult Date/Type/Reason Admit Date/Time Feb 20, 2017 at 20:38 Type of Consultation: Pulmonary Subjective Patient stable this morning. No new events Objective Vital Signs Date Time Temp Pulse Resp B/P Pulse Ox O2 Delivery O2 Flow Rate FiO2 03/06/17 09:57 84 18 96 Nasal Cannula 4.0 03/06/17 07:59 98.9 108/58 Intake and Output 03/05/17 03/05/17 03/06/17 14:59 22:59 06:59 Intake Total 50 ml 1100 ml 1010 ml Output Total 500 ml 425 ml Balance 50 ml 600 ml 585 ml Exam GENERAL: Chronically ill-appearing gentleman bedbound. VITAL SIGNS: per chart NECK: Supple. No JVD or lymphadenopathy. CARDIAC EXAM: S1, S2. No added sounds or murmurs. CHEST: Diminished air entry both lung bases. ABDOMEN: Soft, nontender. No guarding or rebound. EXTREMITIES: No cyanosis, clubbing or edema. NEUROLOGIC: Generalized weakness. No focal deficits. Results/Medications Result Diagram: 03/04/17 0612 03/06/17 0545 Results 24 hrs Laboratory Tests Test 03/05/17 12:44 03/05/17 17:22 03/05/17 20:21 03/06/17 05:45 Bedside Glucose 156 137 145 Sodium Level 134 L Potassium Level 4.1 Chloride Level 90 L Carbon Dioxide Level 36 H Anion Gap 12 Blood Urea Nitrogen 55 H Creatinine 2.13 H Glucose Level 122 Calcium Level 9.0 Phosphorus Level 4.2 Magnesium Level 2.5 Test 03/06/17 08:37 Bedside Glucose 130 Medications Current Medications Ondansetron HCl (Zofran Inj) 4 mg Q6H PRN IV NAUSEA AND/OR VOMITING; Start 03/27 at 23:30 Acetaminophen (Tylenol Tab) 650 mg Q6H PRN PO PAIN LEVEL 1-3 OR FEVER; Start 02/20/17 at 23:30 Morphine Sulfate (morphine) 2 mg Q4H PRN IV PAIN LEVEL 7-10; Start 02/20/17 at 23:30 Insulin Glargine (Lantus) 10 unit DAILY@20 SC Last administered on 03/05/17t 20:26; Admin Dose 10 UNIT; Start 02/21/17 at 20:00 Diagnostic Test (Pha) (Accu-Chek) 1 ea 02 XX ; Start 02/22/17 at 02:00 Miscellaneous Information 1 ea NOTE XX ; Start 02/21/17 at 06:00 Glucose (Glutose) 15 gm Q15M PRN PO DECREASED GLUCOSE; Start 02/21/17 at 06:00 Glucose (Glutose) 22.5 gm Q15M PRN PO DECREASED GLUCOSE; Start 02/21/17 at 06: 00 Dextrose (D50w Syringe) 25 ml Q15M PRN IV DECREASED GLUCOSE; Start 02/21/17 at 06:00 Dextrose (D50w Syringe) 50 ml Q15M PRN IV DECREASED GLUCOSE; Start 02/21/17 at 06:00 Glucagon (Glucagen) 1 mg Q15M PRN IM DECREASED GLUCOSE; Start 02/21/17 at 06: 00 Glucose (Glutose) 15 gm Q15M PRN BUCCAL DECREASED GLUCOSE; Start 02/21/17 at 06:00 Acetaminophen/ Hydrocodone Bitart ([place] (5/325)) 1 tab Q4H PRN PO PAIN LEVEL 4 -6 Last administered on 03/05/17 17:29; Admin Dose 1 TAB; Start 02/21/17 at 09:30 Hydrocortisone (Hydrocortisone 2.5% Cr) 1 applic DAILY TOP Last administered on 03/06/17 08:40; Admin Dose 1 APPLIC; Start 02/22/17 at 09:00 Clotrimazole (Lotrimin Cr) 1 applic DAILY TOP Last administered on 03/06/17 08:40; Admin Dose 1 APPLIC; Start 02/22/17 at 09:00 Mupirocin (Bactroban) 1 applic BID TOP Last administered on 03/06/17 08:39; Admin Dose 1 APPLIC; Start 02/22/17 at 12:00 Polyethylene Glycol (Miralax) 17 gm DAILY PO Last administered on 03/06/17 08 :42; Admin Dose 17 GM; Start 02/24/17 at 21:00 Levofloxacin (Levaquin) 500 mg DAILY@06 PO Last administered on 03/06/17 05: 31; Admin Dose 500 MG; Start 02/25/17 at 11:00 Mupirocin (Bactroban) 1 applic BID TOP Last administered on 03/05/17 20:26; Admin Dose 1 APPLIC; Start 02/28/17 at 21:00 Multivitamins Therapeutic (Theragran) 1 tab DAILY PO Last administered on 03/06 08:39; Admin Dose 1 TAB; Start 03/01/17 at 09:00 Silver Sulfadiazine (Thermazene 1% 25 Gm) 1 applic BID TOP Last administered on 03/06/17 08:39; Admin Dose 1 APPLIC; Start 03/01/17 at 21:00 Folic Acid (Folic Acid) 0.4 mg DAILY PO Last administered on 03/06/17 08:39; Admin Dose 0.4 MG; Start 03/02/17 at 09:00 Furosemide (Lasix) 20 mg BID@,18 IV Last administered on 03/02/17 18:04; Admin Dose 20 MG; Start 03/02/17 at 09:00; Status Future Hold Magnesium Hydroxide (Milk Of Mag) 30 ml DAILY PRN PO CONSTIPATION Last administered on 03/05/17 06:12; Admin Dose 30 ML; Start 03/03/17 at 09:00 Gabapentin (Neurontin) 600 mg BID PO Last administered on 03/06/17 08:39; Admin Dose 600 MG; Start 03/03/17 at 21:00 Doxycycline Hyclate (Vibramycin) 100 mg DAILY PO Last administered on 08:39; Admin Dose 100 MG; Start 03/05/17 at 12:30; Stop 03/19/17 at 12:29 Eye Lubricant (Artificial Tears Oph) 2 drop BID BOTH EYES Last administered on 03/06/17 08:39; Admin Dose 2 DROP; Start 03/05/17 at 21:00 Assessment/Plan Chief Complaint/Hosp Course Assessment, plan 1. Pleural effusion and pneumonia worsening right lung. Status post thoracentesis. Initial pleural fluid studies suggest transudative effusion. 2. Mild anemia and thrombocytopenia. 3. Chronic renal insufficiency. 4. Diabetes. 5. probable underlying sleep apnea. Outpatient sleep study. 6. Renal insufficiency. Creatinine noted to be rising. Consider transfusion 1 unit packed red blood cells gentle hydration. De- escalate antibiotics Problems: AZRA CASTILLO MD, [facility] Mar 06, 2017 11:41
--- NOTE | 2017-03-06 11:50 | PN ---
Date/Time of Note Date/Time of Note LATE ENTRY DATE: 03/04/17 Assessment/Plan VTE Prophylaxis VTE Prophylaxis Intervention: SCD's Lines/Catheters IV C[facility]ter Type [facility]from [facility] Sal[place] Lock Urinary Cath still in place: Yes Assessment/Plan Chief Complaint/Hosp Course Assessment and plan 1. Acute on chronic respiratory failure. Patient noted with hypoxia and hypercapnia. Continue bronchodilators. Continue on supplemental oxygen. CPAP as needed as well. Health Promotion Coordinator following. s/p thoracentesis 2. Bilateral infiltrates on chest x-ray. Suspect possible pneumonia. Continue with antibiotics. 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 3. Diabetes mellitus. Continue with insulin regimen. 4. Acute on chronic kidney disease. Senior [employer] Programmer following. Medications to be renally dosed. monitor renal panel 5. Diastolic heart failure. Continue diuresis as tolerated. 6. Pulmonary hypertension. Provide with O2. Titrate down as tolerated. 7. Liver cirrhosis. Continue on rifaximin 8. Pancytopenia. Likely secondary to #7. Monitor H&H. 9. Dyslipidemia. Noted with low HDL and measured LDL. 10. Morbid obesity. Weight reduction was advised. 11. Bilateral lower extremity lymphedema with chronic bilateral lower extremity ulcerations. Follow-up with podiatry recommendations. Continue wound care. 12. MRSA in the nares. Continue on Bactroban. Disposition plan: monitor renal panel. continue with nephrologis recs. f/u recs. dc when improved Discussed plan of care with Dr. Chauhan Problems: Subjective 24 Hr Interval Summary Free Text/Dictation reports better breathing at this time Exam/Review of Systems Vital Signs Vitals Vital Signs Date Time Temp Pulse Resp B/P Pulse Ox O2 Delivery O2 Flow Rate FiO2 03/06/17 09:57 84 18 96 Nasal Cannula 4.0 03/06/17 07:59 98.9 108/58 Intake and Output 03/05/17 03/05/17 03/06/17 15:00 23:00 07:00 Intake Total 50 ml 1100 ml 1010 ml Output Total 500 ml 425 ml Balance 50 ml 600 ml 585 ml Exam Constitutional: alert, obese Psych: nl mood/affect Head: normocephalic Respiratory: other (minimally dim at bases Cardiovascular: other (Regular rate) Musculoskeletal: swelling (ble), No nl gait and stance Extremities: other (Chronic ulcerations bilateral lower extremities) Neurological: nl mental status, nl speech Results Result Diagram: 03/04/17 0612 03/06/17 0545 Results 24 hrs Laboratory Tests Test 03/05/17 12:44 03/05/17 17:22 03/05/17 20:21 03/06/17 05:45 Bedside Glucose 156 137 145 Sodium Level 134 L Potassium Level 4.1 Chloride Level 90 L Carbon Dioxide Level 36 H Anion Gap 12 Blood Urea Nitrogen 55 H Creatinine 2.13 H Glucose Level 122 Calcium Level 9.0 Phosphorus Level 4.2 Magnesium Level 2.5 Test 03/06/17 08:37 Bedside Glucose 130 Medications Medications Current Medications Ondansetron HCl (Zofran Inj) 4 mg Q6H PRN IV NAUSEA AND/OR VOMITING; Start 03/27 at 23:30 Acetaminophen (Tylenol Tab) 650 mg Q6H PRN PO PAIN LEVEL 1-3 OR FEVER; Start 02/20/17 at 23:30 Morphine Sulfate (morphine) 2 mg Q4H PRN IV PAIN LEVEL 7-10; Start 02/20/17 at 23:30 Insulin Glargine (Lantus) 10 unit DAILY@20 SC Last administered on 03/05/17t 20:26; Admin Dose 10 UNIT; Start 02/21/17 at 20:00 Diagnostic Test (Pha) (Accu-Chek) 1 ea 02 XX ; Start 02/22/17 at 02:00 Miscellaneous Information 1 ea NOTE XX ; Start 02/21/17 at 06:00 Glucose (Glutose) 15 gm Q15M PRN PO DECREASED GLUCOSE; Start 02/21/17 at 06:00 Glucose (Glutose) 22.5 gm Q15M PRN PO DECREASED GLUCOSE; Start 02/21/17 at 06: 00 Dextrose (D50w Syringe) 25 ml Q15M PRN IV DECREASED GLUCOSE; Start 02/21/17 at 06:00 Dextrose (D50w Syringe) 50 ml Q15M PRN IV DECREASED GLUCOSE; Start 02/21/17 at 06:00 Glucagon (Glucagen) 1 mg Q15M PRN IM DECREASED GLUCOSE; Start 02/21/17 at 06: 00 Glucose (Glutose) 15 gm Q15M PRN BUCCAL DECREASED GLUCOSE; Start 02/21/17 at 06:00 Acetaminophen/ Hydrocodone Bitart ([place] (5/325)) 1 tab Q4H PRN PO PAIN LEVEL 4 -6 Last administered on 03/05/17 17:29; Admin Dose 1 TAB; Start 02/21/17 at 09:30 Hydrocortisone (Hydrocortisone 2.5% Cr) 1 applic DAILY TOP Last administered on 03/06/17 08:40; Admin Dose 1 APPLIC; Start 02/22/17 at 09:00 Clotrimazole (Lotrimin Cr) 1 applic DAILY TOP Last administered on 03/06/17 08:40; Admin Dose 1 APPLIC; Start 02/22/17 at 09:00 Mupirocin (Bactroban) 1 applic BID TOP Last administered on 03/06/17 08:39; Admin Dose 1 APPLIC; Start 02/22/17 at 12:00 Polyethylene Glycol (Miralax) 17 gm DAILY PO Last administered on 03/06/17 08 :42; Admin Dose 17 GM; Start 02/24/17 at 21:00 Levofloxacin (Levaquin) 500 mg DAILY@06 PO Last administered on 03/06/17 05: 31; Admin Dose 500 MG; Start 02/25/17 at 11:00 Mupirocin (Bactroban) 1 applic BID TOP Last administered on 03/05/17 20:26; Admin Dose 1 APPLIC; Start 02/28/17 at 21:00 Multivitamins Therapeutic (Theragran) 1 tab DAILY PO Last administered on 03/06 08:39; Admin Dose 1 TAB; Start 03/01/17 at 09:00 Silver Sulfadiazine (Thermazene 1% 25 Gm) 1 applic BID TOP Last administered on 03/06/17 08:39; Admin Dose 1 APPLIC; Start 03/01/17 at 21:00 Folic Acid (Folic Acid) 0.4 mg DAILY PO Last administered on 03/06/17 08:39; Admin Dose 0.4 MG; Start 03/02/17 at 09:00 Furosemide (Lasix) 20 mg BID@06,18 IV Last administered on 03/02/17 18:04; Admin Dose 20 MG; Start 03/02/17 at 09:00; Status Future Hold Magnesium Hydroxide (Milk Of Mag) 30 ml DAILY PRN PO CONSTIPATION Last administered on 03/05/17 06:12; Admin Dose 30 ML; Start 03/03/17 at 09:00 Gabapentin (Neurontin) 600 mg BID PO Last administered on 03/06/17 08:39; Admin Dose 600 MG; Start 03/03/17 at 21:00 Doxycycline Hyclate (Vibramycin) 100 mg DAILY PO Last administered on 08:39; Admin Dose 100 MG; Start 03/05/17 at 12:30; Stop 03/19/17 at 12:29 Eye Lubricant (Artificial Tears Oph) 2 drop BID BOTH EYES Last administered on 03/06/17 08:39; Admin Dose 2 DROP; Start 03/05/17 at 21:00 SELINA PATIÑO Mar 06, 2017 11:50
--- NOTE | 2017-03-06 11:51 | PN ---
Date/Time of Note Date/Time of Note LATE ENTRY DATE: 03/05/17 Assessment/Plan VTE Prophylaxis VTE Prophylaxis Intervention: contraindicated Lines/Catheters IV [facility]ter Type (from [facility]): Saline Lock Urinary Cath still in place: Yes Assessment/Plan Chief Complaint/Hosp Course Assessment and plan 1. Acute on chronic respiratory failure. Patient noted with hypoxia and hypercapnia. Continue bronchodilators. Continue on supplemental oxygen. CPAP as needed as well. Hydraulic Auto Jack Mechanic following. s/p thoracentesis 2. Bilateral infiltrates on chest x-ray. Suspect possible pneumonia. Continue with antibiotics. Diuresis per scratch polisher. 3. Diabetes mellitus. Continue with insulin regimen. 4. Acute on chronic kidney disease. Professor Of Historical Theology following. Medications to be renally dosed. monitor renal panel 5. Diastolic heart failure. Continue diuresis as tolerated. 6. Pulmonary hypertension. Provide with O2. Titrate down as tolerated. 7. Liver cirrhosis. Continue on rifaximin 8. Pancytopenia. Likely secondary to #7. Monitor H&H. 9. Dyslipidemia. Noted with low HDL and measured LDL. 10. Morbid obesity. Weight reduction was advised. 11. Bilateral lower extremity lymphedema with chronic bilateral lower extremity ulcerations. Follow-up with podiatry recommendations. Continue wound care. 12. MRSA in the nares. Continue on Bactroban. Disposition plan: Discussed with scratch polisher. Plan for outpatient monitoring. Antibiotics per ID. [facility]. Discussed plan of care with Dr. Chauhan Problems: Exam/Review of Systems Vital Signs Vitals Vital Signs Date Time Temp Pulse Resp B/P Pulse Ox O2 Delivery O2 Flow Rate FiO2 03/06/17 09:57 84 18 96 Nasal Cannula 4.0 03/06/17 07:59 98.9 108/58 Intake and Output 03/05/17 03/05/17 03/06/17 15:00 23:00 07:00 Intake Total 50 ml 1100 ml 1010 ml Output Total 500 ml 425 ml Balance 50 ml 600 ml 585 ml Exam Constitutional: alert, obese Psych: nl mood/affect Head: normocephalic Respiratory: other (minimally dim at bases , unchanged, no wheezing.rhonchi Cardiovascular: other (Regular rate) Musculoskeletal: swelling (ble), No nl gait and stance Extremities: other (Chronic ulcerations bilateral lower extremities) Neurological: nl mental status, nl speech Results Result Diagram: 03/04/17 0612 03/06/17 0545 Results 24 hrs Laboratory Tests Test 03/05/17 12:44 03/05/17 17:22 03/05/17 20:21 03/06/17 05:45 Bedside Glucose 156 137 145 Sodium Level 134 L Potassium Level 4.1 Chloride Level 90 L Carbon Dioxide Level 36 H Anion Gap 12 Blood Urea Nitrogen 55 H Creatinine 2.13 H Glucose Level 122 Calcium Level 9.0 Phosphorus Level 4.2 Magnesium Level 2.5 Test 03/06/17 08:37 Bedside Glucose 130 Medications Medications Current Medications Ondansetron HCl (Zofran Inj) 4 mg Q6H PRN IV NAUSEA AND/OR VOMITING; Start 03/27 at 23:30 Acetaminophen (Tylenol Tab) 650 mg Q6H PRN PO PAIN LEVEL 1-3 OR FEVER; Start 02/20/17 at 23:30 Morphine Sulfate (morphine) 2 mg Q4H PRN IV PAIN LEVEL 7-10; Start 02/20/17 at 23:30 Insulin Glargine (Lantus) 10 unit DAILY@20 SC Last administered on 03/05/17t 20:26; Admin Dose 10 UNIT; Start 02/21/17 at 20:00 Diagnostic Test (Pha) (Accu-Chek) 1 ea 02 XX ; Start 02/22/17 at 02:00 Miscellaneous Information 1 ea NOTE XX ; Start 02/21/17 at 06:00 Glucose (Glutose) 15 gm Q15M PRN PO DECREASED GLUCOSE; Start 02/21/17 at 06:00 Glucose (Glutose) 22.5 gm Q15M PRN PO DECREASED GLUCOSE; Start 02/21/17 at 06: 00 Dextrose (D50w Syringe) 25 ml Q15M PRN IV DECREASED GLUCOSE; Start 02/21/17 at 06:00 Dextrose (D50w Syringe) 50 ml Q15M PRN IV DECREASED GLUCOSE; Start 02/21/17 at 06:00 Glucagon (Glucagen) 1 mg Q15M PRN IM DECREASED GLUCOSE; Start 02/21/17 at 06: 00 Glucose (Glutose) 15 gm Q15M PRN BUCCAL DECREASED GLUCOSE; Start 02/21/17 at 06:00 Acetaminophen/ Hydrocodone Bitart ([place] (5/325)) 1 tab Q4H PRN PO PAIN LEVEL 4 -6 Last administered on 03/05/17 17:29; Admin Dose 1 TAB; Start 02/21/17 at 09:30 Hydrocortisone (Hydrocortisone 2.5% Cr) 1 applic DAILY TOP Last administered on 03/06/17 08:40; Admin Dose 1 APPLIC; Start 02/22/17 at 09:00 Clotrimazole (Lotrimin Cr) 1 applic DAILY TOP Last administered on 03/06/17 08:40; Admin Dose 1 APPLIC; Start 02/22/17 at 09:00 Mupirocin (Bactroban) 1 applic BID TOP Last administered on 03/06/17 08:39; Admin Dose 1 APPLIC; Start 02/22/17 at 12:00 Polyethylene Glycol (Miralax) 17 gm DAILY PO Last administered on 03/06/17 08 :42; Admin Dose 17 GM; Start 02/24/17 at 21:00 Levofloxacin (Levaquin) 500 mg DAILY@06 PO Last administered on 03/06/17 05: 31; Admin Dose 500 MG; Start 02/25/17 at 11:00 Mupirocin (Bactroban) 1 applic BID TOP Last administered on 03/05/17 20:26; Admin Dose 1 APPLIC; Start 02/28/17 at 21:00 Multivitamins Therapeutic (Theragran) 1 tab DAILY PO Last administered on 03/06 08:39; Admin Dose 1 TAB; Start 03/01/17 at 09:00 Silver Sulfadiazine (Thermazene 1% 25 Gm) 1 applic BID TOP Last administered on 03/06/17 08:39; Admin Dose 1 APPLIC; Start 03/01/17 at 21:00 Folic Acid (Folic Acid) 0.4 mg DAILY PO Last administered on 03/06/17 08:39; Admin Dose 0.4 MG; Start 03/02/17 at 09:00 Furosemide (Lasix) 20 mg BID@06,18 IV Last administered on 03/02/17 18:04; Admin Dose 20 MG; Start 03/02/17 at 09:00; Status Future Hold Magnesium Hydroxide (Milk Of Mag) 30 ml DAILY PRN PO CONSTIPATION Last administered on 03/05/17 06:12; Admin Dose 30 ML; Start 11/23/17 at 09:00 Gabapentin (Neurontin) 600 mg BID PO Last administered on 03/06/17 08:39; Admin Dose 600 MG; Start 03/03/17 at 21:00 Doxycycline Hyclate (Vibramycin) 100 mg DAILY PO Last administered on 08:39; Admin Dose 100 MG; Start 03/05/17 at 12:30; Stop 03/19/17 at 12:29 Eye Lubricant (Artificial Tears Oph) 2 drop BID BOTH EYES Last administered on 03/06/17 08:39; Admin Dose 2 DROP; Start 03/05/17 at 21:00 SELINA PATIÑO Mar 06, 2017 11:51
--- NOTE | 2017-03-06 11:54 | PN ---
Date/Time of Note Date/Time of Note DATE: 03/06/17 TIME: 11:52 Assessment/Plan VTE Prophylaxis VTE Prophylaxis Intervention: contraindicated Lines/Catheters IV C[facility]ter Type (from [facility]): Saline Lock Urinary Cath still in place: Yes Assessment/Plan Chief Complaint/Hosp Course Assessment and plan 1. Acute on chronic respiratory failure. Patient noted with hypoxia and hypercapnia. Continue bronchodilators. Continue on supplemental oxygen. CPAP as needed as well. Hide Grader following. s/p thoracentesis 2. Bilateral infiltrates on chest x-ray. Suspect possible pneumonia. Continue with antibiotics. Diuresis per performance improvement director. breathing improved today 3. Diabetes mellitus. Continue with insulin regimen. 4. Acute on chronic kidney disease. Steel Estimator following. Medications to be renally dosed. monitor renal panel. appears to be stabilizing 5. Diastolic heart failure. Continue diuresis as tolerated. 6. Pulmonary hypertension. Provide with O2. Titrate down as tolerated. 7. Liver cirrhosis. Continue on rifaximin 8. Pancytopenia. Likely secondary to #7. Monitor H&H. 9. Dyslipidemia. Noted with low HDL and measured LDL. 10. Morbid obesity. Weight reduction was advised. 11. Bilateral lower extremity lymphedema with chronic bilateral lower extremity ulcerations. Follow-up with podiatry recommendations. Continue wound care. 12. MRSA in the nares. Continue on Bactroban. Disposition plan: Awaiting placement. continue abx regimen. d/c once snf placement set up Discussed plan of care with Dr. Chauhan Problems: Subjective 24 Hr Interval Summary Free Text/Dictation still reports having some discomfort on bilateral lower extremities Exam/Review of Systems Vital Signs Vitals Vital Signs Date Time Temp Pulse Resp B/P Pulse Ox O2 Delivery O2 Flow Rate FiO2 03/06/17 09:57 84 18 96 Nasal Cannula 4.0 03/06/17 07:59 98.9 108/58 Intake and Output 03/05/17 03/05/17 03/06/17 15:00 23:00 07:00 Intake Total 50 ml 1100 ml 1010 ml Output Total 500 ml 425 ml Balance 50 ml 600 ml 585 ml Exam Constitutional: alert, obese Psych: nl mood/affect Head: normocephalic Respiratory: other (minimally dim at bases Cardiovascular: other (Regular rate) Musculoskeletal: swelling (ble), No nl gait and stance Extremities: other (Chronic ulcerations bilateral lower extremities) Neurological: nl mental status, nl speech Results Result Diagram: 03/04/17 0612 03/06/17 0545 Results 24 hrs Laboratory Tests Test 03/05/17 12:44 03/05/17 17:22 03/05/17 20:21 03/06/17 05:45 Bedside Glucose 156 137 145 Sodium Level 134 L Potassium Level 4.1 Chloride Level 90 L Carbon Dioxide Level 36 H Anion Gap 12 Blood Urea Nitrogen 55 H Creatinine 2.13 H Glucose Level 122 Calcium Level 9.0 Phosphorus Level 4.2 Magnesium Level 2.5 Test 03/06/17 08:37 Bedside Glucose 130 Medications Medications Current Medications Ondansetron HCl (Zofran Inj) 4 mg Q6H PRN IV NAUSEA AND/OR VOMITING; Start 03/27 at 23:30 Acetaminophen (Tylenol Tab) 650 mg Q6H PRN PO PAIN LEVEL 1-3 OR FEVER; Start 02/20/17 at 23:30 Morphine Sulfate (morphine) 2 mg Q4H PRN IV PAIN LEVEL 7-10; Start 02/20/17 at 23:30 Insulin Glargine (Lantus) 10 unit DAILY@20 SC Last administered on 03/05/17t 20:26; Admin Dose 10 UNIT; Start 02/21/17 at 20:00 Diagnostic Test (Pha) (Accu-Chek) 1 ea 02 XX ; Start 02/22/17 at 02:00 Miscellaneous Information 1 ea NOTE XX ; Start 02/21/17 at 06:00 Glucose (Glutose) 15 gm Q15M PRN PO DECREASED GLUCOSE; Start 02/21/17 at 06:00 Glucose (Glutose) 22.5 gm Q15M PRN PO DECREASED GLUCOSE; Start 02/21/17 at 06: 00 Dextrose (D50w Syringe) 25 ml Q15M PRN IV DECREASED GLUCOSE; Start 02/21/17 at 06:00 Dextrose (D50w Syringe) 50 ml Q15M PRN IV DECREASED GLUCOSE; Start 02/21/17 at 06:00 Glucagon (Glucagen) 1 mg Q15M PRN IM DECREASED GLUCOSE; Start 02/21/17 at 06: 00 Glucose (Glutose) 15 gm Q15M PRN BUCCAL DECREASED GLUCOSE; Start 02/21/17 at 06:00 Acetaminophen/ Hydrocodone Bitart ([place] (5/325)) 1 tab Q4H PRN PO PAIN LEVEL 4 -6 Last administered on 03/05/17 17:29; Admin Dose 1 TAB; Start 02/21/17 at 09:30 Hydrocortisone (Hydrocortisone 2.5% Cr) 1 applic DAILY TOP Last administered on 03/06/17 08:40; Admin Dose 1 APPLIC; Start 02/22/17 at 09:00 Clotrimazole (Lotrimin Cr) 1 applic DAILY TOP Last administered on 03/06/17 08:40; Admin Dose 1 APPLIC; Start 02/22/17 at 09:00 Mupirocin (Bactroban) 1 applic BID TOP Last administered on 03/06/17 08:39; Admin Dose 1 APPLIC; Start 02/22/17 at 12:00 Polyethylene Glycol (Miralax) 17 gm DAILY PO Last administered on 03/06/17 08 :42; Admin Dose 17 GM; Start 02/24/17 at 21:00 Levofloxacin (Levaquin) 500 mg DAILY@06 PO Last administered on 03/06/17 05: 31; Admin Dose 500 MG; Start 02/25/17 at 11:00 Mupirocin (Bactroban) 1 applic BID TOP Last administered on 03/05/17 20:26; Admin Dose 1 APPLIC; Start 02/28/17 at 21:00 Multivitamins Therapeutic (Theragran) 1 tab DAILY PO Last administered on 03/06 08:39; Admin Dose 1 TAB; Start 03/01/17 at 09:00 Silver Sulfadiazine (Thermazene 1% 25 Gm) 1 applic BID TOP Last administered on 03/06/17 08:39; Admin Dose 1 APPLIC; Start 03/01/17 at 21:00 Folic Acid (Folic Acid) 0.4 mg DAILY PO Last administered on 03/06/17 08:39; Admin Dose 0.4 MG; Start 03/02/17 at 09:00 Furosemide (Lasix) 20 mg BID@06,18 IV Last administered on 03/02/17 18:04; Admin Dose 20 MG; Start 03/02/17 at 09:00; Status Future Hold Magnesium Hydroxide (Milk Of Mag) 30 ml DAILY PRN PO CONSTIPATION Last administered on 03/05/17 06:12; Admin Dose 30 ML; Start 03/03/17 at 09:00 Gabapentin (Neurontin) 600 mg BID PO Last administered on 03/06/17 08:39; Admin Dose 600 MG; Start 03/03/17 at 21:00 Doxycycline Hyclate (Vibramycin) 100 mg DAILY PO Last administered on 08:39; Admin Dose 100 MG; Start 03/05/17 at 12:30; Stop 03/19/17 at 12:29 Eye Lubricant (Artificial Tears Oph) 2 drop BID BOTH EYES Last administered on 03/06/17 08:39; Admin Dose 2 DROP; Start 03/05/17 at 21:00 SELINA PATIÑO Mar 06, 2017 11:54
[2017-03-06 14:19] VITALS: BP 115/59; RESP 20
--- NOTE | 2017-03-06 14:23 | CONS ---
Date/Time of Note Date/Time of Note DATE: 03/06/17 TIME: 14:21 Assessment/Plan Assessment/Plan Chief Complaint/Hosp Course ID PROGRESS NOTE CURRENT ABX: DAY # 14=> Levaquin + Doxycycline s/p Azactam s/p Vanco IV 24H INTERVAL SUMMARY * DC PLANNING IN PROCESS => ABX changed to PO as patient improved and pending placement to accepting facility. * Resting comfortably , afebrile, VSS, NAD, still feels SOB on supplemental O2 without dyspnea, no wheeze * s/p THORA 03/01/17 -> Micro (-) * 03/03/17 CXR: IMPRESSION: 1. Improved right basilar atelectasis. 2. Slightly worse pulmonary edema. 3. No other change from the 03/01/2017 chest radiograph. PHYSICAL EXAMINATION: GENERAL: VSS, afebrile, NAD HEENT: Unremarkable NECK: Supple, trach midline CHEST: Equal chest rise bilaterally, without dyspnea on observation HEART: RRR ABDOMEN: Soft, NT, ND EXT: Warm, Bilateral lower extremities erythema and chronic wounds. Right upper extremity also erythematous. SKIN: No rash, no diaphoresis ID ASSESSMENT: 56 yo obese M admit VPH: 1. Bilateral lower extremities, acute on chronic cellulitis with chronic wounds /BLEXT venous stasis dermatitis => improved, still w/erythema/warm/edema * WOUND CULTURE Final Organism 1 COAGULASE NEGATIVE STAPH QUANTITY SCANT GROWTH COAG NEG M.I.C. RX --------- --- CEFAZOLIN R CIPROFLOXACIN <=0.5 S CLINDAMYCIN >=8 R DOXYCYCLINE S ERYTHROMYCIN >=8 R LEVOFLOXACIN <=0.12 S OXACILLIN >=4 R PENICILLIN-G >=0.5 R RIFAMPIN >=32 R VANCOMYCIN 1 S TRIMETHOPRIM/SULFAMETHOXAZOLE <=10 S 2. Right upper extremity cellulitis. WOUND CULTURE Final 3. Shortness of breath secondary to PNA with right transudative pleural effusion, status post thoracentesis 4. Congestive heart failure exacerbation with pulmonary edema. 5. Acute possibly on chronic kidney disease. 6. Pancytopenia likely secondary to liver cirrhosis. 7. Diabetes. (+)MRSA-> Bactroban onboard ABX ALLERGIES: PCN INVASIVES: PIV CURRENT ABX: => Levaquin + Doxycycline for MRSA/CoNS coverage s/p Vanco IV, Azactam IV ID RECOMMENDATIONS/PLAN: 1. DC PLANNING IN PROCESS => ABX changed to PO as patient improved and pending placement to accepting facility. * When cleared for DC to SNF - august DC on the following ABX * Levaquin 500mg po x 14 days * Doxycycline 100mg po Q12H x 14 days * Topical Silvadene to wounds Q12H * Bactroban to bilateral nares Q12H x 14 days 2. August DC OFF isolation . Problems: Consultation Date/Type/Reason Admit Date/Time Feb 20, 2017 at 20:38 Type of Consultation: ID Exam/Review of Systems Vital Signs Vitals Vital Signs Date Time Temp Pulse Resp B/P Pulse Ox O2 Delivery O2 Flow Rate FiO2 03/06/17 14:19 99.0 87 20 115/59 96 03/06/17 13:13 Nasal Cannula 3.0 Intake and Output 03/05/17 03/05/17 03/06/17 15:00 23:00 07:00 Intake Total 50 ml 1100 ml 1010 ml Output Total 500 ml 425 ml Balance 50 ml 600 ml 585 ml Results Result Diagram: 03/04/17 0612 03/06/17 0545 Results 24 hrs Laboratory Tests Test 03/05/17 17:22 03/05/17 20:21 03/06/17 05:45 03/06/17 08:37 Bedside Glucose 137 145 130 Sodium Level 134 L Potassium Level 4.1 Chloride Level 90 L Carbon Dioxide Level 36 H Anion Gap 12 Blood Urea Nitrogen 55 H Creatinine 2.13 H Glucose Level 122 Calcium Level 9.0 Phosphorus Level 4.2 Magnesium Level 2.5 Test 03/06/17 12:25 Bedside Glucose 143 Medications Medications Current Medications Ondansetron HCl (Zofran Inj) 4 mg Q6H PRN IV NAUSEA AND/OR VOMITING; Start 03/27 at 23:30 Acetaminophen (Tylenol Tab) 650 mg Q6H PRN PO PAIN LEVEL 1-3 OR FEVER; Start 02/20/17 at 23:30 Morphine Sulfate (morphine) 2 mg Q4H PRN IV PAIN LEVEL 7-10; Start 02/20/17 at 23:30 Insulin Glargine (Lantus) 10 unit DAILY@20 SC Last administered on 03/05/17t 20:26; Admin Dose 10 UNIT; Start 02/21/17 at 20:00 Diagnostic Test (Pha) (Accu-Chek) 1 ea 02 XX ; Start 02/22/17 at 02:00 Miscellaneous Information 1 ea NOTE XX ; Start 02/21/17 at 06:00 Glucose (Glutose) 15 gm Q15M PRN PO DECREASED GLUCOSE; Start 02/21/17 at 06:00 Glucose (Glutose) 22.5 gm Q15M PRN PO DECREASED GLUCOSE; Start 02/21/17 at 06: 00 Dextrose (D50w Syringe) 25 ml Q15M PRN IV DECREASED GLUCOSE; Start 02/21/17 at 06:00 Dextrose (D50w Syringe) 50 ml Q15M PRN IV DECREASED GLUCOSE; Start 02/21/17 at 06:00 Glucagon (Glucagen) 1 mg Q15M PRN IM DECREASED GLUCOSE; Start 02/21/17 at 06: 00 Glucose (Glutose) 15 gm Q15M PRN BUCCAL DECREASED GLUCOSE; Start 02/21/17 at 06:00 Acetaminophen/ Hydrocodone Bitart ([place] (5/325)) 1 tab Q4H PRN PO PAIN LEVEL 4 -6 Last administered on 03/05/17 17:29; Admin Dose 1 TAB; Start 02/21/17 at 09:30 Hydrocortisone (Hydrocortisone 2.5% Cr) 1 applic DAILY TOP Last administered on 03/06/17 08:40; Admin Dose 1 APPLIC; Start 02/22/17 at 09:00 Clotrimazole (Lotrimin Cr) 1 applic DAILY TOP Last administered on 03/06/17 08:40; Admin Dose 1 APPLIC; Start 02/22/17 at 09:00 Mupirocin (Bactroban) 1 applic BID TOP Last administered on 03/06/17 08:39; Admin Dose 1 APPLIC; Start 02/22/17 at 12:00 Polyethylene Glycol (Miralax) 17 gm DAILY PO Last administered on 03/06/17 08 :42; Admin Dose 17 GM; Start 02/24/17 at 21:00 Levofloxacin (Levaquin) 500 mg DAILY@06 PO Last administered on 03/06/17 05: 31; Admin Dose 500 MG; Start 02/25/17 at 11:00 Mupirocin (Bactroban) 1 applic BID TOP Last administered on 03/05/17 20:26; Admin Dose 1 APPLIC; Start 02/28/17 at 21:00 Multivitamins Therapeutic (Theragran) 1 tab DAILY PO Last administered on 03/06 08:39; Admin Dose 1 TAB; Start 03/01/17 at 09:00 Silver Sulfadiazine (Thermazene 1% 25 Gm) 1 applic BID TOP Last administered on 03/06/17 08:39; Admin Dose 1 APPLIC; Start 03/01/17 at 21:00 Folic Acid (Folic Acid) 0.4 mg DAILY PO Last administered on 03/06/17 08:39; Admin Dose 0.4 MG; Start 03/02/17 at 09:00 Furosemide (Lasix) 20 mg BID@,18 IV Last administered on 03/02/17 18:04; Admin Dose 20 MG; Start 03/02/17 at 09:00; Status Future Hold Magnesium Hydroxide (Milk Of Mag) 30 ml DAILY PRN PO CONSTIPATION Last administered on 03/05/17 06:12; Admin Dose 30 ML; Start 03/03/17 at 09:00 Gabapentin (Neurontin) 600 mg BID PO Last administered on 03/06/17 08:39; Admin Dose 600 MG; Start 03/03/17 at 21:00 Doxycycline Hyclate (Vibramycin) 100 mg DAILY PO Last administered on 08:39; Admin Dose 100 MG; Start 03/05/17 at 12:30; Stop 03/19/17 at 12:29 Eye Lubricant (Artificial Tears Oph) 2 drop BID BOTH EYES Last administered on 03/06/17 08:39; Admin Dose 2 DROP; Start 03/05/17 at 21:00 ROSA MARIA ALMARAZ NP Mar 06, 2017 14:23
[2017-03-06] MEDS: HYDROCODONE/APAP (5/325) TAB PO PRN (17:39)
[2017-03-06 20:00] VITALS: BP 114/55; RESP 20
[2017-03-06] MEDS: INSULIN GLARGINE [LANtus] 3 ML PEN SC SCH (21:40)
[2017-03-07] MEDS: ALBUTEROL/IPRATROPIUM (NEB) 3 ML AMP HHN SCH ×6 (01:22→20:39)
[2017-03-07] MEDS: ACCU-CHEK XX SCH (02:00)
[2017-03-07 02:34] VITALS: BP 109/54; RESP 20
[2017-03-07] MEDS: LEVOFLOXACIN 500 MG TAB PO SCH (05:58)
[2017-03-07 06:42] LABS: ABNORMAL IP MESSAGE 1; BASOPHILS % 0.5 % (0.0-2.0); EOSINOPHILS # 0.3 10^3/ul (0.0-0.5); EOSINOPHILS % 7.4 % (0.0-7.0); HEMATOCRIT 23.3 % (42.0-52.0); HEMOGLOBIN 7.2 g/dl (14.0-18.0); LYMPHOCYTES # 0.4 10^3/ul (0.8-2.9); LYMPHOCYTES % 9.3 % (15.0-51.0); MEAN CORPUSCULAR HEMOGLOBIN 29.8 pg (29.0-33.0); MEAN CORPUSCULAR HGB CONC 30.9 g/dl (32.0-37.0); MEAN CORPUSCULAR VOLUME 96.3 fl (82.0-101.0); MEAN PLATELET VOLUME 10.4 fl (7.4-10.4); MONOCYTE # 0.6 10^3/ul (0.3-0.9); NEUTROPHILS % 69.6 % (39.0-77.0); PLATELET COUNT 53 10^3/UL (140-415); POSITIVE DIFF @See below; RED BLOOD COUNT 2.42 10^6/ul (4.70-6.10); RED CELL DISTRIBUTION WIDTH 18.3 % (11.5-14.5); WHITE BLOOD COUNT 4.3 10^3/ul (4.8-10.8)
[2017-03-07 06:59] LABS: CALCIUM 8.8 mg/dl (8.4-10.2); CREATININE 2.15 mg/dl (0.61-1.24); MAGNESIUM 2.6 mg/dl (1.7-2.5); PHOSPHORUS 4.2 mg/dl (2.5-4.9); POTASSIUM 4.2 mmol/L (3.5-5.1)
[2017-03-07 08:01] VITALS: BP 111/55; RESP 18
[2017-03-07] MEDS: INSULIN ASPART [NOVOLOG] 3 ML PEN SC SCH ×4 (08:04→20:29)
[2017-03-07] MEDS: FOLIC ACID 0.4 MG TAB PO SCH (08:05)
[2017-03-07] MEDS: MULTIVITAMINS THERAPEUTIC TAB PO SCH (08:05)
[2017-03-07] MEDS: GABAPENTIN 300 MG CAP PO SCH ×2 (08:05→20:25)
[2017-03-07] MEDS: DOXYCYCLINE 100 MG TAB PO SCH (08:05)
[2017-03-07] MEDS: MUPIROCIN 2% 22 GM OINT TOP SCH ×4 (08:06→20:30)
[2017-03-07] MEDS: ARTIFICIAL TEARS 15 ML OPH BOTH EYES SCH ×2 (08:06→20:28)
[2017-03-07] MEDS: CLOTRIMAZOLE 1% 30 GM CR TOP SCH (08:07)
[2017-03-07] MEDS: HYDROCORTISONE 2.5% 20 GM CR TOP SCH (08:07)
[2017-03-07] MEDS: POLYETHYLENE GLYCOL 17 GM PACKET PO SCH (08:08)
[2017-03-07] MEDS: SILVER SULFADIAZINE 1% 25 GM CR TOP SCH ×2 (08:08→20:30)
[2017-03-07] MEDS ORDERED: EPOETIN 10000 UNITS/1 ML INJ (ESRD) SC ONE (08:30)
--- NOTE | 2017-03-07 09:31 | PN ---
DATE: 03/07/2017 SUBJECTIVE: The patient is stable. Overnight, however, the patient noted to have increased shortne ss of breath and cough. No other events noted. OBJECTIVE: VITAL SIGNS: Blood pressure is 111/55, pulse 73, respiration 18, temperature 98.4. HEENT: Head is normocephalic. NECK: Supple. HEART: Regular rate. LUNGS: Show diminished breath sounds at the base. ABDOMEN: Soft, nontender to palpation. No rebound or guarding. EXTREMITIES: Positive for edema, positive wounds. DERMATOLOGIC: No rashes. MUSCULOSKELETAL: No joint effusions. NEUROLOGIC: No change in exam. MEDICATIONS: The patient's medications have been reviewed. LABORATORY DATA: Shows a white count of 4.3, hemoglobin 7.2, platelet count is 53. Sodium 132, pot assium 4.2, BUN 59, creatinine 2.15. ASSESSMENT AND PLAN: 1. Nonoliguric acute kidney injury on top of chronic kidney disease with unknown baseline creatinin e. Etiology was secondary to hemodynamics, diuretics. The patient's renal function appears to have stabilized. Creatinine down to 2.2 mg/dL. At this point, will continue current treatment plan, barraza pportive care, renally dose all medications. 2. Volume overload secondary to cirrhosis, congestive heart failure. The patient's diuretic therap y is on hold. If renal function remains stable, we will reintroduce low dose diuretics. 3. Alkalosis, unclear if this is due to recent diuretics or compensatory. We will consider checkin g an ABG. 4. Anemia. Monitor hemoglobin and hematocrit levels. Will give Epogen as needed. 6. Acute respiratory failure secondary to pneumonia. Continue current treatment plan. 7. History of sleep apnea. Continue CPAP. 8. Morbid obesity. Continue dietary modification. 9. Hypertension. Blood pressures improved. 10. Lower extremity wounds. Continue wound care. 11. Diabetes. Continue current insulin regimen. Dictated By: ADAN CORTÉS/AMY Conf#: [id number] DID#: [id number]
--- NOTE | 2017-03-07 11:03 | PN ---
Date/Time of Note Date/Time of Note DATE: 03/07/17 TIME: 10:59 Assessment/Plan VTE Prophylaxis VTE Prophylaxis Intervention: contraindicated Lines/Catheters IV [facility] Type [facility]from [facility] Urinary Cath still in place: Yes Reason Cath still needed: other (indicate) Assessment/Plan Chief Complaint/Hosp Course 1. Acute on chronic respiratory failure. Hypoxic and hypercapnic. Continue inhaled bronchodilators. Continue supplemental oxygen. Continue non-invasive positive pressure ventilation as needed. The patient being followed by pulmonology. 2. Bilateral infiltrates on chest x-ray. Fluid versus pneumonia. Continue empiric antibiotics. Diuresis as per nephrology. 3. Diabetes mellitus. Continue sliding scale insulin along with basal insulin. Hemoglobin A1c within normal limits. Blood sugars well controlled. 4. Acute on chronic kidney disease. The patient being followed by nephrology. Use nephrotoxic drugs with caution. 5. Diastolic heart failure. Continue diuresis as the renal function allows. 6. Pulmonary hypertension. PA systolic pressure 48 mmHg. Continue supplemental oxygen. 7. Right-sided pleural effusion. Status post thoracentesis on 03/01/2017. 8. Liver cirrhosis. Continue Rifaximin. 9. Pancytopenia. Most probably secondary to underlying liver cirrhosis. Continue to monitor. 10. Dyslipidemia. Low HDL with unmeasured LDL. 11. Morbid obesity. 12. Right upper extremity cellulitis. Continue antibiotics. Obtain right upper extremity venous Doppler to evaluate for any underlying DVT. 13. Bilateral conjunctivitis. Continue eyedrops. 14. Bilateral lower extremity lymphedema with chronic bilateral lower extremity ulcerations (infected). The patient being followed by podiatry. Local wound care as per podiatry. 15. MRSA colonization of the nares. Continue Bactroban. 16. Fluids, electrolytes, and nutrition. Carbohydrate controlled diet. 17. DVT prophylaxis. Contraindicated. 18. Plan. Continue antimicrobials as per ID. Diuresis as per nephrology. Continue physical therapy. Await placement. Obtain right upper extremity venous ultrasound. Case discussed with Dr. Resendiz. Problems: Subjective 24 Hr Interval Summary Free Text/Dictation Remains afebrile. Exam/Review of Systems Vital Signs Vitals Vital Signs Date Time Temp Pulse Resp B/P Pulse Ox O2 Delivery O2 Flow Rate FiO2 03/07/17 08:52 105 22 95 Nasal Cannula 4.0 03/07/17 08:01 98.4 111/55 Intake and Output 03/06/17 03/06/17 03/07/17 15:00 23:00 07:00 Intake Total 1320 ml 940 ml Output Total 800 ml 600 ml Balance 520 ml 340 ml Exam General: Morbidly obese 56 year-old male lying in bed in mild respiratory distress. HEENT: Normocephalic, atraumatic. Eyes: Anicteric sclerae, conjunctivae red. ENT : Nasal septum midline, oral mucosa moist. Neck: Obese. Respiratory: Bilaterally diminished breath sounds. Use of accessory muscles of respiration. Coarse breath sounds. Cardiovascular: S1, S2 heard. Regular rate and rhythm. Abdomen: Nontender and distended. Bowel sounds positive in all 4 quadrants. Genitourinary: Deferred. Extremities: Bilateral lower extremity 2-3+ pitting edema. RUE erythema with 1+ edema. Neurologic: Cranial nerves II through XII grossly intact. The patient is awake, alert, and oriented. Skin: Chronic ulcers of bilateral lower extremities. Results Result Diagram: 03/07/17 0533 03/07/17 0533 Results 24 hrs Laboratory Tests Test 03/06/17 12:25 03/06/17 17:34 03/06/17 21:25 03/07/17 05:33 Bedside Glucose 143 202 144 White Blood Count 4.3 #L Red Blood Count 2.42 L Hemoglobin 7.2 L Hematocrit 23.3 L Mean Corpuscular Volume 96.3 Mean Corpuscular Hemoglobin 29.8 Mean Corpuscular Hemoglobin Concent 30.9 L Red Cell Distribution Width 18.3 H Platelet Count 53 L Mean Platelet Volume 10.4 Neutrophils % 69.6 Lymphocytes % 9.3 L Monocytes % 13.0 H Eosinophils % 7.4 H Basophils % 0.5 Nucleated Red Blood Cells % 0.0 Neutrophils # 3.0 Lymphocytes # 0.4 L Monocytes # 0.6 Eosinophils # 0.3 Basophils # 0.0 Nucleated Red Blood Cells # 0.0 Sodium Level 132 L Potassium Level 4.2 Chloride Level 88 L Carbon Dioxide Level 35 H Anion Gap 13 Blood Urea Nitrogen 59 H Creatinine 2.15 H Glucose Level 133 Calcium Level 8.8 Phosphorus Level 4.2 Magnesium Level 2.6 H Test 03/07/17 08:03 Bedside Glucose 137 Medications Medications Current Medications Ondansetron HCl (Zofran Inj) 4 mg Q6H PRN IV NAUSEA AND/OR VOMITING; Start 03/27 at 23:30 Acetaminophen (Tylenol Tab) 650 mg Q6H PRN PO PAIN LEVEL 1-3 OR FEVER; Start 02/20/17 at 23:30 Morphine Sulfate (morphine) 2 mg Q4H PRN IV PAIN LEVEL 7-10; Start 02/20/17 at 23:30 Insulin Glargine (Lantus) 10 unit DAILY@20 SC Last administered on 03/06/17 21:40; Admin Dose 10 UNIT; Start 02/21/17 at 20:00 Diagnostic Test (Pha) (Accu-Chek) 1 ea 02 XX ; Start 02/22/17 at 02:00 Miscellaneous Information 1 ea NOTE XX ; Start 02/21/17 at 06:00 Glucose (Glutose) 15 gm Q15M PRN PO DECREASED GLUCOSE; Start 02/21/17 at 06:00 Glucose (Glutose) 22.5 gm Q15M PRN PO DECREASED GLUCOSE; Start 02/21/17 at 06: 00 Dextrose (D50w Syringe) 25 ml Q15M PRN IV DECREASED GLUCOSE; Start 02/21/17 at 06:00 Dextrose (D50w Syringe) 50 ml Q15M PRN IV DECREASED GLUCOSE; Start 02/21/17 at 06:00 Glucagon (Glucagen) 1 mg Q15M PRN IM DECREASED GLUCOSE; Start 02/21/17 at 06: 00 Glucose (Glutose) 15 gm Q15M PRN BUCCAL DECREASED GLUCOSE; Start 02/21/17 at 06:00 Acetaminophen/ Hydrocodone Bitart ([place] (5/325)) 1 tab Q4H PRN PO PAIN LEVEL 4 -6 Last administered on 03/06/17 17:39; Admin Dose 1 TAB; Start 02/21/17 at 09:30 Hydrocortisone (Hydrocortisone 2.5% Cr) 1 applic DAILY TOP Last administered on 03/07/17 08:07; Admin Dose 1 APPLIC; Start 02/22/17 at 09:00 Clotrimazole (Lotrimin Cr) 1 applic DAILY TOP Last administered on 03/07/17 08:07; Admin Dose 1 APPLIC; Start 02/22/17 at 09:00 Mupirocin (Bactroban) 1 applic BID TOP Last administered on 03/07/17 08:06; Admin Dose 1 APPLIC; Start 02/22/17 at 12:00 Polyethylene Glycol (Miralax) 17 gm DAILY PO Last administered on 03/06/17 08 :42; Admin Dose 17 GM; Start 02/24/17 at 21:00 Levofloxacin (Levaquin) 500 mg DAILY@06 PO Last administered on 03/07/17 05: 58; Admin Dose 500 MG; Start 02/25/17 at 11:00 Mupirocin (Bactroban) 1 applic BID TOP Last administered on 03/07/17 08:06; Admin Dose 1 APPLIC; Start 02/28/17 at 21:00 Multivitamins Therapeutic (Theragran) 1 tab DAILY PO Last administered on 03/07 08:05; Admin Dose 1 TAB; Start 03/01/17 at 09:00 Silver Sulfadiazine (Thermazene 1% 25 Gm) 1 applic BID TOP Last administered on 03/07/17 08:08; Admin Dose 1 APPLIC; Start 03/01/17 at 21:00 Folic Acid (Folic Acid) 0.4 mg DAILY PO Last administered on 03/07/17 08:05; Admin Dose 0.4 MG; Start 03/02/17 at 09:00 Furosemide (Lasix) 20 mg BID@06,18 IV Last administered on 03/02/17 18:04; Admin Dose 20 MG; Start 03/02/17 at 09:00; Status Future Hold Magnesium Hydroxide (Milk Of Mag) 30 ml DAILY PRN PO CONSTIPATION Last administered on 03/05/17 06:12; Admin Dose 30 ML; Start 03/03/17 at 09:00 Gabapentin (Neurontin) 600 mg BID PO Last administered on 03/07/17 08:05; Admin Dose 600 MG; Start 03/03/17 at 21:00 Doxycycline Hyclate (Vibramycin) 100 mg DAILY PO Last administered on 08:05; Admin Dose 100 MG; Start 03/05/17 at 12:30; Stop 03/19/17 at 12:29 Eye Lubricant (Artificial Tears Oph) 2 drop BID BOTH EYES Last administered on 03/07/17 08:06; Admin Dose 2 DROP; Start 03/05/17 at 21:00 IVON ESPAÑA NP Mar 07, 2017 11:03
--- NOTE | 2017-03-07 12:35 | RADRPT ---
PROCEDURE: US right upper extremity venous CLINICAL INDICATION: Right upper extremity swelling TECHNIQUE: Multiple longitudinal and transverse images of the right upper extremity veins were obta ined with palacios scale and color Doppler imaging. 2D grayscale measurements with compression, color D oppler flow, and augmentation was performed. COMPARISON: None available FINDINGS: The right internal jugular, subclavian, axillary, brachial, basilic, antecubital fossa, radial, and ulnar veins are patent, compressible, and without evidence of filling defects. Right upper extremity probable soft tissue edema. IMPRESSION: 1. No evidence of deep vein thrombosis involving the right upper extremity 2. Right upper extremity probable soft tissue edema RPTAT: TT Physician Greta Date Time Electronically viewed and signed by Physician Greta on 03/07/2017 12:35 JS/
[2017-03-07 13:41] LABS: MICROALBUMIN 6.4 mg/dL
--- NOTE | 2017-03-07 14:24 | CONS ---
Date/Time of Note Date/Time of Note DATE: 03/07/17 TIME: 14:22 Assessment/Plan Assessment/Plan Chief Complaint/Hosp Course SUBJECTIVE: No acute changes. Sleeping, looks comfortable, no fevers. ANTIMICROBIALS: 1. Doxycycline. 2. Levaquin. MICROBIOLOGY: Lower extremity wound culture grew coagulase-negative staph species. PHYSICAL EXAMINATION: GENERAL: This is a morbidly obese, well-developed, middle-aged man who is in no distress. HEENT: Head atraumatic, normocephalic. Sclerae anicteric. Buccal mucosa dry. NECK: Supple. CHEST: Rise symmetrical. Breath sounds diminished to bases. HEART: S1, S2. ABDOMEN: Soft, bowel tones present. EXTREMITIES: Bilateral lower extremity edema and chronic wounds that look better. ASSESSMENT: 1. Bilateral lower extremities, acute on chronic cellulitis. 2. Shortness of breath secondary to PNA with right transudative pleural effusion, status post thoracentesis 3. Diabetes. 4. Obesity. 5. Methicillin-resistant Staphylococcus aureus nares colonization. PLAN: The patient remains stable, continue antibiotics, Bactroban to nares and topical [place] to BLE, local wound care per podiatry recommendations. DW staff Problems: Consultation Date/Type/Reason Admit Date/Time Feb 20, 2017 at 20:38 Type of Consultation: ID Exam/Review of Systems Vital Signs Vitals Vital Signs Date Time Temp Pulse Resp B/P Pulse Ox O2 Delivery O2 Flow Rate FiO2 03/07/17 14:06 4.0 03/07/17 12:48 88 20 94 Nasal Cannula 03/07/17 08:01 98.4 111/55 Intake and Output 03/06/17 03/06/17 03/07/17 15:00 23:00 07:00 Intake Total 1320 ml 940 ml Output Total 800 ml 600 ml Balance 520 ml 340 ml Results Result Diagram: 03/07/17 0533 03/07/17 0533 Results 24 hrs Laboratory Tests Test 03/06/17 17:34 03/06/17 21:25 03/07/17 05:33 03/07/17 08:03 Bedside Glucose 202 144 137 White Blood Count 4.3 #L Red Blood Count 2.42 L Hemoglobin 7.2 L Hematocrit 23.3 L Mean Corpuscular Volume 96.3 Mean Corpuscular Hemoglobin 29.8 Mean Corpuscular Hemoglobin Concent 30.9 L Red Cell Distribution Width 18.3 H Platelet Count 53 L Mean Platelet Volume 10.4 Neutrophils % 69.6 Lymphocytes % 9.3 L Monocytes % 13.0 H Eosinophils % 7.4 H Basophils % 0.5 Nucleated Red Blood Cells % 0.0 Neutrophils # 3.0 Lymphocytes # 0.4 L Monocytes # 0.6 Eosinophils # 0.3 Basophils # 0.0 Nucleated Red Blood Cells # 0.0 Sodium Level 132 L Potassium Level 4.2 Chloride Level 88 L Carbon Dioxide Level 35 H Anion Gap 13 Blood Urea Nitrogen 59 H Creatinine 2.15 H Glucose Level 133 Calcium Level 8.8 Phosphorus Level 4.2 Magnesium Level 2.6 H Test 03/07/17 12:08 Bedside Glucose 144 Medications Medications Current Medications Ondansetron HCl (Zofran Inj) 4 mg Q6H PRN IV NAUSEA AND/OR VOMITING; Start 03/27 at 23:30 Acetaminophen (Tylenol Tab) 650 mg Q6H PRN PO PAIN LEVEL 1-3 OR FEVER; Start 02/20/17 at 23:30 Morphine Sulfate (morphine) 2 mg Q4H PRN IV PAIN LEVEL 7-10; Start 02/20/17 at 23:30 Insulin Glargine (Lantus) 10 unit DAILY@20 SC Last administered on 03/06/17t 21:40; Admin Dose 10 UNIT; Start 02/21/17 at 20:00 Diagnostic Test (Pha) (Accu-Chek) 1 ea 02 XX ; Start 02/22/17 at 02:00 Miscellaneous Information 1 ea NOTE XX ; Start 02/21/17 at 06:00 Glucose (Glutose) 15 gm Q15M PRN PO DECREASED GLUCOSE; Start 02/21/17 at 06:00 Glucose (Glutose) 22.5 gm Q15M PRN PO DECREASED GLUCOSE; Start 02/21/17 at 06: 00 Dextrose (D50w Syringe) 25 ml Q15M PRN IV DECREASED GLUCOSE; Start 02/21/17 at 06:00 Dextrose (D50w Syringe) 50 ml Q15M PRN IV DECREASED GLUCOSE; Start 02/21/17 at 06:00 Glucagon (Glucagen) 1 mg Q15M PRN IM DECREASED GLUCOSE; Start 02/21/17 at 06: 00 Glucose (Glutose) 15 gm Q15M PRN BUCCAL DECREASED GLUCOSE; Start 02/21/17 at 06:00 Acetaminophen/ Hydrocodone Bitart ([place] (5/325)) 1 tab Q4H PRN PO PAIN LEVEL 4 -6 Last administered on 03/06/17 17:39; Admin Dose 1 TAB; Start 02/21/17 at 09:30 Hydrocortisone (Hydrocortisone 2.5% Cr) 1 applic DAILY TOP Last administered on 03/07/17 08:07; Admin Dose 1 APPLIC; Start 02/22/17 at 09:00 Clotrimazole (Lotrimin Cr) 1 applic DAILY TOP Last administered on 03/07/17 08:07; Admin Dose 1 APPLIC; Start 02/22/17 at 09:00 Mupirocin (Bactroban) 1 applic BID TOP Last administered on 03/07/17 08:06; Admin Dose 1 APPLIC; Start 02/22/17 at 12:00 Polyethylene Glycol (Miralax) 17 gm DAILY PO Last administered on 03/06/17 08 :42; Admin Dose 17 GM; Start 02/24/17 at 21:00 Levofloxacin (Levaquin) 500 mg DAILY@06 PO Last administered on 03/07/17 05: 58; Admin Dose 500 MG; Start 02/25/17 at 11:00 Mupirocin (Bactroban) 1 applic BID TOP Last administered on 03/07/17 08:06; Admin Dose 1 APPLIC; Start 02/28/17 at 21:00 Multivitamins Therapeutic (Theragran) 1 tab DAILY PO Last administered on 03/07 08:05; Admin Dose 1 TAB; Start 03/01/17 at 09:00 Silver Sulfadiazine (Thermazene 1% 25 Gm) 1 applic BID TOP Last administered on 03/07/17 08:08; Admin Dose 1 APPLIC; Start 03/01/17 at 21:00 Folic Acid (Folic Acid) 0.4 mg DAILY PO Last administered on 03/07/17 08:05; Admin Dose 0.4 MG; Start 03/02/17 at 09:00 Furosemide (Lasix) 20 mg BID@06,18 IV Last administered on 03/02/17 18:04; Admin Dose 20 MG; Start 03/02/17 at 09:00; Status Future Hold Magnesium Hydroxide (Milk Of Mag) 30 ml DAILY PRN PO CONSTIPATION Last administered on 03/05/17 06:12; Admin Dose 30 ML; Start 03/03/17 at 09:00 Gabapentin (Neurontin) 600 mg BID PO Last administered on 03/07/17 08:05; Admin Dose 600 MG; Start 03/03/17 at 21:00 Doxycycline Hyclate (Vibramycin) 100 mg DAILY PO Last administered on 08:05; Admin Dose 100 MG; Start 03/05/17 at 12:30; Stop 03/19/17 at 12:29 Eye Lubricant (Artificial Tears Oph) 2 drop BID BOTH EYES Last administered on 03/07/17 08:06; Admin Dose 2 DROP; Start 03/05/17 at 21:00 LARS GARCIA NP Mar 07, 2017 14:24
[2017-03-07] MEDS ORDERED: DOXY100T2 PO (14:26)
[2017-03-07] MEDS ORDERED: FURO20TA3 PO (14:26)
[2017-03-07 15:13] VITALS: BP 108/56; RESP 16
--- NOTE | 2017-03-07 17:34 | DS ---
Date/Time of Note Date/Time of Note DATE: 03/07/17 TIME: 17:30 Discharge Summary Admission/Discharge Info Admit Date/Time Feb 20, 2017 at 20:38 Discharge Date/Time Discharge Diagnosis 1. Acute on chronic respiratory failure. Hypoxic and hypercapnic. 2. Bilateral infiltrates on chest x-ray. 3. Diabetes mellitus. 4. Acute on chronic kidney disease. 5. Diastolic heart failure. 6. Pulmonary hypertension. PA systolic pressure 48 mmHg. 7. Right-sided pleural effusion. Status post thoracentesis on 03/01/2017. 8. Liver cirrhosis. 9. Pancytopenia. 10. Dyslipidemia. 11. Morbid obesity. 12. Right upper extremity cellulitis. 13. Bilateral conjunctivitis. 14. Bilateral lower extremity lymphedema with chronic bilateral lower extremity ulcerations (infected). 15. MRSA colonization of the nares. 16. Anasarca. 17. Ascites. Patient Condition: Stable Consults 1. Brian Aguilera MD, Pulmonary. 2. Khadar Aguillon MD, Pulmonary. 3. nAgel Meyer DPM, Podiatry. 4. Servando Kaiser MD, Infectious Diseases. 5. Ty Knight DPM, Podiatry. Procedures Ultrasound-Guided Right Thoracentesis IMPRESSION: 1. Satisfactory ultrasound-guided right thoracentesis with the drainage of 0.750 L of serous fluid. Liver Ultrasound IMPRESSION: 1. Nodular liver which may indicate cirrhosis. 2. Gallbladder not visualized indicating it may be surgically absent. Clinical correlation is advised. 3. Pancreas not visualized. 4. Small amount of ascites. 5. Otherwise unremarkable study. Right Upper Extremity Venous Doppler Study IMPRESSION: 1. No evidence of deep vein thrombosis involving the right upper extremity 2. Right upper extremity probable soft tissue edema Chest CT IMPRESSION: 1. Large right pleural effusion and atelectasis throughout most of the right lung. 2. Small left pleural effusion and mild left basilar atelectasis. 3. Atherosclerosis. 4. Mild cardiomegaly and coronary artery calcification. 5. Moderate ascites. 6. Anasarca. 7. Fusion of several mid thoracic vertebrae, likely congenital. 8. Otherwise unremarkable study. 2D Echocardiogram Conclusions 1. Normal left ventricular systolic function. Normal left ventricular cavity size. Mild concentric left ventricular hypertrophy. Ejection fraction is visually estimated at 55 %. Tissue Doppler/Mitral Doppler indices are consistent with impaired relaxation (Stage I diastolic dysfunction). 2. There is mild enlargement of left atrium. 3. Mitral valve leaflets appear mildly thickened. Mild mitral annular calcification. Mild mitral valve regurgitation. 4. Aortic valve Max velocity 2.33 m/sec. Max PG 21.80 mmHg. Mean PG 12.50 mmHg. Aortic valve area 2.10 cm2. Aortic sclerosis without stenosis. Trace aortic valve regurgitation. 5. Normal appearance of the tricuspid valve. Estimated peak PA systolic pressure 48 mmHg. There is mild to moderate tricuspid regurgitation. 6. Dilated IVC without respiratory collapse consistent with elevated right atrial pressure. Hx of Present Illness This is a 56-year-old morbidly obese male with a BMI of 48, with a history of KAYLEE, insulin-dependent diabetes and bilateral lower extremity ulcers who was sent from a SNF for shortness of breath and hypoxia. He was recently admitted to [facility] with a diagnosis of pneumonia. When he presented to the ER, he was hypoxic with oxygen saturation of 64%. ABG shows a pH of 7.4, PCO2 53, PO2 104 and a bicarb 34 on 100% FiO2. Chest x-ray showed bilateral patchy pneumonias with small right pleural effusion. Lab showed a BNP of 3000, hemoglobin of 7.8, BUN 40 and a creatinine of almost 1.5 otherwise CBC and CMP were within acceptable range. Hospital Course The patient was admitted to inpatient telemetry floor. A pulmonology consult was obtained. The patient was maintained on inhaled bronchodilators and supplemental oxygen. The patient had noninvasive positive pressure ventilation at one point of time. The patient's respiratory distress improved with the treatment strategy. The patient continued to have bilateral infiltrates evident on chest x-ray. The patient was being empirically treated for any underlying healthcare associated pneumonia. The patient underwent a CT scan of the chest on 02/28/2017 that showed a large right-sided pleural effusion and a small left sided pleural effusion. The patient subsequently underwent a thoracentesis on 03/02/2017 with drainage of 0.750 L of serous fluid. The patient's fluid culture remained negative. Pulmonology was following the patient. The patient also had evidence of pulmonary hypertension with a PA systolic pressure of 48 mmHg. The patient was maintained on supplemental oxygen. The patient had evidence of diastolic heart failure. The patient was diuresed as per nephrology since the patient had worsening renal function. The patient has history of liver cirrhosis. The patient was maintained on rifaximin for the same. The patient had underlying pancytopenia, most probably secondary to underlying liver cirrhosis. The patient has dyslipidemia with low HDL with unmeasured LDL. The patient is also morbidly obese. The patient had bilateral lower extremity lymphedema with chronic bilateral lower extremity ulceration that was infected with Staph aureus. The patient was maintained on antimicrobials as per infectious diseases. He also had MRSA colonization of the nares and he was maintained on Bactroban. The patient has underlying diabetes mellitus. He was maintained on sliding scale insulin. The patient's hemoglobin A1c was within normal limits. Towards the end of the patient's hospital stay, he started having bilateral conjunctivitis. Hence the patient was maintained on eyedrops with improvement in the patient's symptoms. The patient had some right upper extremity erythema and minimal edema. The patient' s right upper extremity venous Doppler study was negative for any underlying DVT. The patient was advised on keeping the right upper extremity elevated and to continue the antibiotics. The patient was also evaluated by podiatry for his underlying bilateral lower extremity chronic ulcerations. The patient was maintained on local treatment as per podiatry. The patient is chronically bedridden. The patient was evaluated by physical therapy during this hospitalization. Physical therapy recommended outpatient [facility] facility placement. The patient came from a [facility]entiary facility. However, the patient did not want to go back to the same facility. Hence the patient will be discharged to a different facility. The patient had a stable, but prolonged hospital course. The patient will be discharged to be continued on antibiotics for 14 days. At this time I would like to thank all the consultants for seeing the patient and providing clinical recommendations. Case discussed with Dr. Resendiz. Home Meds Active Scripts Doxycycline* (Vibramycin*) 100 Mg Tab, 100 MG PO DAILY for 14 Days, TAB Last day 03/19/2017 Prov:IVON ESPAÑA NP 03/07/17 Furosemide* (Furosemide*) 20 Mg Tablet, 20 MG PO BID, #30 TAB Prov:IVON ESPAÑA NP 03/07/17 Polyethylene Glycol* (Miralax*) 17 Gm Powd.pack, 17 GM PO DAILY for 30 Days Prov:SELINA PATIÑO 03/02/17 Silver Sulfadiazine (Silver Sulfadiazine) 25 Gm Cream..g., 1 APPLIC TOP BID for 30 Days Prov:SELINA PATIÑO 03/02/17 Ondansetron Hcl* (Ondansetron Hcl* Inj) 4 Mg/2 Ml Vial, 4 MG IV Q6H Y for NAUSEA AND/OR VOMITING for 30 Days, VIAL Prov:SELINA PATIÑO 03/02/17 Mupirocin* (Bactroban*) 2% -22 Gram Oint...g., 1 APPLIC TOP BID for 14 Days Prov:SELINA PATIÑO 03/02/17 Multivitamins* (Theragran*) 1 Tab Tab, 1 TAB PO DAILY for 30 Days, TAB Prov:SELINA PATIÑO 03/02/17 Levofloxacin* (Levaquin*) 500 Mg Tablet, 500 MG PO DAILY@06 for 7 Days, TAB Prov:SELINA PATIÑO 03/02/17 Insulin Glargine* (Lantus*) 100 Unit/Ml Soln, 10 UNIT SC DAILY@20 for 30 Days Prov:SELINA PATIÑO 03/02/17 Insulin Aspart* (Novolog Insulin Pen*) 100 Unit/Ml Soln, 0 UNIT SC WITH MEALS BEDTIME for 30 Days Prov:SELINA PATIÑO 03/02/17 Hydrocortisone* Topical (Hydrocortisone* Topical) 2.5%-28.3 Gm Cream..g., 1 APPLIC TOP DAILY for 30 Days Prov:SELINA PATIÑO 03/02/17 Hydrocodone Bit-Acetaminophen (Hydrocodone Bit-APAP) 5-325MG Tablet, 1 TAB PO Q4H Y for PAIN LEVEL 4-6, #30 TAB Prov:SELINA PATIÑO 03/02/17 Gabapentin* (Gabapentin*) 300 Mg Capsule, 300 MG PO BID for 30 Days, CAP Prov:SELINA PATIÑO 03/02/17 Folic Acid* (Folic Acid*) 0.4 Mg Tablet, 0.4 MG PO DAILY for 30 Days, TAB Prov:SELINA PATIÑO 03/02/17 Clotrimazole (Clotrim) 15 Gm Cr, 1 APPLIC TOP DAILY for 30 Days Prov:SELINA PATIÑO 03/02/17 Acetaminophen (MAPAP) 325 Mg Tablet, 650 MG PO Q6H Y for PAIN LEVEL 1-3 OR FEVER , #30 TAB Prov:SELINA PATIÑO 03/02/17 Reported Medications Cyanocobalamin/FA/Pyridoxine (Folic Acid-Vit B6-Vit B12 Tab) 1 Each Tablet, 2 TAB PO DAILY, TAB 03/01/17 Discontinued Reported Medications Gabapentin* (Neurontin*) 600 Mg Tablet, 600 MG PO BID, #60 TAB 02/28/17 Follow-up Plan The patient being [facility] where he will be followed by a primary care physician. Primary Care Provider Not On Staff Doctor Time spent on discharge: 45 minutes Pending Labs Laboratory Tests Test 03/06/17 17:34 03/06/17 21:25 03/07/17 05:33 03/07/17 08:03 Bedside Glucose 202mg/dL (70-220) 144mg/dL (70-220) 137mg/dL (70-220) White Blood Count 4.310^3/ul (4.8-10.8) Red Blood Count 2.4210^6/ul (4.70-6.10) Hemoglobin 7.2g/dl (14.0-18.0) Hematocrit 23.3% (42.0-52.0) Mean Corpuscular Volume 96.3fl (82.0-101.0) Mean Corpuscular Hemoglobin 29.8pg (29.0-33.0) Mean Corpuscular Hemoglobin Concent 30.9g/dl (32.0-37.0) Red Cell Distribution Width 18.3% (11.5-14.5) Platelet Count 5310^3/UL (140-415) Mean Platelet Volume 10.4fl (7.4-10.4) Neutrophils % 69.6% (39.0-77.0) Lymphocytes % 9.3% (15.0-51.0) Monocytes % 13.0% (0.0-11.0) Eosinophils % 7.4% (0.0-7.0) Basophils % 0.5% (0.0-2.0) Nucleated Red Blood Cells % 0.0/100WBC (0.0-0.0) Neutrophils # 3.010^3/ul (1.6-7.5) Lymphocytes # 0.410^3/ul (0.8-2.9) Monocytes # 0.610^3/ul (0.3-0.9) Eosinophils # 0.310^3/ul (0.0-0.5) Basophils # 0.010^3/ul (0.0-0.1) Nucleated Red Blood Cells # 0.010^3/ul (0.0-0.0) Sodium Level 132mmol/L (135-144) Potassium Level 4.2mmol/L (3.5-5.1) Chloride Level 88mmol/L (97-110) Carbon Dioxide Level 35mmol/L (21-31) Anion Gap 13 (8-16) Blood Urea Nitrogen 59mg/dl (7-20) Creatinine 2.15mg/dl (0.61-1.24) Glucose Level 133mg/dl (70-220) Calcium Level 8.8mg/dl (8.4-10.2) Phosphorus Level 4.2mg/dl (2.5-4.9) Magnesium Level 2.6mg/dl (1.7-2.5) Test 03/07/17 12:08 03/07/17 17:13 Bedside Glucose 144mg/dL (70-220) 140mg/dL (70-220) IVON ESPAÑA NP Mar 07, 2017 17:34
[2017-03-07 20:00] VITALS: BP 111/58; RESP 20
[2017-03-07] MEDS: HYDROCODONE/APAP (5/325) TAB PO PRN (20:26)
[2017-03-07] MEDS: INSULIN GLARGINE [LANtus] 3 ML PEN SC SCH (20:38)
== END 2017-03-07 22:50 | DRG 193 ==
LOC: E/R 18:29 → TEL 20:38 → MS2 02-23 14:39
PROVIDERS: ADMIT Internal Medicine; ATTEND Internal Medicine
PROC: 5A09357 Assistance with Respiratory Ventilation, Less than 24 Consecutive Hours, Continuous Positive Airway Pressure (ICD-10-PCS; principal; 2017-02-20)
PROC: 0W993ZZ Drainage of Right Pleural Cavity, Percutaneous Approach (ICD-10-PCS; 2017-02-20)
DX: J18.9 Pneumonia, unspecified organism (principal); J96.21 Acute and chronic respiratory failure with hypoxia; I50.33 Acute on chronic diastolic (congestive) heart failure; N17.9 Acute kidney failure, unspecified; D61.818 Other pancytopenia; J90 Pleural effusion, not elsewhere classified; J96.22 Acute and chronic respiratory failure with hypercapnia; I13.0 Hypertensive heart and chronic kidney disease with heart failure and stage 1 through stage 4 chronic kidney disease, or unspecified chronic kidney disease; Z68.42 Body mass index [BMI] 45.0-49.9, adult; R18.8 Other ascites; N39.0 Urinary tract infection, site not specified; L03.113 Cellulitis of right upper limb; L97.929 Non-pressure chronic ulcer of unspecified part of left lower leg with unspecified severity; L97.919 Non-pressure chronic ulcer of unspecified part of right lower leg with unspecified severity; E11.8 Type 2 diabetes mellitus with unspecified complications; E66.01 Morbid (severe) obesity due to excess calories; Y95 Nosocomial condition; N18.9 Chronic kidney disease, unspecified; G47.33 Obstructive sleep apnea (adult) (pediatric); K74.60 Unspecified cirrhosis of liver; H10.9 Unspecified conjunctivitis; Z22.322 Carrier or suspected carrier of Methicillin resistant Staphylococcus aureus; B35.1 Tinea unguium; L08.89 Other specified local infections of the skin and subcutaneous tissue; B95.61 Methicillin susceptible Staphylococcus aureus infection as the cause of diseases classified elsewhere; I27.20 Pulmonary hypertension, unspecified
CPT/HCPCS: 36415; 36600; 71010; 71250; 76705; 76775; 76942; 80048; 80053; 80061; 80202; 81001; 81003; 82043; 82140; 82150; 82270; 82436; 82728; 82803; 82962; 83036; 83540; 83605; 83690; 83735; 83880; 84100; 84133; 84155; 84157; 84300; 84439; 84443; 84484; 85014; 85018; 85025; 85049; 85610; 85670; 85730; 86850; 86900; 86901; 87040; 87070; 87081; 87086; 87102; 87116; 87205; 90686; 93005; 93306; 93971; 94640; 94644; 94660; 94664; 96374; 96375; 97110; 97162; 97530; J1120; J1940; J0885; J1205; J1815; J1956; J2916; J3370; J3475; J7030; J7040; J7050; P9045; Q4081